=== PATIENT | female | born 1945 | race Hispanic/Latino ===

== ENCOUNTER 2020-07-30 11:19 | Emergency (ER) | payer OTHER ==
--- OUTSIDE RECORDS SUMMARY | 2020-07-30 11:22 | XMS REPORT | Continuity of Care Document ---
:1945 Author Organization [facility] t Address [address] [place] [address] [address]. [address] [place] [address] Care Team Providers Name Role Phone Unavailable Unavailable Unavailable Problems This patient has no known problems. Allergies, Adverse Reactions, Alerts This patient has no known allergies or adverse reactions. Medications This patient has no known medications. Procedures This patient has no known procedures. Results This patient has no known results.
[2020-07-30 13:17] LABS: Absolute Lymphocytes (CBC) 1.4 K/uL (0.7-4.9); Basophils % 1.1 % (0-1.3); Hematocrit 40.5 % (36.0-45.0); Lymphocytes % 15.1 % (15.3-44.8); MPV 8.6 fL (7.6-11.3); RBC Red Blood Cell Count 3.81 M/uL (3.86-4.86)
--- NOTE | 2020-07-30 13:25 | RAD REPORT ---
EXAM DESCRIPTION: CT - Abdomen Pelvis W Contrast - 07/30/2020 1:08 pm CLINICAL HISTORY: LLQ abd pain COMPARISON: CT ABD PELVIS W CONTRAST dated 12/11/2014; CT ABD PELVIS W CONTRAST dated 06/03/2014 TECHNIQUE: Biphasic, helical CT imaging of the abdomen and pelvis was performed following 100 ml non -ionic IV contrast. No oral contrast administered. All CT scans are performed using dose optimization technique as appropriate and may include automated exposure control or mA/KV adjustment according to patient size. FINDINGS: No suspicious findings in the lung bases. No cardiomegaly or pericardial effusion. The liver, spleen, and pancreas show no suspicious findings. Gallbladder is absent. Dilatation of the biliary tree is not outside of normal range for a post cholecystectomy patient and matches the 2015 study. Symmetric renal function is seen with no hydronephrosis or suspicious renal mass. No pyelonephritis o r acute parenchymal process. No bladder abnormalities. No adrenal abnormalities. No acute uterine fin ding. Ovaries are not clearly distinguishable and are obscured by adjacent on opacified bowel. No darren dence for an ovarian process. Large hiatal hernia is present with approximately 1/3 of the stomach intrathoracic. This is similar t o 2015. Evaluation of the herniated portion the stomach is limited in this setting but no gross abnor mality seen. Fluid is present in the gastric lumen. No dilated small bowel. No findings for appendici tis. Moderate stool volume is present in the colon. Sigmoid diverticulosis is minimal. There is tortu osity of the rectosigmoid colon. No acute colon process identifiable. No free air, free fluid or infl ammatory stranding. No hernia, mass or bulky lymphadenopathy. Disc and bone degenerative changes are present. Vascular calcifications are present. No aneurysm or a cute vascular finding. IMPRESSION: Contrast enhanced CT abdomen and pelvis showing no acute or emergent finding finding. Nonacute findings are detailed in the body of the report and are similar to 2015 imaging.
[2020-07-30 13:35] LABS: Albumin 3.6 g/dL (3.4-5.0); Bilirubin Direct 0.1 mg/dL (0-0.2); Bilirubin Total 0.4 mg/dL (0.2-1.0); Protein, Total 7.1 g/dL (6.4-8.2)
[2020-07-30 14:07] LABS: Urine Blood Negative (Negative); Urine Glucose Negative (Negative); Urine Protein Negative (Negative); Urine Specific Gravity 1.015 (1.005-1.030); Urine pH 6.5 (5.0-7.0)
[2020-07-30 14:21] LABS: Urine Bacteria NONE SEEN /HPF (<20); Urine RBC NONE SEEN /HPF (NONE SEEN)
[2020-07-30 14:54] LABS: Platelet Estimate INCR; White Blood Cell Scan OK (OK)
[2020-07-30 14:55] LABS: Blood Morphology Comment NOTED (NOT SEEN); Macrocytosis 1+
[2020-07-30 14:56] LABS: Anisocytosis SLIGHT
--- NOTE | 2020-07-30 15:01 | EDPHYS ---
Physician Documentation [facility] Name: Suzy Shipley Age: 75 yrs Sex: Female : 1945 Arrival Date: 07/30/2020 Time: 11:37 Bed 24 Private MD: ED Physician Donta Rao HPI: 07/30 14:56 This 75 yrs old Female presents to ER via Ambulatory with complaints of rn Abdominal Pain. 14:56 The patient presents with abdominal pain in the left lower quadrant. rn 14:56 Onset: The symptoms/episode began/occurred 2 day(s) ago. The symptoms do not radiate. rn Associated signs and symptoms: Pertinent positives: nausea, Pertinent negatives: blood in stools, diarrhea, dysuria, fever, hematuria, vomiting. The symptoms are described as achy. Modifying factors: The symptoms are alleviated by nothing, the symptoms are aggravated by movement, touching the area. Severity of pain: At its worst the pain was moderate in the emergency department the pain has improved. The patient has not experienced similar symptoms in the past. The patient has not recently seen a physician. Historical: - Allergies: 11:44 No Known Allergies; ll1 - PMHx: 11:44 Thyroid problem; Depression; ll1 - PSHx: 11:44 Cholecystectomy; ll1 - Immunization history:: Client reports receiving the 2nd dose of the Covid vaccine, Flu vaccine is not up to date. - Social history:: Smoking status: Patient/guardian denies using tobacco, the patient reports quitting approximately 3 years ago. - Family history:: not pertinent. - Hospitalizations: : No recent hospitalization is reported. ROS: 14:56 Constitutional: Negative for fever, chills, and weight loss, Eyes: Negative for injury, rn pain, redness, and discharge, ENT: Negative for injury, pain, and discharge, Neck: Negative for injury, pain, and swelling, Cardiovascular: Negative for chest pain, palpitations, and edema, Respiratory: Negative for shortness of breath, cough, wheezing, and pleuritic chest pain, Abdomen/GI: + LLQ abd pain and nausea Back: Negative for injury and pain, : Negative for injury, bleeding, discharge, and swelling, MS/Extremity: Negative for injury and deformity, Skin: Negative for injury, rash, and discoloration, Neuro: Negative for headache, weakness, numbness, tingling, and seizure. Exam: 14:56 Constitutional: This is a well developed, well nourished patient who is awake, alert, rn and in no acute distress. Head/Face: Normocephalic, atraumatic. Eyes: Periorbital areas with no swelling, redness, or edema. Cardiovascular: Regular rate and rhythm. No pulse deficits. Respiratory: No increased work of breathing, no retractions or nasal flaring. Abdomen/GI: soft, mild LLQ tenderness, no mass, no hernia Skin: Warm, dry MS/ Extremity: Pulses equal, no cyanosis. Neuro: Awake and alert, GCS 15 Vital Signs: 11:41 BP 110 / 76; Pulse 64; Resp 17; Temp 97.0; Pulse Ox 96% ; Weight 63.05 kg; Height 5 ft. ll1 0 in. (152.40 cm); Pain 9/10; 15:16 BP 151 / 59; Pulse 77; Resp 16; Pulse Ox 100% on R/A; zb 11:41 Body Mass Index 27.15 (63.05 kg, 152.40 cm) ll1 MDM: 12:14 Patient medically screened. rn 14:56 Differential diagnosis: appendicitis, diverticulitis, gastritis, non-specific abd pain, rn pancreatitis, Peritonitis, Pyelonephritis, Ureterolithiasis, urinary tract infection. Data reviewed: vital signs, nurses notes, lab test result(s), radiologic studies, CT scan, and as a result, I will discharge patient. Counseling: I had a detailed discussion with the patient and/or guardian regarding: the historical points, exam findings, and any diagnostic results supporting the discharge/admit diagnosis, lab results, radiology results, the need for outpatient follow up, to return to the emergency department if symptoms worsen or persist or if there are any questions or concerns that arise at home. Response to treatment: the patient's symptoms have mildly improved after treatment, and as a result, I will discharge patient. Special discussion: Based on the patient's Hx, exam, and Dx evaluation, there is no indication for emergent surgery or inpatient Tx. It is understood by the patient/guardian that if the Sx's persist or worsen they need to return immediately for re-evaluation. I discussed with the patient/guardian in detail that at this point there is no indication for admission to the hospital. It is understood, however, that if the symptoms persist or worsen the patient needs to return immediately for re-evaluation. ED course: No acute findings on CT abdomen, UA neg for infection, stable vitals, afebrile, will dc home with abx for possible early diverticulitis and symptomatic pain medication treatment. Urged to f/u with pcp for further evaluation and reevaluation. Could also be abd wall strain given happened when standing up, as well as early shingles. . 07/30 12:25 Order name: Basic Metabolic Panel; Complete Time: 14:36 rn 07/30 12:25 Order name: CBC with Diff; Complete Time: 14:56 rn 07/30 12:25 Order name: Hepatic Function; Complete Time: 14:36 rn 07/30 12:25 Order name: Lipase; Complete Time: 14:36 rn 07/30 12:25 Order name: Urine Microscopic Only; Complete Time: 14:36 rn 07/30 13:19 Order name: CBC Smear Scan; Complete Time: 14:56 EDMS 07/30 12:25 Order name: IV Saline Lock; Complete Time: 13:25 rn 07/30 12:25 Order name: Labs collected and sent; Complete Time: 13:25 rn 07/30 12:25 Order name: CT Abd/Pelvis - IV Contrast Only; Complete Time: 13:27 rn 07/30 12:25 Order name: Urine Dipstick-Ancillary (obtain specimen); Complete Time: 14:20 rn 07/30 14:07 Order name: Urine Dipstick-Ancillary; Complete Time: 14:36 EDMS Administered Medications: 14:48 Drug: traMADol 50 mg {Note: RASS 0.} Route: PO; zb 15:18 Follow up: Response: No adverse reaction; Pain is decreased; RASS: Alert and Calm (0) zb Disposition: 07/30/20 15:00 Discharged to Home. Impression: Lower abdominal pain, unspecified. - Condition is Stable. - Discharge Instructions: Abdominal Pain, Adult, Pain Without a Known Cause. - Prescriptions for Flagyl 500 mg Oral Tablet - take 1 tablet by ORAL route every 8 hours for 10 days; 30 tablet. Cipro 500 mg Oral Tablet - take 1 tablet by ORAL route every 12 hours for 10 days; 20 tablet. Tramadol 50 mg Oral Tablet - take 1 tablet by ORAL route every 8 hours as needed; 12 tablet. - Medication Reconciliation Form, Thank You Letter, Antibiotic Education, Prescription Opioid Use form. - Follow up: Private Physician; When: 2 - 3 days; Reason: Recheck today's complaints, Re-evaluation by your physician. - Problem is new. - Symptoms have improved. Signatures: Dispatcher [employer] EDMS Donta Rao MD MD rn Lewis, Lynsay, RN RN ll1 Hayley Yanez RN RN zb Corrections: (The following items were deleted from the chart) 15:18 15:00 07/30/2020 15:00 Discharged to Home. Impression: Lower abdominal pain, zb unspecified. Condition is Stable. Forms are Medication Reconciliation Form, Thank You Letter, Antibiotic Education, Prescription Opioid Use. Follow up: Private Physician; When: 2 - 3 days; Reason: Recheck today's complaints, Re-evaluation by your physician. Problem is new. Symptoms have improved. rn
--- NOTE | 2020-07-30 15:01 | ER ---
Nurse's Notes [facility] Name: Suzy Shipley Age: 75 yrs Sex: Female : 1945 Arrival Date: 07/30/2020 Time: 11:37 Bed 24 Private MD: Diagnosis: Lower abdominal pain, unspecified Presentation: 07/30 11:41 Chief complaint: Patient states: LLQ abd pain for 2 days. States today her stool looks ll1 black. No N/V or fever. Slight dysuria last week, none now. Has chronic L back pain. Coronavirus screen: Client denies travel out of the [place] in the last 14 days. At this time, the client does not indicate any symptoms associated with coronavirus-19. Ebola Screen: Patient denies travel to an Ebola-affected area in the 21 days before illness onset. Initial Sepsis Screen: Does the patient meet any 2 criteria? No. Patient's initial sepsis screen is negative. Does the patient have a suspected source of infection? Yes: Acute abdominal pain. Risk Assessment: Do you want to hurt yourself or someone else? Patient reports no desire to harm self or others. Onset of symptoms was July 29, 2020. 11:41 Method Of Arrival: Ambulatory ll1 11:41 Acuity: NANCI 3 ll1 Historical: - Allergies: 11:44 No Known Allergies; ll1 - PMHx: 11:44 Thyroid problem; Depression; ll1 - PSHx: 11:44 Cholecystectomy; ll1 - Immunization history:: Client reports receiving the 2nd dose of the Covid vaccine, Flu vaccine is not up to date. - Social history:: Smoking status: Patient/guardian denies using tobacco, the patient reports quitting approximately 3 years ago. - Family history:: not pertinent. - Hospitalizations: : No recent hospitalization is reported. Screenin:22 Abuse screen: Denies threats or abuse. Denies injuries from another. Nutritional zb screening: No deficits noted. Tuberculosis screening: No symptoms or risk factors identified. Fall Risk None identified. Assessment: 14:00 General: Appears uncomfortable, Behavior is calm, cooperative, appropriate for age. zb Pain: Complains of pain in posterior aspect of left lateral abdomen, left upper quadrant and left lower quadrant Pain radiates to posterior aspect of left lateral abdomen Pain currently is 3 out of 10 on a pain scale. at worst was 9 out of 10 on a pain scale. Quality of pain is described as aching, tender, throbbing. Neuro: Level of Consciousness is awake, alert, obeys commands. Cardiovascular: Reports None. Respiratory: Airway is patent Respiratory effort is even, unlabored, Respiratory pattern is regular, symmetrical, Breath sounds are clear bilaterally. GI: Abdomen is round Bowel sounds present X 4 quads. Abdomen is tender to palpation in left upper quadrant and left lower quadrant Reports lower abdominal pain, upper abdominal pain, bloating, Patient currently denies nausea, vomiting. : Urine is clear. Derm: Skin is intact, is healthy with good turgor. Musculoskeletal: Range of motion:. 15:17 Reassessment: patient d/c. d/c instructions given. gait even and steady. pain decrease zb to 7/10 at worst. no pain with no movement. Vital Signs: 11:41 BP 110 / 76; Pulse 64; Resp 17; Temp 97.0; Pulse Ox 96% ; Weight 63.05 kg; Height 5 ft. ll1 0 in. (152.40 cm); Pain 9/10; 15:16 BP 151 / 59; Pulse 77; Resp 16; Pulse Ox 100% on R/A; zb 11:41 Body Mass Index 27.15 (63.05 kg, 152.40 cm) ll1 ED Course: 11:37 Patient arrived in ED. bp1 11:43 Triage completed. ll1 11:45 Arm band placed on. ll1 12:14 Hayley Yanez RN is Primary Nurse. zb 12:14 Donta Rao MD is Attending Physician. rn 12:45 Inserted saline lock: 22 gauge in right antecubital area, using aseptic technique. zb Blood collected. 13:08 CT Abd/Pelvis - IV Contrast Only In Process Unspecified. EDMS 14:22 Patient has correct armband on for positive identification. Placed in gown. Bed in low zb position. Adult w/ patient. Pulse ox on. NIBP on. Door closed. Noise minimized. 15:17 No provider procedures requiring assistance completed. IV discontinued, intact, zb bleeding controlled, No redness/swelling at site. Pressure dressing applied. Administered Medications: 14:48 Drug: traMADol 50 mg {Note: RASS 0.} Route: PO; zb 15:18 Follow up: Response: No adverse reaction; Pain is decreased; RASS: Alert and Calm (0) zb Outcome: 15:00 Discharge ordered by . rn 15:17 Discharged to home ambulatory, with family. zb 15:17 Condition: stable 15:17 Discharge instructions given to patient, family, Instructed on discharge instructions, follow up and referral plans. medication usage, Demonstrated understanding of instructions, follow-up care, medications, Prescriptions given X 3. 15:18 Patient left the ED. zb Signatures: Dispatcher [employer] EDMS Donta Rao MD MD rn Lewis, Lynsay, RN RN ll1 Janay Goss Zipporah, RN RN zb Corrections: (The following items were deleted from the chart) 14:48 14:48 traMADol 50 mg PO zb zb
[2020-07-30] MEDS ORDERED: TRAMADOL HCL 50 MG TAB ONE (15:06)
[2020-07-30 15:26] VITALS: TEMP 97
[2020-07-30 15:27] VITALS: BP 151/59; O2SAT 100
== END 2020-07-30 15:18 | disposition home or self-care (01) ==
LOC: ER 11:19
DX: R10.32 Left lower quadrant pain (principal)
CPT/HCPCS: 36415; 74177; 80048; 80076; 81003; 81015; 82565; 83690; 85025; 99284

== ENCOUNTER 2020-09-06 23:20 | Emergency (ER) | payer OTHER ==
--- OUTSIDE RECORDS SUMMARY | 2020-09-06 23:23 | XMS REPORT | Continuity of Care Document ---
:1945 Author Organization [facility] t Address [address] [place] [address] [address]. [address] [place] [address] Care Team Providers Name Role Phone Unavailable Unavailable Unavailable Problems This patient has no known problems. Allergies, Adverse Reactions, Alerts This patient has no known allergies or adverse reactions. Medications This patient has no known medications. Procedures This patient has no known procedures. Results This patient has no known results.
[2020-09-06 23:43] LABS: Absolute Lymphocytes (CBC) 0.7 K/uL (0.7-4.9); Basophils % 0.3 % (0-1.3); Hematocrit 41.2 % (36.0-45.0); Lymphocytes % 4.4 % (15.3-44.8); MPV 8.5 fL (7.6-11.3); RBC Red Blood Cell Count 3.88 M/uL (3.86-4.86)
[2020-09-06 23:44] LABS: Protime INR 1.31
[2020-09-06] MEDS ORDERED: CIPROFLOXACIN 400mg IV 400 MG/200 ML BAG IV ONE (23:49)
[2020-09-06] MEDS ORDERED: ONDANSETRON 4 MG/2 ML VIAL ONE (23:49)
[2020-09-06] MEDS ORDERED: NA CHLORIDE 0.9% 1,000 ML ONE (23:50)
[2020-09-06 23:58] LABS: ALT/SGPT 71 U/L (12-78); AST/SGOT 30 U/L (15-37); Albumin 4.1 g/dL (3.4-5.0); Alkaline Phosphatase 127 U/L (45-117); BUN Blood Urea Nitrogen 22 mg/dL (7-18); Bicarbonate 23 mmol/L (21-32); Bilirubin Direct 0.1 mg/dL (0-0.2); Bilirubin Total 0.5 mg/dL (0.2-1.0); Glucose Level 137 mg/dL (74-106); Lipase 96 U/L (73-393); Magnesium 2.1 mg/dL (1.8-2.4); NT PRO-BNP 104 pg/mL (<450); Potassium 3.9 mmol/L (3.5-5.1); Sodium Level 137 mmol/L (136-145); Troponin (Emerg Dept Use Only) < 0.02 ng/mL (0.0-0.045)
[2020-09-06 23:58] LABS: Urine Blood Trace-intact (Negative); Urine Glucose Negative (Negative); Urine Protein Negative (Negative)
[2020-09-07 00:07] LABS: Anisocytosis 2+; Blood Morphology Comment NOTED (NOT SEEN); Macrocytosis 2+; Ovalocytes 1+; Platelet Estimate ADEQ
--- NOTE | 2020-09-07 00:50 | ER ---
Nurse's Notes [facility] Name: Suzy Shipley Age: 75 yrs Sex: Female : 1945 Arrival Date: 09/06/2020 Time: 23:22 Bed 19 Private MD: Diagnosis: Vomiting;Diarrhea, unspecified;Abdominal tenderness;Congenital hiatus hernia-large Presentation: 09/06 23:22 Chief complaint: EMS states: Pt BIB EMS from home for c/o generalized abd pain, n/v/d ad5 that began at 1930 this pm. Pt denies blood in stool or emesis. +generalized weakness per pt. No active vomiting upon arrival to ED. VSS. Coronavirus screen: At this time, the client does not indicate any symptoms associated with coronavirus-19. Ebola Screen: No symptoms or risks identified at this time. Initial Sepsis Screen: Does the patient meet any 2 criteria? HR > 90 bpm. Does the patient have a suspected source of infection? No. Patient's initial sepsis screen is negative. Risk Assessment: Do you want to hurt yourself or someone else? Patient reports no desire to harm self or others. Onset of symptoms was September 06, 2020 at 19:30. 23:22 Method Of Arrival: EMS ad5 23:22 Acuity: NANCI 3 ad5 Historical: - Allergies: 23:37 No Known Allergies; ad5 - Home Meds: 23:37 Unable to obtain [Active]; ad5 - PMHx: 23:37 Depression; Thyroid problem; Arthritis; High cholesterol; ad5 - Immunization history:: Adult Immunizations unknown. - Social history:: Smoking status: unknown. - Family history:: not pertinent. Screenin:36 Abuse screen: Denies threats or abuse. Nutritional screening: No deficits noted. ea Tuberculosis screening: No symptoms or risk factors identified. Fall Risk IV access (20 points). Assessment: 23:37 General: Appears in no apparent distress. Behavior is calm, cooperative, appropriate ea for age. Pain: Complains of pain in abdomen. Neuro: Level of Consciousness is awake, alert, obeys commands, Oriented to person, place, time. Cardiovascular: Patient's skin is warm and dry. Respiratory: Airway is patent Respiratory effort is even, unlabored, Respiratory pattern is regular, symmetrical. Derm: Skin is pink, warm \T\ dry. 09/07 00:14 Reassessment: Patient appears in no apparent distress at this time. No changes from ad5 previously documented assessment. Patient and/or family updated on plan of care and expected duration. Pain level reassessed. 02:48 GI: Abdomen is flat, Bowel sounds present X 4 quads. Abd is soft and non tender Reports ad5 lower abdominal pain, diarrhea, nausea, vomiting. Vital Signs: 09/06 23:22 BP 156 / 87; Pulse 108; Resp 18 S; Temp 99.2(O); Pulse Ox 93% on R/A; Weight 67.59 kg; ad5 Height 5 ft. 4 in. (162.56 cm); Pain 6/10; 09/07 00:14 BP 144 / 84; Pulse 100; Resp 16 S; Pulse Ox 95% on R/A; ad5 09/06 23:22 Body Mass Index 25.58 (67.59 kg, 162.56 cm) ad5 ED Course: 09/06 23:22 Patient arrived in ED. mike 23:22 Ivan Franks MD is Attending Physician. mike 23:35 Alicia Flores, MARCIAL is Primary Nurse. ea 23:36 Patient has correct armband on for positive identification. Bed in low position. Call ea light in reach. Side rails up X2. 23:36 Arm band placed on right wrist. Patient placed in an exam room, on a stretcher, on ea cardiac surgeon, on pulse oximetry. EKG completed in triage. Results shown to MD. 23:36 Inserted saline lock: 20 gauge in right antecubital area, using aseptic technique. ea Blood collected. 23:37 Triage completed. ad5 23:56 XRAY Chest (1 view) In Process Unspecified. EDMS 09/07 00:23 CT Abd/Pelvis - IV Contrast Only In Process Unspecified. EDMS 00:50 Anson Marcano MD is Referral Physician. mike 02:35 No provider procedures requiring assistance completed. ea 02:48 IV discontinued, intact, bleeding controlled, No redness/swelling at site. Pressure ad5 dressing applied. Administered Medications: 09/06 23:38 Drug: NS 0.9% 1000 ml Route: IV; Rate: 1 bolus; Site: right antecubital; ea 09/07 01:23 Follow up: IV Status: Completed infusion; IV Intake: 1000ml ad5 09/06 23:38 Drug: Cipro (ciprofloxacin) 400 mg Volume: 200 ml; Route: IVPB; Infused Over: 60 mins; ea Site: right antecubital; 09/07 01:23 Follow up: Response: No adverse reaction; IV Status: Completed infusion; IV Intake: ad5 200ml 09/06 23:38 Drug: Zofran (Ondansetron) 4 mg Route: IVP; Site: right antecubital; ea 09/07 00:44 Follow up: Response: No adverse reaction ad5 00:52 Drug: Tylenol 650 mg Route: PO; ad5 01:22 Follow up: Response: No adverse reaction ad5 00:52 Drug: NS 0.9% 1000 ml Route: IV; Rate: 1 bolus; Site: right antecubital; ad5 02:47 Follow up: IV Status: Completed infusion; IV Intake: 1000ml ad5 Intake: 01:23 IV: 200ml; Total: 200ml. ad5 01:23 IV: 1000ml; Total: 1200ml. ad5 02:47 IV: 1000ml; Total: 2200ml. ad5 Outcome: 00:49 Discharge ordered by . mike 02:35 Condition: stable ea 02:35 Discharge instructions given to patient, Instructed on discharge instructions, follow up and referral plans. Demonstrated understanding of instructions, follow-up care, medications, Prescriptions given X 3. 02:48 Discharged to home ambulatory, with significant other. ad5 02:49 Patient left the ED. ea Signatures: Dispatcher [employer] EDIvan Romo MD MD cha Antunez, Elena RN RN Marco A Garcia ad5 Corrections: (The following items were deleted from the chart) 02:49 09/06 23:37 General: Appears in no apparent distress. Behavior is calm, cooperative, ad5 appropriate for age, ea
--- NOTE | 2020-09-07 00:50 | EDPHYS ---
Physician Documentation [facility] Name: Suzy Shipley Age: 75 yrs Sex: Female : 1945 Arrival Date: 09/06/2020 Time: 23:22 Bed 19 Private MD: ED Physician Ivan Franks HPI: 09/06 23:25 This 75 yrs old Female presents to ER via Unassigned with complaints of mike Diarrhea. 23:25 The patient presents to the emergency department with nausea, vomiting, diarrhea, mike abdominal pain, of the right upper quadrant, left upper quadrant, right lower quadrant and left lower quadrant. Onset: The symptoms/episode began/occurred this morning. Possible causes: unknown. The symptoms are aggravated by nothing. The symptoms are alleviated by nothing. Associated signs and symptoms: The patient has no apparent associated signs or symptoms. Severity of symptoms: At their worst the symptoms were mild moderate in the emergency department the symptoms are unchanged. The patient has not experienced similar symptoms in the past. Historical: - Allergies: 23:37 No Known Allergies; ad5 - Home Meds: 23:37 Unable to obtain [Active]; ad5 - PMHx: 23:37 Depression; Thyroid problem; Arthritis; High cholesterol; ad5 - Immunization history:: Adult Immunizations unknown. - Social history:: Smoking status: unknown. - Family history:: not pertinent. ROS: 23:26 Constitutional: Negative for fever, chills, and weight loss, Eyes: Negative for injury, mike pain, redness, and discharge, ENT: Negative for injury, pain, and discharge, Neck: Negative for injury, pain, and swelling, Cardiovascular: Negative for chest pain, palpitations, and edema, Respiratory: Negative for shortness of breath, cough, wheezing, and pleuritic chest pain, Back: Negative for injury and pain, : Negative for injury, bleeding, discharge, and swelling, MS/Extremity: Negative for injury and deformity, Skin: Negative for injury, rash, and discoloration, Neuro: Negative for headache, weakness, numbness, tingling, and seizure, Psych: Negative for depression, anxiety, suicide ideation, homicidal ideation, and hallucinations, Allergy/Immunology: Negative for hives, rash, and allergies, Endocrine: Negative for neck swelling, polydipsia, polyuria, polyphagia, and marked weight changes. 23:26 Abdomen/GI: Positive for abdominal pain, nausea and vomiting, diarrhea. Exam: 23:26 Constitutional: This is a well developed, well nourished patient who is awake, alert, mike and in no acute distress. Head/Face: Normocephalic, atraumatic. Eyes: Pupils equal round and reactive to light, extra-ocular motions intact. Lids and lashes normal. Conjunctiva and sclera are non-icteric and not injected. Cornea within normal limits. Periorbital areas with no swelling, redness, or edema. ENT: Nares patent. No nasal discharge, no septal abnormalities noted. Tympanic membranes are normal and external auditory canals are clear. Oropharynx with no redness, swelling, or masses, exudates, or evidence of obstruction, uvula midline. Mucous membranes moist. Neck: Trachea midline, no thyromegaly or masses palpated, and no cervical lymphadenopathy. Supple, full range of motion without nuchal rigidity, or vertebral point tenderness. No Meningismus. Chest/axilla: Normal chest wall appearance and motion. Nontender with no deformity. No lesions are appreciated. Cardiovascular: Regular rate and rhythm with a normal S1 and S2. No gallops, murmurs, or rubs. Normal PMI, no JVD. No pulse deficits. Respiratory: Lungs have equal breath sounds bilaterally, clear to auscultation and percussion. No rales, rhonchi or wheezes noted. No increased work of breathing, no retractions or nasal flaring. Back: No spinal tenderness. No costovertebral tenderness. Full range of motion. Skin: Warm, dry with normal turgor. Normal color with no rashes, no lesions, and no evidence of cellulitis. MS/ Extremity: Pulses equal, no cyanosis. Neurovascular intact. Full, normal range of motion. Neuro: Awake and alert, GCS 15, oriented to person, place, time, and situation. Cranial nerves II-XII grossly intact. Motor strength 5/5 in all extremities. Sensory grossly intact. Cerebellar exam normal. Normal gait. Psych: Awake, alert, with orientation to person, place and time. Behavior, mood, and affect are within normal limits. 23:26 Abdomen/GI: Inspection: distension, that is mild, Bowel sounds: active, Palpation: mild abdominal tenderness, in the right upper quadrant and left upper quadrant, Liver: no appreciated palpable abnormalities, Hernia: not appreciated. Vital Signs: 23:22 BP 156 / 87; Pulse 108; Resp 18 S; Temp 99.2(O); Pulse Ox 93% on R/A; Weight 67.59 kg; ad5 Height 5 ft. 4 in. (162.56 cm); Pain 6/10; 09/07 00:14 BP 144 / 84; Pulse 100; Resp 16 S; Pulse Ox 95% on R/A; ad5 09/06 23:22 Body Mass Index 25.58 (67.59 kg, 162.56 cm) ad5 MDM: 09/06 23:22 Patient medically screened. mike 23:32 Differential diagnosis: Nonspecific abd pain, gastritis, pancreatitis, appendicitis, mike diverticulitis, viral gastroenteritis, gastroenteritis. Data reviewed: vital signs, nurses notes, EMS record, lab test result(s), EKG, radiologic studies, CT scan, plain films. Data interpreted: desk monitor: rate is 86 beats/min, rhythm is regular, Pulse oximetry: on room air is 96 %. Test interpretation: by ED physician or midlevel provider: ECG, plain radiologic studies. Counseling: I had a detailed discussion with the patient and/or guardian regarding: the historical points, exam findings, and any diagnostic results supporting the discharge/admit diagnosis, lab results, radiology results. 09/06 23:25 Order name: Basic Metabolic Panel; Complete Time: 00:23 mike 09/06 23:25 Order name: CBC with Diff; Complete Time: 00:23 mike 09/06 23:25 Order name: LFT's; Complete Time: 00:23 mike 09/06 23:25 Order name: Magnesium; Complete Time: 00:23 mike 09/06 23:25 Order name: NT PRO-BNP; Complete Time: 00:23 mike 09/06 23:25 Order name: PT-INR; Complete Time: 00:23 [facility] 09/06 23:25 Order name: Troponin (emerg Dept Use Only); Complete Time: 00:23 mike 09/06 23:25 Order name: Lipase; Complete Time: 00:23 mike 09/06 23:25 Order name: Basic Metabolic Panel ad5 09/06 23:25 Order name: CBC with Diff ad5 09/06 23:25 Order name: Hepatic Function ad5 09/06 23:25 Order name: XRAY Chest (1 view) mike 09/06 23:25 Order name: EKG; Complete Time: 23:25 mike 09/06 23:25 Order name: Cardiac monitoring; Complete Time: 23:38 mike 09/06 23:25 Order name: EKG - Nurse/Tech; Complete Time: 23:38 mike 09/06 23:25 Order name: IV Saline Lock; Complete Time: 23:38 mike 09/06 23:25 Order name: Labs collected and sent; Complete Time: 23:38 mike 09/06 23:25 Order name: O2 Per Protocol; Complete Time: 23:38 mike 09/06 23:25 Order name: CT Abd/Pelvis - IV Contrast Only mike 09/06 23:25 Order name: Lipase ad5 09/06 23:47 Order name: Manual Differential; Complete Time: 00:23 EDMS 09/06 23:58 Order name: Urine Dipstick-Ancillary; Complete Time: 00:01 EDMS 09/06 23:25 Order name: O2 Sat Monitoring; Complete Time: 23:38 mike 09/06 23:25 Order name: Urine Dipstick-Ancillary (obtain specimen); Complete Time: 00:00 mike 09/06 23:25 Order name: IV Saline Lock; Complete Time: 23:38 ad5 09/06 23:25 Order name: Labs collected and sent; Complete Time: 23:38 ad5 Administered Medications: 23:38 Drug: NS 0.9% 1000 ml Route: IV; Rate: 1 bolus; Site: right antecubital; 09/07 01:23 Follow up: IV Status: Completed infusion; IV Intake: 1000ml ad5 09/06 23:38 Drug: Cipro (ciprofloxacin) 400 mg Volume: 200 ml; Route: IVPB; Infused Over: 60 mins; ea Site: right antecubital; 09/07 01:23 Follow up: Response: No adverse reaction; IV Status: Completed infusion; IV Intake: ad5 200ml 09/06 23:38 Drug: Zofran (Ondansetron) 4 mg Route: IVP; Site: right antecubital; ea 09/07 00:44 Follow up: Response: No adverse reaction ad5 00:52 Drug: Tylenol 650 mg Route: PO; ad5 01:22 Follow up: Response: No adverse reaction ad5 00:52 Drug: NS 0.9% 1000 ml Route: IV; Rate: 1 bolus; Site: right antecubital; ad5 02:47 Follow up: IV Status: Completed infusion; IV Intake: 1000ml ad5 Disposition Summary: 09/07/20 00:49 Discharge Ordered Location: Home [facility] Problem: new mike Symptoms: have improved mike Condition: Stable mike Diagnosis - Vomiting mike - Diarrhea, unspecified mike - Abdominal tenderness mike - Congenital hiatus hernia - large mike Followup: mike - With: Private Physician - When: 2 - 3 days - Reason: Recheck today's complaints, Continuance of care, Re-evaluation by your physician Followup: mike - With: Anson Marcano MD - When: 2 - 3 days - Reason: Recheck today's complaints, Continuance of care, Re-evaluation by your physician Discharge Instructions: - Discharge Summary Sheet [facility] - Food Choices to Help Relieve Diarrhea, Adult mike - Diarrhea, Adult mike - Hiatal Hernia mike - Nausea and Vomiting, Adult mike - Nausea and Vomiting, Adult, [id number] mike - Diarrhea, Adult, [id number] [facility] Forms: - Medication Reconciliation Form [facility] - Thank You Letter [facility] - Antibiotic Education [facility] - Prescription Opioid Use [facility] Prescriptions: - promethazine 25 mg Rectal suppository - insert 1 suppository by RECTAL route every 6 hours intractabe nausea and mike vomiting; 12 suppository; Refills: 0, Product Selection Permitted - Pepcid 20 mg Oral Tablet - take 1 tablet by ORAL route every 12 hours for 15 days; 30 tablet; Refills: 0, [facility] Product Selection Permitted - Zofran 4 mg Oral Tablet - take 1 tablet by ORAL route every 12 hours As needed; 20 tablet; Refills: 0, [facility] Product Selection Permitted - Cipro 500 mg Oral Tablet - take 1 tablet by ORAL route every 12 hours for 5 days; 10 tablet; Refills: 0, [facility] Product Selection Permitted Signatures: Dispatcher [employer] Ivan Lazaro MD MD cha Attema, Lee, [employer]C [employer]Cla1 Alicia Flores RN RN Marco A Garcia ad5
[2020-09-07] MEDS ORDERED: NA CHLORIDE 0.9% 1,000 ML ONE (01:12)
[2020-09-07] MEDS ORDERED: ACETAMINOPHEN 325 MG TABLET ONE (01:12)
[2020-09-07 03:08] VITALS: TEMP 99.2
[2020-09-07 03:10] VITALS: BP 144/84; O2SAT 95
--- NOTE | 2020-09-07 07:11 | RAD REPORT ---
EXAM DESCRIPTION: RAD - Chest Single View - 09/06/2020 11:56 pm CLINICAL HISTORY: COUGH COMPARISON: CHEST SINGLE VIEW dated 06/03/2014; CHEST SINGLE VIEW dated 06/27/2010; CHEST PA AND LAT 2 VIEW dated 01/22/2003 FINDINGS: Heart size is normal. Atherosclerosis. Hiatal hernia. No edema or consolidation. No fractu res are seen. IMPRESSION: No acute cardiopulmonary disease.
--- NOTE | 2020-09-07 07:43 | EKG ---
Test Date: 2020-09-06 Test Time: 23:29:13 Lead Software Qa Engineer: JAYCE MEASUREMENT RESULTS: Intervals: Rate: 107 IN: 134 QRSD: 72 QT: 344 QTc: 459 [place]: P: 87 IN: 134 QRS: -77 T: 104 INTERPRETIVE STATEMENTS: Sinus tachycardia Pulmonary disease pattern Left anterior fascicular block Nonspecific ST and T wave abnormality Abnormal ECG Compared to ECG 06/03/2014 09:34:39 ST (T wave) deviation now present Sinus rhythm no longer present Electronically Signed On 09-07-20 07:42:29 CDT by Jensen Martinez
--- NOTE | 2020-09-07 12:19 | RAD REPORT ---
EXAM DESCRIPTION: CTAbdomen Pelvis W Contrast - 09/07/2020 6:50 am COMPARISON: CT abdomen pelvis July 30, 2020 CLINICAL HISTORY: ABD PAIN TECHNIQUE: CT of the abdomen and pelvis was acquired with IV contrast material. Coronal and sagitt al reconstructions were obtained. Automated exposure control was utilized on this examination as a dose lowering technique. FINDINGS: Lung bases: Clear. Liver: Normal. Gallbladder and biliary: Cholecystectomy. Unremarkable biliary tree. Pancreas: Normal. Spleen: Normal. Adrenal glands: Normal adrenal glands. Kidneys: Normal kidneys Stomach and Small Bowel: Large hiatal hernia. Unremarkable small bowel. Urinary bladder: Normal. Uterus and Adnexa: Normal. Colon and Appendix: The colon is unremarkable. No evidence of appendicitis. Retroperitoneum and lymph nodes: Normal. Vascular: Moderate multivessel calcified atherosclerosis. Peritoneal cavity: No ascites or free air. Musculoskeletal and soft tissues: Soft tissues are unremarkable. Lumbar spondylosis. No aggressive yamil[place] ne lesions. No compression fracture. IMPRESSION: 1. No acute intra-abdominal abnormality. 2. Large hiatal hernia. 3. Moderate atherosclerosis. Electronically signed by: Adriel Avendaño MD 09/07/2020 12:38 AM CDT Due to temporary technical issues with the PACS/Fluency reporting system, reports are being signed by the in house radiologist without review as a courtesy to ensure prompt reporting. The interpreting r adiologist is fully responsible for the content of the report.
== END 2020-09-07 02:49 | disposition home or self-care (01) ==
LOC: ER 23:20
DX: R19.7 Diarrhea, unspecified (principal); R10.819 Abdominal tenderness, unspecified site; Q40.1 Congenital hiatus hernia
CPT/HCPCS: 96365; 96361; 93005; 85025; 80048; 36415; 83735; 85610; 80076; 81003; 84484; 83690; 83880; 74177; 71045; 96375; 99284; 96366; Q9967; J7030 ×2; J2405; J0744

== ENCOUNTER 2023-06-14 20:05 | Emergency (ER) | payer OTHER ==
--- OUTSIDE RECORDS SUMMARY | 2023-06-14 20:12 | XMS REPORT | Continuity of Care Document ---
Author Name Unknown Address [address] [facility] [place] [address] [facility] thconnect Address [address] [facility] [place] [address] Care Team Providers Care Manager File Name Role Phone Sandrita Dempsey Primary Care Physician + [phone] LAURA RODARTE Attending Clinician Unavailable LAURA RODARTE Attending Clinician Unavailable CHRISTINA WHEATLEY Attending Clinician CHRISTINA Andrade Attending Clinician SANDRITA Grossman Attending Clinician Unavailable SANDRITA RAVI Attending Clinician Unavailable DAVID, SENDIL K.HTyrell Attending Clinician Unavailrafiq Hernandez MD, Sendil K.H. Attending Clinician + [phone] JAY BRADSHAW Attending Clinician Unavail able JAY BRADSHAW Attending Clinician Unavail Sandrita Raymundo Attending Clinician [phone] Luis POOLE, Mike Thacker Attending Clinician [phone] Neurology Attending Clinician Unavailable Loreta Ku RN Attending Clinician Unavailab ANITA Locke Attending Clinician Unavailable Yanni POOLE, Jose Chen Attending Clinician + Anita Echeverria DO Attending Clinician [phone], [facility] Attending Clinician Unavailable Errol Lopes MD Attending Clinician [phone] UDAY NIEVES Attending Clinician Unavailable Provider, [facility] Attending Clinician Unavailable Unknown, Attending Attending Clinician Unavailab le UNKNOWN, ATTENDING Attending Clinician Unavailab le Nurse, [facility] Attending Clinician Un available Doctor Unassigned, [place] Attending Clinician U navailable GC_SWHATBIC_Black_D Attending Clinician Unavaila ble Vaccine, [facility] Attending Clinician Unavailable DAGOBERTO CHRIS Attending Clinician Unavailable Cuong Delgado PA-C Attending Clinician [phone] CUONG DELGADO Attending Clinician Unavailable Jay Bradshaw MD Attending Clinician JENNIFER HARRIS Attending Clinician Unavailab le JENNIFER HARRIS Attending Clinician Unavailab le Vaccine, [facility] Attending Clinician Unav ailable Anewilliam GASTROENTEROLOGY PROFESSOR, Freda Attending Clinician [phone] FREDA MIRANDA Attending Clinician Unavailable GC_SWHAOMC_Black_D Attending Clinician Unavailab Anabel Mahmood Attending Clinician [phone] LAURA RODARTE Admitting Clinician Unavailable SANDRITA RAVI Admitting Clinician Unavailable ANITA ECHEVERRIA Admitting Clinician Unavailable Anita Echeverria DO Admitting Clinician [phone] GAYE HERNANDEZ Admitting Clinician Unavaila ble GC_SWHATBIC_Black_D Admitting Clinician Unavaila ble JAY BRADSHAW Admitting Clinician Unavail able GC_SWHAOMC_Black_D Admitting Clinician Unavailab le Payers Payer Name Policy Type Policy Number Effective Date Expirati on Date Source [employer] MANAGED MEDICARE PPO-DAVID [id number] 2022 00:00:00 [facility] - MEDICARE COMPLETE (MEDICARE REPLACEMENT HMO) [id number] [employer] MEDICARE ADVANTAGE [id number] 2022 00:00:00 2022 00:00:00 [employer] INDEMNITY [id number] 2021 00:00:00 2022 00:00:00 [place] B-[place]: [employer] [id number] 2008 00:00:00 [employer] (INDEMNITY) [id number] 2000 00:00:00 Problems Condition Name Condition Details Condition Category Status Onset Date Resolution Date Last Treatment Date Treating Clinician Comments Source Acute hyponatrem ia Acute hyponatrem ia Disease Active 05-01 00:00: 00 [facility] 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 thought to be due to hydroxyur ea [facility] Osteopenia Osteopenia Disease Active 07-17 00:00: 00 [facility] Allergies, Adverse Reactions, Alerts Allergy Name Allergy Type Status Severity Reaction(s) Onset Date Inactive Date Treating Clinician Comments Source NO KNOWN ALLERGIE S Drug Class Active [facility] Social History Social Habit Start Date Stop Date Quantity Comments Source Sexual orientation [facility] History of tobacco use Cigarette Smoker [facility] Alcohol intake 2023-05-25 00:00:00 2023-05-25 00:00:00 Lifetime non-drinker (finding) [facility] History of Social function 2023-05-15 00:00:00 2023-05-15 00:00:00 [facility] Tobacco use and exposure 2023-02-09 00:00:00 2023-02-09 00:00:00 Smokeless tobacco non-user [facility] Exposure to SARS-CoV-2 (event) 2022-02-28 00:00:00 2022-03-10 14:10:00 Not sure [facility] Sex Assigned At 1945 00:00:00 1945 00:00:00 [facility] Smoking Status Start Date Stop Date Source Ex-smoker 2023-02-09 00:00:00 2023-02-09 00:00:00 [facility] Occasional tobacco smoker 2022-03-10 00:00:00 [facility] Medications Ordered Medication Name Filled Medication Name Start Date Stop Date Current Medication? Ordering Clinician Indication Dosage Frequency Signature (SIG) Comments Components Source MIRTAZAPINE 7.5 mg tablet 05-31 00:00: 00 Yes [id number] 7.5mg TAKE 1 TABLET BY MOUTH EVERYDAY AT BEDTIME [facility] MIRTAZAPINE 7.5 mg tablet 05-25 00:00: 00 05-31 00:00 :00 No [id number] 7.5mg TAKE 1 TABLET BY MOUTH EVERYDAY AT BEDTIME [facility] donepeziL (ARICEPT) 5 mg tablet 05-24 00:00: 00 Yes [id number] 5mg Take 1 tablet by mouth at bedtime. [facility] cyclobenzap rine 10 mg tablet 05-14 13:35: 16 05-14 00:00 :00 No cyclobenza katie 10 mg tablet TAKE 1 ORAL TABLET 2 TIMES A DAY NEEDED FOR SPASMS [facility] atorvastati n 40 mg tablet 05-14 13:35: 12 Yes atorvastat in 40 mg tablet TAKE 1 TABLET BY MOUTH EVERYDAY AT BEDTIME [facility] hydroxyurea 500 mg capsule 05-14 13:35: 12 Yes 500mg Take 1 capsule by mouth daily [facility] gadobenate dimeglumine (MULTIHANCE -15 mL) injection 0.2 mL/kg 05-11 16:15: 00 05-11 16:03 :00 No [id number] 487911 .2mL/kg 0.2 mL/kg, Intravenou s, ONCE, 1 dose, On Thu05/12/23 at 1115, Routine [facility] levothyroxi ne 75 mcg tablet 05-06 15:40: 11 05-06 00:00 :00 No 75ug Take 1 tablet by mouth every morning. [facility] levothyroxi ne 75 mcg tablet 05-06 00:00: 00 Yes [id number] 75ug Take 1 tablet by mouth every morning. [facility] mirtazapine 7.5 mg tablet 05-06 00:00: 00 Yes [id number] 7.5mg Take 1 tablet by mouth at bedtime. [facility] atorvastati n (LIPITOR) tablet 40 mg 05-03 03:00: 00 Yes 40mg 40 mg, Oral, QHS, First dose on 05/03/23 at 2100, Until Discontinu ed, Routine [facility] sodium chloride tablet 500 mg 05-02 22:00: 00 Yes 500mg 500 mg, Oral, QID, First dose on 05/03/23 at 1600, Until Discontinu ed, Routine [facility] levothyroxi ne 75 mcg tablet 05-02 16:03: 18 Yes 75ug Take 1 tablet by mouth every morning. [facility] atorvastati n 40 mg tablet 05-02 16:03: 18 Yes atorvastat in 40 mg tablet TAKE 1 TABLET BY MOUTH EVERYDAY AT BEDTIME [facility] cyclobenzap rine 10 mg tablet 05-02 16:03: 18 Yes cyclobenza katie 10 mg tablet TAKE 1 ORAL TABLET 2 TIMES A DAY NEEDED FOR SPASMS [facility] hydroxyurea 500 mg capsule 05-02 16:03: 18 Yes 500mg Take 1 capsule by mouth daily [facility] clonazePAM 0.5 mg tablet 05-02 15:06: 39 05-02 00:00 :00 No .5mg Take 1 tablet by mouth 3 (three) times daily. [facility] citalopram 40 mg tablet 05-02 15:06: 39 05-02 00:00 :00 No 40mg Take 1 tablet by mouth daily. [facility] hydroxyurea (HYDREA) capsule 500 mg 05-02 15:00: 00 Yes 500mg 500 mg, Oral, DAILY, First dose on 05/03/23 at 0900, Until Discontinu ed, Routine
Indicatio n: Other
P lease specify other indication : rheumatic disease [facility] montelukast (SINGULAIR) tablet 10 mg 05-02 15:00: 00 Yes 10mg 10 mg, Oral, DAILY, First dose on 05/03/23 at 0900, Until Discontinu ed, [facility] enox[facility] (LOVENOX) [facility] 40 mg 05-02 15:00: 00 Yes 40mg 40 mg, Subcutaneo us, DAILY, First dose on 05/03/23 at 0900, Until Discontinu ed, Routine [facility] clonazePAM (KLONOPIN) tablet 0.5 mg 05-02 14:00: 00 Yes .5mg 0.5 mg, Oral, TID, First dose on 05/03/23 at 0800, Until Discontinu ed, Routine [facility] calcium carbonate (OSCAL-500) tablet 1,250 mg 05-02 14:00: 00 Yes 1200mg 1,250 mg (rounded from 1,200 mg), Oral, BID MEALS, First dose on 05/03/23 at 0800, Until Discontinu ed [facility] levothyroxi ne (SYNTHROID) tablet 75 mcg 05-02 12:00: 00 Yes 75ug 75 mcg, Oral, QAM-0600, First dose on 05/03/23 at 0600, Until Discontinu ed, Routine [facility] NaCl 0.9% (NS) IV infusion 1,000 mL 05-02 06:45: 00 05-02 06:09 :09 No 1000mL at 75 mL/hr, IV Infusion, ONCE, 1 dose, On 05/03/23 at 0045, Routine [facility] HYDROcodone -acetaminop hen (NORCO) 10-325 mg tablet 1 tablet 05-02 05:39: 25 Yes 1{tbl} 1 tablet, Oral, Q6HPRN, Starting on 05/02/23 at 2339, Until Discontinu ed, Routine, Pain (scale 7-10) [facility] traMADoL (ULTRAM) tablet 50 mg 05-02 05:39: 12 Yes 50mg 50 mg, Oral, Q6HPRN, Starting on 05/02/23 at 2339, Until Discontinu ed, Routine, Pain (scale 4-6) [facility] acetaminoph en (TYLENOL) tablet 650 mg 05-02 05:39: 09 Yes 650mg 650 mg, Oral, Q6HPRN, Starting on 05/02/23 at 2339, Until Discontinu ed, Routine, Pain (scale 1-3) [facility] cyclobenzap rine (FLEXERIL) tablet 10 mg 05-02 04:29: 32 Yes 10mg 10 mg, Oral, TIDPRN, Starting on 05/02/23 at 2229, Until Discontinu ed, Routine, Muscle Spasms [facility] clonazePAM 0.5 mg tablet 05-02 00:00: 00 Yes [id number] .5mg Take 1 tablet by mouth 3 (three) times daily as needed for Other (anxiety) for up to 60 doses. [facility] sodium chloride 1,000 mg tablet 05-02 00:00: 00 05-13 04:59 :00 Yes [id number] 500mg Take 0.5 tablets by mouth 4 (four) times daily for 10 days. [facility] ondansetron (ZOFRAN (PF)) injection 4 mg 05-01 23:55: 27 Yes 4mg 4 mg, Slow IV Push, Q6HPRN, Starting on 05/02/23 at 1755, Until Discontinu ed, Routine, Nausea and Vomiting (N/V) [facility] NaCl 0.9% (NS) bolus infusion 500 mL 05-01 22:45: 00 05-02 00:08 :00 No 500mL at 999 mL/hr, 500 mL, IV Infusion, ONCE, 1 dose, On 05/02/23 at 1645, STAT [facility] hydroxyurea 500 mg capsule 05-01:32: 05-01 00:00 :00 No 500mg Take 1 capsule by mouth daily [facility] brinzolamid e-brimonidi ne (SIMBRINZA) 1-0.2 % ophthalmic drops 05-01:32: 05-01 00:00 :00 No INSTILL 1 DROP INTO BOTH EYES TWICE A DAY [facility] cefUROXime 250 mg tablet 05-01:32: 05-01 00:00 :00 No cefuroxime axetil 250 mg tablet [facility] dorzolamide -timolol, PF, 2-0.5 % Dpet 05-01:32: 05-01 00:00 :00 No dorzolamid e-timolol (PF) 2 %-0.5 % eye drops in a dropperett e INSTILL 1 DROP INTO BOTH EYES TWICE A DAY [facility] escitalopra m oxalate 20 mg tablet 05-01:32: 05-01 00:00 :00 No escitalopr am 20 mg tablet [facility] HYDROcodone -acetaminop hen 10-325 mg tablet 05-01:32: 05-01 00:00 :00 No hydrocodon e 10 mg-acetami nophen 325 mg tablet [facility] omeprazole 40 mg capsule 05-01:32: 05-01 00:00 :00 No omeprazole 40 mg capsule,de layed release [facility] ondansetron 4 mg tablet 05-01:32: 05-01 00:00 :00 No TAKE 1 TABLET BY MOUTH EVERY 12 HOURS NEEDED [facility] pantoprazol e 40 mg EC tablet 05-01:32: 05-01 00:00 :00 No pantoprazo le 40 mg tablet,del ayed release [facility] proMETHazin e 25 mg suppository 05-01:32: 33 05-01 00:00 :00 No INSERT 1 SUPPOSITOR Y RECTALLY EVERY 6 HOURS NEEDED FOR NAUSEA AND VOMITING [facility] raloxifene 60 mg tablet 05-01 22:32: 33 05-01 00:00 :00 No raloxifene 60 mg tablet TAKE 1 TABLET(S) EVERY DAY BY ORAL ROUTE [facility] acyclovir 400 mg tablet 05-01:32: 05-01 00:00 :00 No acyclovir 400 mg tablet [facility] iopamidol (ISOVUE 370-500 mL) injection 90 mL 05-01 21:00: 05-01 21:15 :00 No [id number] 90mL 90 mL, Intravenou s, ONCE, 1 dose, On 05/02/23 at 1515, Routine [facility] FERROUS SULFATE 325 mg (65 mg iron) tablet 04-30 00:00: 00 Yes [id number] 325mg TAKE 1 TABLET BY MOUTH TWICE A DAY [facility] CALCIUM CARBONATE 600 mg calcium (1,500 mg) tablet 04-30 00:00: 00 Yes [id number] 1{tbl} TAKE 1 TABLET BY MOUTH TWICE A DAY WITH MEALS [facility] CHOLECALCIF GUNJAN, VITAMIN D3, 25 mcg (1,000 unit) tablet 04-30 00:00: 00 05-01 00:00 :00 No [id number] 1000U TAKE 1 TABLET BY MOUTH EVERY DAY [facility] atorvastati n 40 mg tablet 04-20 09:52: 23 Yes atorvastat in 40 mg tablet TAKE 1 TABLET BY MOUTH EVERYDAY AT BEDTIME [facility] cyclobenzap rine 10 mg tablet 04-20 09:52: 23 Yes cyclobenza katie 10 mg tablet TAKE 1 ORAL TABLET 2 TIMES A DAY NEEDED FOR SPASMS [facility] citalopram 40 mg tablet 04-20 09:52: 23 Yes 40mg Take 1 tablet by mouth daily. [facility] GAVILYTE-G 236-22.74-6 .74 -5.86 gram solution 04-20 00:00: 00 05-01 00:00 :00 No TAKE 4,000 ML BY MOUTH ONCE NOW FOR 1 DOSE. [facility] peg-electro lyte soln 236-22.74-6 .74 -5.86 gram solution 04-20 00:00: 00 04-21 05:59 :00 Yes [id number] 4000mL Take 4,000 mL by mouth once now for 1 dose. [facility] atorvastati n 40 mg tablet 04-16 15:21: 41 Yes atorvastat in 40 mg tablet TAKE 1 TABLET BY MOUTH EVERYDAY AT BEDTIME [facility] mirtazapine 7.5 mg tablet 04-16 00:00: 00 05-01 00:00 :00 No [id number] 7.5mg Take 1 tablet by mouth at bedtime. [facility] iopamidol (ISOVUE 370-500 mL) injection 90 mL 04-10 22:45: 00 04-10 23:00 :00 No [id number] 90mL 90 mL, Intravenou s, ONCE, 1 dose, On Thu04/10/23 at 1700, Routine [facility] amoxicillin -clavulanat e 875-125 mg per tablet 04-10 00:00: 00 04-21 05:59 :00 Yes [id number] 1{tbl} Take 1 tablet by mouth every 12 (twelve) hours for 10 days. [facility] HYDROcodone -acetaminop hen 7.5-325 mg per tablet 2- 00:00: 00 05-01 00:00 :00 No [facility] dorzolamide -timoloL 22.3-6.8 mg/mL ophthalmic drops 2-06 00:00: 00 05-01 00:00 :00 No INSTILL 1 DROP INTO BOTH EYES TWICE A DAY [facility] calcium carbonate (CALCIUM 600) 600 mg calcium (1,500 mg) tablet 03-28 00:00: 00 04-30 00:00 :00 No [id number] 600mg Take 1 tablet by mouth 2 (two) times daily with meals. [facility] cholecalcif gunjan, vitamin D3, (VITAMIN D3) 25 mcg (1,000 unit) tablet 03-28 00:00: 00 04-30 00:00 :00 No [id number] 1000U Take 1 tablet by mouth daily. [facility] OMEPRAZOLE ORAL 03-10 09:14: 55 03-10 00:00 :00 No Take by mouth. [facility] Pantoprazol e 40 mg delayed-rel ease suspension 03-10 09:14: 49 03-10 00:00 :00 No 40mg Take 40 mg by mouth in the morning. [facility] raloxifene 60 mg tablet 03-10 09:14: 46 03-10 00:00 :00 No 60mg Take 1 tablet by mouth in the morning. [facility] losartan 25 mg tablet 03-10 09:14: 34 03-10 00:00 :00 No 25mg Take 1 tablet by mouth in the morning. [facility] glimepiride 1 mg tablet 03-10 09:14: 14 03-10 00:00 :00 No 1mg Take 1 tablet by mouth daily with breakfast. [facility] ESCITALOPRA M OXALATE ORAL 03-10 09:14: 08 03-10 00:00 :00 No Take by mouth. [facility] cloniDINE 0.3 mg tablet 03-10 09:13: 56 03-10 00:00 :00 No .3mg Take 1 tablet by mouth in the morning and 1 tablet at noon and 1 tablet in the evening. [facility] citalopram 40 mg tablet 03-10 09:13: 32 Yes 40mg Take 1 tablet by mouth daily. [facility] citalopram 10 mg tablet 03-10 09:13: 06 03-10 00:00 :00 No 10mg Take 1 tablet by mouth in the morning. [facility] carvedilol 12.5 mg tablet 03-10 09:13: 03 03-10 00:00 :00 No 12.5mg Take 1 tablet by mouth in the morning and 1 tablet in the evening. Take with meals. [facility] brimonidine 0.15 % ophthalmic drops 03-10 09:12: 57 03-10 00:00 :00 No brimonidin e 0.15 % eye drops INSTILL 1 DROP IN BOTH EYES TWICE A DAY [facility] amLODIPine 5 mg tablet 03-10 09:12: 44 03-10 00:00 :00 No 5mg Take 1 tablet by mouth in the morning. [facility] ferrous sulfate 325 mg (65 mg iron) tablet 03-03 00:00: 00 04-30 00:00 :00 No [id number] 325mg Take 1 tablet by mouth 2 (two) times daily. [facility] hydroxyurea 500 mg capsule 2022-03 10:07: 30 Yes 500mg Take 1 capsule by mouth daily [facility] ESCITALOPRA M OXALATE ORAL 2022-03 10:07: 30 Yes Take by mouth. [facility] raloxifene 60 mg tablet 2022-03 10:07: 30 Yes 60mg Take 1 tablet by mouth in the morning. [facility] Pantoprazol e 40 mg delayed-rel ease suspension 2022-03 10:07: 30 Yes 40mg Take 40 mg by mouth in the morning. [facility] carvedilol 12.5 mg tablet 2022-03 10:07: 30 Yes 12.5mg Take 1 tablet by mouth in the morning and 1 tablet in the evening. Take with meals. [facility] citalopram 10 mg tablet 2022-03 10:07: 30 Yes 10mg Take 1 tablet by mouth in the morning. [facility] glimepiride 1 mg tablet 2022-03 10:07: 30 Yes 1mg Take 1 tablet by mouth daily with breakfast. [facility] amLODIPine 5 mg tablet 2022-03 10:07: 30 Yes 5mg Take 1 tablet by mouth in the morning. [facility] cloniDINE 0.3 mg tablet 2022-03 10:07: 30 Yes .3mg Take 1 tablet by mouth in the morning and 1 tablet at noon and 1 tablet in the evening. [facility] cyclobenzap rine 10 mg tablet 2022-03 09:59: 54 Yes cyclobenza katie 10 mg tablet TAKE 1 ORAL TABLET 2 TIMES A DAY NEEDED FOR SPASMS [facility] losartan 25 mg tablet 2022-03 09:59: 54 Yes 25mg Take 1 tablet by mouth in the morning. [facility] brimonidine 0.15 % ophthalmic drops 2022-03 09:59: 54 Yes brimonidin e 0.15 % eye drops INSTILL 1 DROP IN BOTH EYES TWICE A DAY [facility] valACYclovi r (VALTREX) 1 gram tablet 2022-03 00:00: 00 02-17 05:59 :00 No [id number] 1g Take 1 tablet by mouth in the morning and 1 tablet in the evening. Do all this for 7 days. [facility] amoxicillin 875 mg tablet 2022-03 00:00: 00 05-01 00:00 :00 No 875mg Take 1 tablet by mouth 2 (two) times daily. [facility] atorvastati n 40 mg tablet 2021-03 14:57: 51 Yes atorvastat in 40 mg tablet TAKE 1 TABLET BY MOUTH EVERYDAY AT BEDTIME [facility] clonazePAM 0.5 mg tablet 2021-03 14:57: 51 Yes .5mg Take 0.5 mg by mouth 3 (three) times daily. [facility] levothyroxi ne 75 mcg tablet 2021-03 14:57: 51 Yes 75ug Take 75 mcg by mouth every morning. [facility] citalopram 10 mg tablet 2021-03 14:57: 51 Yes 10mg Take 10 mg by mouth daily. [facility] hydroxyurea 500 mg capsule 2021-03 14:57: 51 Yes 500mg Take 500 mg by mouth daily. [facility] cyclobenzap rine 10 mg tablet 2021-03 14:34: 40 Yes cyclobenza katie 10 mg tablet TAKE 1 ORAL TABLET 2 TIMES A DAY NEEDED FOR SPASMS [facility] brimonidine 0.15 % ophthalmic drops 2021-03 14:34: 39 Yes brimonidin e 0.15 % eye drops INSTILL 1 DROP IN BOTH EYES TWICE A DAY [facility] HYDROcodone -acetaminop hen 10-325 mg tablet 2021-03 00:00: 00 03-10 00:00 :00 No 1{tbl} Take 1 tablet by mouth in the morning and 1 tablet at noon and 1 tablet in the evening. [facility] montelukast 10 mg tablet 2021-03 00:00: 00 05-14 00:00 :00 No 10mg Take 1 tablet by mouth daily. [facility] cloniDINE 0.3 mg tablet 08-01 18:47: 38 Yes .3mg Take 0.3 mg by mouth 3 (three) times daily. [facility] OMEPRAZOLE ORAL 08-01 18:47: 38 Yes Take by mouth. [facility] raloxifene 60 mg tablet 08-01 18:47: 37 Yes 60mg Take 60 mg by mouth daily. [facility] Pantoprazol e 40 mg delayed-rel ease suspension 08-01 18:47: 37 Yes 40mg Take 40 mg by mouth daily. [facility] losartan 25 mg tablet 08-01 18:47: 37 Yes 25mg Take 25 mg by mouth daily. [facility] carvedilol 12.5 mg tablet 08-01 18:47: 37 Yes 12.5mg Take 12.5 mg by mouth 2 (two) times daily with meals. [facility] glimepiride 1 mg tablet 08-01 18:47: 37 Yes 1mg Take 1 mg by mouth daily with breakfast. [facility] amLODIPine 5 mg tablet 08-01 18:47: 37 Yes 5mg Take 5 mg by mouth daily. [facility] ESCITALOPRA M OXALATE ORAL 08-01 18:47: 37 Yes Take by mouth. [facility] clonazePAM 0.5 mg tablet 08-01 18:47: 37 Yes .5mg Take 0.5 mg by mouth 3 (three) times daily. [facility] hydroxyurea 500 mg capsule 08-01 18:47: 37 Yes 500mg Take 500 mg by mouth daily. [facility] levothyroxi ne 75 mcg tablet 08-01 18:47: 37 Yes 75ug Take 75 mcg by mouth every morning. [facility] citalopram 10 mg tablet 08-01 18:47: 37 Yes 10mg Take 10 mg by mouth daily. [facility] Immunizations Ordered Immunization Name Filled Immunization Name Date Status Comments Source SARS-COV-2 COVID-19 VACCINE 12 YRS+, BIVALENT 0.5ML, IM, (MODERNA BOOSTER) 2022-04-09 00:00:00 Completed [facility] SARS-COV-2 COVID-19 VACCINE 12 YRS+, BIVALENT 0.5ML, IM, (MODERNA BOOSTER) 2022-04-09 00:00:00 Completed [facility] SARS-COV-2 COVID-19 MODERNA 0.25ML BOOSTER VACCINE 2021-06-03 00:00:00 Completed [facility] SARS-COV-2 COVID-19 MODERNA 0.25ML BOOSTER VACCINE 2021-06-03 00:00:00 Completed [facility] SARS-COV-2 COVID-19 MODERNA 0.25ML BOOSTER VACCINE 2021-06-03 00:00:00 Completed [facility] SARS-COV-2 COVID-19 MODERNA 0.25ML BOOSTER VACCINE 2021-06-03 00:00:00 Completed [facility] SARS-COV-2 COVID-19 MODERNA 0.25ML BOOSTER VACCINE 2021-06-03 00:00:00 Completed [facility] SARS-COV-2 COVID-19 MODERNA 0.25ML BOOSTER VACCINE 2021-06-03 00:00:00 Completed [facility] SARS-COV-2 COVID-19 MODERNA 0.25ML BOOSTER VACCINE 2021-06-03 00:00:00 Completed [facility] SARS-COV-2 COVID-19 MODERNA 0.25ML BOOSTER VACCINE 2021-06-03 00:00:00 Completed [facility] SARS-COV-2 COVID-19 MODERNA BOOSTER VACCINE 2021-06-03 00:00:00 Completed [facility] SARS-COV-2 COVID-19 MODERNA 0.25ML BOOSTER VACCINE 2021-06-03 00:00:00 Completed [facility] COVID-19 (SARS-COV-2) vaccine, unspecified COVID-19 (SARS-COV-2) vaccine, unspecified 2020-06-14 00:00:00 Completed [facility] SARS-COV-2 COVID-19 MODERNA 12+ YRS VACCINE 2020-06-11 00:00:00 Completed [facility] SARS-COV-2 COVID-19 MODERNA 12+ YRS VACCINE 2020-06-11 00:00:00 Completed [facility] SARS-COV-2 COVID-19 MODERNA 12+ YRS VACCINE 2020-06-11 00:00:00 Completed [facility] SARS-COV-2 COVID-19 MODERNA 12+ YRS VACCINE 2020-06-11 00:00:00 Completed [facility] SARS-COV-2 COVID-19 MODERNA 12+ YRS VACCINE 2020-06-11 00:00:00 Completed [facility] SARS-COV-2 COVID-19 MODERNA 12+ YRS VACCINE 2020-06-11 00:00:00 Completed [facility] SARS-COV-2 COVID-19 MODERNA 12+ YRS VACCINE 2020-06-11 00:00:00 Completed [facility] SARS-COV-2 COVID-19 MODERNA 12+ YRS VACCINE 2020-06-11 00:00:00 Completed [facility] SARS-COV-2 COVID-19 MODERNA VACCINE 2020-06-11 00:00:00 Completed [facility] SARS-COV-2 COVID-19 MODERNA 12+ YRS VACCINE 2020-06-11 00:00:00 Completed [facility] SARS-COV-2 COVID-19 MODERNA 12+ YRS VACCINE 2020-05-16 00:00:00 Completed [facility] SARS-COV-2 COVID-19 MODERNA 12+ YRS VACCINE 2020-05-16 00:00:00 Completed [facility] SARS-COV-2 COVID-19 MODERNA 12+ YRS VACCINE 2020-05-16 00:00:00 Completed [facility] SARS-COV-2 COVID-19 MODERNA 12+ YRS VACCINE 2020-05-16 00:00:00 Completed [facility] SARS-COV-2 COVID-19 MODERNA 12+ YRS VACCINE 2020-05-16 00:00:00 Completed [facility] SARS-COV-2 COVID-19 MODERNA 12+ YRS VACCINE 2020-05-16 00:00:00 Completed [facility] SARS-COV-2 COVID-19 MODERNA 12+ YRS VACCINE 2020-05-16 00:00:00 Completed [facility] SARS-COV-2 COVID-19 MODERNA 12+ YRS VACCINE 2020-05-16 00:00:00 Completed [facility] SARS-COV-2 COVID-19 MODERNA VACCINE 2020-05-16 00:00:00 Completed [facility] SARS-COV-2 COVID-19 MODERNA 12+ YRS VACCINE 2020-05-16 00:00:00 Completed [facility] COVID-19 (SARS-COV-2) vaccine, unspecified COVID-19 (SARS-COV-2) vaccine, unspecified 2020-05-14 00:00:00 Completed [facility] SARS-COV-2 COVID 19 AJ SUCROSE VACCINE +, , 0.3 ML (30 MCG), IM PFIZER (KOWALSKI TOP) Unknown Completed [facility] SARS-COV-2 COVID-19 UNSPECIFIED VACCINE Unknown Completed [facility] SARS-COV-2 COVID-19 UNSPECIFIED VACCINE Unknown Completed [facility] Pneumococcal 20 Conjugate, PCV20 (Prevnar 20) Unknown Completed [facility] SARS-COV-2 COVID-19 MODERNA 0.25ML BOOSTER VACCINE Unknown Completed [facility] SARS-COV-2 COVID-19 MODERNA 12+ YRS VACCINE Unknown Completed [facility] SARS-COV-2 COVID-19 MODERNA 12+ YRS VACCINE Unknown Completed [facility] SARS-COV-2 COVID-19 VACCINE 12 YRS+, BIVALENT 0.5ML, IM, (MODERNA-BLUE TOP) Unknown Completed [facility] Influenza Virus Vaccine,quad Im,preserve Free 65+ (FLUAD) Unknown Completed [facility] SARS-COV-2 COVID 19 AJ SUCROSE VACCINE 12+, [id number], 0.3 ML (30 MCG), IM PFIZER (KOWALSKI TOP) Unknown Completed [facility] SARS-COV-2 COVID-19 UNSPECIFIED VACCINE Unknown Completed [facility] SARS-COV-2 COVID-19 UNSPECIFIED VACCINE Unknown Completed [facility] Pneumococcal 20 Conjugate, PCV20 (Prevnar 20) Unknown Completed [facility] SARS-COV-2 COVID-19 MODERNA 0.25ML BOOSTER VACCINE Unknown Completed [facility] SARS-COV-2 COVID-19 MODERNA 12+ YRS VACCINE Unknown Completed [facility] SARS-COV-2 COVID-19 MODERNA 12+ YRS VACCINE Unknown Completed [facility] SARS-COV-2 COVID-19 VACCINE 12 YRS+, BIVALENT 0.5ML, IM, (MODERNA-BLUE TOP) Unknown Completed [facility] SARS-COV-2 COVID-19 MODERNA 0.25ML BOOSTER VACCINE Unknown Completed [facility] SARS-COV-2 COVID-19 MODERNA 12+ YRS VACCINE Unknown Completed [facility] SARS-COV-2 COVID-19 MODERNA 12+ YRS VACCINE Unknown Completed [facility] SARS-COV-2 COVID-19 VACCINE 12 YRS+, BIVALENT 0.5ML, IM, (MODERNA-BLUE TOP) Unknown Completed [facility] SARS-COV-2 COVID-19 MODERNA 0.25ML BOOSTER VACCINE Unknown Completed [facility] SARS-COV-2 COVID-19 MODERNA 12+ YRS VACCINE Unknown Completed [facility] SARS-COV-2 COVID-19 MODERNA 12+ YRS VACCINE Unknown Completed [facility] SARS-COV-2 COVID-19 VACCINE 12 YRS+, BIVALENT 0.5ML, IM, (MODERNA-BLUE TOP) Unknown Completed [facility] Influenza Virus Vaccine,quad Im,preserve Free 65+ (FLUAD) Unknown Completed [facility] SARS-COV-2 COVID 19 AJ SUCROSE VACCINE 12, , 0.3 ML (30 MCG), IM PFIZER (KOWALSKI TOP) Unknown Completed [facility] SARS-COV-2 COVID-19 MODERNA 0.25ML BOOSTER VACCINE Unknown Completed [facility] SARS-COV-2 COVID-19 MODERNA 12+ YRS VACCINE Unknown Completed [facility] SARS-COV-2 COVID-19 MODERNA 12+ YRS VACCINE Unknown Completed [facility] SARS-COV-2 COVID-19 VACCINE 12 YRS+, BIVALENT 0.5ML, IM, (MODERNA-BLUE TOP) Unknown Completed [facility] Influenza Virus Vaccine,quad Im,preserve Free 65+ (FLUAD) Unknown Completed [facility] SARS-COV-2 COVID 19 AJ SUCROSE VACCINE , , 0.3 ML (30 MCG), IM PFIZER (KOWALSKI TOP) Unknown Completed [facility] SARS-COV-2 COVID-19 MODERNA 0.25ML BOOSTER VACCINE Unknown Completed [facility] SARS-COV-2 COVID-19 MODERNA 12+ YRS VACCINE Unknown Completed [facility] SARS-COV-2 COVID-19 MODERNA 12+ YRS VACCINE Unknown Completed [facility] SARS-COV-2 COVID-19 VACCINE 12 YRS+, BIVALENT 0.5ML, IM, (MODERNA-BLUE TOP) Unknown Completed [facility] Influenza Virus Vaccine,quad Im,preserve Free 65+ (FLUAD) Unknown Completed [facility] SARS-COV-2 COVID 19 AJ SUCROSE VACCINE 12, , 0.3 ML (30 MCG), IM PFIZER (KOWALSKI TOP) Unknown Completed [facility] SARS-COV-2 COVID-19 MODERNA 0.25ML BOOSTER VACCINE Unknown Completed [facility] SARS-COV-2 COVID-19 MODERNA 12+ YRS VACCINE Unknown Completed [facility] SARS-COV-2 COVID-19 MODERNA 12+ YRS VACCINE Unknown Completed [facility] SARS-COV-2 COVID-19 VACCINE 12 YRS+, BIVALENT 0.5ML, IM, (MODERNA-BLUE TOP) Unknown Completed [facility] Influenza Virus Vaccine,quad Im,preserve Free 65+ (FLUAD) Unknown Completed [facility] SARS-COV-2 COVID 19 AJ SUCROSE VACCINE 12+, , 0.3 ML (30 MCG), IM PFIZER (KOWALSKI TOP) Unknown Completed [facility] SARS-COV-2 COVID-19 MODERNA 0.25ML BOOSTER VACCINE Unknown Completed [facility] SARS-COV-2 COVID-19 MODERNA 12+ YRS VACCINE Unknown Completed [facility] SARS-COV-2 COVID-19 MODERNA 12+ YRS VACCINE Unknown Completed [facility] SARS-COV-2 COVID-19 VACCINE 12 YRS+, BIVALENT 0.5ML, IM, (MODERNA-BLUE TOP) Unknown Completed [facility] Influenza Virus Vaccine,quad Im,preserve Free 65+ (FLUAD) Unknown Completed [facility] SARS-COV-2 COVID 19 AJ SUCROSE VACCINE 12, , 0.3 ML (30 MCG), IM PFIZER (KOWALSKI TOP) Unknown Completed [facility] SARS-COV-2 COVID-19 UNSPECIFIED VACCINE Unknown Completed [facility] SARS-COV-2 COVID-19 UNSPECIFIED VACCINE Unknown Completed [facility] Pneumococcal 20 Conjugate, PCV20 (Prevnar 20) Unknown Completed [facility] SARS-COV-2 COVID-19 MODERNA 0.25ML BOOSTER VACCINE Unknown Completed [facility] SARS-COV-2 COVID-19 MODERNA 12+ YRS VACCINE Unknown Completed [facility] SARS-COV-2 COVID-19 MODERNA 12+ YRS VACCINE Unknown Completed [facility] SARS-COV-2 COVID-19 VACCINE 12 YRS+, BIVALENT 0.5ML, IM, (MODERNA-BLUE TOP) Unknown Completed [facility] Influenza Virus Vaccine,quad Im,preserve Free 65+ (FLUAD) Unknown Completed [facility] SARS-COV-2 COVID 19 AJ SUCROSE VACCINE 12, , 0.3 ML (30 MCG), IM PFIZER (KOWALSKI TOP) Unknown Completed [facility] SARS-COV-2 COVID-19 UNSPECIFIED VACCINE Unknown Completed [facility] SARS-COV-2 COVID-19 UNSPECIFIED VACCINE Unknown Completed [facility] Pneumococcal 20 Conjugate, PCV20 (Prevnar 20) Unknown Completed [facility] SARS-COV-2 COVID-19 MODERNA 0.25ML BOOSTER VACCINE Unknown Completed [facility] SARS-COV-2 COVID-19 MODERNA 12+ YRS VACCINE Unknown Completed [facility] SARS-COV-2 COVID-19 MODERNA 12+ YRS VACCINE Unknown Completed [facility] SARS-COV-2 COVID-19 VACCINE 12 YRS+, BIVALENT 0.5ML, IM, (MODERNA-BLUE TOP) Unknown Completed [facility] Influenza Virus Vaccine,quad Im,preserve Free 65+ (FLUAD) Unknown Completed [facility] SARS-COV-2 COVID 19 AJ SUCROSE VACCINE , 0.3 ML (30 MCG), IM PFIZER (KOWALSKI TOP) Unknown Completed [facility] SARS-COV-2 COVID-19 UNSPECIFIED VACCINE Unknown Completed [facility] SARS-COV-2 COVID-19 UNSPECIFIED VACCINE Unknown Completed [facility] Pneumococcal 20 Conjugate, PCV20 (Prevnar 20) Unknown Completed [facility] SARS-COV-2 COVID-19 MODERNA 0.25ML BOOSTER VACCINE Unknown Completed [facility] SARS-COV-2 COVID-19 MODERNA 12+ YRS VACCINE Unknown Completed [facility] SARS-COV-2 COVID-19 MODERNA 12+ YRS VACCINE Unknown Completed [facility] SARS-COV-2 COVID-19 VACCINE 12 YRS+, BIVALENT 0.5ML, IM, (MODERNA-BLUE TOP) Unknown Completed [facility] Influenza Virus Vaccine,quad Im,preserve Free 65+ (FLUAD) Unknown Completed [facility] SARS-COV-2 COVID 19 AJ SUCROSE VACCINE 12, , 0.3 ML (30 MCG), IM PFIZER (KOWALSKI TOP) Unknown Completed [facility] SARS-COV-2 COVID-19 UNSPECIFIED VACCINE Unknown Completed [facility] SARS-COV-2 COVID-19 UNSPECIFIED VACCINE Unknown Completed [facility] Pneumococcal 20 Conjugate, PCV20 (Prevnar 20) Unknown Completed [facility] SARS-COV-2 COVID-19 MODERNA 0.25ML BOOSTER VACCINE Unknown Completed [facility] SARS-COV-2 COVID-19 MODERNA 12+ YRS VACCINE Unknown Completed [facility] SARS-COV-2 COVID-19 MODERNA 12+ YRS VACCINE Unknown Completed [facility] SARS-COV-2 COVID-19 VACCINE 12 YRS+, BIVALENT 0.5ML, IM, (MODERNA-BLUE TOP) Unknown Completed [facility] Influenza Virus Vaccine,quad Im,preserve Free 65+ (FLUAD) Unknown Completed [facility] SARS-COV-2 COVID 19 AJ SUCROSE VACCINE 12, , 0.3 ML (30 MCG), IM PFIZER (KOWALSKI TOP) Unknown Completed [facility] SARS-COV-2 COVID-19 UNSPECIFIED VACCINE Unknown Completed [facility] SARS-COV-2 COVID-19 UNSPECIFIED VACCINE Unknown Completed [facility] Pneumococcal 20 Conjugate, PCV20 (Prevnar 20) Unknown Completed [facility] SARS-COV-2 COVID-19 MODERNA 0.25ML BOOSTER VACCINE Unknown Completed [facility] SARS-COV-2 COVID-19 MODERNA 12+ YRS VACCINE Unknown Completed [facility] SARS-COV-2 COVID-19 MODERNA 12+ YRS VACCINE Unknown Completed [facility] SARS-COV-2 COVID-19 VACCINE 12 YRS+, BIVALENT 0.5ML, IM, (MODERNA-BLUE TOP) Unknown Completed [facility] Influenza Virus Vaccine,quad Im,preserve Free 65+ (FLUAD) Unknown Completed [facility] SARS-COV-2 COVID 19 AJ SUCROSE VACCINE 12, , 0.3 ML (30 MCG), IM PFIZER (KOWALSKI TOP) Unknown Completed [facility] SARS-COV-2 COVID-19 UNSPECIFIED VACCINE Unknown Completed [facility] SARS-COV-2 COVID-19 UNSPECIFIED VACCINE Unknown Completed [facility] Pneumococcal 20 Conjugate, PCV20 (Prevnar 20) Unknown Completed [facility] SARS-COV-2 COVID-19 MODERNA 0.25ML BOOSTER VACCINE Unknown Completed [facility] SARS-COV-2 COVID-19 MODERNA 12+ YRS VACCINE Unknown Completed [facility] SARS-COV-2 COVID-19 MODERNA 12+ YRS VACCINE Unknown Completed [facility] SARS-COV-2 COVID-19 VACCINE 12 YRS+, BIVALENT 0.5ML, IM, (MODERNA-BLUE TOP) Unknown Completed [facility] Influenza Virus Vaccine,quad Im,preserve Free 65+ (FLUAD) Unknown Completed [facility] SARS-COV-2 COVID 19 AJ SUCROSE VACCINE 12, , 0.3 ML (30 MCG), IM PFIZER (KOWALSKI TOP) Unknown Completed [facility] SARS-COV-2 COVID-19 UNSPECIFIED VACCINE Unknown Completed [facility] SARS-COV-2 COVID-19 UNSPECIFIED VACCINE Unknown Completed [facility] Pneumococcal 20 Conjugate, PCV20 (Prevnar 20) Unknown Completed [facility] SARS-COV-2 COVID-19 MODERNA 0.25ML BOOSTER VACCINE Unknown Completed [facility] SARS-COV-2 COVID-19 MODERNA 12+ YRS VACCINE Unknown Completed [facility] SARS-COV-2 COVID-19 MODERNA 12+ YRS VACCINE Unknown Completed [facility] SARS-COV-2 COVID-19 VACCINE 12 YRS+, BIVALENT 0.5ML, IM, (MODERNA-BLUE TOP) Unknown Completed [facility] Influenza Virus Vaccine,quad Im,preserve Free 65+ (FLUAD) Unknown Completed [facility] SARS-COV-2 COVID 19 AJ SUCROSE VACCINE 12, , 0.3 ML (30 MCG), IM PFIZER (KOWALSKI TOP) Unknown Completed [facility] SARS-COV-2 COVID-19 UNSPECIFIED VACCINE Unknown Completed [facility] SARS-COV-2 COVID-19 UNSPECIFIED VACCINE Unknown Completed [facility] Pneumococcal 20 Conjugate, PCV20 (Prevnar 20) Unknown Completed [facility] SARS-COV-2 COVID-19 MODERNA 0.25ML BOOSTER VACCINE Unknown Completed [facility] SARS-COV-2 COVID-19 MODERNA 12+ YRS VACCINE Unknown Completed [facility] SARS-COV-2 COVID-19 MODERNA 12+ YRS VACCINE Unknown Completed [facility] SARS-COV-2 COVID-19 VACCINE 12 YRS+, BIVALENT 0.5ML, IM, (MODERNA-BLUE TOP) Unknown Completed [facility] Influenza Virus Vaccine,quad Im,preserve Free 65+ (FLUAD) Unknown Completed [facility] SARS-COV-2 COVID 19 AJ SUCROSE VACCINE 12+, , 0.3 ML (30 MCG), IM PFIZER (KOWALSKI TOP) Unknown Completed [facility] SARS-COV-2 COVID-19 UNSPECIFIED VACCINE Unknown Completed [facility] SARS-COV-2 COVID-19 UNSPECIFIED VACCINE Unknown Completed [facility] Pneumococcal 20 Conjugate, PCV20 (Prevnar 20) Unknown Completed [facility] SARS-COV-2 COVID-19 MODERNA 0.25ML BOOSTER VACCINE Unknown Completed [facility] SARS-COV-2 COVID-19 MODERNA 12+ YRS VACCINE Unknown Completed [facility] SARS-COV-2 COVID-19 MODERNA 12+ YRS VACCINE Unknown Completed [facility] SARS-COV-2 COVID-19 VACCINE 12 YRS+, BIVALENT 0.5ML, IM, (MODERNA-BLUE TOP) Unknown Completed [facility] Influenza Virus Vaccine,quad Im,preserve Free 65+ (FLUAD) Unknown Completed [facility] SARS-COV-2 COVID 19 AJ SUCROSE VACCINE 12+, , 0.3 ML (30 MCG), IM PFIZER (KOWALSKI TOP) Unknown Completed [facility] SARS-COV-2 COVID-19 UNSPECIFIED VACCINE Unknown Completed [facility] SARS-COV-2 COVID-19 UNSPECIFIED VACCINE Unknown Completed [facility] Pneumococcal 20 Conjugate, PCV20 (Prevnar 20) Unknown Completed [facility] SARS-COV-2 COVID-19 MODERNA 0.25ML BOOSTER VACCINE Unknown Completed [facility] SARS-COV-2 COVID-19 MODERNA 12+ YRS VACCINE Unknown Completed [facility] SARS-COV-2 COVID-19 MODERNA 12+ YRS VACCINE Unknown Completed [facility] SARS-COV-2 COVID-19 VACCINE 12 YRS+, BIVALENT 0.5ML, IM, (MODERNA-BLUE TOP) Unknown Completed [facility] Influenza Virus Vaccine,quad Im,preserve Free 65+ (FLUAD) Unknown Completed [facility] SARS-COV-2 COVID 19 AJ SUCROSE VACCINE 12+, , 0.3 ML (30 MCG), IM PFIZER (KOWALSKI TOP) Unknown Completed [facility] SARS-COV-2 COVID-19 UNSPECIFIED VACCINE Unknown Completed [facility] SARS-COV-2 COVID-19 UNSPECIFIED VACCINE Unknown Completed [facility] Pneumococcal 20 Conjugate, PCV20 (Prevnar 20) Unknown Completed [facility] SARS-COV-2 COVID-19 MODERNA 0.25ML BOOSTER VACCINE Unknown Completed [facility] SARS-COV-2 COVID-19 MODERNA 12+ YRS VACCINE Unknown Completed [facility] SARS-COV-2 COVID-19 MODERNA 12+ YRS VACCINE Unknown Completed [facility] SARS-COV-2 COVID-19 VACCINE 12 YRS+, BIVALENT 0.5ML, IM, (MODERNA-BLUE TOP) Unknown Completed [facility] Influenza Virus Vaccine,quad Im,preserve Free 65+ (FLUAD) Unknown Completed [facility] SARS-COV-2 COVID 19 AJ SUCROSE VACCINE 12, , 0.3 ML (30 MCG), IM PFIZER (KOWALSKI TOP) Unknown Completed [facility] SARS-COV-2 COVID-19 UNSPECIFIED VACCINE Unknown Completed [facility] SARS-COV-2 COVID-19 UNSPECIFIED VACCINE Unknown Completed [facility] Pneumococcal 20 Conjugate, PCV20 (Prevnar 20) Unknown Completed [facility] SARS-COV-2 COVID-19 MODERNA 0.25ML BOOSTER VACCINE Unknown Completed [facility] SARS-COV-2 COVID-19 MODERNA 12+ YRS VACCINE Unknown Completed [facility] SARS-COV-2 COVID-19 MODERNA 12+ YRS VACCINE Unknown Completed [facility] SARS-COV-2 COVID-19 VACCINE 12 YRS+, BIVALENT 0.5ML, IM, (MODERNA-BLUE TOP) Unknown Completed [facility] Influenza Virus Vaccine,quad Im,preserve Free 65+ (FLUAD) Unknown Completed [facility] SARS-COV-2 COVID 19 AJ SUCROSE VACCINE 12+, [id number], 0.3 ML (30 MCG), IM PFIZER (KOWALSKI TOP) Unknown Completed [facility] SARS-COV-2 COVID-19 UNSPECIFIED VACCINE Unknown Completed [facility] SARS-COV-2 COVID-19 UNSPECIFIED VACCINE Unknown Completed [facility] Pneumococcal 20 Conjugate, PCV20 (Prevnar 20) Unknown Completed [facility] SARS-COV-2 COVID-19 MODERNA 0.25ML BOOSTER VACCINE Unknown Completed [facility] SARS-COV-2 COVID-19 MODERNA 12+ YRS VACCINE Unknown Completed [facility] SARS-COV-2 COVID-19 MODERNA 12+ YRS VACCINE Unknown Completed [facility] SARS-COV-2 COVID-19 VACCINE 12 YRS+, BIVALENT 0.5ML, IM, (MODERNA-BLUE TOP) Unknown Completed [facility] Influenza Virus Vaccine,quad Im,preserve Free 65+ (FLUAD) Unknown Completed [facility] SARS-COV-2 COVID 19 AJ SUCROSE VACCINE 12+, , 0.3 ML (30 MCG), IM PFIZER (KOWALSKI TOP) Unknown Completed [facility] SARS-COV-2 COVID-19 UNSPECIFIED VACCINE Unknown Completed [facility] SARS-COV-2 COVID-19 UNSPECIFIED VACCINE Unknown Completed [facility] Pneumococcal 20 Conjugate, PCV20 (Prevnar 20) Unknown Completed [facility] SARS-COV-2 COVID-19 MODERNA 0.25ML BOOSTER VACCINE Unknown Completed [facility] SARS-COV-2 COVID-19 MODERNA 12+ YRS VACCINE Unknown Completed [facility] SARS-COV-2 COVID-19 MODERNA 12+ YRS VACCINE Unknown Completed [facility] SARS-COV-2 COVID-19 VACCINE 12 YRS+, BIVALENT 0.5ML, IM, (MODERNA-BLUE TOP) Unknown Completed [facility] Influenza Virus Vaccine,quad Im,preserve Free 65+ (FLUAD) Unknown Completed [facility] SARS-COV-2 COVID 19 AJ SUCROSE VACCINE 12, [id number], 0.3 ML (30 MCG), IM PFIZER (KOWALSKI TOP) Unknown Completed [facility] SARS-COV-2 COVID-19 UNSPECIFIED VACCINE Unknown Completed [facility] SARS-COV-2 COVID-19 UNSPECIFIED VACCINE Unknown Completed [facility] Pneumococcal 20 Conjugate, PCV20 (Prevnar 20) Unknown Completed [facility] SARS-COV-2 COVID-19 MODERNA 0.25ML BOOSTER VACCINE Unknown Completed [facility] SARS-COV-2 COVID-19 MODERNA 12+ YRS VACCINE Unknown Completed [facility] SARS-COV-2 COVID-19 MODERNA 12+ YRS VACCINE Unknown Completed [facility] SARS-COV-2 COVID-19 VACCINE 12 YRS+, BIVALENT 0.5ML, IM, (MODERNA-BLUE TOP) Unknown Completed [facility] Influenza Virus Vaccine,quad Im,preserve Free 65+ (FLUAD) Unknown Completed [facility] SARS-COV-2 COVID 19 AJ SUCROSE VACCINE 12, , 0.3 ML (30 MCG), IM PFIZER (KOWALSKI TOP) Unknown Completed [facility] SARS-COV-2 COVID-19 UNSPECIFIED VACCINE Unknown Completed [facility] SARS-COV-2 COVID-19 UNSPECIFIED VACCINE Unknown Completed [facility] Pneumococcal 20 Conjugate, PCV20 (Prevnar 20) Unknown Completed [facility] SARS-COV-2 COVID-19 MODERNA 0.25ML BOOSTER VACCINE Unknown Completed [facility] SARS-COV-2 COVID-19 MODERNA 12+ YRS VACCINE Unknown Completed [facility] SARS-COV-2 COVID-19 MODERNA 12+ YRS VACCINE Unknown Completed [facility] SARS-COV-2 COVID-19 VACCINE 12 YRS+, BIVALENT 0.5ML, IM, (MODERNA-BLUE TOP) Unknown Completed [facility] Influenza Virus Vaccine,quad Im,preserve Free 65+ (FLUAD) Unknown Completed [facility] SARS-COV-2 COVID 19 AJ SUCROSE VACCINE 12+, , 0.3 ML (30 MCG), IM PFIZER (KOWALKSI TOP) Unknown Completed [facility] SARS-COV-2 COVID-19 UNSPECIFIED VACCINE Unknown Completed [facility] SARS-COV-2 COVID-19 UNSPECIFIED VACCINE Unknown Completed [facility] Pneumococcal 20 Conjugate, PCV20 (Prevnar 20) Unknown Completed [facility] SARS-COV-2 COVID-19 MODERNA 0.25ML BOOSTER VACCINE Unknown Completed [facility] SARS-COV-2 COVID-19 MODERNA 12+ YRS VACCINE Unknown Completed [facility] SARS-COV-2 COVID-19 MODERNA 12+ YRS VACCINE Unknown Completed [facility] SARS-COV-2 COVID-19 VACCINE 12 YRS+, BIVALENT 0.5ML, IM, (MODERNA-BLUE TOP) Unknown Completed [facility] Influenza Virus Vaccine,quad Im,preserve Free 65+ (FLUAD) Unknown Completed [facility] SARS-COV-2 COVID 19 AJ SUCROSE VACCINE 12, , 0.3 ML (30 MCG), IM PFIZER (KOWALSKI TOP) Unknown Completed [facility] SARS-COV-2 COVID-19 UNSPECIFIED VACCINE Unknown Completed [facility] SARS-COV-2 COVID-19 UNSPECIFIED VACCINE Unknown Completed [facility] Pneumococcal 20 Conjugate, PCV20 (Prevnar 20) Unknown Completed [facility] SARS-COV-2 COVID-19 MODERNA 0.25ML BOOSTER VACCINE Unknown Completed [facility] SARS-COV-2 COVID-19 MODERNA 12+ YRS VACCINE Unknown Completed [facility] SARS-COV-2 COVID-19 MODERNA 12+ YRS VACCINE Unknown Completed [facility] SARS-COV-2 COVID-19 VACCINE 12 YRS+, BIVALENT 0.5ML, IM, (MODERNA-BLUE TOP) Unknown Completed [facility] Influenza Virus Vaccine,quad Im,preserve Free 65+ (FLUAD) Unknown Completed [facility] SARS-COV-2 COVID 19 AJ SUCROSE VACCINE 12, , 0.3 ML (30 MCG), IM PFIZER (KOWALSKI TOP) Unknown Completed [facility] SARS-COV-2 COVID-19 UNSPECIFIED VACCINE Unknown Completed [facility] SARS-COV-2 COVID-19 UNSPECIFIED VACCINE Unknown Completed [facility] Pneumococcal 20 Conjugate, PCV20 (Prevnar 20) Unknown Completed [facility] SARS-COV-2 COVID-19 MODERNA 0.25ML BOOSTER VACCINE Unknown Completed [facility] SARS-COV-2 COVID-19 MODERNA 12+ YRS VACCINE Unknown [facility] [facility] SARS-COV-2 COVID-19 MODERNA 12+ YRS VACCINE Unknown Completed [facility] SARS-COV-2 COVID-19 VACCINE 12 YRS+, BIVALENT 0.5ML, IM, (MODERNA-BLUE TOP) Unknown Completed [facility] Influenza Virus Vaccine,quad Im,preserve Free 65+ (FLUAD) Unknown Completed [facility] SARS-COV-2 COVID 19 AJ SUCROSE VACCINE 12, , 0.3 ML (30 MCG), IM PFIZER (KOWALSKI TOP) Unknown Completed [facility] SARS-COV-2 COVID-19 UNSPECIFIED VACCINE Unknown Completed [facility] SARS-COV-2 COVID-19 UNSPECIFIED VACCINE Unknown Completed [facility] Pneumococcal 20 Conjugate, PCV20 (Prevnar 20) Unknown Completed [facility] SARS-COV-2 COVID-19 MODERNA 0.25ML BOOSTER VACCINE Unknown Completed [facility] SARS-COV-2 COVID-19 MODERNA 12+ YRS VACCINE Unknown Completed [facility] SARS-COV-2 COVID-19 MODERNA 12+ YRS VACCINE Unknown Completed [facility] SARS-COV-2 COVID-19 VACCINE 12 YRS+, BIVALENT 0.5ML, IM, (MODERNA-BLUE TOP) Unknown Completed [facility] Influenza Virus Vaccine,quad Im,preserve Free 65+ (FLUAD) Unknown Completed [facility] SARS-COV-2 COVID 19 AJ SUCROSE VACCINE 12, , 0.3 ML (30 MCG), IM PFIZER (KOWALSKI TOP) Unknown Completed [facility] SARS-COV-2 COVID-19 UNSPECIFIED VACCINE Unknown Completed [facility] SARS-COV-2 COVID-19 UNSPECIFIED VACCINE Unknown Completed [facility] Pneumococcal 20 Conjugate, PCV20 (Prevnar 20) Unknown Completed [facility] SARS-COV-2 COVID-19 MODERNA 0.25ML BOOSTER VACCINE Unknown Completed [facility] SARS-COV-2 COVID-19 MODERNA 12+ YRS VACCINE Unknown Completed [facility] SARS-COV-2 COVID-19 MODERNA 12+ YRS VACCINE Unknown Completed [facility] SARS-COV-2 COVID-19 VACCINE 12 YRS+, BIVALENT 0.5ML, IM, (MODERNA-BLUE TOP) Unknown Completed [facility] Influenza Virus Vaccine,quad Im,preserve Free 65+ (FLUAD) Unknown Completed [facility] SARS-COV-2 COVID 19 AJ SUCROSE VACCINE 12+, , 0.3 ML (30 MCG), IM PFIZER (KOWALSKI TOP) Unknown Completed [facility] SARS-COV-2 COVID-19 UNSPECIFIED VACCINE Unknown Completed [facility] SARS-COV-2 COVID-19 UNSPECIFIED VACCINE Unknown Completed [facility] Pneumococcal 20 Conjugate, PCV20 (Prevnar 20) Unknown Completed [facility] SARS-COV-2 COVID-19 MODERNA 0.25ML BOOSTER VACCINE Unknown Completed [facility] SARS-COV-2 COVID-19 MODERNA 12+ YRS VACCINE Unknown Completed [facility] SARS-COV-2 COVID-19 MODERNA 12+ YRS VACCINE Unknown Completed [facility] SARS-COV-2 COVID-19 VACCINE 12 YRS+, BIVALENT 0.5ML, IM, (MODERNA-BLUE TOP) Unknown Completed [facility] Influenza Virus Vaccine,quad Im,preserve Free 65+ (FLUAD) Unknown Completed [facility] SARS-COV-2 COVID 19 AJ SUCROSE VACCINE 12+, , 0.3 ML (30 MCG), IM PFIZER (KOWALSKI TOP) Unknown Completed [facility] SARS-COV-2 COVID-19 UNSPECIFIED VACCINE Unknown Completed [facility] SARS-COV-2 COVID-19 UNSPECIFIED VACCINE Unknown Completed [facility] Pneumococcal 20 Conjugate, PCV20 (Prevnar 20) Unknown Completed [facility] SARS-COV-2 COVID-19 MODERNA 0.25ML BOOSTER VACCINE Unknown Completed [facility] SARS-COV-2 COVID-19 MODERNA 12+ YRS VACCINE Unknown Completed [facility] SARS-COV-2 COVID-19 MODERNA 12+ YRS VACCINE Unknown Completed [facility] SARS-COV-2 COVID-19 VACCINE 12 YRS+, BIVALENT 0.5ML, IM, (MODERNA-BLUE TOP) Unknown Completed [facility] Influenza Virus Vaccine,quad Im,preserve Free 65+ (FLUAD) Unknown Completed [facility] SARS-COV-2 COVID 19 AJ SUCROSE VACCINE 12+, , 0.3 ML (30 MCG), IM PFIZER (KOWALSKI TOP) Unknown Completed [facility] SARS-COV-2 COVID-19 UNSPECIFIED VACCINE Unknown Completed [facility] SARS-COV-2 COVID-19 UNSPECIFIED VACCINE Unknown Completed [facility] Pneumococcal 20 Conjugate, PCV20 (Prevnar 20) Unknown Completed [facility] SARS-COV-2 COVID-19 MODERNA 0.25ML BOOSTER VACCINE Unknown Completed [facility] SARS-COV-2 COVID-19 MODERNA 12+ YRS VACCINE Unknown Completed [facility] SARS-COV-2 COVID-19 MODERNA 12+ YRS VACCINE Unknown Completed [facility] SARS-COV-2 COVID-19 VACCINE 12 YRS+, BIVALENT 0.5ML, IM, (MODERNA-BLUE TOP) Unknown Completed [facility] Influenza Virus Vaccine,quad Im,preserve Free 65+ (FLUAD) Unknown Completed [facility] SARS-COV-2 COVID 19 AJ SUCROSE VACCINE 12, , 0.3 ML (30 MCG), IM PFIZER (KOWALSKI TOP) Unknown Completed [facility] SARS-COV-2 COVID-19 UNSPECIFIED VACCINE Unknown Completed [facility] SARS-COV-2 COVID-19 UNSPECIFIED VACCINE Unknown Completed [facility] Pneumococcal 20 Conjugate, PCV20 (Prevnar 20) Unknown Completed [facility] SARS-COV-2 COVID-19 MODERNA 0.25ML BOOSTER VACCINE Unknown Completed [facility] SARS-COV-2 COVID-19 MODERNA 12+ YRS VACCINE Unknown Completed [facility] SARS-COV-2 COVID-19 MODERNA 12+ YRS VACCINE Unknown Completed [facility] SARS-COV-2 COVID-19 VACCINE 12 YRS+, BIVALENT 0.5ML, IM, (MODERNA-BLUE TOP) Unknown Completed [facility] Influenza Virus Vaccine,quad Im,preserve Free 65+ (FLUAD) Unknown Completed [facility] SARS-COV-2 COVID 19 AJ SUCROSE VACCINE 12+, [id number], 0.3 ML (30 MCG), IM PFIZER (KOWALSKI TOP) Unknown Completed [facility] SARS-COV-2 COVID-19 UNSPECIFIED VACCINE Unknown Completed [facility] SARS-COV-2 COVID-19 UNSPECIFIED VACCINE Unknown Completed [facility] Pneumococcal 20 Conjugate, PCV20 (Prevnar 20) Unknown Completed [facility] SARS-COV-2 COVID-19 MODERNA 0.25ML BOOSTER VACCINE Unknown Completed [facility] SARS-COV-2 COVID-19 MODERNA 12+ YRS VACCINE Unknown Completed [facility] SARS-COV-2 COVID-19 MODERNA 12+ YRS VACCINE Unknown Completed [facility] SARS-COV-2 COVID-19 VACCINE 12 YRS+, BIVALENT 0.5ML, IM, (MODERNA-BLUE TOP) Unknown Completed [facility] Influenza Virus Vaccine,quad Im,preserve Free 65+ (FLUAD) Unknown Completed [facility] SARS-COV-2 COVID 19 AJ SUCROSE VACCINE 12+, , 0.3 ML (30 MCG), IM PFIZER (KOWALSKI TOP) Unknown Completed [facility] SARS-COV-2 COVID-19 UNSPECIFIED VACCINE Unknown Completed [facility] SARS-COV-2 COVID-19 UNSPECIFIED VACCINE Unknown Completed [facility] Pneumococcal 20 Conjugate, PCV20 (Prevnar 20) Unknown Completed [facility] SARS-COV-2 COVID-19 MODERNA 0.25ML BOOSTER VACCINE Unknown Completed [facility] SARS-COV-2 COVID-19 MODERNA 12+ YRS VACCINE Unknown Completed [facility] SARS-COV-2 COVID-19 MODERNA 12+ YRS VACCINE Unknown Completed [facility] SARS-COV-2 COVID-19 VACCINE 12 YRS+, BIVALENT 0.5ML, IM, (MODERNA-BLUE TOP) Unknown Completed [facility] Influenza Virus Vaccine,quad Im,preserve Free 65+ (FLUAD) Unknown Completed [facility] SARS-COV-2 COVID 19 JA SUCROSE VACCINE 12, [id number], 0.3 ML (30 MCG), IM PFIZER (KOWALSKI TOP) Unknown Completed [facility] SARS-COV-2 COVID-19 UNSPECIFIED VACCINE Unknown Completed [facility] SARS-COV-2 COVID-19 UNSPECIFIED VACCINE Unknown Completed [facility] Pneumococcal 20 Conjugate, PCV20 (Prevnar 20) Unknown Completed [facility] SARS-COV-2 COVID-19 MODERNA 0.25ML BOOSTER VACCINE Unknown Completed [facility] SARS-COV-2 COVID-19 MODERNA 12+ YRS VACCINE Unknown Completed [facility] SARS-COV-2 COVID-19 MODERNA 12+ YRS VACCINE Unknown Completed [facility] SARS-COV-2 COVID-19 VACCINE 12 YRS+, BIVALENT 0.5ML, IM, (MODERNA-BLUE TOP) Unknown Completed [facility] Influenza Virus Vaccine,quad Im,preserve Free 65+ (FLUAD) Unknown Completed [facility] SARS-COV-2 COVID 19 AJ SUCROSE VACCINE 12, , 0.3 ML (30 MCG), IM PFIZER (KOWALSKI TOP) Unknown Completed [facility] SARS-COV-2 COVID-19 UNSPECIFIED VACCINE Unknown Completed [facility] SARS-COV-2 COVID-19 UNSPECIFIED VACCINE Unknown Completed [facility] Pneumococcal 20 Conjugate, PCV20 (Prevnar 20) Unknown Completed [facility] SARS-COV-2 COVID-19 MODERNA 0.25ML BOOSTER VACCINE Unknown Completed [facility] SARS-COV-2 COVID-19 MODERNA 12+ YRS VACCINE Unknown Completed [facility] SARS-COV-2 COVID-19 MODERNA 12+ YRS VACCINE Unknown Completed [facility] SARS-COV-2 COVID-19 VACCINE 12 YRS+, BIVALENT 0.5ML, IM, (MODERNA-BLUE TOP) Unknown Completed [facility] Influenza Virus Vaccine,quad Im,preserve Free 65+ (FLUAD) Unknown Completed [facility] SARS-COV-2 COVID 19 AJ SUCROSE VACCINE 12, , 0.3 ML (30 MCG), IM PFIZER (KOWALSKI TOP) Unknown Completed [facility] SARS-COV-2 COVID-19 UNSPECIFIED VACCINE Unknown Completed [facility] SARS-COV-2 COVID-19 UNSPECIFIED VACCINE Unknown Completed [facility] Pneumococcal 20 Conjugate, PCV20 (Prevnar 20) Unknown Completed [facility] SARS-COV-2 COVID-19 MODERNA 0.25ML BOOSTER VACCINE Unknown Completed [facility] SARS-COV-2 COVID-19 MODERNA 12+ YRS VACCINE Unknown Completed [facility] SARS-COV-2 COVID-19 MODERNA 12+ YRS VACCINE Unknown Completed [facility] SARS-COV-2 COVID-19 VACCINE 12 YRS+, BIVALENT 0.5ML, IM, (MODERNA-BLUE TOP) Unknown Completed [facility] Influenza Virus Vaccine,quad Im,preserve Free 65+ (FLUAD) Unknown Completed [facility] SARS-COV-2 COVID 19 AJ SUCROSE VACCINE 12+, , 0.3 ML (30 MCG), IM PFIZER (KOWALSKI TOP) Unknown Completed [facility] SARS-COV-2 COVID-19 UNSPECIFIED VACCINE Unknown Completed [facility] SARS-COV-2 COVID-19 UNSPECIFIED VACCINE Unknown Completed [facility] Pneumococcal 20 Conjugate, PCV20 (Prevnar 20) Unknown Completed [facility] SARS-COV-2 COVID-19 MODERNA 0.25ML BOOSTER VACCINE Unknown Completed [facility] SARS-COV-2 COVID-19 MODERNA 12+ YRS VACCINE Unknown Completed [facility] SARS-COV-2 COVID-19 MODERNA 12+ YRS VACCINE Unknown Completed [facility] SARS-COV-2 COVID-19 VACCINE 12 YRS+, BIVALENT 0.5ML, IM, (MODERNA-BLUE TOP) Unknown Completed [facility] Influenza Virus Vaccine,quad Im,preserve Free 65+ (FLUAD) Unknown Completed [facility] SARS-COV-2 COVID 19 AJ SUCROSE VACCINE 12, , 0.3 ML (30 MCG), IM PFIZER (KOWALSKI TOP) Unknown Completed [facility] SARS-COV-2 COVID-19 UNSPECIFIED VACCINE Unknown Completed [facility] SARS-COV-2 COVID-19 UNSPECIFIED VACCINE Unknown Completed [facility] Pneumococcal 20 Conjugate, PCV20 (Prevnar 20) Unknown Completed [facility] SARS-COV-2 COVID-19 MODERNA 0.25ML BOOSTER VACCINE Unknown Completed [facility] SARS-COV-2 COVID-19 MODERNA 12+ YRS VACCINE Unknown Completed [facility] SARS-COV-2 COVID-19 MODERNA 12+ YRS VACCINE Unknown Completed [facility] SARS-COV-2 COVID-19 VACCINE 12 YRS+, BIVALENT 0.5ML, IM, (MODERNA-BLUE TOP) Unknown Completed [facility] Influenza Virus Vaccine,quad Im,preserve Free 65+ (FLUAD) Unknown Completed [facility] SARS-COV-2 COVID 19 AJ SUCROSE VACCINE 12+, [id number], 0.3 ML (30 MCG), IM PFIZER (KOWALSKI TOP) Unknown Completed [facility] SARS-COV-2 COVID-19 UNSPECIFIED VACCINE Unknown Completed [facility] SARS-COV-2 COVID-19 UNSPECIFIED VACCINE Unknown Completed [facility] Pneumococcal 20 Conjugate, PCV20 (Prevnar 20) Unknown Completed [facility] SARS-COV-2 COVID-19 MODERNA 0.25ML BOOSTER VACCINE Unknown Completed [facility] SARS-COV-2 COVID-19 MODERNA 12+ YRS VACCINE Unknown Completed [facility] SARS-COV-2 COVID-19 MODERNA 12+ YRS VACCINE Unknown Completed [facility] SARS-COV-2 COVID-19 VACCINE 12 YRS+, BIVALENT 0.5ML, IM, (MODERNA-BLUE TOP) Unknown Completed [facility] Influenza Virus Vaccine,quad Im,preserve Free 65+ (FLUAD) Unknown Completed [facility] SARS-COV-2 COVID 19 AJ SUCROSE VACCINE 12+, [id number], 0.3 ML (30 MCG), IM PFIZER (KOWALSKI TOP) Unknown Completed [facility] SARS-COV-2 COVID-19 UNSPECIFIED VACCINE Unknown Completed [facility] SARS-COV-2 COVID-19 UNSPECIFIED VACCINE Unknown Completed [facility] Pneumococcal 20 Conjugate, PCV20 (Prevnar 20) Unknown Completed [facility] SARS-COV-2 COVID-19 MODERNA 0.25ML BOOSTER VACCINE Unknown Completed [facility] SARS-COV-2 COVID-19 MODERNA 12+ YRS VACCINE Unknown Completed [facility] SARS-COV-2 COVID-19 MODERNA 12+ YRS VACCINE Unknown Completed [facility] SARS-COV-2 COVID-19 VACCINE 12 YRS+, BIVALENT 0.5ML, IM, (MODERNA-BLUE TOP) Unknown Completed [facility] Influenza Virus Vaccine,quad Im,preserve Free 65+ (FLUAD) Unknown Completed [facility] SARS-COV-2 COVID 19 AJ SUCROSE VACCINE 12, , 0.3 ML (30 MCG), IM PFIZER (KOWALSKI TOP) Unknown Completed [facility] SARS-COV-2 COVID-19 UNSPECIFIED VACCINE Unknown Completed [facility] SARS-COV-2 COVID-19 UNSPECIFIED VACCINE Unknown Completed [facility] Pneumococcal 20 Conjugate, PCV20 (Prevnar 20) Unknown Completed [facility] SARS-COV-2 COVID-19 MODERNA 0.25ML BOOSTER VACCINE Unknown Completed [facility] SARS-COV-2 COVID-19 MODERNA 12+ YRS VACCINE Unknown Completed [facility] SARS-COV-2 COVID-19 MODERNA 12+ YRS VACCINE Unknown Completed [facility] SARS-COV-2 COVID-19 VACCINE 12 YRS+, BIVALENT 0.5ML, IM, (MODERNA-BLUE TOP) Unknown Completed [facility] Influenza Virus Vaccine,quad Im,preserve Free 65+ (FLUAD) Unknown Completed [facility] SARS-COV-2 COVID 19 AJ SUCROSE VACCINE 12+, , 0.3 ML (30 MCG), IM PFIZER (KOWALSKI TOP) Unknown Completed [facility] SARS-COV-2 COVID-19 UNSPECIFIED VACCINE Unknown Completed [facility] SARS-COV-2 COVID-19 UNSPECIFIED VACCINE Unknown Completed [facility] Pneumococcal 20 Conjugate, PCV20 (Prevnar 20) Unknown Completed [facility] SARS-COV-2 COVID-19 MODERNA 0.25ML BOOSTER VACCINE Unknown Completed [facility] SARS-COV-2 COVID-19 MODERNA 12+ YRS VACCINE Unknown Completed [facility] SARS-COV-2 COVID-19 MODERNA 12+ YRS VACCINE Unknown Completed [facility] SARS-COV-2 COVID-19 VACCINE 12 YRS+, BIVALENT 0.5ML, IM, (MODERNA-BLUE TOP) Unknown Completed [facility] Influenza Virus Vaccine,quad Im,preserve Free 65+ (FLUAD) Unknown Completed [facility] SARS-COV-2 COVID 19 AJ SUCROSE VACCINE 12+, , 0.3 ML (30 MCG), IM PFIZER (KOWALSKI TOP) Unknown Completed [facility] SARS-COV-2 COVID-19 UNSPECIFIED VACCINE Unknown Completed [facility] SARS-COV-2 COVID-19 UNSPECIFIED VACCINE Unknown Completed [facility] Pneumococcal 20 Conjugate, PCV20 (Prevnar 20) Unknown Completed [facility] SARS-COV-2 COVID-19 MODERNA 0.25ML BOOSTER VACCINE Unknown Completed [facility] SARS-COV-2 COVID-19 MODERNA 12+ YRS VACCINE Unknown Completed [facility] SARS-COV-2 COVID-19 MODERNA 12+ YRS VACCINE Unknown Completed [facility] SARS-COV-2 COVID-19 VACCINE 12 YRS+, BIVALENT 0.5ML, IM, (MODERNA-BLUE TOP) Unknown Completed [facility] Influenza Virus Vaccine,quad Im,preserve Free 65+ (FLUAD) Unknown Completed [facility] Vital Signs Vital Name Observation Time Observation Value Comments S ource Systolic blood pressure 2023-05-15 18:24:00 137 mm[Hg] [facility] Diastolic blood pressure 2023-05-15 18:24:00 61 mm[Hg] [facility] Heart rate 2023-05-15 18:24:00 96 /min [facility] Body temperature 2023-05-15 18:24:00 36.06 [facility] Body height 2023-05-15 18:24:[address] [facility] Body weight 2023-05-15 18:24:[address] [facility] BMI 2023-05-15 18:24:00 26.91 kg/m2 [facility] Oxygen saturation in Arterial blood by Pulse oximetry 2023-05-15 18:24:00 96 /min [facility] Systolic blood pressure 2023-05-15 18:21:00 137 mm[Hg] [facility] Diastolic blood pressure 2023-05-15 18:21:00 61 mm[Hg] [facility] Heart rate 2023-05-15 18:21:00 95 /min [facility] Body temperature 2023-05-15 18:21:00 36.06 [facility] Body height 2023-05-15 18:21:00 152.4 cm [facility] Body weight 2023-05-15 18:21:00 62.37 kg [facility] BMI 2023-05-15 18:21:00 26.85 kg/m2 [facility] Oxygen saturation in Arterial blood by Pulse oximetry 2023-05-15 18:21:00 96 /min [facility] Systolic blood pressure 2023-05-03 09:31:00 134 mm[Hg] [facility] Diastolic blood pressure 2023-05-03 09:31:00 75 mm[Hg] [facility] Heart rate 2023-05-03 09:31:00 80 /min [facility] Body temperature 2023-05-03 09:31:00 35.94 [facility] Respiratory rate 2023-05-03 09:31:00 16 /min [facility] Oxygen saturation in Arterial blood by Pulse oximetry 2023-05-03 09:31:00 94 /min [facility] Body height 2023-05-03 01:24:00 152.4 cm [facility] Body weight 2023-05-03 01:24:[address] [facility] BMI 2023-05-03 01:24:00 27.32 kg/m2 [facility] Systolic blood pressure 2023-04-20 15:43:00 124 mm[Hg] [facility] Diastolic blood pressure 2023-04-20 15:43:00 77 mm[Hg] [facility] Heart rate 2023-04-20 15:43:00 81 /min [facility] Body temperature 2023-04-20 15:43:00 36.44 [facility] Respiratory rate 2023-04-20 15:43:00 16 /min [facility] Body height 2023-04-20 15:43:00 152.4 cm [facility] Body weight 2023-04-20 15:43:00 62.188 kg [facility] BMI 2023-04-20 15:43:00 26.78 kg/m2 [facility] Oxygen saturation in Arterial blood by Pulse oximetry 2023-04-20 15:43:00 93 /min [facility] Systolic blood pressure 2023-04-16 20:20:00 124 mm[Hg] [facility] Diastolic blood pressure 2023-04-16 20:20:00 62 mm[Hg] [facility] Heart rate 2023-04-16 20:20:00 85 /min [facility] Body temperature 2023-04-16 20:20:00 36.61 [facility] Respiratory rate 2023-04-16 20:20:00 17 /min [facility] Body height 2023-04-16 20:20:00 152.4 cm [facility] Body weight 2023-04-16 20:20:00 61.916 kg [facility] BMI 2023-04-16 20:20:00 26.66 kg/m2 [facility] Oxygen saturation in Arterial blood by Pulse oximetry 2023-04-16 20:20:00 94 /min [facility] Systolic blood pressure 2023-04-16 16:55:00 130 mm[Hg] [facility] Diastolic blood pressure 2023-04-16 16:55:00 68 mm[Hg] [facility] Heart rate 2023-04-16 16:55:00 87 /min [facility] Body temperature 2023-04-16 16:55:00 36.67 [facility] Body height 2023-04-16 16:55:00 152.4 cm [facility] Body weight 2023-04-16 16:55:[address] [facility] BMI 2023-04-16 16:55:00 26.56 kg/m2 [facility] Oxygen saturation in Arterial blood by Pulse oximetry 2023-04-16 16:55:00 93 /min [facility] Systolic blood pressure 2023-04-11 01:15:00 138 mm[Hg] [facility] Diastolic blood pressure 2023-04-11 01:15:00 71 mm[Hg] [facility] Heart rate 2023-04-11 01:15:00 61 /min [facility] Respiratory rate 2023-04-11 01:15:00 16 /min [facility] Oxygen saturation in Arterial blood by Pulse oximetry 2023-04-11 01:15:00 97 /min [facility] Body temperature 2023-04-10 20:41:00 36.78 [facility] Body height 2023-04-10 20:41:[address] [facility] Body weight 2023-04-10 20:41:[address] [facility] BMI 2023-04-10 20:41:00 26.76 kg/m2 [facility] Systolic blood pressure 2023-04-10 19:55:00 133 mm[Hg] [facility] Diastolic blood pressure 2023-04-10 19:55:00 89 mm[Hg] [facility] Heart rate 2023-04-10 19:55:00 66 /min [facility] Body temperature 2023-04-10 19:55:00 36.5 [facility] Respiratory rate 2023-04-10 19:55:00 17 /min [facility] Body height 2023-04-10 19:55:00 152.4 cm [facility] Body weight 2023-04-10 19:55:[address] [facility] BMI 2023-04-10 19:55:00 26.76 kg/m2 [facility] Oxygen saturation in Arterial blood by Pulse oximetry 2023-04-10 19:55:00 98 /min [facility] Systolic blood pressure 2023-04-10 20:03:00 133 mm[Hg] [facility] Diastolic blood pressure 2023-04-10 20:03:00 89 mm[Hg] [facility] Heart rate 2023-04-10 20:03:00 66 /min [facility] Body temperature 2023-04-10 20:03:00 36.5 [facility] Respiratory rate 2023-04-10 20:03:00 17 /min [facility] Body height 2023-04-10 20:03:[address] [facility] Body weight 2023-04-10 20:03:[address] [facility] BMI 2023-04-10 20:03:00 26.76 kg/m2 [facility] Oxygen saturation in Arterial blood by Pulse oximetry 2023-04-10 20:03:00 98 /min [facility] Systolic blood pressure 2023-03-03 20:16:00 127 mm[Hg] [facility] Diastolic blood pressure 2023-03-03 20:16:00 74 mm[Hg] [facility] Heart rate 2023-03-03 20:16:00 72 /min [facility] Body temperature 2023-03-03 20:16:00 36.11 [facility] Respiratory rate 2023-03-03 20:16:00 17 /min [facility] Body height 2023-03-03 20:16:[address] [facility] Body weight 2023-03-03 20:16:[address] [facility] BMI 2023-03-03 20:16:00 25.37 kg/m2 [facility] Oxygen saturation in Arterial blood by Pulse oximetry 2023-03-03 20:16:00 95 /min [facility] Systolic blood pressure 2023-02-10 21:33:00 133 mm[Hg] [facility] Diastolic blood pressure 2023-02-10 21:33:00 79 mm[Hg] [facility] Heart rate 2023-02-10 21:33:00 82 /min [facility] Respiratory rate 2023-02-10 21:33:00 18 /min [facility] Body height 2023-02-10 21:33:00 152.4 cm [facility] Body weight 2023-02-10 21:33:[address] [facility] BMI 2023-02-10 21:33:00 27.15 kg/m2 [facility] Systolic blood pressure 2023-02-09 15:58:00 119 mm[Hg] [facility] Diastolic blood pressure 2023-02-09 15:58:00 67 mm[Hg] [facility] Heart rate 2023-02-09 15:58:00 67 /min [facility] Body temperature 2023-02-09 15:58:00 36.89 [facility] Respiratory rate 2023-02-09 15:58:00 16 /min [facility] Body height 2023-02-09 15:58:[address] [facility] Body weight 2023-02-09 15:58:[address] [facility] BMI 2023-02-09 15:58:00 27.09 kg/m2 [facility] Oxygen saturation in Arterial blood by Pulse oximetry 2023-02-09 15:58:00 95 /min [facility] Systolic blood pressure 2022-03-10 21:02:00 101 mm[Hg] [facility] Diastolic blood pressure 2022-03-10 21:02:00 68 mm[Hg] [facility] Heart rate 2022-03-10 21:02:00 58 /min [facility] Body weight 2022-03-10 21:02:[address] [facility] BMI 2022-03-10 21:02:00 25.89 kg/m2 [facility] Systolic blood pressure 2022-02-04 20:55:00 101 mm[Hg] [facility] Diastolic blood pressure 2022-02-04 20:55:00 65 mm[Hg] [facility] Heart rate 2022-02-04 20:55:00 62 /min [facility] Body height 2022-02-04 20:55:[address] [facility] Body weight 2022-02-04 20:55:[address] [facility] BMI 2022-02-04 20:55:00 26.26 kg/m2 [facility] Oxygen saturation in Arterial blood by Pulse oximetry 2022-02-04 20:55:00 98 /min [facility] BP Diastolic 2021-05-27 00:00:00 74 mm[Hg] [facility] Height 2021-05-27 00:00:00 61 [in_i] [facility] BMI (Body Mass Index) 2021-05-27 00:00:00 26.6 kg/m2 [facility] BP Systolic 2021-05-27 00:00:00 116 mm[Hg] [facility] Body Weight 2021-05-27 00:00:00 141 [lb_av] [facility] Procedures Procedure Date / Time Performed Performing Clinician Source CT HEAD WO CONTRAST 2023-06-01 15:20:00 Sandrita Ravi [facility] BASIC METABOLIC PANEL (NA, K, CL, CO2, GLUCOSE, BUN, CREATININE, CA) 2023-05-03 18:05:00 Patti [facility] CLOSTRIDIUM DIFFICILE TOXIN 2023-05-03 14:20:00 Patti [facility] BASIC METABOLIC PANEL (NA, K, CL, CO2, GLUCOSE, BUN, CREATININE, CA) 2023-05-03 07:52:00 Patti [facility] CBC WITH DIFF 2023-05-03 07:52:00 Lilibeth Armstrong [facility] LIPASE 2023-05-02 22:19:00 Jose Liao [facility] COMP. METABOLIC PANEL (01478) 2023-05-02 22:19:00 Jose Liao [facility] URINALYSIS 2023-05-02 22:19:00 Yanni Jose April [facility] CT ABDOMEN PELVIS W CONTRAST 2023-05-02 21:11:00 Yanni Jose Moralesa [facility] CBC WITH DIFF 2023-05-02 20:58:00 Yanni Jose April [facility] CONSENT/REFUSAL FOR DIAGNOSIS AND TREATMENT 2023-05-02 20:30:39 Doctor Unassigned, [place] [facility] TRANSTHORACIC ECHO (TTE) COMPLETE 2023-04-29 22:28:09 Gaye Hernandez [facility] FREE T4 2023-04-16 17:59:00 [facility] THYROID STIMULATING HORMONE 2023-04-16 17:59:00 Jimmy Antonyssica [facility] COMP. METABOLIC PANEL (80833) 2023-04-16 17:59:00 Sandrita Antony [facility] CBC WITH DIFF 2023-04-16 17:59:[address] [facility] FREE T3 2023-04-16 17:59:00 [facility]a [facility] CT ABDOMEN PELVIS W CONTRAST 2023-04-10 22:50:35 Errol Lopes [facility] COMP. METABOLIC PANEL (21701) 2023-04-10 21:21:00 Errol Lopes [facility] CBC WITH DIFF 2023-04-10 21:21:00 [facility]rol [facility] PROTHROMBIN TIME / INR 2023-04-10 21:21:00 Kassy Lopes [facility] CONSENT/REFUSAL FOR DIAGNOSIS AND TREATMENT 2023-04-10 20:31:57 Doctor Unassigned, [place] [facility] DEXA AXIAL (HIP AND SPINE) 2023-03-06 20:13:00 Sandrita Antony [facility] FREE T4 2023-03-03 21:05:00 Sandrita [facility] THYROID STIMULATING HORMONE 2023-03-03 21:05:00 Arpan [facility] CBC WITH DIFF 2023-03-03 21:05:00 Arpan [facility] PNEUMOCOCCAL 20 CONJUGATE (PREVNAR 20) VACCINE 2023-03-03 20:37:55 Arpan [facility] URINALYSIS 2023-02-09 16:50:00 Arpan [facility] FREE T4 2023-02-09 16:43:00 Antony [facility] THYROID STIMULATING HORMONE 2023-02-09 16:43:00 [facility] COMP. METABOLIC PANEL (24826) 2023-02-09 16:43:00 Antony [facility] LIPID PANEL (87409)(TOTAL CHOLESTEROL, TRIGLYCERIDES, HDL) 2023-02-09 16:43:00 Arpan [facility] CBC WITH DIFF 2023-02-09 16:43:00 Arpan [facility] FLU VACC(),65+YR,0.5 ML,IM,ADJUVANTED,QUAD(FLUA D) 2023-02-09 16:11:00 Arpan [facility] SARS-COV-2 COVID 19 AJ SUCROSE VACCINE 12+, , 0.3 ML (30 MCG), IM PFIZER (KOWALSKI TOP) 2023-02-09 16:11:00 Arpan [facility] ASSIGNMENT OF BENEFITS 2023-02-09 15:48:41 Docto r Unassigned, [place] [facility] SARS-COV-2 COVID-19 VACCINE 12 YRS+, BIVALENT 0.5ML, IM (MODERNA BOOSTER) 2022-04-09 18:29:46 Doctor Unassigned, [place] [facility] MR BRAIN WO CONTRAST 2022-03-05 19:37:[address] Gene [facility] ASSIGNMENT OF BENEFITS 2022-02-04 20:18:20 Docto r Unassigned, [place] [facility] SARS-COV-2 COVID-19 VACCINE BOOSTER,0.25ML,IM (MODERNA) 2021-06-03 19:50:49 Doctor Unassigned, [place] [facility] MAMMO, screening, bilateral 2021-05-27 00:00:00 [facility] BONE DENSITY MEASUREMENT USING DEDICATED X RAY MACHINE 2021-05-27 00:00:00 [facility] Cholecystectomy (Gallbladder) [facility] Plan of Care Planned Activity Planned Date Details Comments Source Diagnostic Test Pending 2021-05-27 00:00:00 [place] IgE Ab [Units/volume] in Serum [code = 6195-2] [facility] Medical Encounters Start Date/Time End Date/Time Encounter Type Admission Type Attending Clinicians Care Facility Care Department Encounter ID Source 2023-04-27 14:45:27 Outpatient [facility]ESS [facility] [id number] [facility] 2024-02-11 15:30:00 2024-02-11 15:30:00 Outpatient R CHRISTINA LLAMAS MARISOL [facility] [id number] [facility] 2023-06-10 08:30:00 2023-06-10 23:59:00 Outpatient GAYE DEL CASTILLO [facility] [id number] [facility] 2023-06-10 08:30:00 2023-06-10 23:59:00 Hospital Encounter Gaye Hernandez [facility] 1..840.114 350.1.13.10 4.2.7.2.686 [id number] [facility] 2023-06-01 09:50:53 2023-06-01 23:59:00 Outpatient SANDRITA AVILES [facility] [id number] [facility] 2023-06-01 09:50:53 2023-06-01 23:59:00 Hospital Encounter Sandrita Ravi [facility] ..840.114 350.1.13.10 4.2.7.2.686 [id number] [facility] 2023-05-30 00:00:00 2023-05-30 00:00:00 Refill Sandrita Anton[facility] 1.2.840.114 350.1.13.10 4.2.7.2.686 [id number] [facility] 2023-05-25 10:30:00 2023-05-25 11:15:42 Outpatient R BREONNA SANDRITA [facility] [id number] [facility] 2023-05-22 00:00:00 2023-05-22 00:00:00 Telephone Mike Smith [facility] 1.2.840.114 350.1.13.10 4.2.7.2.686 [id number] [facility] 2023-05-19 00:00:00 2023-05-19 00:00:00 Letter (Out) Neurology [facility] 1.2.840.114 350.1.13.10 4.2.7.2.686 [id number] [facility] 2023-05-15 14:00:00 2023-05-15 14:00:00 [facility] 1.2.840.114 350.1.13.10 4.2.7.2.686 [id number] [facility] 2023-05-15 13:30:00 2023-05-15 13:56:18 Office Visit Sandrita Antony [facility] NAL BUILD[facility] 1.2.840.114 350.1.13.10 4.2.7.2.686 [id number] [facility] 2023-05-15 14:00:00 2023-05-15 13:54:32 Outpatient R ARPAN SANDRITA [facility] [id number] [facility] 2023-05-12 09:55:27 2023-05-12 23:59:00 Outpatient R RODARTE LAURA CAYDEN [facility] [id number] [facility] 2023-05-12 09:55:27 2023-05-12 23:59:00 Hospital Encounter Laura Rodarte [facility] 1.2.840.114 350.1.13.10 4.2.7.2.686 [id number] [facility] 2023-05-07 00:00:00 2023-05-07 00:00:00 [facility] 1.2.840.114 350.1.13.10 4.2.7.2.686 [id number] [facility] 2023-05-05 00:00:00 2023-05-05 00:00:00 Telephone Gaye Hernandez [facility] BUILDING 1.2.840.114 350.1.13.10 4.2.7.2.686 [id number] [facility] 2023-05-05 00:00:00 2023-05-05 00:00:00 Telephone Jimmy Antonyssica [facility] BUILDING 1.2.840.114 350.1.13.10 4.2.7.2.686 [id number] [facility] 2023-05-05 00:00:00 2023-05-05 00:00:00 Transition of Care Loreta Ku 1.2.840.114 350.1.13.10 4.2.7.2.686 [id number] [facility] 2023-05-04 00:00:00 2023-05-04 00:00:[address] [facility] 1.2.840.114 350.1.13.10 4.2.7.2.686 [id number] [facility] 2023-05-02 14:45:00 2023-05-03 16:02:00 Outpatient X J[facility]WANANITA [facility] [id number] [facility] 2023-05-02 14:45:00 2023-05-03 16:02:00 Hospital Encounter DariemyChristopher lozanoin April Anita Echeverria [facility] 1.840.114 350.1.13.10 4.2.7.2.686 [id number] [facility] 2023-04-30 00:00:00 2023-04-30 00:00:00 Sandrita Henry [facility] 1..114 350.1.13.10 4.2.7.2.686 [id number] [facility] 2023-04-29 15:48:52 2023-04-29 23:59:00 Hospital Encounter Gaye Hernandez [facility] 1.84.114 350.1.13.10 4.2.7.2.686 [id number] [facility] 2023-04-29 15:48:52 2023-04-29 23:59:00 Outpatient R GAYE HERNANDEZ [facility] [id number] [facility] 2023-04-28 15:00:00 2023-04-28 15:00:00 Outpatient SANDRITA BLOOM [facility] [id number] [facility] 2023-04-20 10:00:00 2023-04-20 10:30:00 Office Visit Laura Rodarte 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 Trader Visit 2, Adc Lab Jimmy Antonyssica [facility] BUILDING 1.2.840.114 350.1.13.10 4.2.7.2.686 [id number] [facility] 2023-04-16 10:30:00 2023-04-16 11:51:41 Outpatient SANDRITA BLOOM [facility] [id number] [facility] 2023-04-16 10:30:00 2023-04-16 11:51:41 Office Visit Sandrita Antony [facility] BUILDING 1.2.840.114 350.1.13.10 4.2.7.2.686 [id number] [facility] 2023-04-10 14:43:00 2023-04-10 19:29:00 Emergency Errol Lopes [facility] 1.2.840.114 350.1.13.10 4.2.7.2.686 [id number] [facility] 2023-04-10 14:00:00 2023-04-10 16:05:21 Outpatient UDAY DAILEY [facility] [id number] [facility] 2023-04-10 14:00:00 2023-04-10 16:05:21 Outpatient UDAY DAILEY [facility] ERT [id number] [facility] 2023-04-10 14:20:00 2023-04-10 14:40:00 Urgent Care Provider, Chava Arevalo Urgent Care Unknown, Attending [facility] BU[facility] 1.2.840.114 350.1.13.10 4.2.7.2.686 [id number] [facility] 2023-04-10 14:20:00 2023-04-10 14:20:00 Outpatient R UNKNOWN, ATTENDING [facility] [id number] [facility] 2023-04-10 14:00:00 2023-04-10 14:20:00 Nurse Visit Nurse, Chava Arevalo Urgent Care Unknown, Attending [facility] OFF[facility] BUILD[facility] 1..840.114 350.1.13.10 4.2.7.2.686 [id number] [facility] 2023-03-28 00:00:00 2023-03-28 00:00:00 Telephone Sandrita Antony [facility] 1.840.114 350.1.13.10 4.2.7.2.686 [id number] [facility] 2023-03-10 00:00:00 2023-03-10 00:00:00 Telephone Sandrita Antony [facility] 1..840.114 350.1.13.10 4.2.7.2.686 [id number] [facility] 2023-03-06 13:42:05 2023-03-06 23:59:00 Hospital Encounter Sandrita Antony [facility] 1.840.114 350.1.13.10 4.2.7.2.686 [id number] [facility] 2023-03-06 13:41:57 2023-03-06 13:41:57 Outpatient R TERESA-THOMAS S, CHRISTINA BLANCHE CHRISTINA Rodriguez [facility] [id number] [facility] 2023-03-06 13:41:57 2023-03-06 13:41:57 Hospital Encounter Christina Llamas [facility] 1.2.840.114 350.1.13.10 4.2.7.2.686 [id number] [facility] 2023-03-03 15:15:00 2023-03-03 15:15:00 Securities Lending Trader Visit 2, [facility] 1.2.840.114 350.1.13.10 4.2.7.2.686 [id number] [facility] 2023-03-03 14:30:00 2023-03-03 14:45:24 [facility] [id number] 2023-03-03 14:30:00 2023-03-03 14:45:24 Office Visit Sandrita Antony [facility] PROFESS[facility] NAL BUILDING 1.2.840.114 350.1.13.10 4.2.7.2.686 [id number] [facility] 2023-02-10 15:30:00 2023-02-10 16:00:00 Office Visit AugustSaidaThomas rodriguezChristina [facility] 1.2.840.114 350.1.13.10 4.2.7.2.686 [id number] [facility] 2023-02-10 15:30:00 2023-02-10 15:30:00 Outpatient R BLANCHE John CHRISTINA BLANCHE [facility] [id number] [facility] 2023-02-09 10:30:00 2023-02-09 10:45:00 Securities Lending Trader Visit 2, Adc Lab Arpan [facility] PROFESSIO NAL BUILDING 1.84.114 350.1.13.10 4.2.7.2.686 [id number] [facility] 2023-02-09 10:00:00 2023-02-09 10:25:51 Outpatient R JIMMY ANTONYSSICA [facility] [id number] [facility] 2023-02-09 10:00:00 2023-02-09 10:25:51 Office Visit Sandrita Antony [facility] BUILDING 1.84.114 350.1.13.10 4.2.7.2.686 [id number] [facility] 2023-02-09 00:00:00 2023-02-09 00:00:00 Orders Only Doctor Unassigned, [place] [facility] 1.114 350.1.13.10 4.2.7.2.686 [id number] [facility] 2022-05-22 00:00:00 2022-05-22 00:00:00 Outpatient GC_SWHATBIC _Black_D [facility] [id number] [facility] 2022-04-09 13:00:00 2022-04-09 13:10:00 Imm/Inj Visit Vaccine, Adc Family Medicine Unknown, Attending [facility] BUILDING 1.84.114 350.1.13.10 4.2.7.2.686 [id number] [facility] 2022-04-09 13:00:00 2022-04-09 13:00:00 Outpatient R DAGOBERTO CHRIS [facility] [id number] [facility] 2022-04-09 00:00:00 2022-04-09 00:00:00 Telephone Cuong Delgado [facility] 1.114 350.1.13.10 4.2.7.2.686 [id number] [facility] 2022-04-08 14:30:00 2022-04-08 14:30:00 Outpatient R CUONG DELGADO [facility] [id number] [facility] 2022-03-10 15:30:00 2022-03-10 15:46:00 [facility] 1..840.114 350.1.13.10 4.2.7.2.686 [id number] [facility] 2022-03-10 15:30:00 2022-03-10 15:46:00 Outpatient R JIMMY RAVISSICA [facility] [id number] [facility] 2022-03-05 12:24:02 2022-03-05 23:59:00 Outpatient JAY ALCANTARA HOWARD [facility] [id number] [facility] 2022-03-05 12:24:02 2022-03-05 23:59:00 Hospital Encounter Jay Bradshaw [facility] 1..840.114 350.1.13.10 4.2.7.2.686 [id number] [facility] 2022-03-05 00:00:00 2022-03-05 00:00:00 Outpatient JAY ALCANTARA HOWARD [facility] [id number] [facility] 2022-02-25 00:00:00 2022-02-25 00:00:00 Outpatient JAY ALCANTARA HOWARD [facility] [id number] [facility] 2022-02-18 00:00:00 2022-02-18 00:00:00 Telephone Jay Bradshaw [facility] 1..840.114 350.1.13.10 4.2.7.2.686 [id number] [facility] 2022-02-04 15:00:00 2022-02-04 15:50:22 Office Visit Jay Bradshaw Sam [facility] MED[facility] OFF[facility] BUILD[facility] 1..840.114 350.1.13.10 4.2.7.2.686 [id number] [facility] 2022-02-04 15:00:00 2022-02-04 15:50:22 Outpatient Mason JAY BRADSHAW HOWARD [facility] [id number] [facility] 2022-02-04 00:00:00 2022-02-04 00:00:00 Orders Only Doctor Unassigned, [place] [facility] 1.840.114 350.1.13.10 4.2.7.2.686 [id number] [facility] 2022-01-13 15:00:00 2022-01-13 15:00:00 Outpatient R JENNIFER HARRIS OGECHUKWU [facility] [id number] [facility] 2021-06-03 14:10:00 2021-06-03 14:20:00 Imm/Inj Visit Vaccine, Ang Db Cbc Fam Ron [facility] OFF[facility] BUILDING 1.2.840.114 350.1.13.10 4.2.7.2.686 [id number] [facility] 2021-06-03 14:10:00 2021-06-03 14:10:00 [facility] [id number] 2021-06-03 00:00:00 2021-06-03 00:00:00 Orders Only Doctor Unassigned, [place] [facility] 1..840.114 350.1.13.10 4.2.7.2.686 [id number] [facility] 2021-05-28 11:48:00 2021-05-28 11:48:00 Outpatient GC_SWHAOMC_ Black_D [facility] [id number] [facility] 2021-05-28 00:00:00 2021-05-28 00:00:00 Outpatient GC_SWHATBIC _Black_D [facility] [id number] [facility] 2021-05-27 01:05:00 2021-05-27 01:05:00 Outpatient GC_SWHATBIC _Black_D [facility] [id number] [facility] 2021-05-27 00:00:00 2021-05-27 00:00:00 Outpatient Deshawn Anabel Rodriguez [facility] [id number] 2021-05-27 00:00:00 2021-05-27 00:00:00 Anabel Hess MD: [address], [address], [place] [address] , Ph. [facility] - GC_SWHAOMC_ [place] Office* [id number] [facility] 2021-05-24 03:45:00 2021-05-24 03:45:00 Outpatient GC_SWHAOMC_ Black_D [facility] [id number] [facility] 2021-05-22 09:44:00 2021-05-22 09:44:00 Outpatient GC_SWHATBIC _Black_D [facility] [id number] [facility] 2019-01-28 12:23:00 2019-01-28 12:23:00 Outpatient GC_SWHAOMC_ Black_D [facility] [id number] [facility] Results Test Description Test Time Test Comments Results Resul t Comments Source CT HEAD WO CONTRAST 1 15:36:10 FULL RESULT: Examination: CT HEAD WO CONTRAST on 06/01/2023 10:13 AM Clinical Indication: Memory loss Comparison: Brain MRI 03/05/2022 Technique: Noncontrast imaging was obtained from base to vertex. Findings: The sulci and ventricles are prominent and unchanged. [place] microvascular ischemic change is noted as hypodensity in thehemispheric white matter bilaterally. I suspect a small ganglionic lacunarinfarct image 13 series 2 that may have occurred since the prior MRI. There is no hemorrhage or other clearly acute intracranial process. [facility]:02:46* Test Item Value Reference Range Interpretation Comme nts LIPASE (test code = 5916337457) 154 U/L 0-220 Lab Interpretation (test cod e = 53734-3) Normal [facility] [id number] 22:18:11* Test Item Value Reference Range Interpretation Comme nts WBC (test code = 6690-2) 16.67 4.30-11.10 H RBC (test code = 789-8) 3.30 3.93-5.25 L HGB (test code = 718-7) 14.0 g/dL 11.6-15.0 HCT (test code = 4544-3) 39.7 % 35.7-45.2 MCV (test code = 787-2) 120.3 fL 80.6-95.5 H MCH (test code = 785-6) 42.4 pg 25.9-32.8 H MCHC (test code = 786-4) 35.3 g/dL 31.6-35.1 H RDW-SD (test code = 79826-2) 51.8 fL 39.0-49.9 H RDW-CV (test code = 788-0) 11.6 % 12.0-15.5 L PLT (test code = 777-3) 497 166-358 H MPV (test code = 06886-5) 10.9 fL 9.5-12.9 NRBC/100 WBC (test code = 0543140757) 0.0 0.0-10.0 NRBC x10^3 (test code = 9217823375) See_Comment [Automated [employer]] The system which generated this result transmitted reference range: 10*3/?L. The reference range was not used to interpret this result as normal/abnormal. SEG % (test code = 88946-7) 89 % 33-76 H LYMPH % (test code = 88309-9) 9 % 14-54 L MONO % (test code = 44780-7) 2 % 0-4 PLT ESTIMATE (test code = 9317-9) Increased Normal A Lab Interpretation (test code = 23140-3) [facility] [id number] 21:58:50CT ABDOMEN PELVIS W CONTRAST Ordering Provider: JOSE LIAO HISTORY: ?Abdominal pain, acute, nonlocalized COMPARISON: 04/10/2023 Technical quality: adequate TECHNIQUE: CT abdomen and pelvis with intravenous contrast. Thisexamination was performed according to ALARA principles. FINDINGS: ?Lower Chest: Bibasilar atelectasis..Liver: Unremarkable.Gallbladder and bile ducts: The gallbladder is surgically absent. There isunchanged severe dilation of the common bile duct up to 20 mm with mildintrahepatic biliary dilation..Spleen: New focal hypoattenuation in the mid spleen measured 1.3 cm..Pancreas: Unremarkable.Adrenals: Unremarkable.Kidneys and ureters: New wedge-shaped hypoattenuation within the midpole ofthe right kidney. No calculi or hydronephrosis..Large hiatal hernia, unchanged without evidence of obstruction. Theduodenum is unremarkable. The small bowel loops are nondilated. There is noevidence of bowel obstruction. Normal appendix. Colonic diverticulosis.Bladder: Circumferential wall thickening of the underdistended bladder..Reproductive organs: Unremarkable.Lymph Nodes:Unremarkable.Peritoneum: Unremarkable.Vessels: Extensive atherosclerotic calcifications of the abdominal aortawith unchanged bulbous dilation of the infrarenal aorta.Abdominal wall: Unremarkable.Bones: multilevel degenerative changes in the spine..[facility] 02:32:18* Test Item Value Reference Range Interpretation Comme nts Height (test code = 1167083582) 60 in Weight (test code = 5018587185) 137 lbs Systolic BP (test code = 6501002901) 133 mmHg Diastolic BP (test code = 7948676245) 61 mmHg Heart Rate (test code = 4191832756) 86 bpm A4C EF (test code = 6941455764) 64.90 % SV(MOD-sp4) (test code = 5450911937) 50.20 mL RVOT diameter (test code = 5590550130) 1.57 cm MR max PG (test code = 4427916535) 73.00 mm[Hg] MR max bridgette (test code = 1542436960) 422.20 cm/s Ao root diam (test code = 6223372633) 3.30 cm Mr max bridgette (test code = 3786345377) 422.2 m/s Aortic root (test code = 2633739816) 3.3 cm Ao root annulus (test code = 9208026569) 3.3 cm BSA (test code = 3993178419) 1.59 m2 LVOT diameter (test code = 9346125588) 1.65 cm LVOT area (test code = 1846649073) 2.13 cm2 LA size (test code = 5400993383) 4.0 cm ACS (test code = 6474267261) 1.37 cm LVIDD (test code = 8663380684) 4.10 cm Left Ventricular End Diastolic Volume by Teichholz Method (test code = 8499776) 73.4 mL IVS (test code = 8578007674) 1.27 cm Interventricular Septum Diastolic Thickness by 2D (test code = 0257307) 1.27 cm LVPWD (test code = 5275824626) 1.23 cm PW (test code = 5787957601) 1.23 cm 0.6-1.1 EF(Teich) (test code = 1568415421) 65.60 % LVIDS (test code = 9047576640) 2.60 cm Left Ventricular End Systolic Volume by Teichholz Method (test code = 5517204) 25.2 mL FS (test code = 6453403610) 36 % EF - 2D (test code = 55222724) 65.60 % PV PEAK VELOCITY (test code = 4070123915) 99.0 cm/s PV peak gradient (test code = 8703199233) 3.9 mmHg MV E-F slope (test code = 1552930841) 41.50 cm/s MV Peak E Bridgette (test code = 9487688149) 89.1 cm/s MV Peak A Bridgette (test code = 0196146146) 137.3 cm/s E/A ratio (test code = 1403110584) 0.65 ratio MV valve area p 1/2 method (test code = 5414554305) 3.70 cm2 MV dec slope (test code = 3853707993) 438.70 cm/s2 MV P1/2t max bridgette (test code = 9611396224) 89.60 cm/s LVOT stroke volume (test code = 5545745331) 57.80 cm3 LVOT peak bridgette (test code = 2621570044) 110.0 cm/s LVOT mn grad (test code = 3212886212) 2.0 mmHg AV LVOT peak gradient (test code = 1791002751) 4.8 mmHg LVOT peak VTI (test code = 0477473681) 27.2 cm LV V1 mean (test code = 2600934155) 64.70 cm/s Aortic valve mean velocity (test code = 3541494067) 135.0 cm/s Ao peak bridgette (test code = 2474961973) 234.2 cm/s Ao VTI (test code = 0664315724) 53.8 cm AV area by cont VTI (test code = 7522618534) 1.1 cm2 AV area peak bridgette (test code = 8548327147) 1.0 cm2 Ao max PG (test code = 5480987087) 21.90 mm[Hg] AV peak gradient (test code = 5689294726) 21.9 mmHg AV valve area (test code = 3525084798) 1.07 cm2 AV mean gradient (test code = 6553675863) 8.8 mmHg TR Peak Bridgette (test code = 2842761770) 294.9 cm/s Triscuspid Valve Regurgitation Peak Gradient (test code = 4061084383) 34.8 mmHg LAV(MOD-sp4) (test code = 0806871536) 44.20 mL LA Volume Index (BP) (test code = 6941357976) 31.5 mL/m2 LA volume (BP) (test code = 5024499749) 50.0 mL LAV(MOD-sp2) (test code = 3950596991) 54.60 mL AV regurgitation pressure 1/2 time (test code = 1601404277) 711.2 ms AI dec slope (test code = 5484730266) 175.30 cm/s2 AI max bridgette (test code = 9344889325) 425.50 cm/s AI max PG (test code = 1818846875) 72.40 mm[Hg] RVOT area (test code = 7055847983) 1.93 cm2 Radiology Study observation (narrative) (test code = 06563-7) RENEA (test code = RENEA) ?Left?Ventricle: Left ventricle size is normal. Mildly increased wall thickness. Normal wall motion. Normal systolic function with a visually estimated EF of 55 - 60%. There is impaired relaxation. Normal left ventricular filling pressure. ?Tricuspid?Valve: Mild transvalvular regurgitation. Right ventricular systolic pressure is 30-35 mmHg. ?RA pressure is 0-5 mmHg. ?Left?Atrium: Left atrium is mildly dilated. ?Aortic?Valve: Mild to moderate transvalvular regurgitation. Consistent with mild to moderate stenosis. AV mean gradient is 8.8 mmHg. AV peak velocity is 234.2 cm/s. AV area by continuity VTI is 1.1 cm2. AV area by peak velocity is 1.0 cm2. ?Aorta: Borderline enlarged aortic arch 3.07cm. Left VentricleLeft ventricle size is normal. Mildly increased wall thickness. Normal wall motion. Normal systolic function with a visually estimated EF of 55 - 60%. There is impaired relaxation. Normal left ventricular filling pressure.Right VentricleRight ventricle size is normal. Normal systolic function.Left AtriumLeft atrium is mildly dilated.Right AtriumRight atrium size is normal.Mitral ValveMildly calcified leaflets. Trace transvalvular regurgitation.Tricuspi d ValveTricuspid valve structure is grossly normal. Mild transvalvular regurgitation. Right ventricular systolic pressure is 30-35 mmHg. RA pressure is 0-5 mmHg.Aortic ValveTricuspid. Moderately calcified cusps. Mild to moderate transvalvular regurgitation. Consistent with mild to moderate stenosis. AV mean gradient is 8.8 mmHg. AV peak velocity is 234.2 cm/s. AV area by continuity VTI is 1.1 cm2. AV area by peak velocity is 1.0 cm2.Pulmonic ValveNot well visualized. Trace transvalvular regurgitation.Ascendin g AortaBorderline enlarged aortic arch 3.07cm.PericardiumNo pericardial effusion.Study DetailsStudy quality was adequate. A complete echocardiogram was performed using 2D, color flow Doppler and spectral Doppler. [facility] Rvcahox7474-37-38 20:30:52 * Test Item Value Reference Range Interpretation Comme nts TSH (test code = 8040161470) 1.05 0.45-4.70 Lab Interpretation (test cod e = 44727-3) Normal [facility] Syfhlxa1455-04-32 20:30:52 * Test Item Value Reference Range Interpretation Comme nts TSH (test code = 6739054901) 1.05 0.45-4.70 Lab Interpretation (test cod e = 87863-3) [facility] [id number] 20:17:31* Test Item Value Reference Range Interpretation Comme nts FREE T4 (test code = 0808846241) 1.28 0.78-2.20 Lab Interpretation (test cod e = 98297-2) [facility] [id number] 20:17:31* Test Item Value Reference Range Interpretation Comme nts FREE T4 (test code = 6996963123) 1.28 0.78-2.20 Lab Interpretation (test cod e = 32988-2) [place] [id number] 20:17:10* Test Item Value Reference Range Interpretation Comme nts FREE T3 (test code = 2104174125) 3.00 pg/mL 2.77-5.27 Lab Interpretation (test cod e = 08341-9) [facility] 20:17:10* Test Item Value Reference Range Interpretation Comme nts FREE T3 (test code = 9206752471) 3.00 pg/mL 2.77-5.27 Lab Interpretation (test cod e = 61127-9) [facility]. Metabolic Panel (10147)2023-04-16 20:06:30* Test Item Value Reference Range Interpretation Comme nts NA (test code = 9959504287) 134 mmol/L 135-145 L K (test code = 8682056376) 5.0 mmol/L 3.5-5.0 CL (test code = 6657105928) 99 mmol/L 98-108 CO2 TOTAL (test code = 6411765534) 26 mmol/L 23-31 AGAP (test code = 0015261705) 9 2-16 BUN (test code = 1793690502) 17 mg/dL 7-23 GLUCOSE (test code = 1365062440) 72 mg/dL 70-110 CREATININE (test code = 2160-0) 0.66 mg/dL 0.50-1.04 TOTAL BILI (test code = 2889353336) 0.9 mg/dL 0.1-1.1 CALCIUM (test code = 5621950557) 10.0 mg/dL 8.6-10.6 T PROTEIN (test code = 3273105268) 7.8 g/dL 6.3-8.2 ALBUMIN (test code = 5831924348) 4.8 g/dL 3.5-5.0 ALK PHOS (test code = 0393357785) 74 U/L 34-122 ALTv (test code = 1742-6) 18 U/L 5-35 AST(SGOT) (test code = 4333597687) 27 U/L 13-40 eGFR (test code = 77912-8) 89.4 mL/min/1.73m2 Lab Interpretation (test cod e = 78787-1) [facility] (62033)2023-04-16 20:06:30* Test Item Value Reference Range Interpretation Comme nts NA (test code = 5647836709) 134 mmol/L 135-145 L K (test code = 2999147539) 5.0 mmol/L 3.5-5.0 CL (test code = 2996427655) 99 mmol/L 98-108 CO2 TOTAL (test code = 6483854991) 26 mmol/L 23-31 AGAP (test code = 2629292759) 9 2-16 BUN (test code = 9768314594) 17 mg/dL 7-23 GLUCOSE (test code = 2546567754) 72 mg/dL 70-110 CREATININE (test code = 2160-0) 0.66 mg/dL 0.50-1.04 TOTAL BILI (test code = 0570691991) 0.9 mg/dL 0.1-1.1 CALCIUM (test code = 7637913144) 10.0 mg/dL 8.6-10.6 T PROTEIN (test code = 1694899424) 7.8 g/dL 6.3-8.2 ALBUMIN (test code = 7793180289) 4.8 g/dL 3.5-5.0 ALK PHOS (test code = 1833670461) 74 U/L 34-122 ALTv (test code = 1742-6) 18 U/L 5-35 AST(SGOT) (test code = 1329829330) 27 U/L 13-40 eGFR (test code = 20756-3) 89.4 mL/min/1.73m2 Lab Interpretation (test cod e = 56444-4) Abnormal [facility] with Axef3436-88-13 18:09:29* Test Item Value Reference Range Interpretation Comme nts WBC (test code = 6690-2) 13.17 4.30-11.10 H RBC (test code = 789-8) 3.30 3.93-5.25 L HGB (test code = 718-7) 14.1 g/dL 11.6-15.0 HCT (test code = 4544-3) 40.3 % 35.7-45.2 MCV (test code = 787-2) 122.1 fL 80.6-95.5 H MCH (test code = 785-6) 42.7 pg 25.9-32.8 H MCHC (test code = 786-4) 35.0 g/dL 31.6-35.1 RDW-SD (test code = 20727-0) 53.6 fL 39.0-49.9 H RDW-CV (test code = 788-0) 11.9 % 12.0-15.5 L PLT (test code = 777-3) 548 166-358 H MPV (test code = 87982-1) 9.8 fL 9.5-12.9 NRBC/100 WBC (test code = 7052966450) 0.0 0.0-10.0 NRBC x10^3 (test code = 9545628910) See_Comment [Automated message] The system which generated this result transmitted reference range: 10*3/?L. The reference range was not used to interpret this result as normal/abnormal. GRAN MAT (NEUT) % (test code = 770-8) 84.7 % IMM GRAN % (test code = 7677073734) 0.90 % LYMPH % (test code = 736-9) 5.4 % MONO % (test code = 5905-5) 6.1 % EOS % (test code = 713-8) 1.1 % BASO % (test code = 706-2) 1.8 % GRAN MAT x10^3(ANC) (test code = 1711059461) 11.16 10*3/uL 1.88-7.09 H IMM GRAN x10^3 (test code = 8679795879) 0.12 10*3/uL 0.00-0.06 H LYMPH x10^3 (test code = 731-0) 0.71 10*3/uL 1.32-3.29 L MONO x10^3 (test code = 742-7) 0.80 10*3/uL 0.33-0.92 EOS x10^3 (test code = 711-2) 0.14 10*3/uL 0.03-0.39 BASO x10^3 (test code = 704-7) 0.24 10*3/uL 0.01-0.07 H Lab Interpretation (test code = 49735-4) Abnormal [facility] with Ooxi4615-37-55 18:09:29* Test Item Value Reference Range Interpretation Comme nts WBC (test code = 6690-2) 13.17 4.30-11.10 H RBC (test code = 789-8) 3.30 3.93-5.25 L HGB (test code = 718-7) 14.1 g/dL 11.6-15.0 HCT (test code = 4544-3) 40.3 % 35.7-45.2 MCV (test code = 787-2) 122.1 fL 80.6-95.5 H MCH (test code = 785-6) 42.7 pg 25.9-32.8 H MCHC (test code = 786-4) 35.0 g/dL 31.6-35.1 RDW-SD (test code = 70425-3) 53.6 fL 39.0-49.9 H RDW-CV (test code = 788-0) 11.9 % 12.0-15.5 L PLT (test code = 777-3) 548 166-358 H MPV (test code = 30009-5) 9.8 fL 9.5-12.9 NRBC/100 WBC (test code = 0412537699) 0.0 0.0-10.0 NRBC x10^3 (test code = 5750553559) See_Comment [Automated message] The system which generated this result transmitted reference range: 10*3/?L. The reference range was not used to interpret this result as normal/abnormal. GRAN MAT (NEUT) % (test code = 770-8) 84.7 % IMM GRAN % (test code = 5720476983) 0.90 % LYMPH % (test code = 736-9) 5.4 % MONO % (test code = 5905-5) 6.1 % EOS % (test code = 713-8) 1.1 % BASO % (test code = 706-2) 1.8 % GRAN MAT x10^3(ANC) (test code = 0845757333) 11.16 10*3/uL 1.88-7.09 H IMM GRAN x10^3 (test code = 1051235078) 0.12 10*3/uL 0.00-0.06 H LYMPH x10^3 (test code = 731-0) 0.71 10*3/uL 1.32-3.29 L MONO x10^3 (test code = 742-7) 0.80 10*3/uL 0.33-0.92 EOS x10^3 (test code = 711-2) 0.14 10*3/uL 0.03-0.39 BASO x10^3 (test code = 704-7) 0.24 10*3/uL 0.01-0.07 H Lab Interpretation (test code = 63103-8) [facility] [id number] 00:38:01Exam: CT Abdomen and Pelvis With Contrast, 04/10/2023 4:15 PM. Ordering Physician: ERROL LOPES. History: Left lower quadrant pain. Comparison: None. Technique: CT abdomen and pelvis was obtained withintravenous contrast. CT was performed according to ALARA (As Low As Reasonably Achievable). Technical Quality: Adequate. Findings: CT Abdomen:Lower Thorax: Linear left basilar opacities represent either linear scar orsubsegmental atelectasis. Heart size is normal. There is a large hiatalhernia, containing the proximal stomach. Organs: Liver, pancreas, spleen, and adrenal glands are normal.Biliary Tree: Gallbladder is surgically absent. Common duct measures up to123 mm, tapering within the pancreatic head. Pancreatic duct is alsodilated, measuring up to 5 mm in the pancreatic head. Urinary Tract: Kidneys are symmetric in size. There is no hydronephrosis orhydroureter. Peritoneal/Retroperitoneal: There is no free air or free fluid. There is noabdominal adenopathy. Vascular: Abdominal aortais normal in caliber and demonstrates mildcalcified plaque.Body Wall: Unremarkable. Gastrointestinal: Stomach is incompletely distended, limiting mucosalevaluation. Air-fluid levels are seen in non-dilated small bowel loops.There is no evidence of bowel obstruction. Appendix is normal. There ismoderate colonic stool. There is mild colonic diverticulosis. No focalperidiverticular inflammatory changes are seen. There is rectosigmoidcolonic wall thickening. Osseous: There are degenerative changes of the spine. CT Pelvis:Genitourinary: Urinary bladder is unremarkable. Uterus and adnexa are notenlarged. Peritoneal/Extraperitoneal: There is no pelvic free fluid. ?There is nopelvic adenopathy. Osseous/Soft Tissues: Unremarkable.[facility]. METABOLIC PANEL (97924)2023-04-10 22:00:26* Test Item Value Reference Range Interpretation Comme nts NA (test code = 2025587181) 133 mmol/L 135-145 L K (test code = 6708539961) 4.8 mmol/L 3.5-5.0 CL (test code = 2484208251) 100 mmol/L 98-108 CO2 TOTAL (test code = 5021260681) 27 mmol/L 23-31 AGAP (test code = 3516225483) 6 2-16 BUN (test code = 8738723208) 24 mg/dL 7-23 H GLUCOSE (test code = 8824595936) 101 mg/dL 70-110 CREATININE (test code = 0796201856) 0.70 mg/dL 0.50-1.04 TOTAL BILI (test code = 3227745026) 0.7 mg/dL 0.1-1.1 CALCIUM (test code = 9131314402) 10.0 mg/dL 8.6-10.6 T PROTEIN (test code = 8858561370) 8.0 g/dL 6.3-8.2 ALBUMIN (test code = 9588298955) 4.7 g/dL 3.5-5.0 ALK PHOS (test code = 2482250796) 77 U/L 34-122 ALTv (test code = 1742-6) 24 U/L 5-35 AST(SGOT) (test code = 4853338565) 34 U/L 13-40 eGFR (test code = 11018-3) 88.1 mL/min/1.73m2 CKD-EPI eGFR (2020). Assuming creatinine has been stable day-to-day for at least three months, the eGFR indicates Category G2 (60 - 89 mL/min/1.73 m2) Lab Interpretation (test code = 00626-9) [facility] / [id number] 21:53:45* Test Item Value Reference Range Interpretation Comme nts PROTIME PATIENT (test code = 5964-2) 14.3 10.1-12.6 H INR (test code = 6301-6) 1.2 Normal INR <1.1; Warfarin Therapeutic range 2.0 to 3.0 or 2.5 to 3.5, depending upon the indications. Lab Interpretation (test code = 16096-1) [facility] WITH [id number] 21:45:02* Test Item Value Reference Range Interpretation Comme nts WBC (test code = 6690-2) 12.89 4.30-11.10 H RBC (test code = 789-8) 3.18 3.93-5.25 L HGB (test code = 718-7) 13.4 g/dL 11.6-15.0 HCT (test code = 4544-3) 38.9 % 35.7-45.2 MCV (test code = 787-2) 122.3 fL 80.6-95.5 H MCH (test code = 785-6) 42.1 pg 25.9-32.8 H MCHC (test code = 786-4) 34.4 g/dL 31.6-35.1 RDW-SD (test code = 04610-9) 56.4 fL 39.0-49.9 H RDW-CV (test code = 788-0) 12.3 % 12.0-15.5 PLT (test code = 777-3) 447 166-358 H MPV (test code = 76895-2) 10.0 fL 9.5-12.9 NRBC/100 WBC (test code = 8122832740) 0.0 0.0-10.0 NRBC x10^3 (test code = 9743740193) See_Comment [Automated message] The system which generated this result transmitted reference range: 10*3/?L. The reference range was not used to interpret this result as normal/abnormal. GRAN MAT (NEUT) % (test code = 770-8) 80.1 % IMM GRAN % (test code = 8644618015) 0.70 % LYMPH % (test code = 736-9) 8.7 % MONO % (test code = 5905-5) 7.4 % EOS % (test code = 713-8) 1.2 % BASO % (test code = 706-2) 1.9 % GRAN MAT x10^3(ANC) (test code = 9939367925) 10.32 10*3/uL 1.88-7.09 H IMM GRAN x10^3 (test code = 6408998049) 0.09 10*3/uL 0.00-0.06 H LYMPH x10^3 (test code = 731-0) 1.12 10*3/uL 1.32-3.29 L MONO x10^3 (test code = 742-7) 0.95 10*3/uL 0.33-0.92 H EOS x10^3 (test code = 711-2) 0.16 10*3/uL 0.03-0.39 BASO x10^3 (test code = 704-7) 0.25 10*3/uL 0.01-0.07 H Lab Interpretation (test code = 07825-6) [facility]2023-[facility]-06 21:06:28 EXAM: DEXA AXIAL (HIP AND SPINE) HISTORY: 77 years ?Female; osteoporosis screening. COMPARISON: DXA?None available. TECHNIQUE: Bone densitometry of the lumbar spine and right hip was performed on a GEsystem. ? ? FINDINGS: Lumbar spine L1-L4: T-score -1.9. ?Bone mineral density: 0.965 g/cm^2.The L1T score is -2.8. Right Femoral Neck: T-score -2.4. ?Bone mineral density: 0.707 g/cm^2. Right TotalFemur: T-score -2.5. ?Bone mineral density: 0.688 g/cm^2.[facility] Dserxnw8373-51-76 23:56:31* Test Item Value Reference Range Interpretation Comme nts TSH (test code = 7212736859) 0.32 See_Comment L [Automated messa ge] The system which generated this result transmitted reference range: 0.45 - 4.70 mIU/L. The reference range was not used to interpret this result as normal/abnormal. Lab Interpretation (test code = 32784-4) [facility]normal [facility] CenterFr [id number] 23:43:07* Test Item Value Reference Range Interpretation Comme nts FREE T4 (test code = 7032624138) 0.98 See_Comment [Automated messa ge] The system which generated this result transmitted reference range: 0.78 - 2.20 ng/dL:. The reference range was not used to interpret this result as normal/abnormal. Lab Interpretation (test code = 28503-5) Normal [facility] with [id number] 23:07:46* Test Item Value Reference Range Interpretation Comme nts WBC (test code = 6690-2) 7.06 See_Comment [Automated messa ge] The system which generated this result transmitted reference range: 4.30 - 11.10 10*3/?L. The reference range was not used to interpret this result as normal/abnormal. RBC (test code = 789-8) 2.77 See_Comment L [Automated messa ge] The system which generated this result transmitted reference range: 3.93 - 5.25 10*6/?L. The reference range was not used to interpret this result as normal/abnormal. HGB (test code = 718-7) 11.8 g/dL 11.6-15.0 HCT (test code = 4544-3) 35.2 % 35.7-45.2 L MCV (test code = 787-2) 127.1 fL 80.6-95.5 H MCH (test code = 785-6) 42.6 pg 25.9-32.8 H MCHC (test code = 786-4) 33.5 g/dL 31.6-35.1 RDW-SD (test code = 58065-0) 72.7 fL 39.0-49.9 H RDW-CV (test code = 788-0) 15.3 % 12.0-15.5 PLT (test code = 777-3) 469 See_Comment H [Automated messa ge] The system which generated this result transmitted reference range: 166 - 358 10*3/?L. The reference range was not used to interpret this result as normal/abnormal. MPV (test code = 87973-4) 10.5 fL 9.5-12.9 NRBC/100 WBC (test code = 7976466847) 0.0 See_Comment [Automated [employer] ssage] The system which generated this result transmitted reference range: 0.0 - 10.0 /100 WBCs. The reference range was not used to interpret this result as normal/abnormal. NRBC x10^3 (test code = 6762375527) See_Comment [Automated messa ge] The system which generated this result transmitted reference range: 10*3/?L. The reference range was not used to interpret this result as normal/abnormal. GRAN MAT (NEUT) % (test code = 770-8) 74.5 % IMM GRAN % (test code = 1365425693) 0.40 % LYMPH % (test code = 736-9) 15.0 % MONO % (test code = 5905-5) 6.1 % EOS % (test code = 713-8) 1.6 % BASO % (test code = 706-2) 2.4 % GRAN MAT x10^3(ANC) (test code = 9510580115) 5.26 10*3/uL 1.88-7.09 IMM GRAN x10^3 (test code = 4882180366) 0.03 10*3/uL 0.00-0.06 LYMPH x10^3 (test code = 731-0) 1.06 10*3/uL 1.32-3.29 L MONO x10^3 (test code = 742-7) 0.43 10*3/uL 0.33-0.92 EOS x10^3 (test code = 711-2) 0.11 10*3/uL 0.03-0.39 BASO x10^3 (test code = 704-7) 0.17 10*3/uL 0.01-0.07 H Lab Interpretation (test code = 11191-4) [facility] History and Physical Notes Date/Time Note Provider Source 2023-05-02 22:32:54 wVx/0hfwyiJG2erdk5F3 HxSshGRpzOopyt aNPlHyYp1ZVg5Q7uTgnzIbx+WClHlW63712023T22:32:54 [facility] ADMIT H&PDate of Service: 05/02/2023HIEF COMPLAINT: abdominal painSubjectiveHistory of Present Zq[age]fbss19 yo female with pmh of HTN, HLD, thrombocytosis, history of memory loss who presents to the ED secondary to a 3 week history of worsening non-radiating intermittent centralized and bilateral lower abdominal pain for the past 2-3 months. Additional symptoms: anorexia, weight loss, melena (does take iron). She was seen by gastroenterology clinic on 04/20 for the symptoms. Of note, during the workup CT abdomen/pelvis was done which showed rectosigmoid colonic wall thickening suggestive of colitis. She was prescribed Augmentin for 10 days. Due to her memory loss and her controlling her medications, daughter is unsure if patient is taking the antibiotics. During that GI visit, she was recommended to have an EGD/colonoscopy scheduled 05/06/2023AST MEDICAL HISTORYPast Medical History:Diagnosis DateHiatal herniaHTN (hypertension)HyperlipidemiaThromb ocytosison chemo pillsPast Surgical History:Procedure Laterality DateCHOLECYSTECTOMYFamily HistoryProblem Relation Age of OnsetHypertension MotherHypertension FatherBreast Cancer SisterCancer BrotherALLERGIESNo Known AllergiesMEDICATIONSNo current facility-administered medications on file prior to encounter.Current Outpatient Medications on File Prior to EncounterMedication Sig Dispense Refillhydroxyurea 500 mg capsule Take 1 capsule by mouth dailyCALCIUM CARBONATE 600 mg calcium (1,500 mg) tablet TAKE 1 TABLET BY MOUTH TWICE A DAY WITH MEALS 180 tablet 0FERROUS SULFATE 325 mg (65 mg iron) tablet TAKE 1 TABLET BY MOUTH TWICE A DAY 180 tablet 0citalopram 40 mg tablet Take 1 tablet by mouth daily.atorvastatin 40 mg tablet atorvastatin 40 mg tabletTAKE 1 TABLET BY MOUTH EVERYDAY AT BEDTIMEmontelukast 10 mg tablet Take 1 tablet by mouth daily.clonazePAM 0.5 mg tablet Take 1 tablet by mouth 3 (three) times daily.levothyroxine 75 mcg tablet Take 1 tablet by mouth every morning.cyclobenzaprine 10 mg tablet cyclobenzaprine 10 mg tabletTAKE 1 ORAL TABLET 2 TIMES A DAY NEEDED FOR SPASMSI attest that the foregoing medication list in the medical record is true, accurate and complete to the best of my knowledge.SOCIAL HISTORYSocial HistorySocioeconomic HistoryMarital status: MarriedTobacco UseSmoking status: FormerTypes: CigarettesSmokeless tobacco: NeverVaping UseVaping Use: Never usedSubstance and Sexual ActivityAlcohol use: NeverDrug use: NeverSexual activity: Not CurrentlyPartners: MaleBirth control/protection: Post-menopausalREVIEW OF SYSTEMSReview of SystemsConstitutional: Positive for appetite change (decreased) and weight loss. Negative for activity change, chills, diaphoresis, fatigue, fever, unexpected weight change and weight gain.AnorexiaHENT: Negative.Eyes: Negative.Respiratory: Negative.Breasts: Negative.Cardiovascular: Negative.Gastrointestinal: Positive for abdominal pain and blood in stool. Negative for abdominal distention, anal bleeding, constipation, diarrhea, nausea, rectal pain and vomiting.Genitourinary: Negative. Negative for polyuria.Musculoskeletal: Negative.Skin: Negative.Neurological: Negative.Psychiatric/Behavioral: Negative.Hematological: Negative for cold intolerance and heat intolerance.Endocrine: Positive for weight loss. Negative for goiter, hair loss, cold intolerance, heat intolerance, polydipsia, polyphagia, polyuria and weight gain.ObjectivePHYSICAL EXAMINATIONVitals:05/02/23 1700 05/02/23 1800 05/02/23 1846 05/02/23 1924BP: (!) 146/74 135/74 (!) 144/78BP Location: Left armPatient Position: SupinePulse: (!) 46 102 80Resp: 17 15 16Temp: 36.2 ?C (97.2 ?F)TempSrc:SpO2: 94% 93% 96%Weight: 63.5 kg (139 lb 14.4 oz)Height: 1.524 m (5')Physical ExamVitals and nursing note reviewed.Constitutional:General: She is not in acute distress.Appearance: Normal appearance. She is not ill-appearing, toxic-appearing or diaphoretic.HENT:Head: Normocephalic and atraumatic.Right Ear: External ear normal.Left Ear: External ear normal.Nose: Nose normal. No congestion.Mouth/Throat:Mouth: Mucous membranes are moist.Pharynx: No oropharyngeal exudate or posterior oropharyngeal erythema.Eyes:General: No scleral icterus.Extraocular Movements: Extraocular movements intact.Conjunctiva/sclera: Conjunctivae normal.Pupils: Pupils are equal, round, and reactive to light.Cardiovascular:Rate and Rhythm: Normal rate and regular rhythm.Heart sounds: No murmur heard.No friction rub. No gallop.Pulmonary:Effort: Pulmonary effort is normal. No respiratory distress.Breath sounds: Normal breath sounds. No wheezing or rales.Abdominal:General: Abdomen is flat. Bowel sounds are normal. There is no distension.Palpations: Abdomen is soft.Tenderness: There is no abdominal tenderness. There is no guarding.Musculoskeletal:General: Normal range of motion.Cervical back: Normal range of motion and neck supple.Right lower leg: No edema.Left lower leg: No edema.Skin:General: Skin is warm and dry.Neurological:Mental Status: She is alert.Psychiatric:Mood and Affect: Mood normal.Behavior: Behavior normal.Thought Content: Thought content normal.Judgment: Judgment normal.LABS/IMAGING - reviewedCT ABDOMEN PELVIS W CONTRASTOrdering Provider: JOSE HUITRONIDEHISTORY: Abdominal pain, acute, nonlocalizedCOMPARISON: 04/10/2023Technical quality: adequateTECHNIQUE: CT abdomen and pelvis with intravenous contrast. Thisexamination was performed according to ALARA principles.FINDINGS:Lower Chest: Bibasilar atelectasis..Liver: Unremarkable.Gallbladder and bile ducts: The gallbladder is surgically absent. There isunchanged severe dilation of the common bile duct up to 20 mm with mildintrahepatic biliary dilation..Spleen: New focal hypoattenuation in the mid spleen measured 1.3 cm..Pancreas: Unremarkable.Adrenals: Unremarkable.Kidneys and ureters: New wedge-shaped hypoattenuation within the midpole ofthe right kidney. No calculi or hydronephrosis..Large hiatal hernia, unchanged without evidence of obstruction. Theduodenum is unremarkable. The small bowel loops are nondilated. There is noevidence of bowel obstruction. Normal appendix. Colonic diverticulosis.Bladder: Circumferential wall thickening of the underdistended bladder..Reproductive organs: Unremarkable.Lymph Nodes: Unremarkable.Peritoneum: Unremarkable.Vessels: Extensive atherosclerotic calcifications of the abdominal aortawith unchanged bulbous dilation of the infrarenal aorta.Abdominal wall: Unremarkable.Bones: multilevel degenerative changes in the spine..IMPRESSION1. Wedge-shaped hypoattenuation in the midpole of the right kidneyconcerning for nephritis. Correlate with urinalysis.2. New wedge-shaped opacity in the mid pole of the spleen may representfocus of infarct.3. Status post cholecystectomy with unchanged severe dilation of thecommon bile duct up to 20 mm.4. Incidental findings are detected in the body report. -------Assessment & PlanShrutidomonique Shipley is a 78 year old female with PMH as listed above, admitted to the hospital with:Acute hyponatremia: likely secondary to dehydration/FTT-- Will give fluid hydration-- Will repeat blood sodium level-- Will get nutrition consult-- Holding potential offending agents (eg, citalopram)2. Abdominal pain: seen to have splenic infarct and noted hypoattenuation of right kidney-- EGD/colonoscopy in . Blood disorder: appears to have thrombocytosis also noted to have leukocytosis. No evidence of fever. U/A is negative.-- CXR to rule out any active infection.-- Has outpatient hematology clinic visit . HTN: not on any medication and currently normotensive4. Hypothyroidism:-- Will resume levothyroxine5. HLD:-- Will resume atorvastatinProphylaxis: DVT- enoxaparinCode Status: Presumed Full CodeEstimated LOS: This inpatient admission will likely require greater than or equal to 2 Midnights. Management is not feasible as an outpatient and there is concern for adverse outcomes if not managed in an inpatient setting. Advance care planning discussed for 18 mins with patient at bedside.Surrogate decision maker: Darcy Hernandez (child) - 97996-3Eoysngz and physical lftzXT0740-41-12F67:24:43History and physical noteTXT1.2.840.679890.1.13.104.2.7 .2.404797|[id number] for patient gvhl88201-7Hleuipa and physical noteLNNARRATIVEFormatted C-CDA narrative textEMCARE EMERGENCY PHYSICIAN STAFFEMCARE EMERGENCY PHYSICIAN STAFF[address] [id number] 02TFSFLVURFZOFRSZZKXFNUB0579-65-84 T05:24:431.2.840.479210.1.72.3.15| 1.2.840.467173.1.13.104.2.7.2.7278 [id number] [facility] STAFF [facility] Notes Date/Time Note Provider Source 2023-05-07 15:40:12 xd0uBflg5irN2QN8V/FJglcmfF5Uuv4C85cJ7GzJ Hi6TgLM7 6mHhq0TBAGoaigAJ8073-64-06P97:40:12 Sent prescriptions 71550-6Wciifyinn encounter KpkhUX6623-26-59D79:40:17Telephone encounter NoteTXT1.2.840.801286.1.13.104.2.7.2.068790|2042 220806UBEalsguoad for patient yzhy05409-4DshqIFCNNXZIMYNQpflymimg C-CDA narrative text[address] [id number] PLPZQYNDCH7681-03-61P79:40:171.2.840.967582.1.72 .3.15|1.2.840.434727.1.13.104.2.7.2.727879_20438 04843 [facility] 2023-05-07 15:29:49 LVp6E9hKa7dgeumdIydQsCOo6lgOmk2uK+XR3nVZ zQUUyPTL HYwFDIU1SUOKSLLv4161-23-61L10:29:49 Spoke with daughter of pt, Darcy. She reports that her mother spilled some of her pills. She is requesting a refill of mirtazapine. She states that her appetite is much better when she takes it.She also requests a refill on Levothyroxine 75mcg.Please advise. 23044-8Tvmjmnust encounter ZyseKI8984-83-96B82:32:36Telephone encounter NoteTXT1.2.840.610313.1.13.104.2.7.2.434207|2043 598827TFYnghdgbkz for patient ders83459-9FyioBHQTADYYMYANwxqdpimo C-CDA narrative text[address] ZfywNrcyqorqpBijfbfmfoRICQ8619313646PCEFEZQJWGHN JJPLWWTKUJ3789-12-58Q39:32:361.2.840.589468.1.72 .3.15|1.2.840.663451.1.13.104.2.7.2.727879_20438 47240 [facility] 2023-05-07 15:04:45 5fY8l+HGpXkHhFka1eX5J9SnRR6fUNKuHc4B9BVx 4P3L6MeI UpR33KTKzpOehVn08511-16-43E37:04:45 Copied from [facility] #[id number]. Topic: Clinical - Medical Advice>> May 07, 2023 3:03 PM Patient Document Control Associate wrote:Eden Shipley is a 78 year old femaleEC is calling in to check status of mirtazapine 7.5 mg tablet (REMERON) [id number] [place] - [address] [place] [address] [facility]: Kl also has concerns regarding an RxPt is still not having very much of an appetitePlease advise [phone] (home) 40294-3Oujtodoja encounter ToydBB2172-52-10E18:08:39Telephone encounter NoteTXT1.2.840.971474.1.13.104.2.7.2.093203|2043 567381JNLvkukozyi for patient fjxl54094-9XfysJCXZULJLIANXfxqjnktu C-CDA narrative dcci185143525ZkTafcms Armando[address] OudhQy[id number] RVESSPQQFB2973-44-96G47:08:391.2.840.156742.1.72 .3.15|1.2.840.514135.1.13.104.2.7.2.727879_20438 11225 Marques Roberts [facility] 2023-05-05 14:44:16 UKOTZNGwg2gMuhI7IAnKNUV4d8OkkB1cm+dD7fu8 zeq8Adiv ueT5Zd+qwwSZWqWD6566-43-32N28:44:16 TRANSITIONAL CARE MANAGEMENT ASSESSMENT4Anorirafiq ShipleyEmbfb663074SCdtymjye Perez is a 78 year old /White female was admitted on 05/02/23 to [facility]. She was discharged on 05/03/23 with discharge disposition of HR- Routine Discharge.Admitting Physician: Seamus Echeverria Diagnosis: Acute hyponatremiaPrincipal problemLinked EpisodesType: Episode: Status: Noted: Resolved: Last update: Updated by:TRANSITION OF CARE tcm Active 05/05/2023 05/05/2023 2:43 PM Loreta Ku RNComments:MARY Mlo-bqds-lb-face outreach documentation:Discharge AssessmentChart Assessed: 05/05/23TCM Outreach Completed: 05/05/23Do you have a few minutes to speak with me about how you are doing at home?: Yes (Per daughter patient is doing allright)Discharge InstructionsDo you understand your at-home instructions?: YesMedicationsHave you filled your prescriptions and do you have them in your home? : See comments (Daughter stated she will spanish moss picker prescriptions today)Do you know how to take your medications?: YesSuppliesDid you receive applicable home medical supplies/equipment?: N/AFollow Up AppointmentHas a follow up appointment been scheduled?: YesDo you have any questions about your follow up appointments?: NoAre you able to get to your appointment? Who will be taking you?: Yes (daughter)Home Health AssistanceHas the home health nurse contacted you since you've been home?: N/ASurvey - RecognitionIs there anything you would like to share about your recent hospitalization, or anyone you would like to recognize?: NoDo you have any suggestions for improvement?: NoDo you have any other questions or concerns at this time?: NoFuture Appointments:Future AppointmentsProvider Department Dept Phone05/12/2023 10:30 AM [facility] MOBILE MRI 1 (1.5T) [facility], [facility] [phone]/ 1:30 PM Sandrita Antony FNP [facility], [phone] 2:00 PM Sandrita Antony FNP [facility], [place] [phone] 3:30 PM [facility] [phone]/18/2024 10:30 AM Laura Rodarte MD [facility] [phone]/ 1:00 PM Gaye Hernandez MD [facility] [phone]/01/2024 3:30 PM Christina Wheatley MD [facility] [phone] signed by Loreta Ku RN at 05/05/2023 2:44 PM YTZ27956-1Umvshusxz encounter RvfpRJ2408-24-98F32:44:34Telephone encounter NoteTXT1.2.840.919402.1.13.104.2.7.2.489338|2041 634149EDQaeqgmcos for patient bchd75195-6UkweBEWHXGLTWFQWkvfolagg C-CDA narrative [id number] B Porter RN[address] StreetLndmGmczphffwVpaitrbssHOAP3888888024JECXQYMCTUDM YZFDKGEVJU7440-16-77E51:44:341.2.840.374235.1.72 .3.15|1.2.840.942883.1.13.104.2.7.2.727879_20415 97262 Loreta Ku RN [facility] 2023-05-05 14:30:33 dZI2MfnuLTvgRFGz/r+hgdt0OhJsino0HlAf+1Ij KkSlzA1q 5l6cr2htETUbzBSc6768-45-16D28:30:33 Called patient, spoke to Daughter Darcy, she verified patients name and . She states the patient misplaced the medication but will try and look for it. She will then call her pharmacy to request more refills. Emmy Serra MA 05/05/2023 2:38 PM 83716-6Ctlwdrmvs encounter MuhdZJ1364-18-80Z90:38:45Telephone encounter NoteTXT1.2.840.148383.1.13.104.2.7.2.032898|2041 676862FFJrryxdsth for patient hfwx80556-1PymqDSSIXHQUDCGAzzcbsdhz C-CDA narrative vicc875080228Pnsyqrf Davila [id number] UUDDCUVYXY0976-35-39A52:38:451.2.840.356278.1.72 .3.15|1.2.840.592448.1.13.104.2.7.2.727879_624 Emmy Serra [facility] 2023-05-05 14:20:37 4Pi/wI2ul8UeY6Li33Xl7bu6QSXMDT5AFShKHWM9 D3kibN64 HHi8IRXgkop+yO4E2452-64-18T55:20:37 I did prescribe this medication to the patient on 04/16Was it stopped in the hospital or by Gastro or another provider?I just want to be sure if there was reason for it being stopped 11326-5Ytsvajjla encounter VxbiZE3419-15-50T46:21:16Telephone encounter NoteTXT1.2.840.386658.1.13.104.2.7.2.636632|2041 780469LINaqjrvvdb for patient nmbh33681-9MngiSVAEREYNBQDWrrlqoyen C-CDA narrative [id number] UYQZFXZKTI5884-29-86E55:21:161.2.840.192441.1.72 .3.15|1.2.840.546820.1.13.104.2.7.2.727879_14 64268 [facility] 2023-05-05 13:54:59 YEAikPuINw8f/3YD5ECquB4jyLQ/Usp1iTJlXtj2 JiSmaLtW kP56SVNAK89rJsRT3152-45-95P21:54:59 Routing to provider. 37432-5Oayfggcqf encounter AoreXV4037-51-00I19:55:13Telephone encounter NoteTXT1.2.840.666929.1.13.104.2.7.2.490567|2041 754447ESJiluelffq for patient ofui16807-9NtymAPWMNCLJZVPUdrsbzsof C-CDA narrative kgke664497635Dbhxmz M Serrano MA[address] StreetGdvaUwxdapqpyQgcohvoskWUGG4781278969LIGAIWGRPXYC DRLGKVRXXX7210-53-55H50:55:131.2.840.052745.1.72 .3.15|1.2.840.630413.1.13.104.2.7.2.727879_20414 68991 Carlie Perez MA [facility] 2023-05-05 13:42:56 eg7I7vP1uFd9LFpbPvspwV+049NlsBWGGblCjVqt G+NL1Id4 LwnrdYCJgs4gryKV8885-63-31J03:42:56 Copied from [facility] #[id number]. Topic: Clinical - Order>> May 05, 2023 1:41 PM Patient Document Control Associate wrote:Pt daughter called requesting for Antony to prescribe Remeron 7.5 mg for pt appetite. This is supposed to make her increase her appetite.Please advise.[facility]/pharmacy #[id number] - [place], [place] - [address]: Bwuekiqummxdso signed by Zhane Reinoso at 05/05/2023 1:43 PM FUM83485-4Dlhixeicd encounter NedrRK1616-55-38T41:43:56Telephone encounter NoteTXT1.2.840.566762.1.13.104.2.7.2.421636|2041 563163CZFqegsqfip for patient qauf99565-4XhpkYLNCQCJOSKUHtyuakxep C-CDA narrative eylk82517922Rkprimb R Marroquin[address] XxkoWyfyfjunxJcaiwytwsGMIH0403792601OSNSJPULEPNU IXULKZWCSH3311-10-91E90:43:561.2.840.221744.1.72 .3.15|1.2.840.109137.1.13.104.2.7.2.727879_14 92086 Zhane Reinoso [facility] 2023-05-05 11:34:18 xFEYSv7hY/r7i3XvyeIGVem22fMouO6/Nuf1yNZp Uunph0xc 3cjIyxF4lprb7r3D5230-62-06Q78:34:18 Images from the original note were not included.Results given to family member whom is albanian speaking. All verbally understood. Re assured all over all mild-moderate results. Also per family pt does not own a bp machine. And she felt patient wouldn't be able to monitor herself.Gaye Hernandez MD P Cardiology NurseEchocardiogram shows mild LVH, preserved systolic function.Mild to moderate aortic regurgitation/mild to moderate aortic stenosis noted which explains her murmur.Awaiting Holter monitor.Recommended to send us the blood pressure log. 94505-9Dlblbedgb encounter WntmIE1821-80-49H38:53:58Telephone encounter NoteTXT1.2.840.902067.1.13.104.2.7.2.915936|2040 655529XPIjmjdqfif for patient uulc99257-5DmfpVEBKPKFVVOMYcyaopqrv C-CDA narrative hact138324495Pbhrqt Castaneda [id number] LLJNIZTSCV0457-42-69V22:53:581.2.840.239243.1.72 .3.15|1.2.840.819843.1.13.104.2.7.2.727879_20412 07408 Yasir Alfonso [facility] 2023-05-04 16:38:23 u4tuWM60krKn2ObFYLChTbGz8Zrd/ZnNTC3rKYCf dGY2t0gv HkfWBmCv3Z66zjM82237-36-28I36:38:23 Copied from [facility] #[id number]. Topic: Clinical - Medical Advice>> May 04, 2023 4:37 PM Patient Document Control Associate wrote:Daughter Chayo calling to ask a question about medication. She states that she took patient to ER on Thursday and they admitted her. On Thursday, they ended up giving patient a VTE Shot in her stomach. She was then discharged that afternoon at 430PM. She was told the shot was a anticoagulant. Chayo is wanting to make sure that she will be still be ok to have the test (Thursday05/06/23) since she's not on her blood thinners. 35412-4Barblhopw encounter DhqpDL5172-35-21Y63:41:50Telephone encounter NoteTXT1.2.840.427485.1.13.104.2.7.2.177851|2040 961828VLZutlmqwiy for patient wbtt51290-4RuoiHVIJJIFYKYPMfrijtrmu C-CDA narrative uubs831749160Ehibvqe M. Garcia[id number] GDIYQLUFXJ7730-42-28A71:41:501.2.840.542641.1.72 .3.15|1.2.840.974331.1.13.104.2.7.2.727879_20404 02840 Katherine Dacosta [facility] 2023-05-03 15:27:37 4hHe3il7ZbfZqXd07PI+OPOdi3wW3d+auBP8Z4rC e+wKaoQa t/omoqMC1B5574m98190-09-12S66:27:37 Adequate for discharage 95575-7Msao of care ydymZM1402-73-58K15:27:45Plan of care noteTXT1.2.840.733261.1.13.104.2.7.2.014904|2039 299876ZVMayizbzau for patient fplf50910-0HfypJLZZKOUEPGHLfzexirgd C-CDA narrative zyqu719449318Niwine J Hedge RN[address] LvfvYhvuafthlCsicixpwnGPXS0886290696FTFDCTIMXUVI IKMHCCUVOQ4096-35-22D55:27:451.2.840.482543.1.72 .3.15|1.2.840.201966.1.13.104.2.7.2.727879_20395 35263 Eliz Cruz RN [facility] 2023-05-03 02:37:29 cNrh6DPKz6fA6l9T5evWsEr0ZOu3iqVHYdsMm7RE 0t8iACAZ 5odY6i+CY1eZCis83042-81-35W15:37:29 Problem: Venous Thromboembolism, (actual or risk of)Goal: Absence of venous thromboembolism (Risk)Outcome: Progressing as expectedProblem: PainGoal: Control of pain at or below patient's documented comfort goalOutcome: Progressing as expectedGoal: Reduction in pain sensationOutcome: Progressing as expectedProblem: Skin integrity Impaired (Risk or Actual)Goal: Prevention of new skin breakdownOutcome: Progressing as expected 91763-8Alww of care nomnEO9252-77-07F80:37:38Plan of care noteTXT1.2.840.139149.1.13.104.2.7.2.147238|2039 584957WIMgrdwrpkm for patient nhwg60753-6ZcluKAVXWQEVOLIHafmxhoyq C-CDA narrative jncl320319424Isybzm Fuentes RN[address] EaeoDdmjvhjilOxhzzpoynVRKO5300533383PWIGNCKFPHNB REBHUNIIMP6513-17-18W34:37:381.2.840.446347.1.72 .3.15|1.2.840.879028.1.13.104.2.7.2.727879_93 25739 Melissa Dean RN [facility] 2023-05-02 18:34:56 uYsKoJg4E9h61KoGMAGwkkPn9W4gbODoN4jtr2at CjjZDZOG VrbrTqtW0NqsVJbR9851-58-35F60:34:56 Nurse ReportReport given to Maddie CEJA at [facility]. Chief complaint, assessment findings, infusion verify and orders reviewed. Plan of care discussed [place] [address]-2Bvcxzgqcx department WuuqOC3879-21-39R86:35:30Emergency department NoteTXT1.2.840.301742.1.13.104.2.7.2.443791|2039 648811FYDnmaycpkx for patient dffx17979-3PgggNABKVVHPWSVAfwolcsbu C-CDA narrative ouql462630798Ziohl E Anyi CEJAUT[id number] JBLNZFCHPS9548-34-77G47:35:301.2.840.788523.1.72 .3.15|1.2.840.361369.1.13.104.2.7.2.727879_20393 42723 Obdulia Kinney Anyi CEJA [facility] 2023-05-02 14:31:00 7GAY3pzKWYv/9X2XiJxqVUHQ0P8sSMqSBBUfDYkx TsXwLPY7 EqLh1fbS86JFctM68997-82-26P55:31:00 Patient's daughter states: "Since 3 weeks now she's been having abdominal pain. She also said that she's been shaking today probably because she hasn't eaten anything, she's not eating at all. She's scheduled for colonoscopy and upper GI on 05/06/2023 in [place]." Patient's daughter states that she's been having black stools before but not today; states she takes iron supplement. 15258-1Pklbdbqvv department Triage iyqxCX0161-57-94M06:46:20[facility] Triage noteTXT1.2.840.622405.1.13.104.2.7.2.407990|2039 437288NZQyaisitfw for patient bdpy49837-7Rymmwwaxu department NoteLNNARRATIVEFormatted C-CDA narrative zvch278527572Kgldrikrfrancisco ESTEBAN[id number] BVDAVDTUIK2477-90-37A94:46:201.2.840.671695.1.72 .3.15|1.2.840.800378.1.13.104.2.7.2.727879_20393 07543 Maris Castro RN [facility] - Health 2023-05-02 14:30:00 XTI8g3G69XEFw8mxneZFFM36FmNoV/6/5h3x0voM 5u3MW/J0 GlGvAJ/gN4YL8gIs0733-74-41I88:30:00 [facility] Emergency Department NotePatient Name: Eden Stockton of : 1945 78 year old femaleTreatment Room: Room/bed info not foundMedical Record Number: [id number] Care Physician: Sandrita AntonyPatient Escorted by: Family [5]Mode of Arrival: Personal means [1]EMS Treatment Prior to ED Arrival:Travel and Exposure Screening:SymptomsDoes patient have any of these symptoms?: (not recorded)Exposure ScreeningHas patient had contact with someone with a communicable disease in the last month?: (not recorded)Diseases exposed to:: (not recorded)Is Patient ?: (not recorded)Exposure Date: (not recorded)Chief Complaint:Chief ComplaintPatient presents withAbdominal PainShakesHistory of Present Illness:Thomas Shipley is a 78 year old female with PMHx of HTN, HLD, thrombocytopenia presenting with abdominal pain for the past approximately 3 weeks that has been progressively worsening. Patient has not eaten anything at all and has lost weight and is "shaky". Patient is scheduled for a colonoscopy and upper GI on 05/06/23 in [place]. Patient reports black stools previously but no black stools today. Patient, of note, does take an iron supplement.Past Medical History/Immunizations:Past Medical History:Diagnosis DateHiatal herniaHTN (hypertension)HyperlipidemiaThrombocytosison chemo pillsAllergies:No Known AllergiesPast Social History:Tobacco UseFormer; Types: CigarettesSmokeless Tobacco: Never used smokeless tobacco.Vaping UseNever usedAlcohol UseNever.Drug UseNever.Sexual ActivityNot currently sexually active; Partners: Male; Control/Protection: Post-menopausal.Past Surgical History:Past Surgical History:Procedure Laterality DateCHOLECYSTECTOMYReview of Systems:Review of SystemsConstitutional: Positive for activity change, appetite change, fatigue and unexpected weight change.HENT: Negative for congestion and rhinorrhea.Eyes: Negative for photophobia and visual disturbance.Respiratory: Negative for apnea, cough, choking, chest tightness, shortness of breath, wheezing and stridor.Cardiovascular: Negative for chest pain, palpitations and leg swelling.Gastrointestinal: Positive for abdominal pain. Negative for abdominal distention, anal bleeding, blood in stool, constipation, diarrhea, nausea, rectal pain and vomiting.Genitourinary: Positive for difficulty urinating. Negative for dysuria.Neurological: Negative for dizziness, tremors, seizures, syncope, facial asymmetry, speech difficulty, weakness, light-headedness, numbness and headaches.Physical Exam:ED Triage Vitals [05/02/23 1431]Weight 62.1 kg (137 lb)Actual or estimated Estimated by patient/family reportHeight 1.575 m (5' 2")BP 133/74Pulse 72Resp 16Temp 36.6 ?C (97.9 ?F)Temp source OralSpO2 96 %Measured on Room airPhysical ExamVitals and nursing note reviewed.Constitutional:Appearance: She is well-developed.Eyes:General:Right eye: No discharge.Left eye: No discharge.Conjunctiva/sclera: Conjunctivae normal.Neck:Thyroid: No thyromegaly.Cardiovascular:Rate and Rhythm: Normal rate and regular rhythm.Heart sounds: Normal heart sounds. No murmur heard.No friction rub. No gallop.Pulmonary:Effort: No respiratory distress.Breath sounds: No stridor. No wheezing or rales.Chest:Chest wall: No tenderness.Abdominal:General: There is no distension.Palpations: Abdomen is soft. There is no mass.Tenderness: There is abdominal tenderness. There is no guarding or rebound.Hernia: No hernia is present.Comments: Generalized abdominal TTPMusculoskeletal:General: No tenderness or deformity.Cervical back: Neck supple.Skin:General: Skin is warm and dry.Coloration: Skin is not pale.Findings: No erythema.Neurological:General: No focal deficit present.Mental Status: She is alert and oriented to person, place, and time.Cranial Nerves: No cranial nerve deficit.Sensory: No sensory deficit.Motor: No weakness.Coordination: Coordination normal.Gait: Gait normal.Radiology:CT ABDOMEN PELVIS W CONTRASTFinal ResultCT ABDOMEN PELVIS W CONTRASTOrdering Provider: JOSE HUITRONIDEHISTORY: Abdominal pain, acute, nonlocalizedCOMPARISON: 04/10/2023Technical quality: adequateTECHNIQUE: CT abdomen and pelvis with intravenous contrast. Thisexamination was performed according to ALARA principles.FINDINGS:Lower Chest: Bibasilar atelectasis..Liver: Unremarkable.Gallbladder and bile ducts: The gallbladder is surgically absent. There isunchanged severe dilation of the common bile duct up to 20 mm with mildintrahepatic biliary dilation..Spleen: New focal hypoattenuation in the mid spleen measured 1.3 cm..Pancreas: Unremarkable.Adrenals: Unremarkable.Kidneys and ureters: New wedge-shaped hypoattenuation within the midpoleofthe right kidney. No calculi or hydronephrosis..Large hiatal hernia, unchanged without evidence of obstruction. Theduodenum is unremarkable. The small bowel loops are nondilated. There isnoevidence of bowel obstruction. Normal appendix. Colonic diverticulosis.Bladder: Circumferential wall thickening of the underdistended bladder..Reproductive organs: Unremarkable.Lymph Nodes: Unremarkable.Peritoneum: Unremarkable.Vessels: Extensive atherosclerotic calcifications of the abdominal aortawith unchanged bulbous dilation of the infrarenal aorta.Abdominal wall: Unremarkable.Bones: multilevel degenerative changes in the spine..IMPRESSION1. Wedge-shaped hypoattenuation in the midpole of the right kidneyconcerning for nephritis. Correlate with urinalysis.2. New wedge-shaped opacity in the mid pole of the spleen may representfocus of infarct.3. Status post cholecystectomy with unchanged severe dilation of thecommon bile duct up to 20 mm.4. Incidental findings are detected in the body report.RL: [id number] of Report. Lab Results:Lab ResultsCBC WITH DIFF - AbnormalResult Value Ref RangeWBC 16.67 (*) 4.30 - 11.10 10*3/?LRBC 3.30 (*) 3.93 - 5.25 10*6/?LHGB 14.0 11.6 - 15.0 g/dLHCT 39.7 35.7 - 45.2 %MCV 120.3 (*) 80.6 - 95.5 fLMCH 42.4 (*) 25.9 - 32.8 pgMCHC 35.3 (*) 31.6 - 35.1 g/dLRDW-SD 51.8 (*) 39.0 - 49.9 fLRDW-CV 11.6 (*) 12.0 - 15.5 %PLT 497 (*) 166 - 358 10*3/?LMPV 10.9 9.5 - 12.9 fLNRBC/100 WBC 0.0 0.0 - 10.0 /100 WBCsNRBC x10^3 <0.01 10*3/?LSEG % 89 (*) 33 - 76 %LYMPH % 9 (*) 14 - 54 %MONO % 2 0 - 4 %PLT ESTIMATE Increased (*) NormalCOMP. METABOLIC PANEL (48427) - AbnormalNA 127 (*) 135 - 145 mmol/LK 4.2 3.5 - 5.0 mmol/LCL 95 (*) 98 - 108 mmol/LCO2 TOTAL 26 23 - 31 mmol/LAGAP 6 2 - 16BUN 20 7 - 23 mg/dLGLUCOSE 95 70 - 110 mg/dLCREATININE 0.56 0.50 - 1.04 mg/dLTOTAL BILI 0.4 0.1 - 1.1 mg/dLCALCIUM 9.5 8.6 - 10.6 mg/David PROTEIN 7.7 6.3 - 8.2 g/dLALBUMIN 4.5 3.5 - 5.0 g/dLALK PHOS 115 34 - 122 U/LALTv 103 (*) 5 - 35 U/LAST(SGOT) 65 (*) 13 - 40 U/LeGFR 92.4 mL/min/1.06p7TUWEWWRYUS - AbnormalAPPEARANCE Clear ClearCOLOR Straw (*) YellowPH 7.0 4.8 - 8.0SP GRAVITY 1.051 (*) 1.003 - 1.030GLU U QUAL Normal NormalBLOOD Negative NegativeKETONES Negative NegativePROTEIN Negative NegativeUROBILIN Normal NormalBILIRUBIN Negative NegativeNITRITE Negative NegativeLEUK EDITA Negative NegativeRBC/HPF 1 0 - 3 HPFWBC/HPF <1 0 - 5 HPFBACTERIA Few (*) NegativeSQ EPITH 1 HPFLIPASE - NormalLIPASE 154 0 - 220 U/LEKG:If EKG completed, see Procedure Note.Orders and Treatments:Orders Placed This EncounterProceduresCT ABDOMEN PELVIS W CONTRASTCbc with DiffComp. Metabolic Panel (13122)LipaseUrinalysisOrders Placed This EncounterMedicationsiopamidol (ISOVUE 370-500 mL) injection 90 mLNaCl 0.9% (NS) bolus infusion 500 mLFirst Provider Eval:ED EventsDate/Time Event User Bmncmsfp31/02/24 1455 Medical Screening Begins JOSE LIAO MD --05/02/23 1455 First Provider Evaluation JOSE LIAO MD --ED COURSEEden Shipley is a 78 year old femaleDiagnosis/Impression as of 05/03/23 0840Abdominal pain, unspecified abdominal locationHypokalemiaSplenic infarctProcedures:ProceduresMDM:Medical Decision MakingEden Shipley is a 78 year old female presenting with abdominal pain symptoms as above. Patient with failure to thrive and not eating. Patient's labs and imaging reviewed, findings discussed with patient and family. Patient with hypokalemia, not tolerating PO and with CT showing splenic opacity that could represent focus of infarct. Plan for admission for IV fluids, rehydration and further management. Patient discussed with Dr. Echeverria and accepted for admission.Problems Addressed:Abdominal pain, unspecified abdominal location: acute illness or injuryHypokalemia: acute illness or injurySplenic infarct: undiagnosed new problem with uncertain prognosisAmount and/or Complexity of Data ReviewedLabs: ordered.Radiology: ordered.RiskPrescription drug management.Decision regarding hospitalization.Flowsheet Documentation:Scoring Tools:No data recordedDisposition/Condition:ED DispositionED DispositionAdmit - InpatientCondition--Comment--Discharge Medications:Patient's MedicationsSTART taking these medicationsNo medications on fileCONTINUE taking these medications which have NOT CHANGEDACYCLOVIR 400 MG TABLET acyclovir 400 mg tabletAMOXICILLIN 875 MG TABLET Take 1 tablet by mouth 2 (two) times daily.ATORVASTATIN 40 MG TABLET atorvastatin 40 mg tabletTAKE 1 TABLET BY MOUTH EVERYDAY AT BEDTIMEBRINZOLAMIDE-BRIMONIDINE (SIMBRINZA) 1-0.2 % OPHTHALMIC DROPS INSTILL 1 DROP INTO BOTH EYES TWICE A DAYCALCIUM CARBONATE 600 MG CALCIUM (1,500 MG) TABLET TAKE 1 TABLET BY MOUTH TWICE A DAY WITH MEALSCEFUROXIME 250 MG TABLET cefuroxime axetil 250 mg tabletCHOLECALCIFEROL, VITAMIN D3, 25 MCG (1,000 UNIT) TABLET TAKE 1 TABLET BY MOUTH EVERY DAYCITALOPRAM 40 MG TABLET Take 1 tablet by mouth daily.CLONAZEPAM 0.5 MG TABLET Take 0.5 mg by mouth 3 (three) times daily.CYCLOBENZAPRINE 10 MG TABLET cyclobenzaprine 10 mg tabletTAKE 1 ORAL TABLET 2 TIMES A DAY NEEDED FOR SPASMSDORZOLAMIDE-TIMOLOL 22.3-6.8 MG/ML OPHTHALMIC DROPS INSTILL 1 DROP INTO BOTH EYES TWICE A DAYDORZOLAMIDE-TIMOLOL, PF, 2-0.5 % DPET dorzolamide-timolol (PF) 2 %-0.5 % eye drops in a dropperetteINSTILL 1 DROP INTO BOTH EYES TWICE A DAYESCITALOPRAM OXALATE 20 MG TABLET escitalopram 20 mg tabletFERROUS SULFATE 325 MG (65 MG IRON) TABLET TAKE 1 TABLET BY MOUTH TWICE A DAYGAVILYTE-G 236-22.74-6.74 -5.86 GRAM SOLUTION TAKE 4,000 ML BY MOUTH ONCE NOW FOR 1 DOSE.HYDROCODONE-ACETAMINOPHEN 10-325 MG TABLET hydrocodone 10 mg-acetaminophen 325 mg tabletHYDROCODONE-ACETAMINOPHEN 7.5-325 MG PER TABLETHYDROXYUREA 500 MG CAPSULE Take 1 capsule by mouth dailyLEVOTHYROXINE 75 MCG TABLET Take 75 mcg by mouth every morning.MIRTAZAPINE 7.5 MG TABLET Take 1 tablet by mouth at bedtime.MONTELUKAST 10 MG TABLET Take 1 tablet by mouth daily.OMEPRAZOLE 40 MG CAPSULE omeprazole 40 mg capsule,delayed releaseONDANSETRON 4 MG TABLET TAKE 1 TABLET BY MOUTH EVERY 12 HOURS NEEDEDPANTOPRAZOLE 40 MG EC TABLET pantoprazole 40 mg tablet,delayed releasePROMETHAZINE 25 MG SUPPOSITORY INSERT 1 SUPPOSITORY RECTALLY EVERY 6 HOURS NEEDED FOR NAUSEA AND VOMITINGRALOXIFENE 60 MG TABLET raloxifene 60 mg tabletTAKE 1 TABLET(S) EVERY DAY BY ORAL ROUTESTART taking Modified Medications as PrescribedNo medications on fileSTOP taking these medicationsNo medications on fileFollow-up:Electronically signed by:Jose Liao MD05/03/23 0842 86341-8Yqwjypiqq Emergency department SydnTE5820-26-91T76:42:37Physician Emergency department NoteTXT1.2.840.583667.1.13.104.2.7.2.283302|9 [id number] for patient idhs16139-6Xrtqpexej department NoteLNNARRATIVEFormatted C-CDA narrative text[address] Mw[id number] WRHFVWOQDO0339-96-38P88:42:371.2.840.017979.1.72 .3.15|1.2.840.806370.1.13.104.2.7.2.727879_20393 71244 [facility] 2023-05-02 14:30:00 bDgayOHte6DSri4DsHys/l0oTTKklDYs/y3KFfCs y+sKQqBE A+NGwZuBqbBXkMpZ3199-79-45I33:30:00 AdmissionCareGuideline: Abdominal Pain, Undiagnosed, InpatientBased on the indications selected for the patient, the bed status of Inpatient was determined to be METThe following indications were selected as present at the time of evaluation of the patient:- Inability to maintain oral hydration (eg, needs IV fluid support) that persists after observation careAdmissionCare documentation entered by: Jose ValenzuelaFormerly [facility], 27th edition, Copyright ? 2022 [facility] [employer] [facility] All Rights Reserved.0916-09-22S36:37:13-06:00 [id number] Admission Criteria1.2.840.355817.1.13.104.2.7.4.725689.501 03861-77-90L49:37:13EC Admission CriteriaTXT1.2.840.117842.1.13.104.2.7.2.576195| [id number] for patient rcqb56622-8CfarJQDDKSWCYMNHxgnngyko C-CDA narrative textUT[address] Cj[id number] DBUHJALIQT0795-16-75B13:37:131.2.840.045884.1.72 .3.15|1.2.840.887045.1.13.104.2.7.2.727879_20393 77793 [facility] 2023-05-02 14:30:00 Xuvh5E/6aakhEflWkn/ORGPKukYECq7/OvZGqTvs 9E87fb3e pyCepE+p9ptdC4RO4991-18-41B08:30:00 AdmissionCareGuideline: Systemic / Infectious Condition, InpatientBased on the indications selected for the patient, the bed status of Inpatient was determined to be METThe following indications were selected as present at the time of evaluation of the patient:- Severe electrolyte abnormalities requiring inpatient care, as indicated by ALL of the following:- Electrolyte abnormality is not at acceptable patient baseline (eg, treatment effect).- Severe abnormality, as indicated by 1 or more of the following:- Sodium less than 130 mEq/L (mmol/L) not corrected to near normal or near chronic baseline despite observation care treatment- Sodium less than 135 mEq/L (mmol/L) with severe finding requiring inpatient management (eg, Altered mental status, seizures)AdmissionCare documentation entered by: Anita EcheverriaChillicothe [facility], 27th edition, Copyright ? 2022 [facility] [employer] [facility] All Rights Reserved.9724-91-87L30:53:04-06:00 [id number] Admission Criteria1.2.840.795501.1.13.104.2.7.4.573977.501 59230-16-46I85:53:06EC Admission CriteriaTXT1.2.840.189972.1.13.104.2.7.2.728154| [id number] for patient zzfk34432-3JapeDHEWADYNIKREdbycsisc C-CDA narrative textUT[address] Nt[id number] EXKGWZMKMV3652-24-22I42:53:061.2.840.594645.1.72 .3.15|1.2.840.843761.1.13.104.2.7.2.727879_20393 02425 [facility] 2023-05-01 08:15:31 pr4E6fS8bFjDffcvLh24JbS9H3lFYxSBzfHy6jsR zpxkOfEn RNWozqF16DgOoYZc5539-98-20O44:15:31 Please review and fill if appropriate. Thanks!Last rx'd: 03/28/2023, 4Requested PrescriptionsPending Prescriptions Disp RefillsCHOLECALCIFEROL, VITAMIN D3, 25 mcg (1,000 unit) tablet [Pharmacy Med Name: VITAMIN D3 25 MCG TABLET] 90 tablet 0Sig: TAKE 1 TABLET BY MOUTH EVERY DAYOff-Protocol Failed - 04/30/2023 4:44 PMFailed - Medication not assigned to a protocol, forward to provider.Passed - Valid encounter within last 12 monthsRecent VisitsDate Type Provider Dept04/16/23 Office Visit Sandrita Antony FNP [facility] Family Bgctzsug92/09/24 Nurse Visit [facility], [facility]23 Office Visit Sandrita Antony FNP [facility] Ybphbfli28/11/23 Office Visit Sandrita Antony FNP [facility] MedicineShowing recent visits within past 365 days and meeting all other requirementsFuture AppointmentsDate Type Provider Dept05/15/23 Appointment Sandrita Antony FNP [facility] Ytkaihhz37/15/24 [facility]ment [facility] next [facility] days and meeting all other requirementsFERROUS SULFATE 325 mg (65 mg iron) tablet [Pharmacy Med Name: FERROUS SULFATE 325 MG TABLET] 180 tablet 0Sig: TAKE 1 TABLET BY MOUTH TWICE A DAYEndocrinology: Minerals - Iron Supplementation Passed - 04/30/2023 4:44 PMPassed - Valid encounter within last 12 monthsRecent VisitsDate Type Provider Dept04/16/23 Office Visit Sandrita Antony FNP [facility]04/10/23 Nurse Visit Nurse, [facility]03/03/23 Office Visit Sandrita Antony FNP [facility]02/09/23 Office Visit Sandrita Antony GASTROENTEROLOGY PROFESSOR [facility] MedicineShowing recent visits within past 365 days and meeting all other requirementsFuture AppointmentsDate Type Provider Dept05/15/23 Appointment Sandrita Antony FNP [facility]05/15/23 Appointment Sandrita Antony GASTROENTEROLOGY PROFESSOR [facility] within next 365 days and meeting all other requirementsCALCIUM CARBONATE 600 mg calcium (1,500 mg) tablet [Pharmacy Med Name: CALCIUM 600 MG TABLET] 180 tablet 0Sig: TAKE 1 TABLET BY MOUTH TWICE A DAY WITH MEALSEndocrinology: Minerals - Calcium Supplementation Passed - 04/30/2023 4:44 PMPassed - Valid encounter within last 12 monthsRecent VisitsDate Type Provider Dept04/16/23 Office Visit Sandrita Antony FNP [facility]04/10/23 Nurse Visit Nurse, [facility]03/03/23 Office Visit Sandrita Antony FNP [facility]02/09/23 [facility] Visit [facility] within past 365 days and meeting all other requirementsFuture AppointmentsDate Type Provider Dept05/15/23 Appointment Sandrita Antony GASTROENTEROLOGY PROFESSOR [facility]05/15/23 Appointment Sandrita Antony GASTROENTEROLOGY PROFESSOR [facility] MedicineShowing future appointments within next 365 days and meeting all other requirements[id number] - [place], [place] - [address] [address]Qyoii: [phone] Nuvaja Hechler 05/01/2023 8:15 AM 75287-5Jdtyhgsov encounter OxyxHL5686-36-72U37:16:35Telephone encounter NoteTXT1.2.840.555900.1.13.104.2.7.2.296175|2037 120085DOXbgqbxeff for patient igbg25018-6AwguVCWRRMYVERKQdyrkmyke C-CDA narrative [id number] Hechler[address] Mna[id number] MBWRQNZLXU0250-32-74G99:16:351.2.840.755707.1.72 .3.15|1.2.840.902384.1.13.104.2.7.2.727879_82 78053 Giaharshal Levi [facility] 2023-04-16 11:45:00 b62eW+ItMu33qEbPzAJZxspx6H7c0MVnLw1ztci/ 1xpON1Dm iVB4rDAeYLEPCYfW2150-91-34J17:45:00 Images from the original note were not included.Venipuncture collection performed by clean technique on the left anticubitus. Total of 1 attempts were made. Slight pressure and a bandage/dressing were applied to the site(s). The patient experienced no complications. The following specimens were processed according to instructions and sent to [facility] laboratories per lab order on 04/16/2023 :LT BLUESST 1REDLAV 1PPTDK GREEN (LiHep)DK GREEN (SodH)GRAYDK BLUE (K2)DK BLUE (S)ACDBlood CultureNIPT/NTD 43070-7Vaaml MhpwHO9215-41-93E40:00:02Nurse NoteTXT1.2.840.512796.1.13.104.2.7.2.686428|2024 835000YSMejhhxgqm for patient mdwp60923-0Nsivt NoteLNNARRATIVEFormatted C-CDA narrative text21 Pr[address] [id number] LLAMASCMICOZAZJN3028-03-49E95:00:021.2.840.703805.1.72 .3.15|1.2.840.245432.1.13.104.2.7.2.727879_20258 32681 [facility] 2023-04-10 19:25:49 wbWIsvsJk6VaX0NTo64q/NwnrMKE7Vru5/qni5az v86b4lWi Jll8d7uq4mJzhra61832-03-81K07:25:49 Pt given printed and verbal discharge instructions regarding abdominal pain, colitis, encouraged hydration.1 Prescriptions sent to pharmacy.Discussed ibuprofen and to take with food to avoid GI distress.Discussed antibiotic therapy and to take until all completed unless adverse reaction occurs - if occurs, discontinue medication and follow up with pcp/seek medical attention.Pt verbalized understanding of instructions, pt awake alert oriented, resp reg unlabored, skin w/d, color appropriate for race, moves all ext well,pt encouraged to follow up with pcp.Advised to seek medical attention for new/prolonged/worsening of symptoms,Symptoms improved.No adverse reaction to meds given in ER noted upon discharge.PIV d'cd, dressing to site, catheter in tact.Awake, alert oriented, resp reg unlabored, skin w/d, pt leaving amb with steady gait, in no apparent distress. 71250-5Vjjfsgezk department JerqDU8213-48-09U60:27:23Emergen department NoteTXT1.2.840.025142.1.13.104.2.7.2.270453|2020 444290IAKvrfcxmft for patient hwvy13259-8JdqqVAEKBMPTXRPOsymhtzeh C-CDA narrative [id number] ESTEBAN65 Dunn StreetBw[id number] EXZAXKAWTJ7388-67-65B14:27:231.2.840.706188.1.72 .3.15|1.2.840.470833.1.13.104.2.7.2.727879_ 85573 Sarah Dos Santos RN [facility] 2023-04-10 14:40:55 xsnAgW7YukhU/imyGB5aY8hV58dym/0lVdpUJx5f Q4wqOsRm jCFEnrKud62tSsWs2646-87-46R53:40:55 Patient presents to ER C/o blood coming from rectum for weeks now. Also abdominal pain. Went to urgent care and was referred to ER. 79758-1Tlzfxrzzr department Triage khqqLJ9414-92-27D80:41:33Emergency department Triage noteTXT1.2.840.439273.1.13.104.2.7.2.139118|2020 950441UXWancpvghv for patient rxfr44973-2Ceipomtjv department NoteLNNARRATIVEFormatted C-CDA narrative [id number] M Cruz RN[address] [id number] JXTFFCMAGO7394-14-21V71:41:331.2.840.661319.1.72 .3.15|1.2.840.517701.1.13.104.2.7.2.727879 Edwige Salvador RN [facility] 2023-04-10 14:31:00 iHhFI9NM8mI1Vp0YF9atPwFgZt9oZ8+jGH9nCOIt jSzBWRBC 1HjKx1FV3mBkQLVx9845-97-79D70:31:00 [facility] Emergency Department NoteDemographicsPatient Name: Eden Stockton of : 1945 77 year oldTreatment Room: TX6/DP6Yaytzfd Record Number: [id number] Care Phys[facility] CarePatient Escorted by: Family [5]Mode of Arrival: Personal means [1]EMS Treatment Prior to ED Arrival: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 Also abdominal pain. Went to urgent care and was referred to ER.Chief ComplaintPatient presents withRectal BleedingHistory of present lcvpvcdAOH19 yo woman comes to the ED complaining of dark stools and history of anemia on iron pills. She reports mild lower abdominal pain. No fever, chills, nausea or vomiting. H/o HTN, HLD, hypothyroidism, and thrombocytosis. Denies bright red blood per rectum.BP 139/77 | Pulse 60 | Temp 36.8 ?C (98.2 ?F) (Oral) | Resp 16 | Ht 1.524 m (5') | Wt 62.1 kg (137 lb) | SpO2 96% | BMI 26.76 kg/m?Past Medical and Social HistoryPast Medical History:Diagnosis DateHiatal herniaHTN (hypertension)HyperlipidemiaThrombocytosison chemo pillsTetanus received in last 5 years: UnknownSocial HistoryTobacco UseSmoking status: FormerTypes: CigarettesSmokeless tobacco: NeverVaping UseVaping Use: Never usedSubstance Use TopicsAlcohol use: NeverDrug use: NeverPast Surgical HistoryPast Surgical History:Procedure Laterality DateCHOLECYSTECTOMYMedicationsMedicationsiopamid ol (ISOVUE 370-500 mL) injection 90 mL (90 mL Intravenous Given 04/10/23 1700)AllergiesNo Known AllergiesReview of SystemsReview of SystemsConstitutional: Negative.HENT: Negative.Eyes: Negative.Respiratory: Negative.Cardiovascular: Negative.Gastrointestinal: Positive for abdominal pain.Genitourinary: Negative.Musculoskeletal: Negative.Skin: Negative.Neurological: Negative.Psychiatric/Behavioral: Negative.Endocrine: Endocrine negativePhysical ExamBP 139/77 | Pulse 60 | Temp 36.8 ?C (98.2 ?F) (Oral) | Resp 16 | Ht 1.524 m (5') | Wt 62.1 kg (137 lb) | SpO2 96% | BMI 26.76 kg/m?Physical ExamVitals and nursing note reviewed.Constitutional:General: She is not in acute distress.Appearance: She is well-developed and normal weight. She is not ill-appearing.HENT:Head: Normocephalic and atraumatic.Right Ear: External ear normal.Left Ear: External ear normal.Nose: Nose normal. No congestion or rhinorrhea.Mouth/Throat:Pharynx: No oropharyngeal exudate or posterior oropharyngeal erythema.Eyes:General:Right eye: No discharge.Left eye: No discharge.Conjunctiva/sclera: Conjunctivae normal.Pupils: Pupils are equal, round, and reactive to light.Cardiovascular:Rate and Rhythm: Normal rate and regular rhythm.Heart sounds: Normal heart sounds. No murmur heard.No friction rub.Pulmonary:Effort: Pulmonary effort is normal. No respiratory distress.Breath sounds: Normal breath sounds. No stridor. No wheezing or rhonchi.Abdominal:General: Bowel sounds are normal. There is no distension.Palpations: Abdomen is soft. There is no mass.Tenderness: There is abdominal tenderness (lower abdomen).Hernia: No hernia is present.Musculoskeletal:General: No swelling, tenderness, deformity or signs of injury. Normal range of motion.Cervical back: Normal range of motion and neck supple. No rigidity or tenderness.Skin:General: Skin is warm.Capillary Refill: Capillary refill takes less than 2 seconds.Coloration: Skin is not jaundiced or pale.Findings: No bruising or erythema.Neurological:General: No focal deficit present.Mental Status: She is alert and oriented to person, place, and time.Cranial Nerves: No cranial nerve deficit.Sensory: No sensory deficit.Motor: No weakness.Coordination: Coordination normal.Psychiatric:Mood and Affect: Mood normal.Behavior: Behavior normal.Thought Content: Thought content normal.Judgment: Judgment normal.Labs and StudiesLab ResultsCBC WITH DIFF - AbnormalResult Value Ref RangeWBC 12.89 (*) 4.30 - 11.10 10*3/?LRBC 3.18 (*) 3.93 - 5.25 10*6/?LHGB 13.4 11.6 - 15.0 g/dLHCT 38.9 35.7 - 45.2 %MCV 122.3 (*) 80.6 - 95.5 fLMCH 42.1 (*) 25.9 - 32.8 pgMCHC 34.4 31.6 - 35.1 g/dLRDW-SD 56.4 (*) 39.0 - 49.9 fLRDW-CV 12.3 12.0 - 15.5 %PLT 447 (*) 166 - 358 10*3/?LMPV 10.0 9.5 - 12.9 fLNRBC/100 WBC 0.0 0.0 - 10.0 /100 WBCsNRBC x10^3 <0.01 10*3/?LGRAN MAT (NEUT) % 80.1 %IMM GRAN % 0.70 %LYMPH % 8.7 %MONO % 7.4 %EOS % 1.2 %BASO % 1.9 %GRAN MAT x10^3(ANC) 10.32 (*) 1.88 - 7.09 10*3/uLIMM GRAN x10^3 0.09 (*) 0.00 - 0.06 10*3/uLLYMPH x10^3 1.12 (*) 1.32 - 3.29 10*3/uLMONO x10^3 0.95 (*) 0.33 - 0.92 10*3/uLEOS x10^3 0.16 0.03 - 0.39 10*3/uLBASO x10^3 0.25 (*) 0.01 - 0.07 10*3/uLCOMP. METABOLIC PANEL (92868) - AbnormalNA 133 (*) 135 - 145 mmol/LK 4.8 3.5 - 5.0 mmol/LCL 100 98 - 108 mmol/LCO2 TOTAL 27 23 - 31 mmol/LAGAP 6 2 - 16BUN 24 (*) 7 - 23 mg/dLGLUCOSE 101 70 - 110 mg/dLCREATININE 0.70 0.50 - 1.04 mg/dLTOTAL BILI 0.7 0.1 - 1.1 mg/dLCALCIUM 10.0 8.6 - 10.6 mg/David PROTEIN 8.0 6.3 - 8.2 g/dLALBUMIN 4.7 3.5 - 5.0 g/dLALK PHOS 77 34 - 122 U/LALTv 24 5 - 35 U/LAST(SGOT) 34 13 - 40 U/LeGFR 88.1 mL/min/1.72o3QKLDMFTSVEN TIME / INR - AbnormalPROTIME PATIENT 14.3 (*) 10.1 - 12.6 SecondsINR 1.2CT ABDOMEN PELVIS W CONTRASTFinal ResultExam: CT Abdomen and Pelvis With Contrast, 04/10/2023 4:15 PM.Ordering Physician: ERROL LOPES.History: Left lower quadrant pain.Comparison: None.Technique: CT abdomen and pelvis was obtained with intravenous contrast.CT was performed according to ALARA (As Low As Reasonably Achievable).Technical Quality: Adequate.Findings:CT Abdomen:Lower Thorax: Linear left basilar opacities represent either linear scarorsubsegmental atelectasis. Heart size is normal. There is a large hiatalhernia, containing the proximal stomach.Organs: Liver, pancreas, spleen, and adrenal glands are normal.Biliary Tree: Gallbladder is surgically absent. Common duct measures up to123 mm, tapering within the pancreatic head. Pancreatic duct is alsodilated, measuring up to 5 mm in the pancreatic head.Urinary Tract: Kidneys are symmetric in size. There is no hydronephrosisorhydroureter.Peritoneal/Retroperi toneal: There is no free air or free fluid. There isnoabdominal adenopathy.Vascular: Abdominal aorta is normal in caliber and demonstrates mildcalcified plaque.Body Wall: Unremarkable.Gastrointestinal: Stomach is incompletely distended, limiting mucosalevaluation. Air-fluid levels are seen in non-dilated small bowel loops.There is no evidence of bowel obstruction. Appendix is normal. There ismoderate colonic stool. There is mild colonic diverticulosis. No focalperidiverticular inflammatory changes are seen. There is rectosigmoidcolonic wall thickening.Osseous: There are degenerative changes of the spine.CT Pelvis:Genitourinary: Urinary bladder is unremarkable. Uterus and adnexa are notenlarged.Peritoneal/Extraperitoneal: There is no pelvic free fluid. There is nopelvic adenopathy.Osseous/Soft Tissues: Unremarkable.IMPRESSIONImpression:1. Rectosigmoid colonic wall thickening, suggestive of colitis.2. Colonic diverticulosis without evidence of diverticulitis.3. Mildly dilated common and distal pancreatic ducts. Consider furtherevaluation with MRCP, as a pancreatic head or ampullary mass cannot beexcluded.4. Large hiatal hernia.5. Prior cholecystectomy.RL: 2824End of Report Orders and TreatmentsOrders Placed This EncounterProceduresCT ABDOMEN PELVIS W CONTRASTCBC WITH DIFFCOMP. METABOLIC PANEL (43434)PROTHROMBIN TIME / INROrders Placed This EncounterMedicationsiopamidol (ISOVUE 370-500 mL) injection 90 mLamoxicillin-clavulanate 875-125 mg per tabletPatient's MedicationsSTART taking these medicationsAMOXICILLIN-CLAVULANATE 875-125 MG PER TABLET Take 1 tablet by mouth every 12 (twelve) hours for 10 days.CONTINUE taking these medications which have NOT CHANGEDATORVASTATIN 40 MG TABLET atorvastatin 40 mg tabletTAKE 1 TABLET BY MOUTH EVERYDAY AT BEDTIMECALCIUM CARBONATE (CALCIUM 600) 600 MG CALCIUM (1,500 MG) TABLET Take 1 tablet by mouth 2 (two) times daily with meals.CHOLECALCIFEROL, VITAMIN D3, (VITAMIN D3) 25 MCG (1,000 UNIT) TABLET Take 1 tablet by mouth daily.CITALOPRAM 40 MG TABLET Take 1 tablet by mouth daily.CLONAZEPAM 0.5 MG TABLET Take 0.5 mg by mouth 3 (three) times daily.CYCLOBENZAPRINE 10 MG TABLET cyclobenzaprine 10 mg tabletTAKE 1 ORAL TABLET 2 TIMES A DAY NEEDED FOR SPASMSFERROUS SULFATE 325 MG (65 MG IRON) TABLET Take 1 tablet by mouth 2 (two) times daily.HYDROXYUREA 500 MG CAPSULE Take 1 capsule by mouth dailyLEVOTHYROXINE 75 MCG TABLET Take 75 mcg by mouth every morning.MONTELUKAST 10 MG TABLET Take 1 tablet by mouth in the morning.START taking Modified Medications as PrescribedNo medications on fileSTOP taking these medicationsNo medications on fileProceduresProceduresEvidence CareMDM & NotesPatient was evaluated for an emergency medical condition related to Rectal Bleeding.History and/or review of systems is limited by:History limited: None.Medical Decision Cdddcn77 yo woman comes to the ED complaining of dark stools and feeling anemic for the last few days. She reports mild lower abdominal pain. No fever, chills, nausea or vomiting. H/o HTN, HLD, hypothyroidism, and thrombocytosis.BP (!) 142/82 | Pulse 65 | Temp 36.8 ?C (98.2 ?F) (Oral) | Resp 16 | Ht 1.524 m (5') | Wt 62.1 kg (137 lb) | SpO2 96% | BMI 26.76 kg/m?DDx include but not limited to: anemia, rectal bleeding, abdominal pain, diverticulitis, diverticulosis, etc.Plan: check labs, cbc, chemistry, PT/INR, CT abdomen and pelvis.Problems Addressed:Rectal bleeding: complicated acute illness or injuryAmount and/or Complexity of Data ReviewedLabs: ordered. Decision-making details documented in ED Course.Radiology: ordered and independent interpretation performed.RiskOTC drugs.Prescription drug management.Risk Details: Normal Hgb, mild rectosigmoid colitis possibly. Start Augmentin, advised to f/u with PCP and return to the ED if worsening of symptoms. Patient understands and agree with the plan.Diagnosis/Impression as of 04/10/23 1914Rectal bleedingLower abdominal painCase discussed with:Barriers & Social Determinants of Healthcare: noneLimitations to patient care and compliance: none.History, physical exam findings, results of visit, differential diagnosis, medication regimens and plan of future care have been considered. Additional MDM may be found in the ED course. Differential diagnosis considered and final disposition made based on information gathered during evaluation and may not be completely ruled out or specifically listed. Vital signs were rechecked before final disposition and determined to be stable.SsuwwmgqaLOY-06-AH8. Lower abdominal pain R10.302. Rectal bleeding K62.5Disposition and ConditionED DispositionED DispositionDisch - HomeConditionStableComment--Patient's MedicationsSTART taking these medicationsAMOXICILLIN-CLAVULANATE 875-125 MG PER TABLET Take 1 tablet by mouth every 12 (twelve) hours for 10 days.CONTINUE taking these medications which have NOT CHANGEDATORVASTATIN 40 MG TABLET atorvastatin 40 mg tabletTAKE 1 TABLET BY MOUTH EVERYDAY AT BEDTIMECALCIUM CARBONATE (CALCIUM 600) 600 MG CALCIUM (1,500 MG) TABLET Take 1 tablet by mouth 2 (two) times daily with meals.CHOLECALCIFEROL, VITAMIN D3, (VITAMIN D3) 25 MCG (1,000 UNIT) TABLET Take 1 tablet by mouth daily.CITALOPRAM 40 MG TABLET Take 1 tablet by mouth daily.CLONAZEPAM 0.5 MG TABLET Take 0.5 mg by mouth 3 (three) times daily.CYCLOBENZAPRINE 10 MG TABLET cyclobenzaprine 10 mg tabletTAKE 1 ORAL TABLET 2 TIMES A DAY NEEDED FOR SPASMSFERROUS SULFATE 325 MG (65 MG IRON) TABLET Take 1 tablet by mouth 2 (two) times daily.HYDROXYUREA 500 MG CAPSULE Take 1 capsule by mouth dailyLEVOTHYROXINE 75 MCG TABLET Take 75 mcg by mouth every morning.MONTELUKAST 10 MG TABLET Take 1 tablet by mouth in the morning.START taking Modified Medications as PrescribedNo medications on fileSTOP taking these medicationsNo medications on fileFuture AppointmentsIn 2 weeks Sandrita Antony FNP [facility], [facility] 10 months Christina Wheatley MD [facility] SpecialtOurpalm Dictation Software is used frequently and may produce errors. Promptly contact for obvious discrepancies.Errol Lopes MD, FACEP, FAAEMAssistant Professor of Emergency and Internal MedicineVA [facility]#[id number] Lopes MD04/10/23 1916 22533-5Yrbxocrxk Emergency department ReljQS5811-94-45G21:16:47Physician Emergency department NoteTXT1.2.840.820095.1.13.104.2.7.2.017318|2020 [id number] for patient qtnv72185-2Kqzxqmryt department NoteLNNARRATIVEFormatted C-CDA narrative textUT[address] Fw[id number] MTCCKUASPR2740-80-39R86:16:471.2.840.182353.1.72 .3.15|1.2.840.476723.1.13.104.2.7.2.727879_12 [id number] [facility] 2023-03-28 13:32:42 B8kfX/jOEmJJXxHbVfc754LwwPYBgCtnn4lPvWdQ rc0CJEqq YBWHhGMdr3QERmgc6067-77-26I26:32:42 Sending scripts 17803-5Inqblodwe encounter LgvvHJ6841-13-35P72:35:14Telephone encounter NoteTXT1.2.840.068331.1.13.104.2.7.2.815804|2008 [id number] for patient evjl87750-1NlwbNEJGFHXKZSZMmwjnulyz C-CDA narrative textUT[address] Lj[id number] HGOGXLLOOP2735-44-12D32:35:141.2.840.936112.1.72 .3.15|1.2.840.002270.1.13.104.2.7.2.727879_20096 00543 [facility] 2023-03-10 15:53:58 uQVNmN/fLPdgf/b9dty58uB6y/QbhhF1MZmXorJy Q3ZUtIpl o0mbKMje/+a9H8Vd1802-45-62W07:53:58 Spoke with patient and informed to continue same dose on Thyroid and Iron to has improved. Patient had no further questions. 25773-1Dghdlykxp encounter PufyCL0808-01-21X22:55:39Telephone encounter NoteTXT1.2.840.486514.1.13.104.2.7.2.660876|1994 354274JZYmsuxjsjv for patient jqmr76998-4QadwUYNRISTOBDEXjtfnkodh C-CDA narrative [id number] M Serrano MA[address] [id number] ZVRDKPXBYB1650-49-66P23:55:391.2.840.203583.1.72 .3.15|1.2.840.181666.1.13.104.2.7.2.727879_ [id number] Carlie Perez MA [facility] 2023-03-10 09:22:18 vy9D+fME1Aiw3Vjd7L4zCBY6c1dXt75S8hUH3zSK D7eMcnWe wCFP8MGRmLhlwcXJ5573-46-55U71:22:18 Attempted to call patient, no answer. 89412-9Vwxbhfjbt encounter UklyBY1572-63-01U93:22:53Telephone encounter NoteTXT1.2.840.637171.1.13.104.2.7.2.221453|1994 423660QBJwzeyaesj for patient uhst02620-6AueyLXEFVZVPAKTWevxrwjsu C-CDA narrative text[id number] COMMUNITY HOSPITALCGRHNQBWZK4885-88-01T51:22:531.2.840.062170.1.72 .3.15|1.2.840.398427.1.13.104.2.7.2.727879_19950 91830 [facility] 2023-03-10 09:12:26 79uOgzh5EQiERM52dQwVC468NS/iEIca6+THT2XI eLta16I1 ooV1QVKt5R5Gt7iR5787-27-05D93:12:26 I have updated the patients medication list from her list she has given usPlease have patient continue current dose of thyroid medication, as her TSH is now improved. And the T4 is normal. Her anemai is also improved. So continue iron 27504-7Itorgqywo encounter MeenBS0797-73-66C27:15:59Telephone encounter NoteTXT1.2.840.779355.1.13.104.2.7.2.415591|1995 584626OXBcnvmvlql for patient duyi98541-1KwkvNRBVOECJCWDFxlrzlynm C-CDA narrative textUT[address] Yv[id number] KSYSDPEWRQ2861-13-77W36:15:591.2.840.580088.1.72 .3.15|1.2.840.001011.1.13.104.2.7.2.727879_19950 [id number] [facility] 2023-03-03 15:15:00 LBkH3O+WPEAeS/HyNibQfCIr/uH8WaP2kg8ra1Z/ GiTgFVXr 13xZC0BJvDbP0MSk6668-24-83S35:15:00 Images from the original note were not included.Venipuncture collection performed by clean technique on the left anticubitus. Total of 1 attempts were made. Slight pressure and a bandage/dressing were applied to the site(s). The patient experienced no complications. The following specimens were processed according to instructions and sent to [facility] laboratories per lab order on 03/03/2023:LT BLUESST 1REDLAV 1PPTDK GREEN (LiHep)DK GREEN (SodH)GRAYDK BLUE (K2)DK BLUE (S)ACDBlood CultureNIPT/NTD 37696-4Afwnn LqpzDT0690-75-23R85:06:20Nurse NoteTXT1.2.840.486487.1.13.104.2.7.2.427730|1989 [id number] for patient cxpx34351-8Fhvyk NoteLNNARRATIVEFormatted C-CDA narrative textUT[address] Hf[id number] QKXDHQHUPO2479-14-21I85:06:201.2.840.930031.1.72 .3.15|1.2.840.625884.1.13.104.2.7.2.727879_19898 [id number] [facility]
[2023-06-14 21:50] LABS: Specific Gravity 1.022 (1.005-1.030); Sqamous Epithelial None Seen /HPF (None Seen); Urine Bacteria None Seen /HPF (<20); Urine Bilirubin NEGATIVE (Negative); Urine Blood 3+ (OVER) (Negative); Urine Clarity Extremely Turbid (Clear); Urine Color Light-Orange (Yellow); Urine Culture Reflex Order REFLEXED; Urine Glucose NEGATIVE (Negative); Urine Ketones TRACE (Negative); Urine Micro Reflex YN NO BILL MICROSCOPIC; Urine Mucus 1+ /HPF (None Seen); Urine Nitrite NEGATIVE (Negative); Urine Protein 2+ (Negative); Urine RBC >50 /HPF (None Seen); Urine Urobilinogen Normal (Normal); Urine WBC >50 /HPF (<5); Urine pH 6.5 (5.0-7.0)
--- NOTE | 2023-06-14 22:03 | ER ---
Nurse's Notes [facility] Name: Suzy Shipley Age: 78 yrs Sex: Female : 1945 Arrival Date: 06/14/2023 Time: 20:05 Bed 20 Private MD: Diagnosis: UTI/ Urinary tract infection, site not specified Presentation: 06/13 20:30 Chief complaint: Patient states: pain with urination that started this morning. cp4 Coronavirus screen: Client denies travel out of the [place] in the last 14 days. At this time, the client does not indicate any symptoms associated with coronavirus-19. Ebola Screen: Patient negative for fever greater than or equal to 101.5 degrees Fahrenheit, and additional compatible Ebola Virus Disease symptoms Patient denies exposure to infectious person. Patient denies travel to an Ebola-affected area in the 21 days before illness onset. No symptoms or risks identified at this time. Initial Sepsis Screen: Does the patient meet any 2 criteria? No. Patient's initial sepsis screen is negative. Does the patient have a suspected source of infection? No. Patient's initial sepsis screen is negative. Risk Assessment: Do you want to hurt yourself or someone else? Patient reports no desire to harm self or others. 20:30 Method Of Arrival: Ambulatory cp4 20:30 Acuity: NANCI 4 cp4 20:30 Onset of symptoms was June 14, 2023. cp4 Triage Assessment: 20:32 General: Appears uncomfortable, Behavior is calm, cooperative, appropriate for age. cp4 Pain: Denies pain. : Reports burning with urination, urinary frequency. Historical: - Allergies: 20:32 No Known Allergies; cp4 - PMHx: 20:32 Arthritis; High Cholesterol; Depression; Thyroid problem; cp4 - Immunization history:: Adult Immunizations up to date. - Infectious Disease History:: Denies. CDIFF, C. Auris, ESBL, MRSA (w/in 1 year), VRE (w/in 1 year), TB, . - Social history:: Smoking status: Patient denies any tobacco usage or history of. Screenin:34 [facility] ED Fall Risk Assessment (Adult) History of falling in the last 3 months, cp4 including since admission No falls in past 3 months (0 pts) Confusion or Disorientation No (0 pts) Intoxicated or Sedated No (0 pts) Impaired Gait No (0 pts) Mobility Assist Device Used No (0 pt) Altered Elimination No (0 pt) Score/Fall Risk Level 0 - 2 = Low Risk Oriented to surroundings, Maintained a safe environment, Assessed \T\ reinforced patient's understanding of fall precautions, Hourly rounding (assess needs \T\ fall precautionary measures) done. Abuse screen: Denies threats or abuse. Nutritional screening: No deficits noted. Tuberculosis screening: No symptoms or risk factors identified. Assessment: 20:34 Reassessment: No changes from previously documented assessment. cp4 22:09 Reassessment: Patient to be discharged after shot time. pf1 22:34 Reassessment: Patient appears in no apparent distress at this time. Patient and/or pf1 family updated on plan of care and expected duration. Pain level reassessed. Patient is alert, oriented x 3, equal unlabored respirations, skin warm/dry/pink. Patient states symptoms have improved. Vital Signs: 20:30 BP 140 / 81; Pulse 85; Resp 18; Temp 97.4; Pulse Ox 94% ; Weight 63.5 kg; Height 5 ft. cp4 0 in. ; Pain 0/10; 21:30 BP 145 / 90; Pulse 81; Resp 18; Pulse Ox 95% ; cp4 22:30 BP 143 / 94; Pulse 85; Resp 18; Temp 97.9; Pulse Ox 100% on R/A; Pain 3/10; pf1 20:30 Body Mass Index 27.34 (63.50 kg, 152.4 cm) cp4 20:30 Pain Scale: Adult cp4 22:30 Pain Scale: Adult pf1 ED Course: 20:06 Patient arrived in ED. im 20:12 Ivan Alfaro PA is PHCP. cp 20:12 Jim Gomez MD is Attending Physician. cp 20:22 Elsa Ruiz is Primary Nurse. cp4 20:32 Triage completed. cp4 20:32 Arm band placed on right wrist. Patient placed in an exam room, on a stretcher. cp4 20:34 Placed in gown. Bed in low position. Call light in reach. cp4 20:34 No provider procedures requiring assistance completed. cp4 22:19 Urine Culture Sent. pf1 22:34 Patient did not have IV access during this emergency room visit. pf1 22:35 Provided Education on: prescriptions and follow up. pf1 Administered Medications: 22:15 Drug: Phenazopyridine PO 100 mg PO once Route: PO; pf1 22:34 Follow up: Response: No adverse reaction; Marked relief of symptoms pf1 22:18 Drug: Rocephin (cefTRIAXone) IM 1 grams IM once Route: IM; Site: right ventrogluteal; pf1 22:34 Follow up: Response: No adverse reaction; Marked relief of symptoms pf1 Medication: 20:34 VIS not applicable for this client. cp4 Outcome: 22:03 Discharge ordered by MD. cp 22:34 Discharged to home ambulatory, with family, pf1 22:34 Condition: improved 22:34 Discharge instructions given to patient, family, Instructed on discharge instructions, follow up and referral plans. Demonstrated understanding of instructions, follow-up care, medications, Prescriptions given X 2, 22:35 Patient left the ED. pf1 Signatures: Ivan Alfaro PA PA cp Finley, Pamala, RN RN pf1 Sandie Dawson Christina cp4
--- NOTE | 2023-06-14 22:04 | EDPHYS ---
Physician Documentation [facility] Name: Suzy Shipley Age: 78 yrs Sex: Female : 1945 Arrival Date: 06/14/2023 Time: 20:05 Bed 20 Private MD: ED Physician Jim Gomez HPI: 06/13 21:00 This 78 yrs old Female presents to ER via Ambulatory with complaints of Pain cp With Urination. 21:00 The patient presents with urinary symptoms, dysuria, frequency, hematuria. Onset: The cp symptoms/episode began/occurred today. Associated signs and symptoms: Pertinent negatives: fever, nausea, vomiting, back pain. Historical: - Allergies: 20:32 No Known Allergies; cp4 - PMHx: 20:32 Arthritis; High Cholesterol; Depression; Thyroid problem; cp4 - Immunization history:: Adult Immunizations up to date. - Infectious Disease History:: Denies. CDIFF, C. Auris, ESBL, MRSA (w/in 1 year), VRE (w/in 1 year), TB, . - Social history:: Smoking status: Patient denies any tobacco usage or history of. ROS: 21:05 Constitutional: Negative for body aches, chills, fever, poor PO intake, cp 21:05 Respiratory: Negative for cough, shortness of breath, wheezing, cp 21:05 Abdomen/GI: Negative for vomiting, diarrhea, constipation, 21:05 Back: Negative for pain at rest, pain with movement, 21:05 : Positive for hematuria, burning with urination, 21:05 Neuro: Negative for weakness, 21:05 All other systems are negative, Exam: 21:10 Constitutional: The patient appears in no acute distress, alert, awake, non-toxic, well cp developed, well nourished, 21:10 Head/Face: Normocephalic, atraumatic. cp 21:10 Cardiovascular: Rate: normal, 21:10 Respiratory: the patient does not display signs of respiratory distress, Respirations: normal, no use of accessory muscles, no retractions, 21:10 Abdomen/GI: Inspection: abdomen appears normal, Palpation: abdomen is soft and non-tender, in all quadrants, 21:10 Back: pain, is absent, ROM is normal, 21:10 Neuro: Orientation: to person, place \T\ time. Mentation: is normal, Motor: moves all fours, strength is normal, Vital Signs: 20:30 BP 140 / 81; Pulse 85; Resp 18; Temp 97.4; Pulse Ox 94% ; Weight 63.5 kg; Height 5 ft. cp4 0 in. ; Pain 0/10; 21:30 BP 145 / 90; Pulse 81; Resp 18; Pulse Ox 95% ; cp4 22:30 BP 143 / 94; Pulse 85; Resp 18; Temp 97.9; Pulse Ox 100% on R/A; Pain 3/10; pf1 20:30 Body Mass Index 27.34 (63.50 kg, 152.4 cm) cp4 20:30 Pain Scale: Adult cp4 22:30 Pain Scale: Adult pf1 MDM: 20:27 Patient medically screened. cp 22:02 Data reviewed: vital signs, nurses notes, lab test result(s). cp 22:02 Differential diagnosis: urinary tract infection, cystitis, pyelonephritis, sepsis, cp kidney stone. Counseling: I had a detailed discussion with the patient and/or guardian regarding the historical points, exam findings, and any diagnostic results supporting the discharge/admit diagnosis, lab results, to return to the emergency department if symptoms worsen or persist or if there are any questions or concerns that arise at home. 06/13 20:28 Order name: Urinalysis W/Microscopic; Complete Time: 21:58 cp 06/13 21:59 Interpretation: Reviewed. 06/13 21:53 Order name: Urine Culture EDMS Administered Medications: 22:15 Drug: Phenazopyridine PO 100 mg PO once Route: PO; pf1 22:34 Follow up: Response: No adverse reaction; Marked relief of symptoms pf1 22:18 Drug: Rocephin (cefTRIAXone) IM 1 grams IM once Route: IM; Site: right ventrogluteal; pf1 22:34 Follow up: Response: No adverse reaction; Marked relief of symptoms pf1 Disposition Summary: 06/14/23 22:03 Discharge Ordered Notes: Location: Home cp Problem: new cp Symptoms: have improved cp Condition: Stable cp Diagnosis - UTI/ Urinary tract infection, site not specified cp Followup: cp - With: Private Physician - When: 2 - 3 days - Reason: Recheck today's complaints Discharge Instructions: - Discharge Summary Sheet cp - Urinary Tract Infection, Adult cp Forms: - Medication Reconciliation Form cp - Thank You Letter cp - Antibiotic Education cp - Prescription Opioid Use cp - Patient Portal Instructions cp - Leadership Thank You Letter cp Prescriptions: - Pyridium 100 mg Oral tablet - take 1 tablet ORAL route 2 to 3 times per day As needed as needed for pain; 6 cp tablet; Refills: 0, Product Selection Permitted - cefpodoxime 100 mg Oral Tablet - take 1 tablet ORAL route every 12 hours for 10 days take with food; 20 tablet; cp Refills: 0, Product Selection Permitted Signatures: Dispatcher [employer] [facility] Ivan Alfaro PA PA cp Lore Coelho RN RN pf1 Elsa Ruiz cp4 Corrections: (The following items were deleted from the chart) 20:28 20:28 Urinalysis W/Microscopic+U.LAB.BRZ ordered. [facility] EDNC 06/14 02:08 06/13 22:00 This 78 yrs old Female presents to ER via Ambulatory with cp complaints of Pain With Urination. cp
[2023-06-14] MEDS ORDERED: CEFTRIAXONE 1000 MG/VIAL ONE (22:06)
[2023-06-14] MEDS ORDERED: LIDOCAINE 1% MPF 2 ML AMPULE ONE (22:06)
[2023-06-14] MEDS ORDERED: PHENAZOPYRIDINE 100MG TAB PO ONE (22:12)
[2023-06-15 01:13] VITALS: BP 143/94; TEMP 97.9; O2SAT 100
== END 2023-06-14 22:35 | disposition home or self-care (01) ==
LOC: ER 20:05
DX: N39.0 Urinary tract infection, site not specified (principal); R31.9 Hematuria, unspecified
CPT/HCPCS: 87088; 81001; 87086; 96372; 99284; J0696

== ENCOUNTER 2024-01-05 01:07 | Emergency (ER) | payer OTHER ==
--- OUTSIDE RECORDS SUMMARY | 2024-01-05 01:18 | XMS REPORT | Continuity of Care Document ---
Author Name Unknown Address [address] [facility]. [address] [place] [address] [facility] thconnect Address [address] [facility] [address] [place] [address] Care Team Providers Care Hair Dryer Name Role Phone Naveen POOLE, Emily Primary Care Physician + [phone] LAURA RODARTE Attending Clinician Unavailable LAURA RODARTE Attending Clinician Unavailable EMILY HODGE Attending Clinician UnavailEMILY Cottrell Attending Clinician UnavailCHRISTINA Sweeney Attending Clinician CHRISTINA Andrade Attending Clinician DARIEL Badillo Attending Clinician Unavailable DARIEL GUILLEN Attending Clinician Unavailable David POOLE, Sendmillie K.HTyrell Attending Clinician + [phone] DANIEL EL Attending Clinician Unavailable DANIEL EL Attending Clinician Unavailable Daniel El DO Attending Clinician [phone] Emily Hodge MD Attending Clinician [phone], [facility] Attending Clinician Unavailable Doctor Unassigned, [place] Attending Clinician aJy Thao MD Attending Clinician [phone] GAYE HERNANDEZHTyrell Attending Clinician Danielle Mosley Attending Clinician SANDRITA Grossman Attending Clinician Unavailable Leny POOLE, Leigh Attending Clinician [phone] Antony KNIFE SETTER GRINDER MACHINE, Sandrita Attending Clinician + SABINE MORELOS Attending Clinician Daisy vailable JAY BRADSHAW Attending Clinician Unavail able JAY BRADSHAW Attending Clinician Unavail able SANDRITA RAVI Attending Clinician Unavailable Doctor Unassigned, [place] Attending Clinician U monica Morelos MD, Sabine Cazares Attending Clinician Antony KNIFE SETTER GRINDER MACHINE, Sandrita Attending Clinician + David POOLE, Gaye Cavazos Attending Clinician + [phone] Quinten [facility] Attending Clinician [phone] [facility] Lab Attending Clinician Unavailable Gayathri POOLE, Gregory Mckinney Attending Clinician [phone] Mo, Cardiology - Clear Attending Clinician Daisy vailable Christiano Shelton Attending Clinician Unavailable Yanni POOLE, Jose Chen Attending Clinician + Júnior POOLE, Kalin Rodriguez Attending Clinician [phone] Lewis POOLE, Radames Attending Clinician [phone] Luis POOLE, Mike Thacker Attending Clinician [phone] Neurology Attending Clinician Unavailable Kings CEJA, Loreta Maria Attending Clinician Unavailab ANITA Locke Attending Clinician Unavailable Anita Echeverria DO Attending Clinician [phone] Errol Lopes MD Attending Clinician [phone] UDAY NIEVES Attending Clinician Unavailable Provider, [facility] Attending Clinician Unavailable Unknown, Attending Attending Clinician Unavailab le UNKNOWN, ATTENDING Attending Clinician Unavailab lakhwinder Nurse, [facility] Attending Clinician Un available GC_SWHATBIC_Black_D Attending Clinician Unavaila ble Vaccine, [facility] Attending Clinician Unavailable DAGOBERTO CHRIS Attending Clinician Unavailable Cuong Delgado PA-C Attending Clinician [phone] CUONG DELGADO Attending Clinician Unavailable Jay Bradshaw MD Attending Clinician [phone] JENNIFER HARRIS Attending Clinician Unavailab le KIMBERLYJENNIFER Attending Clinician Unavailab le Vaccine, [facility] Attending Clinician Unav ailable Freda Up Attending Clinician [phone] FREDA MIRANDA Attending Clinician Unavailable GC_SWHAOMC_Black_D Attending Clinician Unavailab lakhwinder HessLajake Rodriguez Attending Clinician [phone] LAURA RODARTE Admitting Clinician Unavailable DANIEL EL Admitting Clinician Unavailable SABINE MORELOS Admitting Clinician Daisy richie Morelos MD, Sabine Cazares Admitting Clinician SANDRITA RAVI Admitting Clinician Unavailable ANITA ECHEVERRIA Admitting Clinician Unavailable Anita Echeverria DO Admitting Clinician [phone] GAYE HERNANDEZ K.HTyrell Admitting Clinician Unavaila ble GC_SWHATBIC_Black_D Admitting Clinician Unavaila ble JAY BRADSHAW Admitting Clinician Unavail able GC_SWHAOMC_Black_D Admitting Clinician Unavailab le Payers Payer Name Policy Type Policy Number Effective Date Expirati on Date Source AETNA MANAGED MEDICARE PPO-DAVID [id number] 2022 00:00:00 [facility] - MEDICARE COMPLETE (MEDICARE REPLACEMENT HMO) [id number] [employer] MEDICARE ADVANTAGE [id number] 2022 00:00:00 2022 00:00:00 [employer] INDEMNITY [id number] 2021 00:00:00 2022 00:00:00 [place]: [employer] [id number] 2008 00:00:00 [employer] (INDEMNITY) [id number] 2000 00:00:00 Problems Condition Name Condition Details Condition Category Status Onset Date Resolution Date Last Treatment Date Treating Clinician Comments Source Acquired hypothyroi dism Acquired hypothyroi dism Disease Active 2023-03 00:00: 00 [facility] 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 Disease Active 2023-03 00:00: 00 [facility] Anxiety Anxiety Disease Active 2023-03 0-09 00:00: 00 [facility] Impaired mobility and ADLs Impaired mobility and ADLs Disease Active 2023-03 0-09 00:00: 00 [facility] Polycythem ia Polycythem ia Disease Active 2023-03 0- 00:00: 00 [facility] Hyperkalem ia Hyperkalem ia Disease Active 2023-03 0- 00:00: 00 [facility] Acute midline low back pain without sciatica Acute midline low back pain without sciatica Disease Active 2023-03 0- 00:00: 00 [facility] Abdominal pain, unspecifie d abdominal location Abdominal pain, unspecifie d abdominal location Disease Active 4- 00:00: 00 [facility] Acute hyponatrem ia Acute hyponatrem ia Disease Active 3- 00:00: 00 [facility] Chronic hyponatrem ia Chronic hyponatrem ia Disease Active 3-02 00:00: 00 [facility] 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 thought to be due to hydroxyur ea [facility] Osteopenia Osteopenia Disease Active 07-17 00:00: 00 [facility] Allergies, Adverse Reactions, Alerts Allergy Name Allergy Type Status Severity Reaction(s) Onset Date Inactive Date Treating Clinician Comments Source NO KNOWN ALLERGIE S Drug Class Active [facility] Family History Family Member Diagnosis Comments Start Date Stop Date Sourc e Natural [facility] Hy[facility] sister Breast Cancer [facility] Social History Social Habit Start Date Stop Date Quantity Comments Source Sexual orientation [facility] History of tobacco use Cigarette Smoker [facility] Alcoholic beverage intake 2023-12-14 00:00:00 2023-12-14 00:00:00 Lifetime non-drinker (finding) [facility] Alcohol intake 2023-06-29 00:00:00 2023-06-29 00:00:00 Lifetime non-drinker (finding) [facility] History of Social function 2023-06-26 00:00:00 2023-06-26 00:00:00 [facility] Tobacco use and exposure 2023-02-09 00:00:00 2023-02-09 00:00:00 Smokeless tobacco non-user [facility] Exposure to SARS-CoV-2 (event) 2022-02-28 00:00:00 2022-03-10 14:10:00 Not sure [facility] Sex assigned at 1945 00:00:00 1945 00:00:00 [facility] Smoking Status Start Date Stop Date Source Ex-smoker 2023-02-09 00:00:00 2023-02-09 00:00:00 [facility] Occasional tobacco smoker 2022-03-10 00:00:00 [facility] Medications Ordered Medication Name Filled Medication Name Start Date Stop Date Current Medication? Ordering Clinician Indication Dosage Frequency Signature (SIG) Comments Components Source ELIQUIS 5 mg tablet 2023-03 00:00: 00 Yes [id number] TAKE 1 TABLET BY MOUTH TWICE A DAY FOR PAROXYSMAL ATRIAL FIBRILLATI ON [facility] apixaban (ELIQUIS) 5 mg tablet 2023-03 00:00: 00 Yes [id number] 5mg Take 1 tablet by mouth 2 (two) times daily. Indication s: paroxysmal atrial fibrillati on [facility] patiromer calcium sorbitex (VELTASSA) 8.4 gram PwPk 2023-03 0 00:00: 00 Yes [id number] 8.4g Take 8.4 g by mouth daily. [facility] Nitrofurant oin&Nit. Macrocryst (MACROBID) 100 mg capsule 2023-03 0 00:00: 00 12-14 04:59 :00 Yes [id number] 100mg Take 1 capsule by mouth 2 (two) times daily for 5 days. [facility] galantamine 8 mg tablet 11-19 00:00: 00 Yes [id number] 8mg Take 1 tablet by mouth 2 (two) times daily. [facility] mirtazapine 15 mg tablet 10-25 00:00: 00 Yes [id number] 15mg Take 1 tablet by mouth at bedtime. [facility] patiromer calcium sorbitex (VELTASSA) 8.4 gram PwPk 10-25 00:00: 00 12-08 00:00 :00 No [id number] 8.4g Take 8.4 g by mouth daily. [facility] levothyroxi ne 25 mcg tablet 10-25 00:00: 00 10-25 00:00 :00 Yes [id number] 50ug Take 2 tablets by mouth every morning. [facility] galantamine 4 mg tablet 10-13 00:00: 00 11-19 00:00 :00 No [id number] 4mg Take 1 tablet by mouth 2 (two) times daily. Call office when refill completes for further refills. [facility] LEVOTHYROXI NE 75 mcg tablet 09-07 00:00: 00 10-25 00:00 :00 No [id number] 75ug TAKE 1 TABLET BY MOUTH EVERY DAY IN THE MORNING [facility] apixaban (ELIQUIS) 5 mg tablet 09-04 00:00: 00 12-20 00:00 :00 No [id number] 5mg Take 1 tablet by mouth 2 (two) times daily. Indication s: paroxysmal atrial fibrillati on [facility] apixaban (ELIQUIS) 5 mg tablet 08-25 13:26: 26 09-04 00:00 :00 No 5mg Take 1 tablet by mouth 2 (two) times daily. [facility] clonazePAM 0.5 mg tablet 08-09 00:00: 00 Yes TAKE TABLET 3 TIMES A DAY NEEDED ANXIETY [facility] LEVOTHYROXI NE 75 mcg tablet 08-03 00:00: 00 09-07 00:00 :00 No [id number] 75ug TAKE 1 TABLET BY MOUTH EVERY DAY IN THE MORNING [facility] apixaban 5 mg tablet 07-30 00:00: 00 07-29 00:00 :00 No 5mg Take 1 tablet by mouth 2 (two) times daily. Indication s: arterial thrombosis [facility] HYDROCODONE -ACETAMINOP HEN ORAL 07-29 13:38: 43 07-29 00:00 :00 No Take by mouth. [facility] atorvastati n 40 mg tablet 07-29 13:38: 29 08-25 00:00 :00 No atorvastat in 40 mg tablet TAKE 1 TABLET BY MOUTH EVERYDAY AT BEDTIME [facility] SERTraline 25 mg tablet 07-29 00:00: 00 08-13 00:00 :00 No [id number] 25mg Take 1 tablet by mouth daily. [facility] FERROUS SULFATE 325 mg (65 mg iron) tablet 07-27 00:00: 00 07-29 00:00 :00 No [id number] 325mg TAKE 1 TABLET BY MOUTH TWICE A DAY [facility] aspirin 81 mg chewable tablet 06-30 00:00: 00 07-01 04:59 :00 No [id number] 81mg Take 1 tablet by mouth daily. [facility] hydroxyurea 500 mg capsule 06-29 17:02: 28 Yes 500mg Take 1 capsule by mouth 2 (two) times daily [facility] apixaban 5 mg tablet 06-29 00:00: 07-30 04:59 :00 No 5mg Take 1 tablet by mouth 2 (two) times daily for 30 days. Indication s: arterial thrombosis [facility] clonazePAM 0.5 mg tablet 06-29 00:00: 00 07-29 00:00 :00 No [id number] .5mg Take 1 tablet by mouth 2 (two) times daily as needed for Other (anxiety). [facility] HYDROcodone -acetaminop hen 5-325 mg tablet 06-29 00:00: 07-07 04:59 :00 No [id number] 1{tbl} Take 1 tablet by mouth every 6 (six) hours as needed for Pain (scale 7-10) for up to 7 days. Indication s: acute pain [facility] iopamidol (ISOVUE 370-500 mL) injection 100 mL 06-28 06:32: 00 06-28 06:45 :00 No [id number] 100mL 100 mL, Intravenou s, ONCE, 1 dose, On Thu06/29/23 at 0145, Routine [facility] apixaban (ELIQUIS) tablet 5 mg 06-28 01:00: 00 Yes 5mg 5 mg, Oral, BID, First dose on Thu06/28/23 at 2000, Until Discontinu ed, Routine
Indicatio ns: DVT/PE [facility] perflutren protein-A microsphr (OPTISON) injection 3 mL 06-27 16:30: 00 06-27 16:30 :00 No [id number] 3mL 3 mL, IV Push, ONCE, 1 dose, On Thu06/28/23 at 1130, Routine [facility] KCL (KLOR-CON M20) tablet 40 mEq 06-27 14:00: 00 06-27 13:38 :00 No 40meq 40 mEq, Oral, ONCE, 1 dose, On Thu06/28/23 at 0900, Routine [facility] clonazePAM (KLONOPIN) tablet 0.5 mg 06-26 21:15: 54 Yes .5mg 0.5 mg, Oral, TIDPRN, Starting on 06/27/23 at 1615, Until Discontinu ed, Routine, Insomnia, Anxiety [facility] alteplase (TPA) (ACTIVASE) 10 mg/10 mL syringe 06-26 15:07: 00 Yes PRN, Starting on 06/27/23 at 1007, Until Discontinu ed, Routine, Intra-op [facility] iopamidol (ISOVUE 370-500 mL) injection 06-26 15:06: 00 Yes PRN, Starting on 06/27/23 at 1006, Until Discontinu ed, Routine, Intra-op [facility] heparin 10,000 units in NS 1000 mL for vascular 06-26 15:06: 00 06-27 18:55 :11 No PRN, Starting on 06/27/23 at 1006, Intra-op [facility] polyethylen e glycol 3350 powder 17 g 06-26 14:00: 00 Yes 17g 17 g, Oral, QAM, First dose on 06/27/23 at 0900, Until Discontinu ed, Routine [facility] levothyroxi [facility] (SYNTHROID) tablet 75 mcg 06-26 11:00: 00 Yes 75ug 75 mcg, Oral, QAM-0600, First dose on 06/27/23 at 0600, Until Discontinu ed, Routine [facility] mirtazapine (REMERON) tablet 7.5 mg 06-26 02:00: 00 Yes 7.5mg 7.5 mg, Oral, QHS, First dose on Thu06/26/23 at 2100, Until Discontinu ed, Routine [facility] donepeziL (ARICEPT) tablet 5 mg 06-26 02:00: 00 Yes 5mg 5 mg, Oral, QHS, First dose on Thu06/26/23 at 2100, Until Discontinu ed, Routine [facility] atorvastati n (LIPITOR) tablet 40 mg 06-26 02:00: 00 Yes 40mg 40 mg, Oral, QHS, First dose on Thu06/26/23 at 2100, Until Discontinu ed, Routine [facility] ferrous sulfate tablet 325 mg 06-26 01:00: 00 Yes 325mg 325 mg, Oral, BID, First dose on Thu06/26/23 at 2000, Until Discontinu ed, Routine [facility] hydroxyurea (HYDREA) capsule 500 mg 06-26 01:00: 00 06-26 15:31 :40 No 500mg 500 mg, Oral, BID, First dose (after last modificati on) on Thu06/26/23 at 2000, Until Discontinu ed, Routine
Indicatio n: Polycythem ia [facility] aspirin chewable tablet 81 mg 06-25 22:00: 00 Yes 81mg 81 mg, Oral, DAILY, First dose on Thu06/26/23 at 1700, Until Discontinu ed, Routine [facility] calcium carbonate (OSCAL-500) tablet 500 mg 06-25 22:00: 00 Yes 500mg 500 mg, Oral, BID MEALS, First dose on Thu06/26/23 at 1700, Until Discontinu ed [facility] heparin 1000 unit/mL injection Soln 5,000 Units 06-25 22:00: 00 06-25 22:30 :00 No 5000U 5,000 Units, IV Push, ONCE, 1 dose, On Thu06/26/23 at 1700, Routine [facility] heparin 25,000 Units/250 mL (Premixed Bag) in 0.45 % NS 06-25 21:53: 26 06-27 18:55 :11 No 0U/h 0-2,350 Units/hr (0-23.5 mL/hr), IV Infusion, TITRATE, Parameters in Admin. Instr., Starting on Thu06/26/23 at 1653
In itiate dosing:&nb sp; & nbsp;&nbsp ; -Patient 73 kg or under: 1,200 Units/hr (Calculate d dose at 18 units/kg/h r) &n bsp; &nbs p; -Patient over 73 k,300 units/hr&n bsp;DO NOT Exceed the MAXIMUM 1,300 units/hr for initiation of heparin drip.&nbsp ; CAU TION - If LMWH given in ER, AVOID bolus and start next dose/drip 12 hrs after ER dosage.&nb sp; M ust program rate using programmab le infusion pump.&nbsp ; Barb ck with the ordering provider first prior to any administra tion should the patient be on existing/a dditional anticoagul ant therapy. Rang e, Dosing and Testing: &nbs p;DO NOT ADJUST INITIAL BOLUS OR INITIAL INFUSION RATE.&nbsp ; _ &nb sp;FOR [facility], [facility], AND [facility] ONLY &nbs p; - aPTT < 35: & nbsp;Bolus 5000 units, increase rate 300 units/hr&n bsp; - aPTT 35-44:&nbs p; Walter epifanio 3000 units, increase rate 200 units/hr&n bsp; - aPTT 45-54:&nbs p; In crease rate 100 units/hr&n bsp; - aPTT 55-85:&nbs p; NO CHANGE&nbs p; - aPTT 86-95:&nbs p; De crease rate 100 units/hr&n bsp; - aPTT 96-120:&nb sp; H old 30 minutes, decrease rate 150 units/hr&n bsp; - aPTT > 120: Hold 60 minutes, decrease rate 200 units/hr&n bsp; Check aPTT 6 hours after initiation , then Q6H after every change, aPTT Q12H once therapeuti c levels are reached.&n bsp; &nbs p; __ &n bsp;FOR [facility] ONLY - aPTT < 40: & nbsp;Bolus 5000 units, increase rate 300 units/hr&n bsp; - aPTT 40-49:&nbs p; Walter epifanio 3000 units, increase rate 200 units/hr&n bsp; - aPTT 50-59:&nbs p;&nbs p;Increase rate 100 units/hr&n bsp; - aPTT 60-85:&nbs p; NO CHANGE&nbs p; - aPTT 86-95:&nbs p; De crease rate 100 units/hr&n bsp; - aPTT 96-120:&nb sp; H old 30 minutes, decrease rate 150 units/hr&n bsp; - aPTT > 120: Hold 60 minutes, decrease rate 200 units/hr&n bsp; Check aPTT 6 hours after initiation , then Q6H after every change, aPTT Q12H once therapeuti c levels are reached.<b r> [facility] traMADoL (ULTRAM) tablet 50 mg 06-25 19:31: 17 Yes 50mg 50 mg, Oral, Q6HPRN, Starting on Thu06/26/23 at 1431, Until Discontinu ed, Routine, Pain (scale 4-6) [facility] oxyCODONE immediate release tablet 5 mg 06-25 19:31: 16 Yes 5mg 5 mg, Oral, Q6HPRN, Starting on Thu06/26/23 at 1431, Until Discontinu ed, Routine, Pain (scale 7-10)
F aculty member approving Restricted medication : SABINE MORELOS [facility] FENTanyl PF (SUBLIMAZE (PF)) injection 25 mcg 06-25 19:31: 16 Yes 25ug 25 mcg, Slow IV Push, Q4HPRN, Starting on Thu06/26/23 at 1431, Until Discontinu ed, Routine, breakthrou gh pain [facility] ondansetron (ZOFRAN (PF)) injection 4 mg 06-25 19:31: 02 Yes 4mg 4 mg, Slow IV Push, Q6HPRN, Starting on Thu06/26/23 at 1431, Until Discontinu ed, Routine, Nausea and Vomiting (N/V) [facility] clonazePAM (KLONOPIN) tablet 0.5 mg 06-25 19:28: 20 06-26 21:16 :06 No .5mg 0.5 mg, Oral, TIDPRN, Starting on Thu06/26/23 at 1428, Until 06/27/23 at 1616, Routine, Insomnia [facility] iopamidol (ISOVUE 370-500 mL) injection 80 mL 06-25 13:50: 00 06-25 13:50 :00 No [id number] 80mL 80 mL, Intravenou s, ONCE, 1 dose, On Thu06/26/23 at 0915, Routine [facility] ondansetron (ZOFRAN (PF)) injection 4 mg 06-25 13:00: 00 06-25 13:02 :00 No 4mg 4 mg, Slow IV Push, ONCE, 1 dose, On Thu06/26/23 at 0800, JERMAINE [facility] morpHINE (4 mg/mL) injection 4 mg 06-25 13:00: 00 06-25 13:03 :00 No 4mg 4 mg, Slow IV Push, ONCE, 1 dose, On Thu06/26/23 at 0800, STAT [facility] MIRTAZAPINE 7.5 mg tablet 05-31 00:00: 00 10-25 00:00 :00 No [id number] 7.5mg TAKE 1 TABLET BY MOUTH EVERYDAY AT BEDTIME [facility] MIRTAZAPINE 7.5 mg tablet 05-25 00:00: 00 05-31 00:00 :00 No [id number] 7.5mg TAKE 1 TABLET BY MOUTH EVERYDAY AT BEDTIME [facility] donepeziL (ARICEPT) 5 mg tablet 05-24 00:00: 00 10-13 00:00 :00 No [id number] 5mg Take 1 tablet by mouth at bedtime. [facility] cyclobenzap rine 10 mg tablet 05-14 13:35: 16 05-14 00:00 :00 No cyclobenza katie 10 mg tablet TAKE 1 ORAL TABLET 2 TIMES A DAY NEEDED FOR SPASMS [facility] atorvastati n 40 mg tablet 05-14 13:35: 12 Yes atorvastat in 40 mg tablet TAKE 1 TABLET BY MOUTH EVERYDAY AT BEDTIME [facility] hydroxyurea 500 mg capsule 05-14 13:35: 12 Yes 500mg Take 1 capsule by mouth daily [facility] gadobenate dimeglumine (MULTIHANCE -15 mL) injection 0.2 mL/kg 05-11 16:15: 00 05-11 16:03 :00 No [id number] 987202 .2mL/kg 0.2 mL/kg, Intravenou s, ONCE, 1 dose, On Thu05/12/23 at 1115, Routine [facility] levothyroxi ne 75 mcg tablet 05-06 15:40: 11 05-06 00:00 :00 No 75ug Take 1 tablet by mouth every morning. [facility] mirtazapine 7.5 mg tablet 05-06 00:00: 00 Yes [id number] 7.5mg Take 1 tablet by mouth at bedtime. [facility] levothyroxi ne 75 mcg tablet 05-06 00:00: 00 08-03 00:00 :00 No [id number] 75ug Take 1 tablet by mouth every morning. [facility] atorvastati n (LIPITOR) tablet 40 mg 05-03 03:00: 00 Yes 40mg 40 mg, Oral, QHS, First dose on 05/03/23 at 2100, Until Discontinu ed, Routine [facility] sodium chloride tablet 500 mg 05-02 22:00: 00 Yes 500mg 500 mg, Oral, QID, First dose on 05/03/23 at 1600, Until Discontinu ed, Routine [facility] levothyroxi ne 75 mcg tablet 05-02 16:03: 18 Yes 75ug Take 1 tablet by mouth every morning. [facility] atorvastati n 40 mg tablet 05-02 16:03: 18 Yes atorvastat in 40 mg tablet TAKE 1 TABLET BY MOUTH EVERYDAY AT BEDTIME [facility] cyclobenzap rine 10 mg tablet 05-02 16:03: 18 Yes cyclobenza katie 10 mg tablet TAKE 1 ORAL TABLET 2 TIMES A DAY NEEDED FOR SPASMS [facility] hydroxyurea 500 mg capsule 05-02 16:03: 18 Yes 500mg Take 1 capsule by mouth daily [facility] clonazePAM 0.5 mg tablet 05-02 15:06: 39 05-02 00:00 :00 No .5mg Take 1 tablet by mouth 3 (three) times daily. [facility] citalopram 40 mg tablet 05-02 15:06: 39 05-02 00:00 :00 No 40mg Take 1 tablet by mouth daily. [facility] hydroxyurea (HYDREA) capsule 500 mg 05-02 15:00: 00 Yes 500mg 500 mg, Oral, DAILY, First dose on 05/03/23 at 0900, Until Discontinu ed, Routine
Indicatio n: Other
P lease specify other indication : rheumatic disease [facility] montelukast (SINGULAIR) tablet 10 mg 05-02 15:00: 00 Yes 10mg 10 mg, Oral, DAILY, First dose on 05/03/23 at 0900, Until Discontinu ed, Routine [facility] enoxaparin (LOVENOX) injection 40 mg 05-02 15:00: 00 Yes 40mg 40 mg, Subcutaneo us, DAILY, First dose on 05/03/23 at 0900, Until Discontinu ed, Routine [facility] clonazePAM (KLONOPIN) tablet 0.5 mg 05-02 14:00: 00 Yes .5mg 0.5 mg, Oral, TID, First dose on 05/03/23 at 0800, Until Discontinu ed, Routine [facility] calcium carbonate (OSCAL-500) tablet 1,250 mg 05-02 14:00: 00 Yes 1200mg 1,250 mg (rounded from 1,200 mg), Oral, BID MEALS, First dose on 05/03/23 at 0800, Until Discontinu ed [facility] levothyroxi ne (SYNTHROID) tablet 75 mcg 05-02 12:00: 00 Yes 75ug 75 mcg, Oral, QAM-0600, First dose on 05/03/23 at 0600, Until Discontinu ed, Routine [facility] NaCl 0.9% (NS) IV infusion 1,000 mL 05-02 06:45: 00 05-02 06:09 :09 No 1000mL at 75 mL/hr, IV Infusion, ONCE, 1 dose, On Thu05/03/23 at 0045, Routine [facility] HYDROcodone -acetaminop hen (NORCO) 10-325 mg tablet 1 tablet 05-02 05:39: 25 Yes 1{tbl} 1 tablet, Oral, Q6HPRN, Starting on 05/02/23 at 2339, Until Discontinu ed, Routine, Pain (scale 7-10) [facility] traMADoL (ULTRAM) tablet 50 mg 05-02 05:39: 12 Yes 50mg 50 mg, Oral, Q6HPRN, Starting on 05/02/23 at 2339, Until Discontinu ed, Routine, Pain (scale 4-6) [facility] acetaminoph en (TYLENOL) tablet 650 mg 05-02 05:39: 09 Yes 650mg 650 mg, Oral, Q6HPRN, Starting on 05/02/23 at 2339, Until Discontinu ed, Routine, Pain (scale 1-3) [facility] cyclobenzap rine (FLEXERIL) tablet 10 mg 05-02 04:29: 32 Yes 10mg 10 mg, Oral, TIDPRN, Starting on 05/02/23 at 2229, Until Discontinu ed, Routine, Muscle Spasms [facility] clonazePAM 0.5 mg tablet 05-02 00:00: 00 06-29 00:00 :00 No [id number] .5mg Take 1 tablet by mouth 3 (three) times daily as needed for Other (anxiety) for up to 60 doses. [facility] sodium chloride 1,000 mg tablet 05-02 00:00: 00 05-13 04:59 :00 No [id number] 500mg Take 0.5 tablets by mouth 4 (four) times daily for 10 days. [facility] ondansetron (ZOFRAN (PF)) injection 4 mg 05-01 23:55: 27 Yes 4mg 4 mg, Slow IV Push, Q6HPRN, Starting on 05/02/23 at 1755, Until Discontinu ed, Routine, Nausea and Vomiting (N/V) [facility] NaCl 0.9% (NS) bolus infusion 500 mL 05-01 22:45: 00 05-02 00:08 :00 No 500mL at 999 mL/hr, 500 mL, IV Infusion, ONCE, 1 dose, On 05/02/23 at 1645, STAT [facility] hydroxyurea 500 mg capsule 05-01 22:32: 33 05-01 00:00 :00 No 500mg Take 1 capsule by mouth daily [facility] brinzolamid e-brimonidi ne (SIMBRINZA) 1-0.2 % ophthalmic drops 05-01 22:32: 33 05-01 00:00 :00 No INSTILL 1 DROP INTO BOTH EYES TWICE A DAY [facility] cefUROXime 250 mg tablet 05-01:32: 05-01 00:00 :00 No cefuroxime axetil 250 mg tablet [facility] dorzolamide -timolol, PF, 2-0.5 % Dpet 05-01:32: 05-01 00:00 :00 No dorzolamid e-timolol (PF) 2 %-0.5 % eye drops in a dropperett e INSTILL 1 DROP INTO BOTH EYES TWICE A DAY [facility] escitalopra m oxalate 20 mg tablet 05-01:32: 05-01 00:00 :00 No escitalopr am 20 mg tablet [facility] HYDROcodone -acetaminop hen 10-325 mg tablet 05-01:32: 05-01 00:00 :00 No hydrocodon e 10 mg-acetami nophen 325 mg tablet [facility] omeprazole 40 mg capsule 05-01:32: 05-01 00:00 :00 No omeprazole 40 mg capsule,de layed release [facility] ondansetron 4 mg tablet 05-01:32: 05-01 00:00 :00 No TAKE 1 TABLET BY MOUTH EVERY 12 HOURS NEEDED [facility] pantoprazol e 40 mg EC tablet 05-01:32: 05-01 00:00 :00 No pantoprazo le 40 mg tablet,del ayed release [facility] proMETHazin e 25 mg suppository 05-01:32: 05-01 00:00 :00 No INSERT 1 SUPPOSITOR Y RECTALLY EVERY 6 HOURS NEEDED FOR NAUSEA AND VOMITING [facility] raloxifene 60 mg tablet 05-01:32: 33 05-01 00:00 :00 No raloxifene 60 mg tablet TAKE 1 TABLET(S) EVERY DAY BY ORAL ROUTE [facility] acyclovir 400 mg tablet 05-01 22:32: 33 05-01 00:00 :00 No acyclovir 400 mg tablet [facility] iopamidol (ISOVUE 370-500 mL) injection 90 mL 05-01 21:00: 00 05-01 21:15 :00 No [id number] 90mL 90 mL, Intravenou s, ONCE, 1 dose, On 05/02/23 at 1515, Routine [facility] CHOLECALCIF GUNJAN, VITAMIN D3, 25 mcg (1,000 unit) tablet 04-30 00:00: 00 Yes [id number] 1000U TAKE 1 TABLET BY MOUTH EVERY DAY [facility] CALCIUM CARBONATE 600 mg calcium (1,500 mg) tablet 04-30 00:00: 00 Yes [id number] 1{tbl} TAKE 1 TABLET BY MOUTH TWICE A DAY WITH MEALS [facility] FERROUS SULFATE 325 mg (65 mg iron) tablet 04-30 00:00: 00 07-27 00:00 :00 No [id number] 325mg TAKE 1 TABLET BY MOUTH TWICE A DAY [facility] atorvastati n 40 mg tablet 04-20 09:52: 23 Yes atorvastat in 40 mg tablet TAKE 1 TABLET BY MOUTH EVERYDAY AT BEDTIME [facility] cyclobenzap rine 10 mg tablet 04-20 09:52: 23 Yes cyclobenza katie 10 mg tablet TAKE 1 ORAL TABLET 2 TIMES A DAY NEEDED FOR SPASMS [facility] citalopram 40 mg tablet 04-20 09:52: 23 Yes 40mg Take 1 tablet by mouth daily. [facility] GAVILYTE-G 236-22.74-6 .74 -5.86 gram solution 04-20 00:00: 00 05-01 00:00 :00 No TAKE 4,000 ML BY MOUTH ONCE NOW FOR 1 DOSE. [facility] peg-electro lyte soln 236-22.74-6 .74 -5.86 gram solution -19 00:00: 00 04-21 05:59 :00 No [id number] 4000mL Take 4,000 mL by mouth once now for 1 dose. [facility] atorvastati n 40 mg tablet 04-16 15:21: 41 Yes atorvastat in 40 mg tablet TAKE 1 TABLET BY MOUTH EVERYDAY AT BEDTIME [facility] mirtazapine 7.5 mg tablet 04-16 00:00: 00 05-01 00:00 :00 No [id number] 7.5mg Take 1 tablet by mouth at bedtime. [facility] iopamidol (ISOVUE 370-500 mL) injection 90 mL 04-10 22:45: 00 04-10 23:00 :00 No [id number] 90mL 90 mL, Intravenou s, ONCE, 1 dose, On Thu04/10/23 at 1700, Routine [facility] amoxicillin -clavulanat e 875-125 mg per tablet 04-10 00:00: 00 04-21 05:59 :00 No [id number] 1{tbl} Take 1 tablet by mouth every 12 (twelve) hours for 10 days. [facility] HYDROcodone -acetaminop hen 7.5-325 mg per tablet 04-08 00:00: 00 05-01 00:00 :00 No [facility] dorzolamide -timoloL 22.3-6.8 mg/mL ophthalmic drops - 00:00: 00 05-01 00:00 :00 No INSTILL 1 DROP INTO BOTH EYES TWICE A DAY [facility] calcium carbonate (CALCIUM 600) 600 mg calcium (1,500 mg) tablet 03-28 00:00: 00 04-30 00:00 :00 No [id number] 600mg Take 1 tablet by mouth 2 (two) times daily with meals. [facility] cholecalcif gunjan, vitamin D3, (VITAMIN D3) 25 mcg (1,000 unit) tablet 03-28 00:00: 00 04-30 00:00 :00 No [id number] 1000U Take 1 tablet by mouth daily. [facility] OMEPRAZOLE ORAL 03-10 09:14: 55 03-10 00:00 :00 No Take by mouth. [facility] Pantoprazol e 40 mg delayed-rel ease suspension 03-10 09:14: 49 03-10 00:00 :00 No 40mg Take 40 mg by mouth in the morning. [facility] raloxifene 60 mg tablet 03-10 09:14: 46 03-10 00:00 :00 No 60mg Take 1 tablet by mouth in the morning. [facility] losartan 25 mg tablet 03-10 09:14: 34 03-10 00:00 :00 No 25mg Take 1 tablet by mouth in the morning. [facility] glimepiride 1 mg tablet 03-10 09:14: 14 03-10 00:00 :00 No 1mg Take 1 tablet by mouth daily with breakfast. [facility] ESCITALOPRA M OXALATE ORAL 03-10 09:14: 08 03-10 00:00 :00 No Take by mouth. [facility] cloniDINE 0.3 mg tablet 03-10 09:13: 56 03-10 00:00 :00 No .3mg Take 1 tablet by mouth in the morning and 1 tablet at noon and 1 tablet in the evening. [facility] citalopram 40 mg tablet 03-10 09:13: 32 Yes 40mg Take 1 tablet by mouth daily. [facility] citalopram 10 mg tablet 03-10 09:13: 06 03-10 00:00 :00 No 10mg Take 1 tablet by mouth in the morning. [facility] carvedilol 12.5 mg tablet 03-10 09:13: 03 03-10 00:00 :00 No 12.5mg Take 1 tablet by mouth in the morning and 1 tablet in the evening. Take with meals. [facility] brimonidine 0.15 % ophthalmic drops 03-10 09:12: 57 03-10 00:00 :00 No brimonidin e 0.15 % eye drops INSTILL 1 DROP IN BOTH EYES TWICE A DAY [facility] amLODIPine 5 mg tablet 03-10 09:12: 44 03-10 00:00 :00 No 5mg Take 1 tablet by mouth in the morning. [facility] ferrous sulfate 325 mg (65 mg iron) tablet 03-03 00:00: 00 04-30 00:00 :00 No [id number] 325mg Take 1 tablet by mouth 2 (two) times daily. [facility] hydroxyurea 500 mg capsule 2022-03 10:07: 30 Yes 500mg Take 1 capsule by mouth 2 (two) times daily [facility] ESCITALOPRA M OXALATE ORAL 2022-03 10:07: 30 Yes Take by mouth. [facility] raloxifene 60 mg tablet 2022-03 10:07: 30 Yes 60mg Take 1 tablet by mouth in the morning. [facility] Pantoprazol e 40 mg delayed-rel ease suspension 2022-03 10:07: 30 Yes 40mg Take 40 mg by mouth in the morning. [facility] carvedilol 12.5 mg tablet 2022-03 10:07: 30 Yes 12.5mg Take 1 tablet by mouth in the morning and 1 tablet in the evening. Take with meals. [facility] citalopram 10 mg tablet 2022-03 10:07: 30 Yes 10mg Take 1 tablet by mouth in the morning. [facility] glimepiride 1 mg tablet 2022-03 10:07: 30 Yes 1mg Take 1 tablet by mouth daily with breakfast. [facility] amLODIPine 5 mg tablet 2022-03 10:07: 30 Yes 5mg Take 1 tablet by mouth in the morning. [facility] cloniDINE 0.3 mg tablet 2022-03 10:07: 30 Yes .3mg Take 1 tablet by mouth in the morning and 1 tablet at noon and 1 tablet in the evening. [facility] cyclobenzap rine 10 mg tablet 2022-03 09:59: 54 Yes cyclobenza katie 10 mg tablet TAKE 1 ORAL TABLET 2 TIMES A DAY NEEDED FOR SPASMS [facility] losartan 25 mg tablet 2022-03 09:59: 54 Yes 25mg Take 1 tablet by mouth in the morning. [facility] brimonidine 0.15 % ophthalmic drops 2022-03 09:59: 54 Yes brimonidin e 0.15 % eye drops INSTILL 1 DROP IN BOTH EYES TWICE A DAY [facility] valACYclovi r (VALTREX) 1 gram tablet 2022-03 00:00: 00 02-17 05:59 :00 No [id number] 1g Take 1 tablet by mouth in the morning and 1 tablet in the evening. Do all this for 7 days. [facility] amoxicillin 875 mg tablet 2022-03 00:00: 00 05-01 00:00 :00 No 875mg Take 1 tablet by mouth 2 (two) times daily. [facility] atorvastati n 40 mg tablet 2021-03 14:57: 51 Yes atorvastat in 40 mg tablet TAKE 1 TABLET BY MOUTH EVERYDAY AT BEDTIME [facility] clonazePAM 0.5 mg tablet 2021-03 14:57: 51 Yes .5mg Take 0.5 mg by mouth 3 (three) times daily. [facility] levothyroxi ne 75 mcg tablet 2021-03 14:57: 51 Yes 75ug Take 75 mcg by mouth every morning. [facility] citalopram 10 mg tablet 2021-03 14:57: 51 Yes 10mg Take 10 mg by mouth daily. [facility] hydroxyurea 500 mg capsule 2021-03 14:57: 51 Yes 500mg Take 500 mg by mouth daily. [facility] cyclobenzap rine 10 mg tablet 2021-03 14:34: 40 Yes cyclobenza katie 10 mg tablet TAKE 1 ORAL TABLET 2 TIMES A DAY NEEDED FOR SPASMS [facility] brimonidine 0.15 % ophthalmic drops 2021-03 14:34: 39 Yes brimonidin e 0.15 % eye drops INSTILL 1 DROP IN BOTH EYES TWICE A DAY [facility] HYDROcodone -acetaminop hen 10-325 mg tablet 2021-03 00:00: 00 03-10 00:00 :00 No 1{tbl} Take 1 tablet by mouth in the morning and 1 tablet at noon and 1 tablet in the evening. [facility] montelukast 10 mg tablet 2021-03 00:00: 00 05-14 00:00 :00 No 10mg Take 1 tablet by mouth daily. [facility] cloniDINE 0.3 mg tablet 08-01 18:47: 38 Yes .3mg Take 0.3 mg by mouth 3 (three) times daily. [facility] HYDROCODONE -ACETAMINOP HEN ORAL 08-01 18:47: 38 Yes Take by mouth. [facility] raloxifene 60 mg tablet 08-01 18:47: 37 Yes 60mg Take 60 mg by mouth daily. [facility] Pantoprazol e 40 mg delayed-rel ease suspension 08-01 18:47: 37 Yes 40mg Take 40 mg by mouth daily. [facility] losartan 25 mg tablet 08-01 18:47: 37 Yes 25mg Take 25 mg by mouth daily. [facility] carvedilol 12.5 mg tablet 08-01 18:47: 37 Yes 12.5mg Take 12.5 mg by mouth 2 (two) times daily with meals. [facility] glimepiride 1 mg tablet 08-01 18:47: 37 Yes 1mg Take 1 mg by mouth daily with breakfast. [facility] amLODIPine 5 mg tablet 08-01 18:47: 37 Yes 5mg Take 5 mg by mouth daily. [facility] ESCITALOPRA M OXALATE ORAL 08-01 18:47: 37 Yes Take by mouth. [facility] clonazePAM 0.5 mg tablet 08-01 18:47: 37 Yes .5mg Take 0.5 mg by mouth 3 (three) times daily. [facility] hydroxyurea 500 mg capsule 08-01 18:47: 37 Yes 500mg Take 500 mg by mouth daily. [facility] levothyroxi ne 75 mcg tablet 08-01 18:47: 37 Yes 75ug Take 75 mcg by mouth every morning. [facility] citalopram 10 mg tablet 08-01 18:47: 37 Yes 10mg Take 10 mg by mouth daily. [facility] Immunizations Ordered Immunization Name Filled Immunization Name Date Status Comments Source Pneumococcal 20 Conjugate, PCV20 (Prevnar 20) 2023-03-03 00:00:00 Completed [facility] Pneumococcal 20 Conjugate, PCV20 (Prevnar 20) 2023-03-03 00:00:00 Completed [facility] Pneumococcal 20 Conjugate, PCV20 (Prevnar 20) 2023-03-03 00:00:00 Completed [facility] Influenza Virus Vaccine,quad Im,preserve Free 65+ (FLUAD) 2023-02-09 00:00:00 Completed [facility] SARS-COV-2 COVID 19 AJ SUCROSE VACCINE , 0.3 ML (30 MCG), IM PFIZER ([facility]) 2023-02-09 00:00:00 Completed [facility] Influenza Virus Vaccine,quad Im,preserve Free 65+ (FLUAD) 2023-02-09 00:00:00 Completed [facility] SARS-COV-2 COVID 19 AJ SUCROSE VACCINE , 0.3 ML (30 MCG), IM PFIZER ([facility]) 2023-02-09 00:00:00 Completed Influenza Virus Vaccine,quad Im,preserve Free 65+ (FLUAD) 2023-02-09 00:00:00 Completed [facility] SARS-COV-2 COVID 19 AJ SUCROSE VACCINE 5, 0.3 ML (30 MCG), IM PFIZER ([facility]) 2023-02-09 00:00:00 Completed SARS-COV-2 COVID-19 VACCINE 12 YRS+, BIVALENT 0.5ML, IM, ([facility]-BL[facility] TOP) 2022-04-09 00:00:00 Completed [facility] SARS-COV-2 COVID-19 VACCINE 12 YRS+, BIVALENT 0.5ML, IM, (MODERNA BOOSTER) 2022-04-09 00:00:00 Completed [facility] SARS-COV-2 COVID-19 VACCINE 12 YRS+, BIVALENT 0.5ML, IM, (MODERNA-BLUE TOP) 2022-04-09 00:00:00 Completed [facility] SARS-COV-2 COVID-19 VACCINE 12 YRS+, BIVALENT 0.5ML, IM, (MODERNA-BLUE TOP) 2022-04-09 00:00:00 Completed [facility] SARS-COV-2 COVID-19 VACCINE 12 YRS+, BIVALENT 0.5ML, IM, (MODERNA BOOSTER) 2022-04-09 00:00:00 Completed [facility] SARS-COV-2 COVID-19 MODERNA 0.25ML BOOSTER VACCINE 2021-06-03 00:00:00 Completed [facility] SARS-COV-2 COVID-19 MODERNA 0.25ML BOOSTER VACCINE 2021-06-03 00:00:00 Completed [facility] SARS-COV-2 COVID-19 MODERNA 0.25ML BOOSTER VACCINE 2021-06-03 00:00:00 Completed [facility] SARS-COV-2 COVID-19 MODERNA 0.25ML BOOSTER VACCINE 2021-06-03 00:00:00 Completed [facility] SARS-COV-2 COVID-19 MODERNA 0.25ML BOOSTER VACCINE 2021-06-03 00:00:00 Completed [facility] SARS-COV-2 COVID-19 MODERNA 0.25ML BOOSTER VACCINE 2021-06-03 00:00:00 Completed [facility] SARS-COV-2 COVID-19 MODERNA 0.25ML BOOSTER VACCINE 2021-06-03 00:00:00 Completed [facility] SARS-COV-2 COVID-19 MODERNA 0.25ML BOOSTER VACCINE 2021-06-03 00:00:00 Completed [facility] SARS-COV-2 COVID-19 MODERNA 0.25ML BOOSTER VACCINE 2021-06-03 00:00:00 Completed [facility] SARS-COV-2 COVID-19 MODERNA BOOSTER VACCINE 2021-06-03 00:00:00 Completed [facility] SARS-COV-2 COVID-19 MODERNA 0.25ML BOOSTER VACCINE 2021-06-03 00:00:00 Completed [facility] SARS-COV-2 COVID-19 UNSPECIFIED VACCINE 2020-06-14 00:00:00 Completed [facility] SARS-COV-2 COVID-19 UNSPECIFIED VACCINE 2020-06-14 00:00:00 Completed [facility] SARS-COV-2 COVID-19 UNSPECIFIED VACCINE 2020-06-14 00:00:00 Completed [facility] COVID-19 (SARS-COV-2) vaccine, unspecified COVID-19 (SARS-COV-2) vaccine, unspecified 2020-06-14 00:00:00 Completed [facility] SARS-COV-2 COVID-19 MODERNA 12+ YRS VACCINE 2020-06-11 00:00:00 Completed [facility] SARS-COV-2 COVID-19 MODERNA 12+ YRS VACCINE 2020-06-11 00:00:00 Completed [facility] SARS-COV-2 COVID-19 MODERNA 12+ YRS VACCINE 2020-06-11 00:00:00 Completed [facility] SARS-COV-2 COVID-19 MODERNA 12+ YRS VACCINE 2020-06-11 00:00:00 Completed [facility] SARS-COV-2 COVID-19 MODERNA 12+ YRS VACCINE 2020-06-11 00:00:00 Completed [facility] SARS-COV-2 COVID-19 MODERNA 12+ YRS VACCINE 2020-06-11 00:00:00 Completed SARS-COV-2 COVID-19 MODERNA 12+ YRS VACCINE 2020-06-11 00:00:00 Completed SARS-COV-2 COVID-19 MODERNA 12+ YRS VACCINE 2020-06-11 00:00:00 Completed [facility] SARS-COV-2 COVID-19 MODERNA 12+ YRS VACCINE 2020-06-11 00:00:00 Completed SARS-COV-2 COVID-19 MODERNA VACCINE 2020-06-11 00:00:00 Completed [facility] SARS-COV-2 COVID-19 MODERNA 12+ YRS VACCINE 2020-06-11 00:00:00 Completed [facility] SARS-COV-2 COVID-19 MODERNA 12+ YRS VACCINE 2020-05-16 00:00:00 Completed [facility] SARS-COV-2 COVID-19 MODERNA 12+ YRS VACCINE 2020-05-16 00:00:00 Completed [facility] SARS-COV-2 COVID-19 MODERNA 12+ YRS VACCINE 2020-05-16 00:00:00 Completed [facility] SARS-COV-2 COVID-19 MODERNA 12+ YRS VACCINE 2020-05-16 00:00:00 Completed [facility] SARS-COV-2 COVID-19 MODERNA 12+ YRS VACCINE 2020-05-16 00:00:00 Completed [facility] SARS-COV-2 COVID-19 MODERNA 12+ YRS VACCINE 2020-05-16 00:00:00 Completed SARS-COV-2 COVID-19 MODERNA 12+ YRS VACCINE 2020-05-16 00:00:00 Completed SARS-COV-2 COVID-19 MODERNA 12+ YRS VACCINE 2020-05-16 00:00:00 Completed [facility] SARS-COV-2 COVID-19 MODERNA 12+ YRS VACCINE 2020-05-16 00:00:00 Completed SARS-COV-2 COVID-19 MODERNA VACCINE 2020-05-16 00:00:00 Completed [facility] SARS-COV-2 COVID-19 MODERNA 12+ YRS VACCINE 2020-05-16 00:00:00 Completed [facility] SARS-COV-2 COVID-19 UNSPECIFIED VACCINE 2020-05-14 00:00:00 Completed SARS-COV-2 COVID-19 UNSPECIFIED VACCINE 2020-05-14 00:00:00 Completed SARS-COV-2 COVID-19 UNSPECIFIED VACCINE 2020-05-14 00:00:00 Completed COVID-19 (SARS-COV-2) vaccine, unspecified COVID-19 (SARS-COV-2) vaccine, unspecified 2020-05-14 00:00:00 Completed [facility] SARS-COV-2 COVID-19 VACCINE 12 YRS+, BIVALENT 0.5ML, IM, (MODERNA-BLUE TOP) Unknown Completed [facility] Influenza Virus Vaccine,quad Im,preserve Free 65+ (FLUAD) Unknown Completed [facility] SARS-COV-2 COVID 19 AJ SUCROSE VACCINE 12+, , 0.3 ML (30 MCG), IM PFIZER ([facility]) Unknown Completed [facility] Pneumococcal 20 Conjugate, PCV20 (Prevnar 20) Unknown Completed [facility] SARS-COV-2 COVID-19 MODERNA 0.25ML BOOSTER VACCINE Unknown Completed [facility] SARS-COV-2 COVID-19 UNSPECIFIED VACCINE Unknown Completed [facility] SARS-COV-2 COVID-19 MODERNA 0.25ML BOOSTER VACCINE Unknown Completed [facility] SARS-COV-2 COVID-19 VACCINE 12 YRS+, BIVALENT 0.5ML, IM, (MODERNA-BLUE TOP) Unknown Completed [facility] Influenza Virus Vaccine,quad Im,preserve Free 65+ (FLUAD) Unknown Completed [facility] SARS-COV-2 COVID 19 AJ SUCROSE VACCINE 12+, , 0.3 ML (30 MCG), IM PFIZER ([facility] TOP) Unknown Completed [facility] SARS-COV-2 COVID-19 UNSPECIFIED VACCINE Unknown Completed [facility] Pneumococcal 20 Conjugate, PCV20 (Prevnar 20) Unknown Completed [facility] SARS-COV-2 COVID-19 MODERNA 0.25ML BOOSTER VACCINE Unknown Completed [facility] SARS-COV-2 COVID-19 VACCINE 12 YRS+, BIVALENT 0.5ML, IM, (MODERNA-BLUE TOP) Unknown Completed [facility] Influenza Virus Vaccine,quad Im,preserve Free 65+ (FLUAD) Unknown Completed [facility] SARS-COV-2 COVID 19 AJ SUCROSE VACCINE 12+, , 0.3 ML (30 MCG), IM PFIZER ([facility] TOP) Unknown Completed [facility] SARS-COV-2 COVID-19 UNSPECIFIED VACCINE Unknown Completed [facility] Pneumococcal 20 Conjugate, PCV20 (Prevnar 20) Unknown Completed [facility] SARS-COV-2 COVID-19 MODERNA 0.25ML BOOSTER VACCINE Unknown Completed [facility] SARS-COV-2 COVID-19 VACCINE 12 YRS+, BIVALENT 0.5ML, IM, (MODERNA-BLUE TOP) Unknown Completed [facility] Influenza Virus Vaccine,quad Im,preserve Free 65+ (FLUAD) Unknown Completed [facility] SARS-COV-2 COVID 19 AJ SUCROSE VACCINE 12+, , 0.3 ML (30 MCG), IM PFIZER ([facility] TOP) Unknown Completed [facility] SARS-COV-2 COVID-19 UNSPECIFIED VACCINE Unknown Completed [facility] Pneumococcal 20 Conjugate, PCV20 (Prevnar 20) Unknown Completed [facility] SARS-COV-2 COVID-19 MODERNA 0.25ML BOOSTER VACCINE Unknown Completed [facility] SARS-COV-2 COVID-19 VACCINE 12 YRS+, BIVALENT 0.5ML, IM, (MODERNA-BLUE TOP) Unknown Completed [facility] Influenza Virus Vaccine,quad Im,preserve Free 65+ (FLUAD) Unknown Completed [facility] SARS-COV-2 COVID 19 AJ SUCROSE VACCINE 12+, , 0.3 ML (30 MCG), IM PFIZER ([facility] TOP) Unknown Completed [facility] SARS-COV-2 COVID-19 UNSPECIFIED VACCINE Unknown Completed [facility] Pneumococcal 20 Conjugate, PCV20 (Prevnar 20) Unknown Completed [facility] SARS-COV-2 COVID-19 MODERNA 0.25ML BOOSTER VACCINE Unknown Completed [facility] SARS-COV-2 COVID-19 VACCINE 12 YRS+, BIVALENT 0.5ML, IM, (MODERNA-BLUE TOP) Unknown Completed [facility] Influenza Virus Vaccine,quad Im,preserve Free 65+ (FLUAD) Unknown Completed [facility] SARS-COV-2 COVID 19 AJ SUCROSE VACCINE 12+, , 0.3 ML (30 MCG), IM PFIZER ([facility] TOP) Unknown Completed [facility] SARS-COV-2 COVID-19 UNSPECIFIED VACCINE Unknown Completed [facility] Pneumococcal 20 Conjugate, PCV20 (Prevnar 20) Unknown Completed [facility] SARS-COV-2 COVID-19 MODERNA 0.25ML BOOSTER VACCINE Unknown Completed [facility] SARS-COV-2 COVID-19 VACCINE 12 YRS+, BIVALENT 0.5ML, IM, (MODERNA-BLUE TOP) Unknown Completed [facility] Influenza Virus Vaccine,quad Im,preserve Free 65+ (FLUAD) Unknown Completed [facility] SARS-COV-2 COVID 19 AJ SUCROSE VACCINE 12+, , 0.3 ML (30 MCG), IM PFIZER ([facility] TOP) Unknown Completed [facility] SARS-COV-2 COVID-19 UNSPECIFIED VACCINE Unknown Completed [facility] Pneumococcal 20 Conjugate, PCV20 (Prevnar 20) Unknown Completed [facility] SARS-COV-2 COVID-19 MODERNA 0.25ML BOOSTER VACCINE Unknown Completed [facility] SARS-COV-2 COVID-19 VACCINE 12 YRS+, BIVALENT 0.5ML, IM, (MODERNA-BLUE TOP) Unknown Completed [facility] Influenza Virus Vaccine,quad Im,preserve Free 65+ (FLUAD) Unknown Completed [facility] SARS-COV-2 COVID 19 AJ SUCROSE VACCINE 12+, , 0.3 ML (30 MCG), IM PFIZER ([facility] TOP) Unknown Completed [facility] SARS-COV-2 COVID-19 UNSPECIFIED VACCINE Unknown Completed [facility] Pneumococcal 20 Conjugate, PCV20 (Prevnar 20) Unknown Completed [facility] SARS-COV-2 COVID-19 MODERNA 0.25ML BOOSTER VACCINE Unknown Completed [facility] SARS-COV-2 COVID-19 VACCINE 12 YRS+, BIVALENT 0.5ML, IM, (MODERNA-BLUE TOP) Unknown Completed [facility] Influenza Virus Vaccine,quad Im,preserve Free 65+ (FLUAD) Unknown Completed [facility] SARS-COV-2 COVID 19 AJ SUCROSE VACCINE 12+, , 0.3 ML (30 MCG), IM PFIZER ([facility] TOP) Unknown Completed [facility] SARS-COV-2 COVID-19 UNSPECIFIED VACCINE Unknown Completed [facility] Pneumococcal 20 Conjugate, PCV20 (Prevnar 20) Unknown Completed [facility] SARS-COV-2 COVID-19 MODERNA 0.25ML BOOSTER VACCINE Unknown Completed [facility] SARS-COV-2 COVID-19 VACCINE 12 YRS+, BIVALENT 0.5ML, IM, (MODERNA-BLUE TOP) Unknown Completed [facility] Influenza Virus Vaccine,quad Im,preserve Free 65+ (FLUAD) Unknown Completed [facility] SARS-COV-2 COVID 19 AJ SUCROSE VACCINE 12+, , 0.3 ML (30 MCG), IM PFIZER ([facility]) Unknown Completed [facility] SARS-COV-2 COVID-19 UNSPECIFIED VACCINE Unknown Completed [facility] Pneumococcal 20 Conjugate, PCV20 (Prevnar 20) Unknown Completed [facility] SARS-COV-2 COVID-19 MODERNA 0.25ML BOOSTER VACCINE Unknown Completed [facility] SARS-COV-2 COVID-19 VACCINE 12 YRS+, BIVALENT 0.5ML, IM, (MODERNA-BLUE TOP) Unknown Completed [facility] Influenza Virus Vaccine,quad Im,preserve Free 65+ (FLUAD) Unknown Completed [facility] SARS-COV-2 COVID 19 AJ SUCROSE VACCINE 12+, , 0.3 ML (30 MCG), IM PFIZER (KOWALSKI TOP) Unknown Completed [facility] SARS-COV-2 COVID-19 UNSPECIFIED VACCINE Unknown Completed [facility] Pneumococcal 20 Conjugate, PCV20 (Prevnar 20) Unknown Completed [facility] SARS-COV-2 COVID-19 MODERNA 0.25ML BOOSTER VACCINE Unknown Completed [facility] SARS-COV-2 COVID-19 VACCINE 12 YRS+, BIVALENT 0.5ML, IM, (MODERNA-BLUE TOP) Unknown Completed [facility] Influenza Virus Vaccine,quad Im,preserve Free 65+ (FLUAD) Unknown Completed [facility] SARS-COV-2 COVID 19 AJ SUCROSE VACCINE 12+, , 0.3 ML (30 MCG), IM PFIZER (KOWALSKI TOP) Unknown Completed [facility] SARS-COV-2 COVID-19 UNSPECIFIED VACCINE Unknown Completed [facility] Pneumococcal 20 Conjugate, PCV20 (Prevnar 20) Unknown Completed [facility] SARS-COV-2 COVID-19 VACCINE 12 YRS+, BIVALENT 0.5ML, IM, (MODERNA-BLUE TOP) Unknown Completed [facility] Influenza Virus Vaccine,quad Im,preserve Free 65+ (FLUAD) Unknown Completed [facility] SARS-COV-2 COVID 19 AJ SUCROSE VACCINE 12+, , 0.3 ML (30 MCG), IM PFIZER (KOWALSKI TOP) Unknown Completed [facility] Pneumococcal 20 Conjugate, PCV20 (Prevnar 20) Unknown Completed [facility] SARS-COV-2 COVID-19 MODERNA 0.25ML BOOSTER VACCINE Unknown Completed [facility] SARS-COV-2 COVID-19 UNSPECIFIED VACCINE Unknown Completed [facility] SARS-COV-2 COVID-19 VACCINE 12 YRS+, BIVALENT 0.5ML, IM, (MODERNA-BLUE TOP) Unknown Completed [facility] Influenza Virus Vaccine,quad Im,preserve Free 65+ (FLUAD) Unknown Completed [facility] SARS-COV-2 COVID 19 AJ SUCROSE VACCINE 12+, , 0.3 ML (30 MCG), IM PFIZER (KOWALSKI TOP) Unknown Completed [facility] Pneumococcal 20 Conjugate, PCV20 (Prevnar 20) Unknown Completed [facility] SARS-COV-2 COVID-19 MODERNA 0.25ML BOOSTER VACCINE Unknown Completed [facility] SARS-COV-2 COVID-19 UNSPECIFIED VACCINE Unknown Completed [facility] SARS-COV-2 COVID-19 MODERNA 0.25ML BOOSTER VACCINE Unknown Completed [facility] SARS-COV-2 COVID-19 VACCINE 12 YRS+, BIVALENT 0.5ML, IM, (MODERNA-BLUE TOP) Unknown Completed [facility] Influenza Virus Vaccine,quad Im,preserve Free 65+ (FLUAD) Unknown Completed [facility] SARS-COV-2 COVID 19 AJ SUCROSE VACCINE 12+, , 0.3 ML (30 MCG), IM PFIZER (KOWALSKI TOP) Unknown Completed [facility] SARS-COV-2 COVID-19 UNSPECIFIED VACCINE Unknown Completed [facility] Pneumococcal 20 Conjugate, PCV20 (Prevnar 20) Unknown Completed [facility] SARS-COV-2 COVID-19 MODERNA 0.25ML BOOSTER VACCINE Unknown Completed [facility] SARS-COV-2 COVID-19 VACCINE 12 YRS+, BIVALENT 0.5ML, IM, (MODERNA-BLUE TOP) Unknown Completed [facility] Influenza Virus Vaccine,quad Im,preserve Free 65+ (FLUAD) Unknown Completed [facility] SARS-COV-2 COVID 19 AJ SUCROSE VACCINE 12+, , 0.3 ML (30 MCG), IM PFIZER (KOWALSKI TOP) Unknown Completed [facility] SARS-COV-2 COVID-19 UNSPECIFIED VACCINE Unknown Completed [facility] Pneumococcal 20 Conjugate, PCV20 (Prevnar 20) Unknown Completed [facility] SARS-COV-2 COVID-19 MODERNA 0.25ML BOOSTER VACCINE Unknown Completed [facility] SARS-COV-2 COVID-19 VACCINE 12 YRS+, BIVALENT 0.5ML, IM, (MODERNA-BLUE TOP) Unknown Completed [facility] Influenza Virus Vaccine,quad Im,preserve Free 65+ (FLUAD) Unknown Completed [facility] SARS-COV-2 COVID 19 AJ SUCROSE VACCINE 12+, , 0.3 ML (30 MCG), IM PFIZER (KOWALSKI TOP) Unknown Completed [facility] SARS-COV-2 COVID-19 UNSPECIFIED VACCINE Unknown Completed [facility] Pneumococcal 20 Conjugate, PCV20 (Prevnar 20) Unknown Completed [facility] SARS-COV-2 COVID-19 MODERNA 0.25ML BOOSTER VACCINE Unknown Completed [facility] SARS-COV-2 COVID-19 VACCINE 12 YRS+, BIVALENT 0.5ML, IM, (MODERNA-BLUE TOP) Unknown Completed [facility] Influenza Virus Vaccine,quad Im,preserve Free 65+ (FLUAD) Unknown Completed [facility] SARS-COV-2 COVID 19 AJ SUCROSE VACCINE 12+, , 0.3 ML (30 MCG), IM PFIZER (KOWALSKI TOP) Unknown Completed [facility] SARS-COV-2 COVID-19 UNSPECIFIED VACCINE Unknown Completed [facility] Pneumococcal 20 Conjugate, PCV20 (Prevnar 20) Unknown Completed [facility] SARS-COV-2 COVID-19 MODERNA 0.25ML BOOSTER VACCINE Unknown Completed [facility] SARS-COV-2 COVID-19 VACCINE 12 YRS+, BIVALENT 0.5ML, IM, (MODERNA-BLUE TOP) Unknown Completed [facility] Influenza Virus Vaccine,quad Im,preserve Free 65+ (FLUAD) Unknown Completed [facility] SARS-COV-2 COVID 19 AJ SUCROSE VACCINE 12+, , 0.3 ML (30 MCG), IM PFIZER (KOWALSKI TOP) Unknown Completed [facility] SARS-COV-2 COVID-19 UNSPECIFIED VACCINE Unknown Completed [facility] Pneumococcal 20 Conjugate, PCV20 (Prevnar 20) Unknown Completed [facility] SARS-COV-2 COVID-19 MODERNA 0.25ML BOOSTER VACCINE Unknown Completed [facility] SARS-COV-2 COVID-19 VACCINE 12 YRS+, BIVALENT 0.5ML, IM, (MODERNA-BLUE TOP) Unknown Completed [facility] Influenza Virus Vaccine,quad Im,preserve Free 65+ (FLUAD) Unknown Completed [facility] SARS-COV-2 COVID 19 AJ SUCROSE VACCINE 12+, , 0.3 ML (30 MCG), IM PFIZER (KOWALSKI TOP) Unknown Completed [facility] SARS-COV-2 COVID-19 UNSPECIFIED VACCINE Unknown Completed [facility] Pneumococcal 20 Conjugate, PCV20 (Prevnar 20) Unknown Completed [facility] SARS-COV-2 COVID-19 MODERNA 0.25ML BOOSTER VACCINE Unknown Completed [facility] SARS-COV-2 COVID-19 VACCINE 12 YRS+, BIVALENT 0.5ML, IM, (MODERNA-BLUE TOP) Unknown Completed [facility] Influenza Virus Vaccine,quad Im,preserve Free 65+ (FLUAD) Unknown Completed [facility] SARS-COV-2 COVID 19 AJ SUCROSE VACCINE 12+, , 0.3 ML (30 MCG), IM PFIZER (KOWALSKI TOP) Unknown Completed [facility] SARS-COV-2 COVID-19 UNSPECIFIED VACCINE Unknown Completed [facility] Pneumococcal 20 Conjugate, PCV20 (Prevnar 20) Unknown Completed [facility] SARS-COV-2 COVID-19 MODERNA 0.25ML BOOSTER VACCINE Unknown Completed [facility] SARS-COV-2 COVID-19 VACCINE 12 YRS+, BIVALENT 0.5ML, IM, (MODERNA-BLUE TOP) Unknown Completed [facility] Influenza Virus Vaccine,quad Im,preserve Free 65+ (FLUAD) Unknown Completed [facility] SARS-COV-2 COVID 19 AJ SUCROSE VACCINE 12+, , 0.3 ML (30 MCG), IM PFIZER (KOWALSKI TOP) Unknown Completed [facility] SARS-COV-2 COVID-19 UNSPECIFIED VACCINE Unknown Completed [facility] Pneumococcal 20 Conjugate, PCV20 (Prevnar 20) Unknown Completed [facility] SARS-COV-2 COVID-19 MODERNA 0.25ML BOOSTER VACCINE Unknown Completed [facility] SARS-COV-2 COVID-19 VACCINE 12 YRS+, BIVALENT 0.5ML, IM, (MODERNA-BLUE TOP) Unknown Completed [facility] Influenza Virus Vaccine,quad Im,preserve Free 65+ (FLUAD) Unknown Completed [facility] SARS-COV-2 COVID 19 AJ SUCROSE VACCINE 12+, , 0.3 ML (30 MCG), IM PFIZER (KOWALSKI TOP) Unknown Completed [facility] SARS-COV-2 COVID-19 UNSPECIFIED VACCINE Unknown Completed [facility] Pneumococcal 20 Conjugate, PCV20 (Prevnar 20) Unknown Completed [facility] SARS-COV-2 COVID-19 MODERNA 0.25ML BOOSTER VACCINE Unknown Completed [facility] SARS-COV-2 COVID-19 VACCINE 12 YRS+, BIVALENT 0.5ML, IM, (MODERNA-BLUE TOP) Unknown Completed [facility] Influenza Virus Vaccine,quad Im,preserve Free 65+ (FLUAD) Unknown Completed [facility] SARS-COV-2 COVID 19 AJ SUCROSE VACCINE 12+, , 0.3 ML (30 MCG), IM PFIZER (KOWALSKI TOP) Unknown Completed [facility] SARS-COV-2 COVID-19 UNSPECIFIED VACCINE Unknown Completed [facility] Pneumococcal 20 Conjugate, PCV20 (Prevnar 20) Unknown Completed [facility] SARS-COV-2 COVID-19 MODERNA 0.25ML BOOSTER VACCINE Unknown Completed [facility] SARS-COV-2 COVID-19 VACCINE 12 YRS+, BIVALENT 0.5ML, IM, (MODERNA-BLUE TOP) Unknown Completed [facility] Influenza Virus Vaccine,quad Im,preserve Free 65+ (FLUAD) Unknown Completed [facility] SARS-COV-2 COVID 19 AJ SUCROSE VACCINE 12+, , 0.3 ML (30 MCG), IM PFIZER (KOWALSKI TOP) Unknown Completed [facility] SARS-COV-2 COVID-19 UNSPECIFIED VACCINE Unknown Completed [facility] Pneumococcal 20 Conjugate, PCV20 (Prevnar 20) Unknown Completed [facility] SARS-COV-2 COVID-19 MODERNA 0.25ML BOOSTER VACCINE Unknown Completed [facility] SARS-COV-2 COVID-19 VACCINE 12 YRS+, BIVALENT 0.5ML, IM, (MODERNA-BLUE TOP) Unknown Completed [facility] Influenza Virus Vaccine,quad Im,preserve Free 65+ (FLUAD) Unknown Completed [facility] SARS-COV-2 COVID 19 AJ SUCROSE VACCINE 12, , 0.3 ML (30 MCG), IM PFIZER (KOWALSKI TOP) Unknown Completed [facility] SARS-COV-2 COVID-19 UNSPECIFIED VACCINE Unknown Completed [facility] Pneumococcal 20 Conjugate, PCV20 (Prevnar 20) Unknown Completed [facility] SARS-COV-2 COVID-19 MODERNA 0.25ML BOOSTER VACCINE Unknown Completed [facility] SARS-COV-2 COVID-19 VACCINE 12 YRS+, BIVALENT 0.5ML, IM, (MODERNA-BLUE TOP) Unknown Completed [facility] Influenza Virus Vaccine,quad Im,preserve Free 65+ (FLUAD) Unknown Completed [facility] SARS-COV-2 COVID 19 AJ SUCROSE VACCINE 12, , 0.3 ML (30 MCG), IM PFIZER (KOWALSKI TOP) Unknown Completed [facility] SARS-COV-2 COVID-19 UNSPECIFIED VACCINE Unknown Completed [facility] Pneumococcal 20 Conjugate, PCV20 (Prevnar 20) Unknown Completed [facility] SARS-COV-2 COVID-19 MODERNA 0.25ML BOOSTER VACCINE Unknown Completed [facility] SARS-COV-2 COVID-19 VACCINE 12 YRS+, BIVALENT 0.5ML, IM, (MODERNA-BLUE TOP) Unknown Completed [facility] Influenza Virus Vaccine,quad Im,preserve Free 65+ (FLUAD) Unknown Completed [facility] SARS-COV-2 COVID 19 AJ SUCROSE VACCINE 12+, , 0.3 ML (30 MCG), IM PFIZER (KOWALSKI TOP) Unknown Completed [facility] SARS-COV-2 COVID-19 UNSPECIFIED VACCINE Unknown Completed [facility] Pneumococcal 20 Conjugate, PCV20 (Prevnar 20) Unknown Completed [facility] SARS-COV-2 COVID-19 MODERNA 0.25ML BOOSTER VACCINE Unknown Completed [facility] SARS-COV-2 COVID-19 VACCINE 12 YRS+, BIVALENT 0.5ML, IM, (MODERNA-BLUE TOP) Unknown Completed [facility] Influenza Virus Vaccine,quad Im,preserve Free 65+ (FLUAD) Unknown Completed [facility] SARS-COV-2 COVID 19 AJ SUCROSE VACCINE 12, , 0.3 ML (30 MCG), IM PFIZER (KOWALSKI TOP) Unknown Completed [facility] SARS-COV-2 COVID-19 UNSPECIFIED VACCINE Unknown Completed [facility] Pneumococcal 20 Conjugate, PCV20 (Prevnar 20) Unknown Completed [facility] SARS-COV-2 COVID-19 MODERNA 0.25ML BOOSTER VACCINE Unknown Completed [facility] SARS-COV-2 COVID-19 VACCINE 12 YRS+, BIVALENT 0.5ML, IM, (MODERNA-BLUE TOP) Unknown Completed [facility] Influenza Virus Vaccine,quad Im,preserve Free 65+ (FLUAD) Unknown Completed [facility] SARS-COV-2 COVID 19 AJ SUCROSE VACCINE 12+, , 0.3 ML (30 MCG), IM PFIZER (KOWALSKI TOP) Unknown Completed [facility] SARS-COV-2 COVID-19 UNSPECIFIED VACCINE Unknown Completed [facility] Pneumococcal 20 Conjugate, PCV20 (Prevnar 20) Unknown Completed [facility] SARS-COV-2 COVID-19 MODERNA 0.25ML BOOSTER VACCINE Unknown Completed [facility] SARS-COV-2 COVID-19 VACCINE 12 YRS+, BIVALENT 0.5ML, IM, (MODERNA-BLUE TOP) Unknown Completed [facility] Influenza Virus Vaccine,quad Im,preserve Free 65+ (FLUAD) Unknown Completed [facility] SARS-COV-2 COVID 19 AJ SUCROSE VACCINE 12+, , 0.3 ML (30 MCG), IM PFIZER (KOWALSKI TOP) Unknown Completed [facility] SARS-COV-2 COVID-19 UNSPECIFIED VACCINE Unknown Completed [facility] Pneumococcal 20 Conjugate, PCV20 (Prevnar 20) Unknown Completed [facility] SARS-COV-2 COVID-19 VACCINE 12 YRS+, BIVALENT 0.5ML, IM, (MODERNA-BLUE TOP) Unknown Completed [facility] Influenza Virus Vaccine,quad Im,preserve Free 65+ (FLUAD) Unknown Completed [facility] SARS-COV-2 COVID 19 AJ SUCROSE VACCINE 12+, , 0.3 ML (30 MCG), IM PFIZER (KOWALSKI TOP) Unknown Completed [facility] Pneumococcal 20 Conjugate, PCV20 (Prevnar 20) Unknown Completed [facility] SARS-COV-2 COVID-19 MODERNA 0.25ML BOOSTER VACCINE Unknown Completed [facility] SARS-COV-2 COVID-19 UNSPECIFIED VACCINE Unknown Completed [facility] SARS-COV-2 COVID-19 MODERNA 0.25ML BOOSTER VACCINE Unknown Completed [facility] SARS-COV-2 COVID-19 VACCINE 12 YRS+, BIVALENT 0.5ML, IM, (MODERNA-BLUE TOP) Unknown Completed [facility] Influenza Virus Vaccine,quad Im,preserve Free 65+ (FLUAD) Unknown Completed [facility] SARS-COV-2 COVID 19 AJ SUCROSE VACCINE 12+, , 0.3 ML (30 MCG), IM PFIZER (KOWALSKI TOP) Unknown Completed [facility] SARS-COV-2 COVID-19 UNSPECIFIED VACCINE Unknown Completed [facility] Pneumococcal 20 Conjugate, PCV20 (Prevnar 20) Unknown Completed [facility] SARS-COV-2 COVID-19 MODERNA 0.25ML BOOSTER VACCINE Unknown Completed [facility] SARS-COV-2 COVID-19 VACCINE 12 YRS+, BIVALENT 0.5ML, IM, (MODERNA-BLUE TOP) Unknown Completed [facility] Influenza Virus Vaccine,quad Im,preserve Free 65+ (FLUAD) Unknown Completed [facility] SARS-COV-2 COVID 19 AJ SUCROSE VACCINE 12+, , 0.3 ML (30 MCG), IM PFIZER (KOWALSKI TOP) Unknown Completed [facility] SARS-COV-2 COVID-19 UNSPECIFIED VACCINE Unknown Completed [facility] Pneumococcal 20 Conjugate, PCV20 (Prevnar 20) Unknown Completed [facility] SARS-COV-2 COVID-19 MODERNA 0.25ML BOOSTER VACCINE Unknown Completed [facility] SARS-COV-2 COVID-19 VACCINE 12 YRS+, BIVALENT 0.5ML, IM, (MODERNA-BLUE TOP) Unknown Completed [facility] Influenza Virus Vaccine,quad Im,preserve Free 65+ (FLUAD) Unknown Completed [facility] SARS-COV-2 COVID 19 AJ SUCROSE VACCINE 12, , 0.3 ML (30 MCG), IM PFIZER (KOWALSKI TOP) Unknown Completed [facility] SARS-COV-2 COVID-19 UNSPECIFIED VACCINE Unknown Completed [facility] Pneumococcal 20 Conjugate, PCV20 (Prevnar 20) Unknown Completed [facility] SARS-COV-2 COVID-19 MODERNA 0.25ML BOOSTER VACCINE Unknown Completed [facility] SARS-COV-2 COVID-19 VACCINE 12 YRS+, BIVALENT 0.5ML, IM, (MODERNA-BLUE TOP) Unknown Completed [facility] Influenza Virus Vaccine,quad Im,preserve Free 65+ (FLUAD) Unknown Completed [facility] SARS-COV-2 COVID 19 AJ SUCROSE VACCINE 12+, , 0.3 ML (30 MCG), IM PFIZER (KOWALSKI TOP) Unknown Completed [facility] SARS-COV-2 COVID-19 UNSPECIFIED VACCINE Unknown Completed [facility] Pneumococcal 20 Conjugate, PCV20 (Prevnar 20) Unknown Completed [facility] SARS-COV-2 COVID-19 MODERNA 0.25ML BOOSTER VACCINE Unknown Completed [facility] SARS-COV-2 COVID-19 VACCINE 12 YRS+, BIVALENT 0.5ML, IM, (MODERNA-BLUE TOP) Unknown Completed [facility] Influenza Virus Vaccine,quad Im,preserve Free 65+ (FLUAD) Unknown Completed [facility] SARS-COV-2 COVID 19 AJ SUCROSE VACCINE 12+, , 0.3 ML (30 MCG), IM PFIZER (KOWALSKI TOP) Unknown Completed [facility] SARS-COV-2 COVID-19 UNSPECIFIED VACCINE Unknown Completed [facility] Pneumococcal 20 Conjugate, PCV20 (Prevnar 20) Unknown Completed [facility] SARS-COV-2 COVID-19 MODERNA 0.25ML BOOSTER VACCINE Unknown Completed [facility] SARS-COV-2 COVID-19 VACCINE 12 YRS+, BIVALENT 0.5ML, IM, (MODERNA-BLUE TOP) Unknown Completed [facility] Influenza Virus Vaccine,quad Im,preserve Free 65+ (FLUAD) Unknown Completed [facility] SARS-COV-2 COVID 19 AJ SUCROSE VACCINE 12, , 0.3 ML (30 MCG), IM PFIZER (KOWALSKI TOP) Unknown Completed [facility] SARS-COV-2 COVID-19 UNSPECIFIED VACCINE Unknown Completed [facility] Pneumococcal 20 Conjugate, PCV20 (Prevnar 20) Unknown Completed [facility] SARS-COV-2 COVID-19 MODERNA 0.25ML BOOSTER VACCINE Unknown Completed [facility] SARS-COV-2 COVID-19 VACCINE 12 YRS+, BIVALENT 0.5ML, IM, (MODERNA-BLUE TOP) Unknown Completed [facility] Influenza Virus Vaccine,quad Im,preserve Free 65+ (FLUAD) Unknown Completed [facility] SARS-COV-2 COVID 19 AJ SUCROSE VACCINE 12+, , 0.3 ML (30 MCG), IM PFIZER (KOWALSKI TOP) Unknown Completed [facility] SARS-COV-2 COVID-19 UNSPECIFIED VACCINE Unknown Completed [facility] Pneumococcal 20 Conjugate, PCV20 (Prevnar 20) Unknown Completed [facility] SARS-COV-2 COVID-19 MODERNA 0.25ML BOOSTER VACCINE Unknown Completed [facility] SARS-COV-2 COVID-19 VACCINE 12 YRS+, BIVALENT 0.5ML, IM, (MODERNA-BLUE TOP) Unknown Completed [facility] Influenza Virus Vaccine,quad Im,preserve Free 65+ (FLUAD) Unknown Completed [facility] SARS-COV-2 COVID 19 AJ SUCROSE VACCINE 12+, , 0.3 ML (30 MCG), IM PFIZER (KOWALSKI TOP) Unknown Completed [facility] SARS-COV-2 COVID-19 UNSPECIFIED VACCINE Unknown Completed [facility] Pneumococcal 20 Conjugate, PCV20 (Prevnar 20) Unknown Completed [facility] SARS-COV-2 COVID-19 MODERNA 0.25ML BOOSTER VACCINE Unknown Completed [facility] SARS-COV-2 COVID-19 VACCINE 12 YRS+, BIVALENT 0.5ML, IM, (MODERNA-BLUE TOP) Unknown Completed [facility] Influenza Virus Vaccine,quad Im,preserve Free 65+ (FLUAD) Unknown Completed [facility] SARS-COV-2 COVID 19 AJ SUCROSE VACCINE 12, , 0.3 ML (30 MCG), IM PFIZER (KOWALSKI TOP) Unknown Completed [facility] SARS-COV-2 COVID-19 UNSPECIFIED VACCINE Unknown Completed [facility] Pneumococcal 20 Conjugate, PCV20 (Prevnar 20) Unknown Completed [facility] SARS-COV-2 COVID-19 MODERNA 0.25ML BOOSTER VACCINE Unknown Completed [facility] SARS-COV-2 COVID-19 VACCINE 12 YRS+, BIVALENT 0.5ML, IM, (MODERNA-BLUE TOP) Unknown Completed [facility] Influenza Virus Vaccine,quad Im,preserve Free 65+ (FLUAD) Unknown Completed [facility] SARS-COV-2 COVID 19 AJ SUCROSE VACCINE 12+, , 0.3 ML (30 MCG), IM PFIZER (KOWALSKI TOP) Unknown Completed [facility] SARS-COV-2 COVID-19 UNSPECIFIED VACCINE Unknown Completed [facility] Pneumococcal 20 Conjugate, PCV20 (Prevnar 20) Unknown Completed [facility] SARS-COV-2 COVID-19 MODERNA 0.25ML BOOSTER VACCINE Unknown Completed [facility] SARS-COV-2 COVID-19 VACCINE 12 YRS+, BIVALENT 0.5ML, IM, (MODERNA-BLUE TOP) Unknown Completed [facility] Influenza Virus Vaccine,quad Im,preserve Free 65+ (FLUAD) Unknown Completed [facility] SARS-COV-2 COVID 19 AJ SUCROSE VACCINE 12+, , 0.3 ML (30 MCG), IM PFIZER (KOWALSKI TOP) Unknown Completed [facility] SARS-COV-2 COVID-19 UNSPECIFIED VACCINE Unknown Completed [facility] Pneumococcal 20 Conjugate, PCV20 (Prevnar 20) Unknown Completed [facility] SARS-COV-2 COVID-19 MODERNA 0.25ML BOOSTER VACCINE Unknown Completed [facility] SARS-COV-2 COVID-19 VACCINE 12 YRS+, BIVALENT 0.5ML, IM, (MODERNA-BLUE TOP) Unknown Completed [facility] Influenza Virus Vaccine,quad Im,preserve Free 65+ (FLUAD) Unknown Completed [facility] SARS-COV-2 COVID 19 AJ SUCROSE VACCINE 12, , 0.3 ML (30 MCG), IM PFIZER (KOWALSKI TOP) Unknown Completed [facility] SARS-COV-2 COVID-19 UNSPECIFIED VACCINE Unknown Completed [facility] Pneumococcal 20 Conjugate, PCV20 (Prevnar 20) Unknown Completed [facility] SARS-COV-2 COVID-19 MODERNA 0.25ML BOOSTER VACCINE Unknown Completed [facility] SARS-COV-2 COVID-19 VACCINE 12 YRS+, BIVALENT 0.5ML, IM, (MODERNA-BLUE TOP) Unknown Completed [facility] Influenza Virus Vaccine,quad Im,preserve Free 65+ (FLUAD) Unknown Completed [facility] SARS-COV-2 COVID 19 AJ SUCROSE VACCINE 12+, , 0.3 ML (30 MCG), IM PFIZER (KOWALSKI TOP) Unknown Completed [facility] SARS-COV-2 COVID-19 UNSPECIFIED VACCINE Unknown Completed [facility] Pneumococcal 20 Conjugate, PCV20 (Prevnar 20) Unknown Completed [facility] SARS-COV-2 COVID-19 MODERNA 0.25ML BOOSTER VACCINE Unknown Completed [facility] SARS-COV-2 COVID-19 VACCINE 12 YRS+, BIVALENT 0.5ML, IM, (MODERNA-BLUE TOP) Unknown Completed [facility] Influenza Virus Vaccine,quad Im,preserve Free 65+ (FLUAD) Unknown Completed [facility] SARS-COV-2 COVID 19 AJ SUCROSE VACCINE 12+, , 0.3 ML (30 MCG), IM PFIZER (KOWALSKI TOP) Unknown Completed [facility] SARS-COV-2 COVID-19 UNSPECIFIED VACCINE Unknown Completed [facility] Pneumococcal 20 Conjugate, PCV20 (Prevnar 20) Unknown Completed [facility] SARS-COV-2 COVID-19 MODERNA 0.25ML BOOSTER VACCINE Unknown Completed [facility] SARS-COV-2 COVID-19 VACCINE 12 YRS+, BIVALENT 0.5ML, IM, (MODERNA-BLUE TOP) Unknown Completed [facility] Influenza Virus Vaccine,quad Im,preserve Free 65+ (FLUAD) Unknown Completed [facility] SARS-COV-2 COVID 19 AJ SUCROSE VACCINE 12+, , 0.3 ML (30 MCG), IM PFIZER (KOWALSKI TOP) Unknown Completed [facility] SARS-COV-2 COVID-19 UNSPECIFIED VACCINE Unknown Completed [facility] Pneumococcal 20 Conjugate, PCV20 (Prevnar 20) Unknown Completed [facility] SARS-COV-2 COVID-19 MODERNA 0.25ML BOOSTER VACCINE Unknown Completed [facility] SARS-COV-2 COVID-19 VACCINE 12 YRS+, BIVALENT 0.5ML, IM, (MODERNA-BLUE TOP) Unknown Completed [facility] Influenza Virus Vaccine,quad Im,preserve Free 65+ (FLUAD) Unknown Completed [facility] SARS-COV-2 COVID 19 AJ SUCROSE VACCINE 12+, , 0.3 ML (30 MCG), IM PFIZER (KOWALSKI TOP) Unknown Completed [facility] SARS-COV-2 COVID-19 UNSPECIFIED VACCINE Unknown Completed [facility] Pneumococcal 20 Conjugate, PCV20 (Prevnar 20) Unknown Completed [facility] SARS-COV-2 COVID-19 MODERNA 0.25ML BOOSTER VACCINE Unknown Completed [facility] SARS-COV-2 COVID-19 VACCINE 12 YRS+, BIVALENT 0.5ML, IM, (MODERNA-BLUE TOP) Unknown Completed [facility] Influenza Virus Vaccine,quad Im,preserve Free 65+ (FLUAD) Unknown Completed [facility] SARS-COV-2 COVID 19 AJ SUCROSE VACCINE 12+, , 0.3 ML (30 MCG), IM PFIZER (KOWALSKI TOP) Unknown Completed [facility] SARS-COV-2 COVID-19 UNSPECIFIED VACCINE Unknown Completed [facility] Pneumococcal 20 Conjugate, PCV20 (Prevnar 20) Unknown Completed [facility] SARS-COV-2 COVID-19 MODERNA 0.25ML BOOSTER VACCINE Unknown Completed [facility] SARS-COV-2 COVID-19 VACCINE 12 YRS+, BIVALENT 0.5ML, IM, (MODERNA-BLUE TOP) Unknown Completed [facility] [facility] Vaccine,quad Im,preserve Free 65+ (FLUAD) Unknown Completed [facility] SARS-COV-2 COVID 19 AJ SUCROSE VACCINE 12+, , 0.3 ML (30 MCG), IM PFIZER (KOWALSKI TOP) Unknown Completed [facility] SARS-COV-2 COVID-19 UNSPECIFIED VACCINE Unknown Completed [facility] Pneumococcal 20 Conjugate, PCV20 (Prevnar 20) Unknown Completed [facility] SARS-COV-2 COVID-19 MODERNA 0.25ML BOOSTER VACCINE Unknown Completed [facility] SARS-COV-2 COVID-19 VACCINE 12 YRS+, BIVALENT 0.5ML, IM, (MODERNA-BLUE TOP) Unknown Completed [facility] Influenza Virus Vaccine,quad Im,preserve Free 65+ (FLUAD) Unknown Completed [facility] SARS-COV-2 COVID 19 AJ SUCROSE VACCINE 12+, , 0.3 ML (30 MCG), IM PFIZER (KOWALSKI TOP) Unknown Completed [facility] SARS-COV-2 COVID-19 UNSPECIFIED VACCINE Unknown Completed [facility] Pneumococcal 20 Conjugate, PCV20 (Prevnar 20) Unknown Completed [facility] SARS-COV-2 COVID-19 MODERNA 0.25ML BOOSTER VACCINE Unknown Completed [facility] SARS-COV-2 COVID-19 VACCINE 12 YRS+, BIVALENT 0.5ML, IM, (MODERNA-BLUE TOP) Unknown Completed [facility] Influenza Virus Vaccine,quad Im,preserve Free 65+ (FLUAD) Unknown Completed [facility] SARS-COV-2 COVID 19 AJ SUCROSE VACCINE 12+, , 0.3 ML (30 MCG), IM PFIZER (KOWALSKI TOP) Unknown Completed [facility] SARS-COV-2 COVID-19 UNSPECIFIED VACCINE Unknown Completed [facility] Pneumococcal 20 Conjugate, PCV20 (Prevnar 20) Unknown Completed [facility] SARS-COV-2 COVID-19 MODERNA 0.25ML BOOSTER VACCINE Unknown Completed [facility] SARS-COV-2 COVID-19 VACCINE 12 YRS+, BIVALENT 0.5ML, IM, (MODERNA-BLUE TOP) Unknown Completed [facility] Influenza Virus Vaccine,quad Im,preserve Free 65+ (FLUAD) Unknown Completed [facility] SARS-COV-2 COVID 19 AJ SUCROSE VACCINE 12+, , 0.3 ML (30 MCG), IM PFIZER (KOWALSKI TOP) Unknown Completed [facility] SARS-COV-2 COVID-19 UNSPECIFIED VACCINE Unknown Completed [facility] Pneumococcal 20 Conjugate, PCV20 (Prevnar 20) Unknown Completed [facility] SARS-COV-2 COVID-19 MODERNA 0.25ML BOOSTER VACCINE Unknown Completed [facility] SARS-COV-2 COVID-19 VACCINE 12 YRS+, BIVALENT 0.5ML, IM, (MODERNA-BLUE TOP) Unknown Completed [facility] Influenza Virus Vaccine,quad Im,preserve Free 65+ (FLUAD) Unknown Completed [facility] SARS-COV-2 COVID 19 AJ SUCROSE VACCINE 12+, , 0.3 ML (30 MCG), IM PFIZER (KOWALSKI TOP) Unknown Completed [facility] SARS-COV-2 COVID-19 UNSPECIFIED VACCINE Unknown Completed [facility] Pneumococcal 20 Conjugate, PCV20 (Prevnar 20) Unknown Completed [facility] SARS-COV-2 COVID-19 MODERNA 0.25ML BOOSTER VACCINE Unknown Completed [facility] SARS-COV-2 COVID-19 VACCINE 12 YRS+, BIVALENT 0.5ML, IM, (MODERNA-BLUE TOP) Unknown Completed [facility] Influenza Virus Vaccine,quad Im,preserve Free 65+ (FLUAD) Unknown Completed [facility] SARS-COV-2 COVID 19 AJ SUCROSE VACCINE 12+, , 0.3 ML (30 MCG), IM PFIZER (KOWALSKI TOP) Unknown Completed [facility] SARS-COV-2 COVID-19 UNSPECIFIED VACCINE Unknown Completed [facility] Pneumococcal 20 Conjugate, PCV20 (Prevnar 20) Unknown Completed [facility] SARS-COV-2 COVID-19 MODERNA 0.25ML BOOSTER VACCINE Unknown Completed [facility] SARS-COV-2 COVID-19 VACCINE 12 YRS+, BIVALENT 0.5ML, IM, (MODERNA-BLUE TOP) Unknown Completed [facility] Influenza Virus Vaccine,quad Im,preserve Free 65+ (FLUAD) Unknown Completed [facility] SARS-COV-2 COVID 19 AJ SUCROSE VACCINE 12, , 0.3 ML (30 MCG), IM PFIZER (KOWALSKI TOP) Unknown Completed [facility] SARS-COV-2 COVID-19 UNSPECIFIED VACCINE Unknown Completed [facility] Pneumococcal 20 Conjugate, PCV20 (Prevnar 20) Unknown Completed [facility] SARS-COV-2 COVID-19 MODERNA 0.25ML BOOSTER VACCINE Unknown Completed [facility] SARS-COV-2 COVID-19 VACCINE 12 YRS+, BIVALENT 0.5ML, IM, (MODERNA-BLUE TOP) Unknown Completed [facility] Influenza Virus Vaccine,quad Im,preserve Free 65+ (FLUAD) Unknown Completed [facility] SARS-COV-2 COVID 19 AJ SUCROSE VACCINE 12+, , 0.3 ML (30 MCG), IM PFIZER (KOWALSKI TOP) Unknown Completed [facility] SARS-COV-2 COVID-19 UNSPECIFIED VACCINE Unknown Completed [facility] Pneumococcal 20 Conjugate, PCV20 (Prevnar 20) Unknown Completed [facility] SARS-COV-2 COVID-19 MODERNA 0.25ML BOOSTER VACCINE Unknown Completed [facility] SARS-COV-2 COVID-19 VACCINE 12 YRS+, BIVALENT 0.5ML, IM, (MODERNA-BLUE TOP) Unknown Completed [facility] Influenza Virus Vaccine,quad Im,preserve Free 65+ (FLUAD) Unknown Completed [facility] SARS-COV-2 COVID 19 AJ SUCROSE VACCINE 12+, [id number], 0.3 ML (30 MCG), IM PFIZER (KOWALSKI TOP) Unknown Completed [facility] SARS-COV-2 COVID-19 UNSPECIFIED VACCINE Unknown Completed [facility] Pneumococcal 20 Conjugate, PCV20 (Prevnar 20) Unknown Completed [facility] SARS-COV-2 COVID-19 MODERNA 12+ YRS VACCINE Unknown Completed [facility] SARS-COV-2 COVID-19 VACCINE 12 YRS+, BIVALENT 0.5ML, IM, (MODERNA-BLUE TOP) Unknown Completed [facility] Influenza Virus Vaccine,quad Im,preserve Free 65+ (FLUAD) Unknown Completed [facility] SARS-COV-2 COVID 19 AJ SUCROSE VACCINE 12+, , 0.3 ML (30 MCG), IM PFIZER (KOWALSKI TOP) Unknown Completed [facility] SARS-COV-2 COVID-19 UNSPECIFIED VACCINE Unknown Completed [facility] Pneumococcal 20 Conjugate, PCV20 (Prevnar 20) Unknown Completed [facility] SARS-COV-2 COVID-19 MODERNA 0.25ML BOOSTER VACCINE Unknown Completed [facility] SARS-COV-2 COVID-19 VACCINE 12 YRS+, BIVALENT 0.5ML, IM, (MODERNA-BLUE TOP) Unknown Completed [facility] SARS-COV-2 COVID-19 MODERNA 0.25ML BOOSTER VACCINE Unknown Completed [facility] SARS-COV-2 COVID-19 VACCINE 12 YRS+, BIVALENT 0.5ML, IM, (MODERNA-BLUE TOP) Unknown Completed [facility] SARS-COV-2 COVID-19 VACCINE 12 YRS+, BIVALENT 0.5ML, IM, (MODERNA-BLUE TOP) Unknown Completed [facility] Influenza Virus Vaccine,quad Im,preserve Free 65+ (FLUAD) Unknown Completed [facility] SARS-COV-2 COVID 19 AJ SUCROSE VACCINE 12, , 0.3 ML (30 MCG), IM PFIZER (KOWALSKI TOP) Unknown Completed [facility] SARS-COV-2 COVID-19 MODERNA 0.25ML BOOSTER VACCINE Unknown Completed [facility] SARS-COV-2 COVID-19 MODERNA 0.25ML BOOSTER VACCINE Unknown Completed [facility] SARS-COV-2 COVID-19 VACCINE 12 YRS+, BIVALENT 0.5ML, IM, (MODERNA-BLUE TOP) Unknown Completed [facility] Influenza Virus Vaccine,quad Im,preserve Free 65+ (FLUAD) Unknown Completed [facility] SARS-COV-2 COVID 19 AJ SUCROSE VACCINE , , 0.3 ML (30 MCG), IM PFIZER (KOWALSKI TOP) Unknown Completed [facility] SARS-COV-2 COVID-19 VACCINE 12 YRS+, BIVALENT 0.5ML, IM, (MODERNA-BLUE TOP) Unknown Completed [facility] Influenza Virus Vaccine,quad Im,preserve Free 65+ (FLUAD) Unknown Completed [facility] SARS-COV-2 COVID 19 AJ SUCROSE VACCINE 12, , 0.3 ML (30 MCG), IM PFIZER (KOWALSKI TOP) Unknown Completed [facility] Pneumococcal 20 Conjugate, PCV20 (Prevnar 20) Unknown Completed [facility] SARS-COV-2 COVID-19 MODERNA 0.25ML BOOSTER VACCINE Unknown Completed [facility] SARS-COV-2 COVID-19 UNSPECIFIED VACCINE Unknown Completed [facility] SARS-COV-2 COVID-19 VACCINE 12 YRS+, BIVALENT 0.5ML, IM, (MODERNA-BLUE TOP) Unknown Completed [facility] Influenza Virus Vaccine,quad Im,preserve Free 65+ (FLUAD) Unknown Completed [facility] SARS-COV-2 COVID 19 AJ SUCROSE VACCINE 12+, , 0.3 ML (30 MCG), IM PFIZER (KOWALSKI TOP) Unknown Completed [facility] Pneumococcal 20 Conjugate, PCV20 (Prevnar 20) Unknown Completed [facility] SARS-COV-2 COVID-19 MODERNA 0.25ML BOOSTER VACCINE Unknown Completed [facility] SARS-COV-2 COVID-19 UNSPECIFIED VACCINE Unknown Completed [facility] SARS-COV-2 COVID-19 MODERNA 0.25ML BOOSTER VACCINE Unknown Completed [facility] SARS-COV-2 COVID-19 VACCINE 12 YRS+, BIVALENT 0.5ML, IM, (MODERNA-BLUE TOP) Unknown Completed [facility] Influenza Virus Vaccine,quad Im,preserve Free 65+ (FLUAD) Unknown Completed [facility] SARS-COV-2 COVID 19 AJ SUCROSE VACCINE 12+, , 0.3 ML (30 MCG), IM PFIZER (KOWALSKI TOP) Unknown Completed [facility] SARS-COV-2 COVID-19 UNSPECIFIED VACCINE Unknown Completed [facility] Pneumococcal 20 Conjugate, PCV20 (Prevnar 20) Unknown Completed [facility] SARS-COV-2 COVID-19 MODERNA 0.25ML BOOSTER VACCINE Unknown Completed [facility] SARS-COV-2 COVID-19 VACCINE 12 YRS+, BIVALENT 0.5ML, IM, (MODERNA-BLUE TOP) Unknown Completed [facility] Influenza Virus Vaccine,quad Im,preserve Free 65+ (FLUAD) Unknown Completed [facility] SARS-COV-2 COVID 19 AJ SUCROSE VACCINE 12+, , 0.3 ML (30 MCG), IM PFIZER (KOWALSKI TOP) Unknown Completed [facility] SARS-COV-2 COVID-19 UNSPECIFIED VACCINE Unknown Completed [facility] Pneumococcal 20 Conjugate, PCV20 (Prevnar 20) Unknown Completed [facility] SARS-COV-2 COVID-19 MODERNA 0.25ML BOOSTER VACCINE Unknown Completed [facility] SARS-COV-2 COVID-19 VACCINE 12 YRS+, BIVALENT 0.5ML, IM, (MODERNA-BLUE TOP) Unknown Completed [facility] Influenza Virus Vaccine,quad Im,preserve Free 65+ (FLUAD) Unknown Completed [facility] SARS-COV-2 COVID 19 AJ SUCROSE VACCINE 12+, , 0.3 ML (30 MCG), IM PFIZER (KOWALSKI TOP) Unknown Completed [facility] SARS-COV-2 COVID-19 UNSPECIFIED VACCINE Unknown Completed [facility] Pneumococcal 20 Conjugate, PCV20 (Prevnar 20) Unknown Completed [facility] SARS-COV-2 COVID-19 MODERNA 0.25ML BOOSTER VACCINE Unknown Completed [facility] SARS-COV-2 COVID-19 VACCINE 12 YRS+, BIVALENT 0.5ML, IM, (MODERNA-BLUE TOP) Unknown Completed [facility] Influenza Virus Vaccine,quad Im,preserve Free 65+ (FLUAD) Unknown Completed [facility] SARS-COV-2 COVID 19 AJ SUCROSE VACCINE 12+, , 0.3 ML (30 MCG), IM PFIZER (KOWALSKI TOP) Unknown Completed [facility] SARS-COV-2 COVID-19 UNSPECIFIED VACCINE Unknown Completed [facility] Pneumococcal 20 Conjugate, PCV20 (Prevnar 20) Unknown Completed [facility] SARS-COV-2 COVID-19 MODERNA 0.25ML BOOSTER VACCINE Unknown Completed [facility] SARS-COV-2 COVID-19 VACCINE 12 YRS+, BIVALENT 0.5ML, IM, (MODERNA-BLUE TOP) Unknown Completed [facility] Influenza Virus Vaccine,quad Im,preserve Free 65+ (FLUAD) Unknown Completed [facility] SARS-COV-2 COVID 19 AJ SUCROSE VACCINE 12+, , 0.3 ML (30 MCG), IM PFIZER (KOWALSKI TOP) Unknown Completed [facility] SARS-COV-2 COVID-19 UNSPECIFIED VACCINE Unknown Completed [facility] Pneumococcal 20 Conjugate, PCV20 (Prevnar 20) Unknown Completed [facility] SARS-COV-2 COVID-19 MODERNA 0.25ML BOOSTER VACCINE Unknown Completed [facility] SARS-COV-2 COVID-19 VACCINE 12 YRS+, BIVALENT 0.5ML, IM, (MODERNA-BLUE TOP) Unknown Completed [facility] Influenza Virus Vaccine,quad Im,preserve Free 65+ (FLUAD) Unknown Completed [facility] SARS-COV-2 COVID 19 AJ SUCROSE VACCINE 12+, , 0.3 ML (30 MCG), IM PFIZER (KOWALSKI TOP) Unknown Completed [facility] SARS-COV-2 COVID-19 UNSPECIFIED VACCINE Unknown Completed [facility] Pneumococcal 20 Conjugate, PCV20 (Prevnar 20) Unknown Completed [facility] SARS-COV-2 COVID-19 MODERNA 0.25ML BOOSTER VACCINE Unknown Completed [facility] SARS-COV-2 COVID-19 VACCINE 12 YRS+, BIVALENT 0.5ML, IM, (MODERNA-BLUE TOP) Unknown Completed [facility] Influenza Virus Vaccine,quad Im,preserve Free 65+ (FLUAD) Unknown Completed [facility] SARS-COV-2 COVID 19 AJ SUCROSE VACCINE 12+, , 0.3 ML (30 MCG), IM PFIZER (KOWALSKI TOP) Unknown Completed [facility] SARS-COV-2 COVID-19 UNSPECIFIED VACCINE Unknown Completed [facility] Pneumococcal 20 Conjugate, PCV20 (Prevnar 20) Unknown Completed [facility] SARS-COV-2 COVID-19 MODERNA 0.25ML BOOSTER VACCINE Unknown Completed [facility] SARS-COV-2 COVID-19 VACCINE 12 YRS+, BIVALENT 0.5ML, IM, (MODERNA-BLUE TOP) Unknown Completed [facility] Influenza Virus Vaccine,quad Im,preserve Free 65+ (FLUAD) Unknown Completed [facility] SARS-COV-2 COVID 19 AJ SUCROSE VACCINE , , 0.3 ML (30 MCG), IM PFIZER (KOWALSKI TOP) Unknown Completed [facility] SARS-COV-2 COVID-19 UNSPECIFIED VACCINE Unknown Completed [facility] Pneumococcal 20 Conjugate, PCV20 (Prevnar 20) Unknown Completed [facility] Vital Signs Vital Name Observation Time Observation Value Comments S ource Systolic blood pressure 2023-12-10 22:53:00 135 mm[Hg] [facility] Diastolic blood pressure 2023-12-10 22:53:00 72 mm[Hg] [facility] Heart rate 2023-12-10 22:53:00 75 /min [facility] Body temperature 2023-12-10 22:53:00 36.67 Serina [facility] Respiratory rate 2023-12-10 22:53:00 20 /min [facility] Oxygen saturation in Arterial blood by Pulse oximetry 2023-12-10 22:53:00 95 /min [facility] Body height 2023-12-10 19:42:00 152.4 cm [facility] Body weight 2023-12-10 19:42:00 59.421 kg [facility] BMI 2023-12-10 19:42:00 25.58 kg/m2 [facility] Systolic blood pressure 2023-12-09 18:18:00 116 mm[Hg] [facility] Diastolic blood pressure 2023-12-09 18:18:00 72 mm[Hg] [facility] Heart rate 2023-12-09 18:18:00 89 /min [facility] Body temperature 2023-12-09 18:18:00 36.17 Serina [facility] Respiratory rate 2023-12-09 18:18:00 18 /min [facility] Body height 2023-12-09 18:18:00 152.4 cm [facility] Body weight 2023-12-09 18:18:00 60.328 kg [facility] BMI 2023-12-09 18:18:00 25.97 kg/m2 [facility] Systolic blood pressure 2023-10-30 15:11:00 111 mm[Hg] [facility] Diastolic blood pressure 2023-10-30 15:11:00 65 mm[Hg] [facility] Heart rate 2023-10-30 15:11:00 80 /min [facility] Body temperature 2023-10-30 15:11:00 35.56 Serina [facility] Respiratory rate 2023-10-30 15:11:00 16 /min [facility] Body height 2023-10-30 15:11:00 151.7 cm [facility] Body weight 2023-10-30 15:11:00 59.693 kg [facility] BMI 2023-10-30 15:11:00 25.94 kg/m2 [facility] Oxygen saturation in Arterial blood by Pulse oximetry 2023-10-30 15:11:00 95 /min [facility] Systolic blood pressure 2023-10-26 18:16:00 121 mm[Hg] [facility] Diastolic blood pressure 2023-10-26 18:16:00 62 mm[Hg] [facility] Heart rate 2023-10-26 18:16:00 95 /min [facility] Body temperature 2023-10-26 18:16:00 36.5 Serina [facility] Respiratory rate 2023-10-26 18:16:00 18 /min [facility] Body height 2023-10-26 18:16:00 157.5 cm [facility] Body weight 2023-10-26 18:16:00 61.145 kg [facility] BMI 2023-10-26 18:16:00 24.66 kg/m2 [facility] Oxygen saturation in Arterial blood by Pulse oximetry 2023-10-26 18:16:00 95 /min [facility] Systolic blood pressure 2023-10-06 18:34:00 136 mm[Hg] [facility] Diastolic blood pressure 2023-10-06 18:34:00 78 mm[Hg] [facility] Heart rate 2023-10-06 18:34:00 95 /min [facility] Body height 2023-10-06 18:34:00 152.4 cm [facility] Body weight 2023-10-06 18:34:00 61.598 kg [facility] BMI 2023-10-06 18:34:00 26.52 kg/m2 [facility] Systolic blood pressure 2023-09-14 21:11:00 124 mm[Hg] [facility] Diastolic blood pressure 2023-09-14 21:11:00 80 mm[Hg] [facility] Heart rate 2023-09-14 21:11:00 90 /min [facility] Body temperature 2023-09-14 21:11:00 36.83 Serina [facility] Body height 2023-09-14 21:11:00 152.4 cm [facility] Body weight 2023-09-14 21:11:00 62.234 kg [facility] BMI 2023-09-14 21:11:00 26.80 kg/m2 [facility] Oxygen saturation in Arterial blood by Pulse oximetry 2023-09-14 21:11:00 93 /min [facility] Systolic blood pressure 2023-08-26 18:03:00 135 mm[Hg] [facility] Diastolic blood pressure 2023-08-26 18:03:00 82 mm[Hg] [facility] Heart rate 2023-08-26 18:03:00 97 /min [facility] Body temperature 2023-08-26 18:03:00 36.61 Serina [facility] Respiratory rate 2023-08-26 18:03:00 17 /min [facility] Body height 2023-08-26 18:03:00 152.4 cm [facility] Body weight 2023-08-26 18:03:00 61.417 kg [facility] BMI 2023-08-26 18:03:00 26.44 kg/m2 [facility] Oxygen saturation in Arterial blood by Pulse oximetry 2023-08-26 18:03:00 94 /min [facility] Systolic blood pressure 2023-07-30 18:20:00 124 mm[Hg] [facility] Diastolic blood pressure 2023-07-30 18:20:00 65 mm[Hg] [facility] Heart rate 2023-07-30 18:20:00 101 /min [facility] Body temperature 2023-07-30 18:20:00 36.44 Serina [facility] Respiratory rate 2023-07-30 18:20:00 18 /min [facility] Body height 2023-07-30 18:20:00 157.5 cm [facility] Body weight 2023-07-30 18:20:00 60.963 kg [facility] BMI 2023-07-30 18:20:00 24.58 kg/m2 [facility] Oxygen saturation in Arterial blood by Pulse oximetry 2023-07-30 18:20:00 95 /min [facility] Systolic blood pressure 2023-06-30 16:38:00 118 mm[Hg] [facility] Diastolic blood pressure 2023-06-30 16:38:00 77 mm[Hg] [facility] Heart rate 2023-06-30 16:38:00 86 /min [facility] Body temperature 2023-06-30 16:38:00 36.56 Serina [facility] Respiratory rate 2023-06-30 16:38:00 18 /min [facility] Oxygen saturation in Arterial blood by Pulse oximetry 2023-06-30 16:38:00 93 /min [facility] Body weight 2023-06-27 20:00:00 65.998 kg [facility] BMI 2023-06-27 20:00:00 28.42 kg/m2 [facility] Body height 2023-06-26 18:11:00 152.4 cm [facility] Systolic blood pressure 2023-06-27 12:45:00 125 mm[Hg] [facility] Diastolic blood pressure 2023-06-27 12:45:00 61 mm[Hg] [facility] Heart rate 2023-06-27 12:45:00 59 /min [facility] Body temperature 2023-06-27 12:45:00 36.5 Serina [facility] Respiratory rate 2023-06-27 12:45:00 18 /min [facility] Oxygen saturation in Arterial blood by Pulse oximetry 2023-06-27 12:45:00 91 /min [facility] Body height 2023-06-26 18:11:00 152.4 cm [facility] Body weight 2023-06-26 18:11:00 65.998 kg [facility] BMI 2023-06-26 18:11:00 28.42 kg/m2 [facility] Systolic blood pressure 2023-06-24 18:07:00 128 mm[Hg] [facility] Diastolic blood pressure 2023-06-24 18:07:00 79 mm[Hg] [facility] Heart rate 2023-06-24 18:07:00 88 /min [facility] Respiratory rate 2023-06-24 18:07:00 18 /min [facility] Body height 2023-06-24 18:07:00 152.4 cm [facility] Body weight 2023-06-24 18:07:00 61.644 kg [facility] BMI 2023-06-24 18:07:00 26.54 kg/m2 [facility] Oxygen saturation in Arterial blood by Pulse oximetry 2023-06-24 18:07:00 92 /min [facility] Systolic blood pressure 2023-05-15 18:24:00 137 mm[Hg] [facility] Diastolic blood pressure 2023-05-15 18:24:00 61 mm[Hg] [facility] Heart rate 2023-05-15 18:24:00 96 /min [facility] Body temperature 2023-05-15 18:24:00 36.06 Serina [facility] Body height 2023-05-15 18:24:00 152.4 cm [facility] Body weight 2023-05-15 18:24:00 62.506 kg [facility] BMI 2023-05-15 18:24:00 26.91 kg/m2 [facility] Oxygen saturation in Arterial blood by Pulse oximetry 2023-05-15 18:24:00 96 /min [facility] Systolic blood pressure 2023-05-15 18:21:00 137 mm[Hg] [facility] Diastolic blood pressure 2023-05-15 18:21:00 61 mm[Hg] [facility] Heart rate 2023-05-15 18:21:00 95 /min [facility] Body temperature 2023-05-15 18:21:00 36.06 Serina [facility] Body height 2023-05-15 18:21:00 152.4 [facility] 2023-05-15 18:21:00 62.37 kg [facility] BMI 2023-05-15 18:21:00 26.85 kg/m2 [facility] Oxygen saturation in Arterial blood by Pulse oximetry 2023-05-15 18:21:00 96 /min [facility] Systolic blood pressure 2023-05-03 09:31:00 134 mm[Hg] [facility] Diastolic blood pressure 2023-05-03 09:31:00 75 mm[Hg] [facility] Heart rate 2023-05-03 09:31:00 80 /min [facility] Body temperature 2023-05-03 09:31:00 35.94 Serina [facility] Respiratory rate 2023-05-03 09:31:00 16 /min [facility] Oxygen saturation in Arterial blood by Pulse oximetry 2023-05-03 09:31:00 94 /min [facility] Body height 2023-05-03 01:24:00 152.4 cm [facility] Body weight 2023-05-03 01:24:00 63.458 kg [facility] BMI 2023-05-03 01:24:00 27.32 kg/m2 [facility] Systolic blood pressure 2023-04-20 15:43:00 124 mm[Hg] [facility] Diastolic blood pressure 2023-04-20 15:43:00 77 mm[Hg] [facility] Heart rate 2023-04-20 15:43:00 81 /min [facility] Body temperature 2023-04-20 15:43:00 36.44 Serina [facility] Respiratory rate 2023-04-20 15:43:00 16 /min [facility] Body height 2023-04-20 15:43:00 152.4 cm [facility] Body weight 2023-04-20 15:43:00 62.188 kg [facility] BMI 2023-04-20 15:43:00 26.78 kg/m2 [facility] Oxygen saturation in Arterial blood by Pulse oximetry 2023-04-20 15:43:00 93 /min [facility] Systolic blood pressure 2023-04-16 20:20:00 124 mm[Hg] [facility] Diastolic blood pressure 2023-04-16 20:20:00 62 mm[Hg] [facility] Heart rate 2023-04-16 20:20:00 85 /min [facility] Body temperature 2023-04-16 20:20:00 36.61 Serina [facility] Respiratory rate 2023-04-16 20:20:00 17 /min [facility] Body height 2023-04-16 20:20:00 152.4 cm [facility] Body weight 2023-04-16 20:20:00 61.916 kg [facility] BMI 2023-04-16 20:20:00 26.66 kg/m2 [facility] Oxygen saturation in Arterial blood by Pulse oximetry 2023-04-16 20:20:00 94 /min [facility] Systolic blood pressure 2023-04-16 16:55:00 130 mm[Hg] [facility] Diastolic blood pressure 2023-04-16 16:55:00 68 mm[Hg] [facility] Heart rate 2023-04-16 16:55:00 87 /min Unive [facility] Body temperature 2023-04-16 16:55:00 36.67 Serina [facility] Body height 2023-04-16 16:55:00 152.4 cm [facility] Body weight 2023-04-16 16:55:00 61.689 kg [facility] BMI 2023-04-16 16:55:00 26.56 kg/m2 [facility] Oxygen saturation in Arterial blood by Pulse oximetry 2023-04-16 16:55:00 93 /min [facility] Systolic blood pressure 2023-04-11 01:15:00 138 mm[Hg] [facility] Diastolic blood pressure 2023-04-11 01:15:00 71 mm[Hg] [facility] Heart rate 2023-04-11 01:15:00 61 /min Un[facility] Respiratory rate 2023-04-11 01:15:00 16 /min [facility] Oxygen saturation in Arterial blood by Pulse oximetry 2023-04-11 01:15:00 97 /min [facility] Body temperature 2023-04-10 20:41:00 36.78 Serina [facility] Body height 2023-04-10 20:41:00 152.4 cm [facility] Body weight 2023-04-10 20:41:00 62.143 kg [facility] BMI 2023-04-10 20:41:00 26.76 kg/m2 [facility] Systolic blood pressure 2023-04-10 19:55:00 133 mm[Hg] [facility] Diastolic blood pressure 2023-04-10 19:55:00 89 mm[Hg] [facility] Heart rate 2023-04-10 19:55:00 66 /min Unive [facility] Body temperature 2023-04-10 19:55:00 36.5 Serina [facility] Respiratory rate 2023-04-10 19:55:00 17 /min [facility] Body height 2023-04-10 19:55:00 152.4 cm [facility] Body weight 2023-04-10 19:55:00 62.143 kg [facility] BMI 2023-04-10 19:55:00 26.76 kg/m2 [facility] Oxygen saturation in Arterial blood by Pulse oximetry 2023-04-10 19:55:00 98 /min [facility] Systolic blood pressure 2023-04-10 20:03:00 133 mm[Hg] [facility] Diastolic blood pressure 2023-04-10 20:03:00 89 mm[Hg] [facility] Heart rate 2023-04-10 20:03:00 66 /min Unive [facility] Body temperature 2023-04-10 20:03:00 36.5 Serina [facility] Respiratory rate 2023-04-10 20:03:00 17 /min [facility] Body height 2023-04-10 20:03:00 152.4 cm [facility] Body weight 2023-04-10 20:03:00 62.143 kg [facility] BMI 2023-04-10 20:03:00 26.76 kg/m2 [facility] Oxygen saturation in Arterial blood by Pulse oximetry 2023-04-10 20:03:00 98 /min [facility] Systolic blood pressure 2023-03-03 20:16:00 127 mm[Hg] [facility] Diastolic blood pressure 2023-03-03 20:16:00 74 mm[Hg] [facility] Heart rate 2023-03-03 20:16:00 72 /min Unive [facility] Body temperature 2023-03-03 20:16:00 36.11 Serina [facility] Respiratory rate 2023-03-03 20:16:00 17 /min [facility] Body height 2023-03-03 20:16:00 157.5 cm [facility] Body weight 2023-03-03 20:16:00 62.914 kg [facility] BMI 2023-03-03 20:16:00 25.37 kg/m2 [facility] Oxygen saturation in Arterial blood by Pulse oximetry 2023-03-03 20:16:00 95 /min [facility] Systolic blood pressure 2023-02-10 21:33:00 133 mm[Hg] [facility] Diastolic blood pressure 2023-02-10 21:33:00 79 mm[Hg] [facility] Heart rate 2023-02-10 21:33:00 82 /min [facility] 2023-02-10 21:33:00 18 /min [facility] Body height 2023-02-10 21:33:00 152.4 cm [facility] Body weight 2023-02-10 21:33:00 63.05 kg [facility] BMI 2023-02-10 21:33:00 27.15 kg/m2 [facility] Systolic blood pressure 2023-02-09 15:58:00 119 mm[Hg] [facility] Diastolic blood pressure 2023-02-09 15:58:00 67 mm[Hg] [facility] Heart rate 2023-02-09 15:58:00 67 /min [facility] 2023-02-09 15:58:00 36.89 Serina [facility] Respiratory rate 2023-02-09 15:58:00 16 /min [facility] Body height 2023-02-09 15:58:00 152.4 cm [facility] weight 2023-02-09 15:58:00 62.914 kg [facility] BMI 2023-02-09 15:58:00 27.09 kg/m2 [facility] Oxygen saturation in Arterial blood by Pulse oximetry 2023-02-09 15:58:00 95 /min [facility] Systolic blood pressure 2022-03-10 21:02:00 101 mm[Hg] [facility] Diastolic blood pressure 2022-03-10 21:02:00 68 mm[Hg] [facility] Heart rate 2022-03-10 21:02:00 58 /min [facility] Body weight 2022-03-10 21:02:00 62.143 kg [facility] BMI 2022-03-10 21:02:00 25.89 kg/m2 [facility] Systolic blood pressure 2022-02-04 20:55:00 101 mm[Hg] [facility] Diastolic blood pressure 2022-02-04 20:55:00 65 mm[Hg] [facility] Heart rate 2022-02-04 20:55:00 62 /min [facility] height 2022-02-04 20:55:00 154.9 cm [facility] Body weight 2022-02-04 20:55:00 63.05 kg [facility] BMI 2022-02-04 20:55:00 26.26 kg/m2 [facility] Oxygen saturation in Arterial blood by Pulse oximetry 2022-02-04 20:55:00 98 /min [facility] BP Diastolic 2021-05-27 00:00:00 74 mm[Hg] [facility] Height 2021-05-27 00:00:00 61 [in_i] [facility] BMI (Body Mass Index) 2021-05-27 00:00:00 26.6 kg/m2 [facility] BP Systolic 2021-05-27 00:00:00 116 mm[Hg] [facility] Body Weight 2021-05-27 00:00:00 141 [lb_av] [facility] Systolic blood pressure 2023-09-14 21:11:00 124 mm[Hg] [facility] Diastolic blood pressure 2023-09-14 21:11:00 80 mm[Hg] [facility] Heart rate 2023-09-14 21:11:00 90 /min [facility] Body temperature 2023-09-14 21:11:00 36.83 Serina [facility] Body height 2023-09-14 21:11:00 152.4 cm [facility] Body weight 2023-09-14 21:11:00 62.234 kg [facility] BMI 2023-09-14 21:11:00 26.80 kg/m2 [facility] Oxygen saturation in Arterial blood by Pulse oximetry 2023-09-14 21:11:00 93 /min [facility] Respiratory rate 2023-08-26 18:03:00 17 /min [facility] Procedures Procedure Date / Time Performed Performing Clinician Source MAGNESIUM 2023-12-10 21:30:00 Daniel El [facility] COMP. METABOLIC PANEL ([id number]) 2023-12-10 21:30:00 Singer [facility] CBC WITH DIFF 2023-12-10 21:30:00 Singer [facility] URINALYSIS 2023-12-10 21:30:00 Daniel El [facility] N-TERMINAL PRO-BNP 2023-12-10 21:30:00 Singer [facility] XR CHEST 1 VW 2023-12-10 19:58:00 Singer [facility] HB ECG ROUTINE & RHYTHM STRIP 2023-12-10 19:54:18 El, Daniel [facility] MAGNESIUM 2023-12-09 19:06:00 Obi-MariellaChadEmily [facility] T4 2023-12-09 19:06:00 O[facility]adEmily [facility] HORMONE 2023-12-09 19:06:00 Obi-Mariella, Emily [facility] COMP. METABOLIC PANEL ([id number]) 2023-12-09 19:06:00 Obi-Mariella, Emily [facility] URINALYSIS 2023-12-09 19:06:00 Obi[facility]Mariella [facility] 2023-12-09 19:06:00 Obi-Mariella Emily Un [facility] HB CREATININE SERUM/BLOOD FOR IMAGING 2023-09-22 19:44:00 Sabine Morelos [facility] HB ECG ROUTINE & RHYTHM STRIP 2023-08-26 18:11:44 Gaye Hernandez [facility] POTASSIUM SERUM 2023-07-31 19:23:00 Sandrita Antony Un [facility] URINALYSIS 2023-07-30 19:33:00 Sandrita Antony [facility] URINALYSIS 2023-07-30 19:33:00 Sandrita Antony [facility] FERRITIN SERUM 2023-07-30 19:23:00 Sandrita Antony Uni [facility] FREE T4 2023-07-30 19:23:00 Sandrita Antony [facility] THYROID STIMULATING HORMONE 2023-07-30 19:23:00 Sandrita Antony [facility] COMP. METABOLIC PANEL ([id number]) 2023-07-30 19:23:00 Sandrita Antony [facility] LIPID PANEL ([id number])(TOTAL CHOLESTEROL, TRIGLYCERIDES, HDL) 2023-07-30 19:23:00 Sandrita Antony [facility] IRON PANEL 2023-07-30 19:23:00 Sandrita Antony [facility] CBC WITH DIFF 2023-07-30 19:23:00 Benito [facility] GLYCOSYLATED HEMOGLOBIN (A1C) 2023-07-30 19:23:00 Benito [facility] CBC WITH DIFF 2023-07-30 19:23:00 Benito [facility] COMP. METABOLIC PANEL ([id number]) 2023-07-30 19:23[facility]23-07-30 19:23:00 Jimmy Antonyssica [facility] GLYCOSYLATED HEMOGLOBIN (A1C) 2023-07-30 19:23:00 Benito [facility] LIPID PANEL ([id number])(TOTAL CHOLESTEROL, TRIGLYCERIDES, HDL) 2023-07-30 19:23:00 Benito [facility] THYROID STIMULATING HORMONE 2023-07-30 19:23:00 Benito [facility] VITAMIN B12, LEVEL 2023-07-30 19:23:00 Benito [facility] IRON PANEL 2023-07-30 19:23:00 Benito [facility] FERRITIN SERUM 2023-07-30 19:23:00 Sandrita Antony [facility] FOLATE 2023-07-30 19:23:00 Benito Sandrita [facility] BASIC METABOLIC PANEL (NA, K, CL, CO2, GLUCOSE, BUN, CREATININE, CA) 2023-06-30 10:59:00 Everton Gillespie [facility] CBC WITH DIFF 2023-06-30 10:59:00 Everton Gillespie [facility] BASIC METABOLIC PANEL (NA, K, CL, CO2, GLUCOSE, BUN, CREATININE, CA) 2023-06-30 10:59:00 Everton Gillespie [facility] CBC WITH DIFF 2023-06-30 10:59:00 Everton Gillespie [facility] HB ECG ROUTINE & RHYTHM STRIP 2023-06-29 12:50:04 [facility]THM [facility] 2023-06-29 12:50:04 [facility] & RHYTHM STRIP 2023-06-29 12:50:04 Edna Neves [facility] PHOSPHORUS 2023-06-29 10:38:00 [facility] 2023-06-29 10:38:00 Everton Gillespie [facility] TROPONIN I 2023-06-29 10:38:00 [facility]OLIC PANEL (NA, K, CL, CO2, GLUCOSE, BUN, CREATININE, CA) 2023-06-29 10:38:00 Everton Gillespie [facility] CBC WITH DIFF 2023-06-29 10:38:00 Everton [facility]illes[facility] 2023-06-29 10:38:00 Everton Gillespie [facility] MAGNESIUM 2023-06-29 10:38:00 Everton Gillespie [facility] TROPONIN I 2023-06-29 10:38:00 [facility]OLIC PANEL (NA, K, CL, CO2, GLUCOSE, BUN, CREATININE, CA) 2023-06-29 10:38:00 Everton Gillespie [facility] CBC WITH DIFF 2023-06-29 10:38:00 Everton [facility] 2023-06-29 10:38:00 Everton Gillespie [facility] MAGNESIUM 2023-06-29 10:38:00 Everton Gillespie [facility] BASIC METABOLIC PANEL (NA, K, CL, CO2, GLUCOSE, BUN, CREATININE, CA) 2023-06-29 10:38:00 Everton Gillespie [facility] CBC WITH DIFF 2023-06-29 10:38:00 [facility] 2023-06-29 10:38:00 Gregoria Neves [facility] CT ANGIOGRAM CHEST 2023-06-29 06:40:00 Manfred Gillespie [facility] CT ANGIOGRAM CHEST 2023-06-29 06:40:00 Manfred Gillespie [facility] CT ANGIOGRAM CHEST 2023-06-29 06:40:00 Manfred Gillespie [facility] ACTIVATED PARTIAL THRMPLAS SHERRI 2023-06-28 17:27:00 Jose Miguel [facility] ACTIVATED PARTIAL THRMPLAS SHERRI 2023-06-28 17:27:00 Jose Miguel [facility] ACTIVATED PARTIAL THRMPLAS SHERRI 2023-06-28 17:27:00 Jose Miguel [facility] TRANSTHORACIC ECHO (TTE) COMPLETE W/ CONTRAST 2023-06-28 16:10:00 Jose Miguel [facility] TRANSTHORACIC ECHO (TTE) COMPLETE W/ CONTRAST 2023-06-28 16:10:00 Jose Miguel [facility] TRANSTHORACIC ECHO (TTE) COMPLETE W/ CONTRAST 2023-06-28 16:10:00 Jose Miguel [facility] PHOSPHORUS 2023-06-28 05:23:00 Everton Gillespie [facility] MAGNESIUM 2023-06-28 05:23:00 Everton Gillespie [facility] VITAMIN B12, LEVEL 2023-06-28 05:23:00 [facility] 2023-06-28 05:23:00 Brett Liao [facility] HEPATIC FUNCTION PANEL ([id number]) (ALB,T.PRO,BILI T,BU/BC,ALT,AST,ALK PHOS) 2023-06-28 05:23:00 [facility]OLIC PANEL (NA, K, CL, CO2, GLUCOSE, BUN, CREATININE, CA) 2023-06-28 05:23:00 [facility]FF 2023-06-28 05:23:00 Everton Gillespie [facility] ACTIVATED PARTIAL THRMPLAS SHERRI 2023-06-28 05:23:00 [facility] 2023-06-28 05:23:00 Everton Gillespie [facility] MAGNESIUM 2023-06-28 05:23:00 Everton Gillespie [facility] VITAMIN B12, LEVEL 2023-06-28 05:23:00 Brett Liao [facility] FOLATE 2023-06-28 05:23:00 Brett Liao [facility] HEPATIC FUNCTION PANEL ([id number]) (ALB,T.PRO,BILI T,BU/BC,ALT,AST,ALK PHOS) 2023-06-28 05:23:00 Jose Miguel [facility] BASIC METABOLIC PANEL (NA, K, CL, CO2, GLUCOSE, BUN, CREATININE, CA) 2023-06-28 05:23:00 Jose Miguel [facility] CBC WITH DIFF 2023-06-28 05:23:00 Everton Gillespie [facility] ACTIVATED PARTIAL THRMPLAS SHERRI 2023-06-28 05:23:00 Jose Miguel [facility] PHOSPHORUS 2023-06-28 05:23:00 Everton Gillespie [facility] MAGNESIUM 2023-06-28 05:23:00 Everton Gillespie [facility] BASIC METABOLIC PANEL (NA, K, CL, CO2, GLUCOSE, BUN, CREATININE, CA) 2023-06-28 05:23:00 Jose Miguel [facility] CBC WITH DIFF 2023-06-28 05:23:00 Everton Gillespie [facility] ACTIVATED PARTIAL THRMPLAS SHERRI 2023-06-28 05:23:00 Jose Miguel [facility] FOLATE 2023-06-28 05:23:00 Brett Liao [facility] VITAMIN B12, LEVEL 2023-06-28 05:23:00 Brett Liao [facility] HEPATIC FUNCTION PANEL ([id number]) (ALB,T.PRO,BILI T,BU/BC,ALT,AST,ALK PHOS) 2023-06-28 05:23:00 Jose Miguel [facility] ACTIVATED PARTIAL THRMPLAS SHERRI 2023-06-27 21:56:00 Jose Miguel [facility] ACTIVATED PARTIAL THRMPLAS SHERRI 2023-06-27 21:56:00 Jose Miguel [facility] ACTIVATED PARTIAL THRMPLAS SHERRI 2023-06-27 21:56:00 Jose Miguel [facility] FL TIME OR (NON-REPORTABLE) 2023-06-27 15:41:00 Jose Miguel [facility] FL TIME OR (NON-REPORTABLE) 2023-06-27 15:41:00 Jose Miguel [facility] FL TIME OR (NON-REPORTABLE) 2023-06-27 15:41:00 Jose Miguel [facility] INTUBATION 2023-06-27 14:09:00 Perico Ramirez [facility] THROMBOLYSIS ENDOVASCULAR VESSEL 2023-06-27 13:48:00 Sabine Morelos [facility] THROMBOLYSIS ENDOVASCULAR VESSEL 2023-06-27 13:48:00 Sabine Morelos [facility] THROMBOLYSIS ENDOVASCULAR VESSEL 2023-06-27 13:48:00 Sabine Morelos [facility] ACTIVATED PARTIAL THRMPLAS SHERRI 2023-06-27 12:59:00 Jose Miguel [facility] HB ABO GROUPING 2023-06-27 12:59:00 Gregoria Neves [facility] ACTIVATED PARTIAL THRMPLAS SHERRI 2023-06-27 12:59:00 Jose Miguel [facility] HB ABO GROUPING 2023-06-27 12:59:00 [facility] THRMPLAS SHERRI 2023-06-27 12:59:00 Everton Gillespie [facility] HB ABO GROUPING 2023-06-27 12:59:00 [facility] 2023-06-27 05:20:00 Everton Gillespie [facility] MAGNESIUM 2023-06-27 05:20:00 Everton Gillespie [facility] BASIC METABOLIC PANEL (NA, K, CL, CO2, GLUCOSE, BUN, CREATININE, CA) 2023-06-27 05:20:00 Everton Glilespie [facility] CBC WITH DIFF 2023-06-27 05:20:00 [facility] 2023-06-27 05:20:00 Everton Gillespie [facility] MAGNESIUM 2023-06-27 05:20:00 Everton Gillespie [facility] BASIC METABOLIC PANEL (NA, K, CL, CO2, GLUCOSE, BUN, CREATININE, CA) 2023-06-27 05:20:00 Everton Gillespie [facility] CBC WITH DIFF 2023-06-27 05:20:00 Everton Gillespie Un [facility] PHOSPHORUS 2023-06-27 05:20:00 Everton Gillespie [facility] MAGNESIUM 2023-06-27 05:20:00 Everton Gillespie [facility] BASIC METABOLIC PANEL (NA, K, CL, CO2, GLUCOSE, BUN, CREATININE, CA) 2023-06-27 05:20:00 Everton Gillespie [facility] CBC WITH DIFF 2023-06-27 05:20:00 Everton Gillespie Un [facility] ACTIVATED PARTIAL THRMPLAS SHERRI 2023-06-27 04:38:00 Everton Gillespie [facility] ACTIVATED PARTIAL THRMPLAS SHERRI 2023-06-27 04:38:00 [facility] ACTIVATED PARTIAL THRMPLAS SHERRI 2023-06-27 04:38:00 Everton Gillespie [facility] CT ABDOMEN PELVIS W CONTRAST 2023-06-26 14:00:03 HerberterJose bustillo [facility] CT ABDOMEN PELVIS W CONTRAST 2023-06-26 14:00:03 AufderJose bustillo [facility] CT ABDOMEN PELVIS W CONTRAST 2023-06-26 14:00:03 AufderJose bustillo [facility] HB ECG ROUTINE & RHYTHM STRIP 2023-06-26 12:58:43 AufderJose bustillo April [facility] HB ECG ROUTINE & RHYTHM STRIP 2023-06-26 12:58:43 AufderJose bustillo April [facility] HB ECG ROUTINE & RHYTHM STRIP 2023-06-26 12:58:43 AufderJose bustillo [facility] LIPASE 2023-06-26 12:36:00 AufderJose bustillo [facility] TROPONIN I 2023-06-26 12:36:00 Jose Liao [facility] COMP. METABOLIC PANEL ([id number]) 2023-06-26 12:36:00 Jose Liao [facility] CBC WITH DIFF 2023-06-26 12:36:00 Jose iLao [facility] URINALYSIS 2023-06-26 12:36:00 Jose Liao [facility] LIPASE 2023-06-26 12:36:00 AuJose cazares [facility] TROPONIN I 2023-06-26 12:36:00 Jose Liao [facility] COMP. METABOLIC PANEL ([id number]) 2023-06-26 12:36:00 AuemyerJose bustillo [facility] CBC WITH DIFF 2023-06-26 12:36:00 AufdJose lozano [facility] URINALYSIS 2023-06-26 12:36:00 AuJose cazares [facility] CBC WITH DIFF 2023-06-26 12:36:00 Jose Liao [facility] COMP. METABOLIC PANEL ([id number]) 2023-06-26 12:36:00 AuJose cazares [facility] LIPASE 2023-06-26 12:36:00 AufdJose lozano [facility] URINALYSIS 2023-06-26 12:36:00 AuJose cazares [facility] TROPONIN I 2023-06-26 12:36:00 Jose Liao [facility] CT HEAD WO CONTRAST 2023-06-01 15:20:00 Sandrita Ravi [facility] BASIC METABOLIC PANEL (NA, K, CL, CO2, GLUCOSE, BUN, CREATININE, CA) 2023-05-03 18:05:00 Patti [facility] CLOSTRIDIUM DIFFICILE TOXIN 2023-05-03 14:20:00 Ramona [facility] BASIC METABOLIC PANEL (NA, K, CL, CO2, GLUCOSE, BUN, CREATININE, CA) 2023-05-03 07:52:00 Patti [facility] CBC WITH DIFF 2023-05-03 07:52:00 Patti [facility] LIPASE 2023-05-02 22:19:00 Jose Liao [facility] COMP. METABOLIC PANEL ([id number]) 2023-05-02 22:19:00 AuJose cazares [facility] URINALYSIS 2023-05-02 22:19:00 Jose Liao [facility] CT ABDOMEN PELVIS W CONTRAST 2023-05-02 21:11:00 Jose Liao [facility] CBC WITH DIFF 2023-05-02 20:58:00 Jose Liao [facility] CONSENT/REFUSAL FOR DIAGNOSIS AND TREATMENT 2023-05-02 20:30:39 Doctor Unassigned, Orland [facility] TRANSTHORACIC ECHO (TTE) COMPLETE 2023-04-29 22:28:09 Gaye Hernandez [facility] FREE T4 2023-04-16 17:59:00 Sandrita Antony [facility] THYROID STIMULATING HORMONE 2023-04-16 17:59:00 Benito Sandrita [facility] COMP. METABOLIC PANEL ([id number]) 2023-04-16 17:59:00 Jimmy Antonyssica [facility] CBC WITH DIFF 2023-04-16 17:59:00 Jimmy Antonyssica [facility] FREE T3 2023-04-16 17:59:00 Sandrita Antony [facility] CT ABDOMEN PELVIS W CONTRAST 2023-04-10 22:50:35 Errol Lopes [facility] COMP. METABOLIC PANEL ([id number]) 2023-04-10 21:21:00 Errol Lopes [facility] CBC WITH DIFF 2023-04-10 21:21:00 Errol Lopes [facility] PROTHROMBIN TIME / INR 2023-04-10 21:21:00 Kassy Lopes [facility] CONSENT/REFUSAL FOR DIAGNOSIS AND TREATMENT 2023-04-10 20:31:57 Doctor Unassigned, [place] [facility] DEXA AXIAL (HIP AND SPINE) 2023-03-06 20:13:00 Jimmy Antonyssica [facility] DEXA AXIAL (HIP AND SPINE) 2023-03-06 20:13:00 Jimmy Antonyssica [facility] FREE T4 2023-03-03 21:05:00 Sandrita Antony [facility] THYROID STIMULATING HORMONE 2023-03-03 21:05:00 Benito Sandrita [facility] CBC WITH DIFF 2023-03-03 21:05:00 Jimmy Antonyssica [facility] PNEUMOCOCCAL 20 CONJUGATE (PREVNAR 20) VACCINE 2023-03-03 20:37:55 Benito Sandrita [facility] URINALYSIS 2023-02-09 16:50:00 Sandrita Antony [facility] FREE T4 2023-02-09 16:43:00 Benito [facility] THYROID STIMULATING HORMONE 2023-02-09 16:43:00 Jimmy Antonyssica [facility] COMP. METABOLIC PANEL ([id number]) 2023-02-09 16:43:00 Jimmy Antonyssica [facility] LIPID PANEL ([id number])(TOTAL CHOLESTEROL, TRIGLYCERIDES, HDL) 2023-02-09 16:43:00 Jimmy Antonyssica [facility] CBC WITH DIFF 2023-02-09 16:43:00 Benito Sandrita [facility] FLU VACC(),65+YR,0.5 ML,IM,ADJUVANTED,QUAD(FLUA D) 2023-02-09 16:11:00 Jimmy Antonyssica [facility] SARS-COV-2 COVID 19 AJ SUCROSE VACCINE 12+, , 0.3 ML (30 MCG), IM PFIZER (KOWALSKI TOP) 2023-02-09 16:11:00 Jimmy Antonyssica [facility] ASSIGNMENT OF BENEFITS 2023-02-09 15:48:41 Docto r Unassigned, [place] [facility] SARS-COV-2 COVID-19 VACCINE 12 YRS+, BIVALENT 0.5ML, IM (MODERNA BOOSTER) 2022-04-09 18:29:46 Doctor Unassigned, [place] [facility] MR BRAIN WO CONTRAST 2022-03-05 19:37:[address] Gene [facility] ASSIGNMENT OF BENEFITS 2022-02-04 20:18:20 Docto r Unassigned, Orland [facility] SARS-COV-2 COVID-19 VACCINE BOOSTER,0.25ML,IM (MODERNA) 2021-06-03 19:50:49 Doctor Unassigned, Orland [facility] MAMMO, screening, bilateral 2021-05-27 00:00:00 [facility] BONE DENSITY MEASUREMENT USING DEDICATED X RAY MACHINE 2021-05-27 00:00:00 [facility] Cholecystectomy (Gallbladder) [facility] Plan of Care Planned Activity Planned Date Details Comments Source Diagnostic Test Pending 2021-05-27 00:00:00 [place] IgE Ab [Units/volume] in Serum [code = 6195-2] [facility] Medical Encounters Start Date/Time End Date/Time Encounter Type Admission Type Attending [facility] Facility Care Department Encounter ID Source 2023-04-27 14:45:27 Outpatient R RODARTE LAURALAURA HART [facility] [id number] [facility] 2024-03-14 13:20:00 2024-03-14 13:20:00 Outpatient R OBI-MARIELLA , EMILY OBI-MARIELLA , EMILY [facility] [id number] [facility] 2024-02-11 15:30:00 2024-02-11 15:30:00 Outpatient R MOORE-THOMAS S, CHRISTINA MOORE-THOMAS S, CHRISTINA [facility] [id number] [facility] 2023-12-20 00:00:00 2023-12-29 00:12:22 RefGaye Martino [facility] 1.2.840.114 350.1.13.10 4.2.7.2.686 [id number] [facility] 2023-12-21 00:00:00 2023-12-21 15:40:26 Gaye Riley [facility]. [facility] 1.2.840.114 350.1.13.10 4.2.7.2.686 [id number] [facility] 2023-12-10 14:45:00 2023-12-10 18:03:00 Emergency X DANIEL EL PHILLIP WVESTELITA ERT [id number] [facility] 2023-12-10 14:45:00 2023-12-10 18:03:00 Emergency Daniel El WVESTELITA AT [facility] 1.2.840.114 350.1.13.10 4.2.7.2.686 [id number] [facility] 2023-12-09 00:00:00 2023-12-10 05:12:53 Telephone Emily Hodge [facility] 1.2.840.114 350.1.13.10 4.2.7.2.686 [id number] [id number] [facility] 2023-12-09 00:00:00 2023-12-09 16:56:50 Telephone Emily Hodge [facility] 1.2.840.114 350.1.13.10 4.2.7.2.686 [id number] [facility] 2023-12-09 14:00:00 2023-12-09 14:08:03 Line Maintainer Section Visit 2, Adc Lab Emily Hodge 2, Adc Lab [facility] 1.2.840.114 350.1.13.10 4.2.7.2.686 [id number] [facility] 2023-12-09 13:20:00 2023-12-09 13:56:17 Outpatient R [facility] [id number] [facility] 2023-12-09 13:20:00 2023-12-09 13:56:17 Office Visit Emily Hodge [facility] 1.2.840.114 350.1.13.10 4.2.7.2.686 [id number] [id number] [facility] 2023-10-29 00:00:00 2023-12-05 18:24:59 Patient Secure Msg Doctor Unassigned, Orland Doctor Unassigned, Orland [facility] 1.2.840.114 350.1.13.10 4.2.7.2.686 [id number] [facility] 2023-10-27 00:00:00 2023-11-28 18:21:28 Patient Secure Msg Doctor Unassigned, [place]land Doctor Unassigned, Orland [facility] 1.2.840.114 350.1.13.10 4.2.7.2.686 [id number] [facility] 2023-11-19 00:00:00 2023-11-20 09:07:05 Jay Amador [facility] 1..840.114 350.1.13.10 4.2.7.2.686 [id number] [facility] 2023-11-17 14:00:00 2023-11-17 14:00:00 Outpatient GAYE DEL CASTILLO [facility] [id number] [facility] 2023-11-16 00:00:00 2023-11-16 13:28:45 Patient Outreach Danielle Espinoza Jocelyn [facility] 1..840.114 350.1.13.10 4.2.7.2.686 [id number] [facility] 2023-11-12 00:00:00 2023-11-12 09:14:24 Patient Outreach Danielle Espinoza Jocelyn [facility] 1..840.114 350.1.13.10 4.2.7.2.686 [id number] [id number] [facility] 2023-11-09 00:00:00 2023-11-09 10:14:51 Patient Outreach Danielle Espinoza Jocelyn [facility] 1.2.840.114 350.1.13.10 4.2.7.2.686 [id number] [facility] 2023-11-06 00:00:00 2023-11-06 16:37:17 Monikacatarina Jay Bradshaw [facility] 1.2.840.114 350.1.13.10 4.2.7.2.686 [id number] [id number] [facility] 2023-11-04 00:00:00 2023-11-04 08:21:07 Patient Outreach Danielle Espinoza Jocelyn [facility] 1.2840.114 350.1.13.10 4.2.7.2.686 [id number] [facility] 2023-10-30 10:00:00 2023-10-30 11:09:17 Outpatient R SANDRITA ANTONY [facility] [id number] [facility] 2023-10-30 10:00:00 2023-10-30 11:09:17 Office Visit Leigh Michele Jessica [facility] 1.2.840.114 350.1.13.10 4.2.7.2.686 [id number] [facility] 2023-10-28 00:00:00 2023-10-28 15:46:39 Telephone Gaye Hernandez [facility] 1.2.840.114 350.1.13.10 4.2.7.2.686 [id number] [facility] 2023-10-27 00:00:00 2023-10-27 16:30:37 Patient Outreach Helen Espinozacelyn Danielle Espinoaz [facility] 1.2.840.114 350.1.13.10 4.2.7.2.686 [id number] [id number] [facility] 2023-10-27 13:30:00 2023-10-27 13:30:00 Outpatient R DAVID GAYE [facility] [id number] [facility] 2023-10-26 00:00:00 2023-10-27 08:50:25 Telephone Emily Hodge [facility] 1..840.114 350.1.13.10 4.2.7.2.686 [id number] [facility] 2023-10-26 13:20:00 2023-10-26 13:53:55 Outpatient R EMILY HODGE UZOMA [facility] [id number] [facility] 2023-10-26 13:20:00 2023-10-26 13:53:55 [facility] 1..840.114 350.1.13.10 4.2.7.2.686 [id number] [facility] 2023-10-09 00:00:00 2023-10-09 13:45:14 Telephone Jay Bradshaw [facility] 1..840.114 350.1.13.10 4.2.7.2.686 [id number] [facility] 2023-10-06 13:40:00 2023-10-06 14:48:29 Outpatient R JAY BRADSHAW HOWARD [facility] [id number] [facility] 2023-10-06 13:40:00 2023-10-06 14:48:29 Office Visit Jay Bradshaw [facility] 1..840.114 350.1.13.10 4.2.7.2.686 [id number] [facility] 2023-09-22 00:00:00 2023-09-22 14:22:00 Outpatient SABINE LOPEZ [facility] [id number] [facility] 2023-09-22 00:00:00 2023-09-22 00:00:00 Travel 1.2.840.1 76859.1.1 3.104.2.7 .3.482756 .8 1.2.840.114 350.1.13.10 4.2.7.3.698 084.8 [id number] [facility] 2023-08-19 00:00:00 2023-09-19 18:15:59 Patient Secure Msg Doctor Unassigned, [place]land 1.2.840.1 91745.1.1 3.104.2.7 .3.498463 .8 [id number] [facility] 2023-09-18 16:00:00 2023-09-18 16:00:00 Outpatient R GAYE HERNANDEZ [facility] [id number] [facility] 2023-09-14 16:30:00 2023-09-14 16:40:23 Outpatient SABINE LOPEZ [facility] [id number] [facility] 2023-09-14 16:30:00 2023-09-14 16:40:23 Office Visit Sabine Morelos 1.2.840.1 52570.1.1 3.104.2.7 .3.007884 .8 [id number] [facility] 2023-09-14 00:00:00 2023-09-14 00:00:00 Travel 1.2.840.1 15781.1.1 3.104.2.7 .3.993594 .8 1.2.840.114 350.1.13.10 4.2.7.3.698 084.8 [id number] [facility] 2023-09-02 00:00:00 2023-09-08 12:37:21 Refill Sandrita Antony 1.2.840.1 02121.1.1 3.104.2.7 .3.524316 .8 [id number] [facility] 2023-09-08 00:00:00 2023-09-08 00:00:00 Outpatient GAYE DEL CASTILLO [facility] [id number] [facility] 2023-07-30 00:00:00 2023-09-05 18:26:58 Patient Secure Msg Doctor Unassigned, [place] 1.2.840.1 11919.1.1 3.104.2.7 .3.392260 .8 [id number] [facility] 2023-08-01 00:00:00 2023-09-05 18:24:52 Patient Secure Msg Doctor Unassigned, [place]land 1.2.840.1 03952.1.1 3.104.2.7 .3.797844 .8 [id number] [facility] 2023-09-04 00:00:00 2023-09-05 12:27:44 Telephone Gaye Hernandez 1.2.840.1 88893.1.1 3.104.2.7 .3.588411 .8 [id number] [facility] 2023-08-28 10:00:00 2023-08-28 10:00:00 Outpatient JAY ALCANTARA HOWARD [facility] [id number] [facility] 2023-08-14 00:00:00 2023-08-26 14:41:40 Telephone Sandrita Antony 1.2.840.1 29152.1.1 3.104.2.7 .3.233871 .8 [id number] [facility] 2023-08-26 13:00:00 2023-08-26 13:50:30 Outpatient GAYE DEL CASTILLO [facility] [id number] [facility] 2023-08-26 13:00:00 2023-08-26 13:50:30 Office Visit Gaye Hernandez 1.2.840.1 96371.1.1 3.104.2.7 .3.239691 .8 [id number] [facility] 2023-08-26 00:00:00 2023-08-26 00:00:00 Travel 1.2.840.1 01190.1.1 3.104.2.7 .3.519700 .8 1.2.840.114 350.1.13.10 4.2.7.3.698 084.8 [id number] [facility] 2023-07-17 00:00:00 2023-08-22 18:23:21 Patient Secure Msg Doctor Unassigned, [place] 1.2.840.1 36582.1.1 3.104.2.7 .3.295235 .8 [id number] [facility] 2023-08-20 14:00:00 2023-08-20 14:00:00 Outpatient R OBI-MARIELLA , EMILY OBI-MARIELLA , EMILY [facility] [id number] [facility] 2023-08-11 13:00:00 2023-08-11 13:00:00 Outpatient R SANDRITA ANTONY [facility] [id number] [facility] 2023-08-03 00:00:00 2023-08-05 09:30:49 Telephone Sandrita Antony 1.2.840.1 36307.1.1 3.104.2.7 .3.156371 .8 [id number] [facility] 2023-08-03 00:00:00 2023-08-04 08:05:59 Refill Sandrita Antony 1.2.840.1 45271.1.1 3.104.2.7 .3.999813 .8 [id number] [facility] 2023-08-04 00:00:00 2023-08-04 08:02:40 Telephone Sandrita Antony 1.2.840.1 13673.1.1 3.104.2.7 .3.834989 .8 [id number] [facility] 2023-08-03 00:00:00 2023-08-03 16:41:10 Telephone Sandrita Antony 1.2.840.1 78105.1.1 3.104.2.7 .3.099894 .8 [id number] [facility] 2023-08-03 00:00:00 2023-08-03 12:37:09 Patient Outreach April Shipley 1.2.840.1 01262.1.1 3.104.2.7 .3.618183 .8 [id number] [facility] 2023-07-31 14:30:00 2023-07-31 14:50:22 Outpatient R SANDRITA ANTONY [facility] [id number] [facility] 2023-07-31 14:30:00 2023-07-31 14:50:22 Line Maintainer Section Visit Sandrita Antony 2, Adc Lab 1.2.840.1 78474.1.1 3.104.2.7 .3.093148 .8 [id number] [facility] 2023-07-31 00:00:00 2023-07-31 13:03:19 Telephone Gregory Trinh Rp 1.2.840.1 43074.1.1 3.104.2.7 .3.367707 .8 [id number] [facility] 2023-07-31 00:00:00 2023-07-31 10:10:18 Telephone Sandrita Antony 1.2.840.1 20930.1.1 3.104.2.7 .3.750309 .8 [id number] [facility] 2023-07-31 00:00:00 2023-07-31 08:23:27 Letter (Out) Mo, Cardiology - Clear 1.2.840.1 12491.1.1 3.104.2.7 .3.820917 .8 [id number] [facility] 2023-07-30 14:30:00 2023-07-30 15:06:15 Line Maintainer Section Visit Sandrita Antony 2, Adc Lab 1.2.840.1 72943.1.1 3.104.2.7 .3.327725 .8 [id number] [facility] 2023-07-30 13:30:00 2023-07-30 14:03:58 Outpatient R SANDRITA ANTONY [facility] [id number] [facility] 2023-07-30 13:30:00 2023-07-30 14:03:58 Office Visit Sandrita Antony 1.2.840.1 47602.1.1 3.104.2.7 .3.172795 .8 [id number] [facility] 2023-07-30 00:00:00 2023-07-30 00:00:00 Orders Only Christiano Shelton 1.2.840.1 26597.1.1 3.104.2.7 .3.947734 .8 [id number] [facility] 2023-07-30 00:00:00 2023-07-30 00:00:00 Travel 1.2.840.1 19044.1.1 3.104.2.7 .3.777761 .8 1.2.840.114 350.1.13.10 4.2.7.3.698 084.8 [id number] [facility] 2023-07-27 00:00:00 2023-07-28 11:26:09 Refill Sandrita Antony 1.2.840.1 72114.1.1 3.104.2.7 .3.840297 .8 [id number] [facility] 2023-07-15 00:00:00 2023-07-16 15:03:44 Patient Secure Msg Juliclara Sabine Cazares 1.2.840.1 09394.1.1 3.104.2.7 .3.538925 .8 [id number] [facility] 2023-07-08 00:00:00 2023-07-09 08:04:10 Patient Secure Msg Doctor Unassigned, [place] 1.2.840.1 11711.1.1 3.104.2.7 .3.643404 .8 [id number] [facility] 2023-06-26 07:17:00 2023-06-30 16:00:00 Inpatient U [facility] [id number] [facility] 2023-06-26 07:17:00 2023-06-30 16:00:00 Hospital Encounter Jose Liao Christine Li 1.2.840.1 31445.1.1 3.104.2.7 .3.843616 .8 [id number] [facility] 2023-06-27 08:57:00 2023-06-27 10:53:00 Anesthesia Event Kalin Callejas Edgar 1.2.840.1 26076.1.1 3.104.2.7 .3.311835 .8 [id number] [facility] 2023-06-27 08:15:00 2023-06-27 10:33:00 Surgery AlyssaSabine palacio 1.2.840.1 75353.1.1 3.104.2.7 .3.230249 .8 [id number] [facility] 2023-06-26 14:00:00 2023-06-26 14:00:00 Outpatient SANDRITA AVILES [facility] [id number] [facility] 2023-06-26 00:00:00 2023-06-26 00:00:00 Travel 1.2.840.1 49982.1.1 3.104.2.7 .3.953808 .8 1.2.840.114 350.1.13.10 4.2.7.3.698 084.8 [id number] [facility] 2023-06-24 13:00:00 2023-06-24 15:49:08 Outpatient R GAYE HERNANDEZ [facility] [id number] [facility] 2023-06-24 13:00:00 2023-06-24 15:49:08 Office Visit Gaye Hernandez 1.2.840.1 82983.1.1 3.104.2.7 .3.877680 .8 [id number] [facility] 2023-06-24 00:00:00 2023-06-24 00:00:00 Travel 1.2.840.1 68041.1.1 3.104.2.7 .3.558695 .8 1.2.840.114 350.1.13.10 4.2.7.3.698 084.8 [id number] [facility] 2023-06-10 08:30:00 2023-06-10 23:59:00 Outpatient R GAYE HERNANDEZ [facility] [id number] [facility] 2023-06-10 08:30:00 2023-06-10 23:59:00 Hospital [facility] 1.2.840.114 350.1.13.10 4.2.7.2.686 [id number] [facility] 2023-06-01 09:50:53 2023-06-01 23:59:00 Outpatient R SANDRITA RAVI [facility] [id number] [facility] 2023-06-01 09:50:53 2023-06-01 23:59:00 Hospital Encounter Sandrita Ravi [facility] 1.2.840.114 350.1.13.10 4.2.7.2.686 [id number] [facility] 2023-05-30 00:00:00 2023-05-30 00:00:00 Refill Sandrita Antony [facility] 1.2840.114 350.1.13.10 4.2.7.2.686 [id number] [id number] [facility] 2023-05-25 10:30:00 2023-05-25 11:15:42 Outpatient R SANDRITA RAVI [facility] [id number] [facility] 2023-05-22 00:00:00 2023-05-22 00:00:00 Telephone Mike Smith [facility] 1.2840.114 350.1.13.10 4.2.7.2.686 [id number] [facility] 2023-05-19 00:00:00 2023-05-19 00:00:00 Letter (Out) Neurology [facility] 1.2840.114 350.1.13.10 4.2.7.2.686 [id number] [facility] 2023-05-18 00:00:00 2023-05-18 00:00:00 Patient Secure Msg Doctor Unassigned, Orland [facility] 1.2840.114 350.1.13.10 4.2.7.2.686 [id number] [facility] 2023-05-15 14:00:00 2023-05-15 14:00:00 Office Visit Sandrita Antony [facility] 1.2840.114 350.1.13.10 4.2.7.2.686 [id number] [id number] [facility] 2023-05-15 13:30:00 2023-05-15 13:56:18 Office Visit Sandrita Antony [facility] 1.2.840.114 350.1.13.10 4.2.7.2.686 [id number] [facility] 2023-05-15 14:00:00 2023-05-15 13:54:32 Outpatient R JIMMY ANTONYSSICA [facility] [id number] [facility] 2023-05-12 09:55:27 2023-05-12 23:59:00 Outpatient R LAURA RODARTE [facility] [id number] [facility] 2023-05-12 09:55:27 2023-05-12 23:59:00 Hospital Encounter Laura Rodarte [facility] 1.2.840.114 350.1.13.10 4.2.7.2.686 [id number] [facility] 2023-05-07 00:00:00 2023-05-07 00:00:00 Telephone Sandrita Antony [facility] 1.2.840.114 350.1.13.10 4.2.7.2.686 [id number] [facility] 2023-05-05 00:00:00 2023-05-05 00:00:00 Telephone Gaye Hernandez [facility] 1.2.840.114 350.1.13.10 4.2.7.2.686 [id number] [facility] 2023-05-05 00:00:00 2023-05-05 00:00:00 Telephone Sandrita Antony [facility] 1.2.840.114 350.1.13.10 4.2.7.2.686 [id number] [facility] 2023-05-05 00:00:00 2023-05-05 00:00:00 Transition of Care Loreta Ku 1..114 350.1.13.10 4.2.7.2.686 [id number] [facility] 2023-05-04 00:00:00 2023-05-04 00:00:00 Telephone RodarteLaura [facility] 1.114 350.1.13.10 4.2.7.2.686 [id number] [facility] 2023-05-02 14:45:00 2023-05-03 16:02:00 Outpatient ANITA CULVER [facility] [id number] [facility] 2023-05-02 14:45:00 2023-05-03 16:02:00 Hospital Encounter Jose Liao [facility] 1.114 350.1.13.10 4.2.7.2.686 [id number] [facility] 2023-04-30 00:00:00 2023-04-30 00:00:00 Sandrita Henry [facility] 1.114 350.1.13.10 4.2.7.2.686 [id number] [facility] 2023-04-29 15:48:52 2023-04-29 23:59:00 Outpatient GAYE DEL CASTILLO [facility] [id number] [facility] 2023-04-29 15:48:52 2023-04-29 23:59:00 Hospital Encounter Gaye [facility] 1..114 350.1.13.10 4.2.7.2.686 [id number] [facility] 2023-04-28 15:00:00 2023-04-28 15:00:00 Outpatient SANDRITA BLOOM [facility] [id number] [facility] 2023-04-20 10:00:00 2023-04-20 10:30:00 Office Visit Laura Rodarte [facility] 1.2.840.114 350.1.13.10 4.2.7.2.686 [id number] [facility] 2023-04-20 10:00:00 2023-04-20 10:00:00 Outpatient R LAURA RODARTE [facility] [id number] [facility] 2023-04-16 15:00:00 2023-04-16 15:35:51 [facility] 1.20.114 350.1.13.10 4.2.7.2.686 [id number] [facility] 2023-04-16 11:45:00 2023-04-16 12:00:00 Line Maintainer Section Visit 2, Adc Lab Jimmy Antonyssica [facility] 1.20.114 350.1.13.10 4.2.7.2.686 [id number] [facility] 2023-04-16 10:30:00 2023-04-16 11:51:41 Outpatient R SANDRITA ANTONY [facility] [id number] [facility] 2023-04-16 10:30:00 2023-04-16 11:51:41 [facility] 1.20.114 350.1.13.10 4.2.7.2.686 [id number] [facility] 2023-04-10 14:43:00 2023-04-10 19:29:00 Emergency Errol Lopes [facility] 1.2840.114 350.1.13.10 4.2.7.2.686 [id number] [facility] 2023-04-10 14:00:00 2023-04-10 16:05:21 Outpatient R UDAY NIEVES [facility] [id number] [facility] 2023-04-10 14:00:00 2023-04-10 16:05:21 Outpatient R UDAY NIEVES [facility] ERT [id number] [facility] 2023-04-10 14:20:00 2023-04-10 14:40:00 Urgent Care Provider, Chava Arevalo Urgent Care Unknown, Attending [facility] 1.840.114 350.1.13.10 4.2.7.2.686 [id number] [facility] 2023-04-10 14:20:00 2023-04-10 14:20:00 Outpatient R UNKNOWN, ATTENDING [facility] [id number] [facility] 2023-04-10 14:00:00 2023-04-10 14:20:00 Nurse Visit Nurse, Chava Arevalo Urgent Care Unknown, Attending [facility] MEDICAL [facility] 1.840.114 350.1.13.10 4.2.7.2.686 [id number] [facility] 2023-03-28 00:00:00 2023-03-28 00:00:00 Telephone Sandrita Antony [facility] 1.840.114 350.1.13.10 4.2.7.2.686 [id number] [facility] 2023-03-10 00:00:00 2023-03-10 00:00:00 Telephone Sandrita Antony [facility] 1..840.114 350.1.13.10 4.2.7.2.686 [id number] [facility] 2023-03-06 13:42:05 2023-03-06 23:59:00 Hospital Encounter Sandrita Antony [facility] 1.2.840.114 350.1.13.10 4.2.7.2.686 [id number] [facility] 2023-03-06 13:41:57 2023-03-06 13:41:57 Outpatient R JOSI Rodriguez [id number] [facility] 2023-03-06 13:41:57 2023-03-06 13:41:57 [facility] 1.2.840.114 350.1.13.10 4.2.7.2.686 [id number] [facility] 2023-03-03 15:15:00 2023-03-03 15:15:00 Line Maintainer Section Visit 2, [facility] 1.2.840.114 350.1.13.10 4.2.7.2.686 [id number] [facility] 2023-03-03 14:30:00 2023-03-03 14:45:24 [id number] 2023-03-03 14:30:00 2023-03-03 14:45:24 Office Visit Sandrita Antony [facility] 1.2.840.114 350.1.13.10 4.2.7.2.686 [id number] [facility] 2023-02-10 15:30:00 2023-02-10 16:00:00 Office Visit Josi rodriguez Christina [facility] 1.2.840.114 350.1.13.10 4.2.7.2.686 [id number] [facility] 2023-02-10 15:30:00 2023-02-10 15:30:00 Outpatient R MOORETIFFANIE S, CHRISTINA MOORETIFFANIE S, CHRISTINA [facility] [id number] [facility] 2023-02-09 10:30:00 2023-02-09 10:45:00 Line Maintainer Section Visit 2, [facility] 1.2.840.114 350.1.13.10 4.2.7.2.686 [id number] [facility] 2023-02-09 10:00:00 2023-02-09 10:25:51 Outpatient R JIMMY ANTONYSSICA [facility] [id number] [facility] 2023-02-09 10:00:00 2023-02-09 10:25:51 [facility] 1.2.840.114 350.1.13.10 4.2.7.2.686 [id number] [facility] 2023-02-09 00:00:00 2023-02-09 00:00:00 Orders Only Doctor Unassigned, [facility] 1..840.114 350.1.13.10 4.2.7.2.686 [id number] [facility] 2022-05-22 00:00:00 2022-05-22 00:00:00 Outpatient GC_SWHATBIC _Black_D PRIV PRIV [id number] [facility] 2022-04-09 13:00:00 2022-04-09 13:10:00 Imm/Inj Visit Vaccine, Adc Family Medicine Unknown, Attending [facility] 1.2.840.114 350.1.13.10 4.2.7.2.686 [id number] [facility] 2022-04-09 13:00:00 2022-04-09 13:00:00 Outpatient Mason JAQUEZMARGARITA DAGOBERTO [facility] [id number] [facility] [facility] 2022-04-09 00:00:00 2022-04-09 00:00:00 Telephone Cuong Delgado [facility] 1.2.840.114 350.1.13.10 4.2.7.2.686 [id number] [facility] 2022-04-08 14:30:00 2022-04-08 14:30:00 Outpatient R CUONG DELGADO [facility] [id number] [facility] 2022-03-10 15:30:00 2022-03-10 15:46:00 Office Visit Jimmy Ravissica [facility] 1..840.114 350.1.13.10 4.2.7.2.686 [id number] [facility] 2022-03-10 15:30:00 2022-03-10 15:46:00 Outpatient R JIMMY RAVISSICA [facility] [id number] [facility] 2022-03-05 12:24:02 2022-03-05 23:59:00 Outpatient JAY ALCANTARA HOWARD [facility] [id number] [facility] 2022-03-05 12:24:02 2022-03-05 23:59:00 [facility] Jay Spencer [facility] 1..840.114 350.1.13.10 4.2.7.2.686 [id number] [facility] 2022-03-05 00:00:00 2022-03-05 00:00:00 Outpatient JAY ALCANTARA HOWARD [facility] [id number] [facility] 2022-02-25 00:00:00 2022-02-25 00:00:00 Outpatient JAY ALCANTARA HOWARD [facility] [id number] [facility] 2022-02-18 00:00:00 2022-02-18 00:00:00 Telephone Jay Bradshaw [facility] 1.840.114 350.1.13.10 4.2.7.2.686 [id number] [facility] 2022-02-04 15:00:00 2022-02-04 15:50:22 Office Visit Jay Bradshaw [facility] 1.840.114 350.1.13.10 4.2.7.2.686 [id number] [facility] 2022-02-04 15:00:00 2022-02-04 15:50:22 Outpatient R JAY BRADSHAW [facility]ARD [facility] [id number] [facility] 2022-02-04 00:00:00 2022-02-04 00:00:00 Orders Only Doctor Unassigned, [facility] 1.84.114 350.1.13.10 4.2.7.2.686 [id number] [facility] 2022-01-13 15:00:00 2022-01-13 15:00:00 Outpatient R JENNIFER HARRIS OGECHUKWU [facility] [id number] [facility] 2021-06-03 14:10:00 2021-06-03 14:20:00 Imm/Inj Visit Vaccine, Ang Db Cbc Fam Ron [facility] 1.840.114 350.1.13.10 4.2.7.2.686 [id number] [facility] 2021-06-03 14:10:00 2021-06-03 14:10:00 Outpatient FREDA CAMPOS [facility] [id number] [facility] 2021-06-03 00:00:00 2021-06-03 00:00:00 Orders Only Doctor Unassigned, [facility] 1.2.840.114 350.1.13.10 4.2.7.2.686 [id number] [facility] 2021-05-28 11:48:00 2021-05-28 11:48:00 Outpatient [facility]_ Black_D PRIV PRIV [id number] [facility] 2021-05-28 00:00:00 2021-05-28 00:00:00 Outpatient GC_SWHATBIC _Black_D PRIV PRIV [id number] [facility] 2021-05-27 01:05:00 2021-05-27 01:05:00 Outpatient GC_[facility] _Black_D PRIV PRIV [id number] [facility] 2021-05-27 00:00:00 2021-05-27 00:00:00 Outpatient Anabel Hess PRIV PRIV [id number] 2021-05-27 00:00:00 2021-05-27 00:00:00 Anabel Hess MD: [address], [address], [place] [address] , Ph. [facility] - [facility]_ [place] Office* [id number] [facility] 2021-05-24 03:45:00 2021-05-24 03:45:00 Outpatient [facility]_ Black_D PRIV PRIV [id number] [facility] 2021-05-22 09:44:00 2021-05-22 09:44:00 Outpatient GC_S[facility] _Black_D PRIV PRIV [id number] [facility] 2019-01-28 12:23:00 2019-01-28 12:23:00 Outpatient [facility]_ Black_D PRIV PRIV [id number] [facility] Results Test Description Test Time Test Comments Results Result Comments Source XR CHEST 1 VW 20:05:13 HISTORY: Chest pain. TECHNIQUE: Portable AP view of the chest is obtained. Comparison made with06/18/2018 study. FINDINGS: No acute pneumonia. No pneumothorax or pleural effusion orpulmonary congestion detected. Mild cardiomegaly with slightly dilatedcentral pulmonary vasculature noted without pulmonary edema. Underlyingobstructive lung disease is suspected. Focal fibrocalcific changes are seenin the right apical lung, stable since 2018 study. Moderate size hiatal hernia noted. CONCLUSIONS: No signs of acute cardiopulmonary disease. [facility]. Metabolic Panel (46376)2023-12-09 21:09:07* Test Item Value Reference Range Interpretation Comme nts NA (test code = 0313881205) 131 mmol/L 135-145 L K (test code = 0473706363) 6.1 mmol/L 3.5-5.0 HH CL (test code = 5439590830) 98 mmol/L 98-108 CO2 TOTAL (test code = 2108357441) 23 mmol/L 23-31 AGAP (test code = 7766620600) 10 2-16 BUN (test code = 1234034407) 24 mg/dL 7-23 H GLUCOSE (test code = 3550635194) 70 mg/dL 70-110 CREATININE (test code = 2160-0) 0.73 mg/dL 0.50-1.04 TOTAL BILI (test code = 2833232771) 0.6 mg/dL 0.1-1.1 CALCIUM (test code = 5423299580) 9.9 mg/dL 8.6-10.6 T PROTEIN (test code = 0084475399) 7.6 g/dL 6.3-8.2 ALBUMIN (test code = 5803150371) 4.5 g/dL 3.5-5.0 ALK PHOS (test code = 9054299758) 134 U/L 34-122 H ALTv (test code = 1742-6) 15 U/L 5-35 AST(SGOT) (test code = 2772986573) 26 U/L 13-40 eGFR (test code = 96206-1) 83.3 mL/min/1.73m2 CKD-EPI eGFR (2020). Assuming creatinine has been stable day-to-day for at least three months, the eGFR indicates Category G2 (60 - 89 mL/min/1.73 m2) Lab Interpretation (test code = 04041-5) Abnormal [facility] [id number] 20:58:55* Test Item Value Reference Range Interpretation Comme nts FREE T4 (test code = 3674265230) 0.68 0.78-2.20 L Lab Interpretation (test cod e = 69775-0) Abnormal [facility] [id number] 20:58:35* Test Item Value Reference Range Interpretation Comme nts FREE T3 (test code = 9750160119) 3.18 pg/mL 2.77-5.27 Lab Interpretation (test cod e = 69398-4) Normal [facility]2024-[facility] 20:42:11* Test Item Value Reference Range Interpretation Comme nts MAGNESIUM (test code = 3241089421) 2.1 mg/dL 1.7-2.4 Lab Interpretation (test cod e = 83633-8) Normal [facility] TylerFolate2024-05-31 04:55:49* Test Item Value Reference Range Interpretation Comme nts FOLATE SER (test code = 8489666201) 3.0-20.0 H Lab Interpretation (test cod e = 79441-6) Abnormal [facility] TylerVitamin B12, Yqfql7121-76-84 04:23:44* Test Item Value Reference Range Interpretation Comme nts VIT B12 (test code = 3103701552) 994 pg/mL 240-930 H RENEA (test code = RENEA) Biotin has been reported to cause a positive bias, interpret results relative to patient's use of biotin. Lab Interpretation (test code = 50093-3) Abnormal [facility] TylerGlycosylated Hemoglobin (A1C)2023-07-31 02:49:23* Test Item Value Reference Range Interpretation Comme nts HGB A1C (test code = 4548-4) 5.3 % 4.0-5.7 RENEA (test code = RENEA) Reference RangesNormal: <5.7%Prediabetes: 5.7 - 6.4%Diabetes: > 6.5% Lab Interpretation (test code = 65409-3) Normal [facility] TylerGlycosylated Hemoglobin (A1C)2023-07-31 02:49:23* Test Item Value Reference Range Interpretation Comme nts HGB A1C (test code = 4548-4) 5.3 % 4.0-5.7 RENEA (test code = RENEA) Reference RangesNormal: <5.7%Prediabetes: 5.7 - 6.4%Diabetes: > 6.5% Lab Interpretation (test code = 76479-8) Normal [facility] TylerCb with [id number] 22:15:22* Test Item Value Reference Range Interpretation Comme nts WBC (test code = 6690-2) 26.46 4.30-11.10 H RBC (test code = 789-8) 4.05 3.93-5.25 HGB (test code = 718-7) 16.0 g/dL 11.6-15.0 H HCT (test code = 4544-3) 47.9 % 35.7-45.2 H MCV (test code = 787-2) 118.3 fL 80.6-95.5 H MCH (test code = 785-6) 39.5 pg 25.9-32.8 H MCHC (test code = 786-4) 33.4 g/dL 31.6-35.1 RDW-SD (test code = 08893-6) 63.1 fL 39.0-49.9 H RDW-CV (test code = 788-0) 14.2 % 12.0-15.5 PLT (test code = 777-3) 1274 166-358 HH MPV (test code = 72326-6) 9.9 fL 9.5-12.9 NRBC/100 WBC (test code = 1704037998) 0.1 0.0-10.0 NRBC x10^3 (test code = 5988188712) 0.02 See_Comment [Automated message] The system which generated this result transmitted reference range: 10*3/?L. The reference range was not used to interpret this result as normal/abnormal. SEG % (test code = 68089-1) 75 % 33-76 BAND % (test code = 06879-1) 10 % 0-1 H LYMPH % (test code = 58479-4) 5 % 14-54 L MONO % (test code = 63883-1) 8 % 0-4 H EOS % (test code = 85253-2) 1 % 0-3 BASO % (test code = 36497-3) 1 % 0-1 ANC (test code = 753-4) 22.50 10*3/uL 1.88-7.09 H PLT ESTIMATE (test code = 9317-9) Increased Normal A Lab Interpretation (test code = 38860-4) Abnormal [facility] TylerCb with [id number] 22:15:22* Test Item Value Reference Range Interpretation Comme nts WBC (test code = 6690-2) 26.46 4.30-11.10 H RBC (test code = 789-8) 4.05 3.93-5.25 HGB (test code = 718-7) 16.0 g/dL 11.6-15.0 H HCT (test code = 4544-3) 47.9 % 35.7-45.2 H MCV (test code = 787-2) 118.3 fL 80.6-95.5 H MCH (test code = 785-6) 39.5 pg 25.9-32.8 H MCHC (test code = 786-4) 33.4 g/dL 31.6-35.1 RDW-SD (test code = 42877-7) 63.1 fL 39.0-49.9 H RDW-CV (test code = 788-0) 14.2 % 12.0-15.5 PLT (test code = 777-3) 1274 166-358 HH MPV (test code = 58611-3) 9.9 fL 9.5-12.9 NRBC/100 WBC (test code = 9469881975) 0.1 0.0-10.0 NRBC x10^3 (test code = 5912060366) 0.02 See_Comment [Automated message] The system which generated this result transmitted reference range: 10*3/?L. The reference range was not used to interpret this result as normal/abnormal. SEG % (test code = 58019-2) 75 % 33-76 BAND % (test code = 43857-8) 10 % 0-1 H LYMPH % (test code = 94130-2) 5 % 14-54 L MONO % (test code = 07287-8) 8 % 0-4 H EOS % (test code = 71407-4) 1 % 0-3 BASO % (test code = 08371-2) 1 % 0-1 ANC (test code = 753-4) 22.50 10*3/uL 1.88-7.09 H PLT ESTIMATE (test code = 9317-9) Increased Normal A Lab Interpretation (test code = 61118-0) Abnormal [facility] with Gmqk1439-21-92 22:15:22* Test Item Value Reference Range Interpretation Comme nts WBC (test code = 6690-2) 26.46 4.30-11.10 H RBC (test code = 789-8) 4.05 3.93-5.25 HGB (test code = 718-7) 16.0 g/dL 11.6-15.0 H HCT (test code = 4544-3) 47.9 % 35.7-45.2 H MCV (test code = 787-2) 118.3 fL 80.6-95.5 H MCH (test code = 785-6) 39.5 pg 25.9-32.8 H MCHC (test code = 786-4) 33.4 g/dL 31.6-35.1 RDW-SD (test code = 87671-5) 63.1 fL 39.0-49.9 H RDW-CV (test code = 788-0) 14.2 % 12.0-15.5 PLT (test code = 777-3) 1274 166-358 HH MPV (test code = 46356-2) 9.9 fL 9.5-12.9 NRBC/100 WBC (test code = 9136038691) 0.1 0.0-10.0 NRBC x10^3 (test code = 3092188806) 0.02 See_Comment [Automated message] The system which generated this result transmitted reference range: 10*3/?L. The reference range was not used to interpret this result as normal/abnormal. SEG % (test code = 19263-1) 75 % 33-76 BAND % (test code = 85144-2) 10 % 0-1 H LYMPH % (test code = 52263-4) 5 % 14-54 L MONO % (test code = 39851-1) 8 % 0-4 H EOS % (test code = 16662-5) 1 % 0-3 BASO % (test code = 90884-5) 1 % 0-1 ANC (test code = 753-4) 22.50 10*3/uL 1.88-7.09 H PLT ESTIMATE (test code = 9317-9) Increased Normal A Lab Interpretation (test code = 12484-7) Abnormal [facility] Ybjqa8349-35-59 21:20:58* Test Item Value Reference Range Interpretation Comme nts FERRITIN (test code = 2417532172) 23.0 ng/mL 11.0-264.0 RENEA (test code = RENEA) Biotin has been reported to cause a negative bias, interpret results relative to patient's use of biotin. Lab Interpretation (test code = 72870-8) Normal [facility] Knajg9047-22-40 21:20:58* Test Item Value Reference Range Interpretation Comme nts FERRITIN (test code = 3428834689) 23.0 ng/mL 11.0-264.0 RENEA (test code = RENEA) Biotin has been reported to cause a negative bias, interpret results relative to patient's use of biotin. Lab Interpretation (test code = 98858-5) Normal [facility] Zkqth7377-91-04 21:20:58* Test Item Value Reference Range Interpretation Comme nts FERRITIN (test code = 9785573944) 23.0 ng/mL 11.0-264.0 RENEA (test code = RENEA) Biotin has been reported to cause a negative bias, interpret results relative to patient's use of biotin. Lab Interpretation (test code = 84367-7) Normal [facility] Tonys4448-04-54 21:20:58* Test Item Value Reference Range Interpretation Comme nts FERRITIN (test code = 5969360793) 23.0 ng/mL 11.0-264.0 RENEA (test code = RENEA) Biotin has been reported to cause a negative bias, interpret results relative to patient's use of biotin. Lab Interpretation (test code = 51475-9) Normal [facility] Wzjspjw9391-97-28 21:16:40 * Test Item Value Reference Range Interpretation Comme nts TSH (test code = 2918690798) 11.40 0.45-4.70 H Lab Interpretation (test cod e = 46835-1) Abnormal [facility] Wejtiiz0114-63-90 21:16:40 * Test Item Value Reference Range Interpretation Comme nts TSH (test code = 2408459704) 11.40 0.45-4.70 H Lab Interpretation (test cod e = 24521-4) Abnormal [facility] Dpupsiz3934-12-71 21:16:40 * Test Item Value Reference Range Interpretation Comme nts TSH (test code = 7175345645) 11.40 0.45-4.70 H Lab Interpretation (test cod e = 81317-7) Abnormal [facility] 21:16:40 * Test Item Value Reference Range Interpretation Comme nts TSH (test code = 5104288974) 11.40 0.45-4.70 H Lab Interpretation (test cod e = 71441-5) Abnormal [place] 458832024-05-30 21:02:56* Test Item Value Reference Range Interpretation Comme nts FREE T4 (test code = 1453349759) 0.74 0.78-2.20 L Lab Interpretation (test cod e = 53933-8) Abnormal [place] 458832024-05-30 21:02:56* Test Item Value Reference Range Interpretation Comme nts FREE T4 (test code = 5312683357) 0.74 0.78-2.20 L Lab Interpretation (test cod e = 95339-9) Abnormal [place] 458832024-05-30 21:02:56* Test Item Value Reference Range Interpretation Comme nts FREE T4 (test code = 3040548932) 0.74 0.78-2.20 L Lab Interpretation (test cod e = 68106-6) Abnormal [place] 458832024-05-30 21:02:56* Test Item Value Reference Range Interpretation Comme nts FREE T4 (test code = 8851969751) 0.74 0.78-2.20 L Lab Interpretation (test cod e = 93471-3) Abnormal [facility] Woidy4116-10-26 20:57:57* Test Item Value Reference Range Interpretation Comme nts IRON (test code = 9650221994) 76 ug/dL 50-160 TIBC (test code = 6813314755) 342 ug/dL 250-410 % FE SAT (test code = 1441673183) 22 % 20-50 Lab Interpretation (test cod e = 15040-7) Normal [facility] Qztxu3274-96-48 20:57:57* Test Item Value Reference Range Interpretation Comme nts IRON (test code = 7419698299) 76 ug/dL 50-160 TIBC (test code = 7077237776) 342 ug/dL 250-410 % FE SAT (test code = 9105103097) 22 % 20-50 Lab Interpretation (test cod e = 86163-3) Normal [facility] Gfbxi5462-68-81 20:57:57* Test Item Value Reference Range Interpretation Comme nts IRON (test code = 2509020621) 76 ug/dL 50-160 TIBC (test code = 0020528059) 342 ug/dL 250-410 % FE SAT (test code = 6517793789) 22 % 20-50 Lab Interpretation (test cod e = 71115-7) Normal [facility] Zkrsi9018-12-42 20:57:57* Test Item Value Reference Range Interpretation Comme nts IRON (test code = 6807352504) 76 ug/dL 50-160 TIBC (test code = 3492446951) 342 ug/dL 250-410 % FE SAT (test code = 5737776057) 22 % 20-50 Lab Interpretation (test cod e = 67816-8) Normal [facility] TylerLipid Panel (88699)(Total Cholesterol, Triglycerides, HDL)2023-07-30 20:48:51* Test Item Value Reference Range Interpretation Comme nts CHOL (test code = 1424809653) 199 mg/dL 120-200 HDL (test code = 1510922891) 46 mg/dL >=50 L HDLC RATIO (test code = 9042393281) 4.3 <=4.5 TRIG (test code = 3540125750) 323 mg/dL 30-170 H LDL CHOL (test code = 28290-7) 88 mg/dL <=160 VLDL (test code = 1542900757) 65 mg/dL 5-60 H Lab Interpretation (test cod e = 48261-6) Abnormal [facility] (93232)(Total Cholesterol, Triglycerides, HDL)2023-07-30 20:48:51* Test Item Value Reference Range Interpretation Comme nts CHOL (test code = 0796367206) 199 mg/dL 120-200 HDL (test code = 8378903430) 46 mg/dL >=50 L HDLC RATIO (test code = 0298618269) 4.3 <=4.5 TRIG (test code = 0683113746) 323 mg/dL 30-170 H LDL CHOL (test code = 27701-3) 88 mg/dL <=160 VLDL (test code = 5812763304) 65 mg/dL 5-60 H Lab Interpretation (test cod e = 35768-0) Abnormal [facility] (47972)(Total Cholesterol, Triglycerides, HDL)2023-07-30 20:48:51* Test Item Value Reference Range Interpretation Comme nts CHOL (test code = 6445720057) 199 mg/dL 120-200 HDL (test code = 3836981046) 46 mg/dL >=50 L HDLC RATIO (test code = 8214029864) 4.3 <=4.5 TRIG (test code = 2969801694) 323 mg/dL 30-170 H LDL CHOL (test code = 65131-9) 88 mg/dL <=160 VLDL (test code = 3912789686) 65 mg/dL 5-60 H Lab Interpretation (test cod e = 91475-0) Abnormal [facility] (23960)(Total Cholesterol, Triglycerides, HDL)2023-07-30 20:48:51* Test Item Value Reference Range Interpretation Comme nts CHOL (test code = 4202929990) 199 mg/dL 120-200 HDL (test code = 6061747040) 46 mg/dL >=50 L HDLC RATIO (test code = 3865895727) 4.3 <=4.5 TRIG (test code = 8820548894) 323 mg/dL 30-170 H LDL CHOL (test code = 59149-2) 88 mg/dL <=160 VLDL (test code = 6973167740) 65 mg/dL 5-60 H Lab Interpretation (test cod e = 28359-6) Abnormal [facility]. Metabolic Panel (09347)2023-07-30 20:48:15* Test Item Value Reference Range Interpretation Comme nts NA (test code = 9651063011) 132 mmol/L 135-145 L K (test code = 9988611025) 6.0 mmol/L 3.5-5.0 H CL (test code = 7247677899) 101 mmol/L 98-108 CO2 TOTAL (test code = 0111895275) 23 mmol/L 23-31 AGAP (test code = 5264610507) 8 2-16 BUN (test code = 2276627202) 30 mg/dL 7-23 H GLUCOSE (test code = 7490937075) 111 mg/dL 70-110 H CREATININE (test code = 2160-0) 0.65 mg/dL 0.50-1.04 TOTAL BILI (test code = 1128514899) 0.6 mg/dL 0.1-1.1 CALCIUM (test code = 7999371922) 10.2 mg/dL 8.6-10.6 T PROTEIN (test code = 3231920386) 7.7 g/dL 6.3-8.2 ALBUMIN (test code = 1605942819) 4.5 g/dL 3.5-5.0 ALK PHOS (test code = 4479017765) 123 U/L 34-122 H ALTv (test code = 1742-6) 18 U/L 5-35 AST(SGOT) (test code = 4482531802) 30 U/L 13-40 eGFR (test code = 52579-2) 89.1 mL/min/1.73m2 Lab Interpretation (test cod e = 16814-6) Abnormal [facility]. Metabolic Panel (83249)2023-07-30 20:48:15* Test Item Value Reference Range Interpretation Comme nts NA (test code = 3348243220) 132 mmol/L 135-145 L K (test code = 1099719959) 6.0 mmol/L 3.5-5.0 H CL (test code = 8256834550) 101 mmol/L 98-108 CO2 TOTAL (test code = 0333272609) 23 mmol/L 23-31 AGAP (test code = 6230013601) 8 2-16 BUN (test code = 3789480967) 30 mg/dL 7-23 H GLUCOSE (test code = 5565561415) 111 mg/dL 70-110 H CREATININE (test code = 2160-0) 0.65 mg/dL 0.50-1.04 TOTAL BILI (test code = 1846935573) 0.6 mg/dL 0.1-1.1 CALCIUM (test code = 1800360241) 10.2 mg/dL 8.6-10.6 T PROTEIN (test code = 4975854057) 7.7 g/dL 6.3-8.2 ALBUMIN (test code = 6370643398) 4.5 g/dL 3.5-5.0 ALK PHOS (test code = 0121405337) 123 U/L 34-122 H ALTv (test code = 1742-6) 18 U/L 5-35 AST(SGOT) (test code = 4704152793) 30 U/L 13-40 eGFR (test code = 18476-3) 89.1 mL/min/1.73m2 Lab Interpretation (test cod e = 60218-9) Abnormal [facility] Met[facility] Panel (81767)2023-07-30 20:48:15* Test Item Value Reference Range Interpretation Comme nts NA (test code = 4814332422) 132 mmol/L 135-145 L K (test code = 4766897725) 6.0 mmol/L 3.5-5.0 H CL (test code = 4455650564) 101 mmol/L 98-108 CO2 TOTAL (test code = 8048205513) 23 mmol/L 23-31 AGAP (test code = 0779829815) 8 2-16 BUN (test code = 6501187194) 30 mg/dL 7-23 H GLUCOSE (test code = 3819045333) 111 mg/dL 70-110 H CREATININE (test code = 2160-0) 0.65 mg/dL 0.50-1.04 TOTAL BILI (test code = 1375163658) 0.6 mg/dL 0.1-1.1 CALCIUM (test code = 2677484955) 10.2 mg/dL 8.6-10.6 T PROTEIN (test code = 0127157321) 7.7 g/dL 6.3-8.2 ALBUMIN (test code = 4234624807) 4.5 g/dL 3.5-5.0 ALK PHOS (test code = 6738948167) 123 U/L 34-122 H ALTv (test code = 1742-6) 18 U/L 5-35 AST(SGOT) (test code = 4209494898) 30 U/L 13-40 eGFR (test code = 20076-0) 89.1 mL/min/1.73m2 Lab Interpretation (test cod e = 11615-1) Abnormal [facility]. Metabolic Panel (81821)2023-07-30 20:48:15* Test Item Value Reference Range Interpretation Comme nts NA (test code = 2823084092) 132 mmol/L 135-145 L K (test code = 7148434262) 6.0 mmol/L 3.5-5.0 H CL (test code = 5524522679) 101 mmol/L 98-108 CO2 TOTAL (test code = 0181646214) 23 mmol/L 23-31 AGAP (test code = 5958029846) 8 2-16 BUN (test code = 6064211175) 30 mg/dL 7-23 H GLUCOSE (test code = 1938017267) 111 mg/dL 70-110 H CREATININE (test code = 2160-0) 0.65 mg/dL 0.50-1.04 TOTAL BILI (test code = 7944289082) 0.6 mg/dL 0.1-1.1 CALCIUM (test code = 5824783840) 10.2 mg/dL 8.6-10.6 T PROTEIN (test code = 8237255659) 7.7 g/dL 6.3-8.2 ALBUMIN (test code = 2913709640) 4.5 g/dL 3.5-5.0 ALK PHOS (test code = 6936245490) 123 U/L 34-122 H ALTv (test code = 1742-6) 18 U/L 5-35 AST(SGOT) (test code = 5261563319) 30 U/L 13-40 eGFR (test code = 26495-8) 89.1 mL/min/1.73m2 Lab Interpretation (test cod e = 54749-3) [facility] [id number] 15:33:42EXAM: CT ANGIOGRAM CHEST HISTORY: 78 years-old Female; aortic thrombus, arterial phase please thisis not CT PE COMPARISON: CT neck 06/18/2018. TECHNIQUE: Multidetector CT angiogram examination of the chest and abdomenwas acquired prior and after the intravenous injection of Omnipaque.Multiplanar reformations in the sagittal and coronal plane and 3D volumerendered images were provided, performed kelin separate workstation. Findings: Degraded images due to motion artifact. AORTA AND CARDIOVASCULAR FINDINGS: The aorta is normal in caliber and course. A predominantly noncalcifiedulcerated atherosclerotic plaque is noted just distal to the ostia of leftsubclavian artery. This is associated with eccentric intraluminalthrombosis extending 8 mm into the aortic lumen, involving 3 cm of proximaldescending aorta. Prominent non-calcified atherosclerotic plaque justproximal to the ostia of celiac trunk (with involvement of the proximalceliac trunk) associated with an eccentric intraluminal thrombosis .extending 8 mm into the aortic lumen. Borderline dilated ascending thoracicaorta measures 3.9 cm. No evidence of aneurysmal dilatation or contrastextravasation. The opacification of the pulmonary artery is normal in caliber withoutfilling defects. CHEST: LUNGS AND PLEURA: The lungs are well-expanded and clear. Bibasilaratelectatic changes. No focal opacities are identified. No suspiciousnodules.No pleural abnormality detected. LYMPH NODES: A 1.2 cm right hilar lymph node. MEDIASTINUM AND LOWER NECK: No central airway lesions are detected. Theesophagus is within normal limits. The included thyroid gland appearsnormal. HEART AND GREAT VESSELS: Global cardiomegaly. No pericardial abnormalitiesare identified. The RV to LV is normal. Moderate LAD coronary arterycalcification. VISUALIZED UPPER ABDOMEN: Large hiatal hernia. 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 OSSEOUS STRUCTURES AND SOFT TISSUES: No focal osseous lesions are detected.Diffuse bony demineralization. [facility] [id number] 15:33:42EXAM: CT ANGIOGRAM CHEST HISTORY: 78 years-old Female; aortic thrombus, arterial phase please thisis not CT PE COMPARISON: CT neck 06/18/2018. TECHNIQUE: Multidetector CT angiogram examination of the chest and abdomenwas acquired prior and after the intravenous injection of Omnipaque.Multiplanar reformations in the sagittal and coronal plane and 3D volumerendered images were provided, performed kelin separate workstation. Findings: Degraded images due to motion artifact. AORTA AND CARDIOVASCULAR FINDINGS: The aorta is normal in caliber and course. A predominantly noncalcifiedulcerated atherosclerotic plaque is noted just distal to the ostia of leftsubclavian artery. This is associated with eccentric intraluminalthrombosis extending 8 mm into the aortic lumen, involving 3 cm of proximaldescending aorta. Prominent non-calcified atherosclerotic plaque justproximal to the ostia of celiac trunk (with involvement of the proximalceliac trunk) associated with an eccentric intraluminal thrombosis .extending 8 mm into the aortic lumen. Borderline dilated ascending thoracicaorta measures 3.9 cm. No evidence of aneurysmal dilatation or contrastextravasation. The opacification of the pulmonary artery is normal in caliber withoutfilling defects. CHEST: LUNGS AND PLEURA: The lungs are well-expanded and clear. Bibasilaratelectatic changes. No focal opacities are identified. No suspiciousnodules.No pleural abnormality detected. LYMPH NODES: A 1.2 cm right hilar lymph node. MEDIASTINUM AND LOWER NECK: No central airway lesions are detected. Theesophagus is within normal limits. The included thyroid gland appearsnormal. HEART AND GREAT VESSELS: Global cardiomegaly. No pericardial abnormalitiesare identified. The RV to LV is normal. Moderate LAD coronary arterycalcification. VISUALIZED UPPER ABDOMEN: Large hiatal hernia. 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 OSSEOUS STRUCTURES AND SOFT TISSUES: No focal osseous lesions are detected.Diffuse bony demineralization. [facility] [id number] 15:33:42EXAM: CT ANGIOGRAM CHEST HISTORY: 78 years-old Female; aortic thrombus, arterial phase please thisis not CT PE COMPARISON: CT neck 06/18/2018. TECHNIQUE: Multidetector CT angiogram examination of the chest and abdomenwas acquired prior and after the intravenous injection of Omnipaque.Multiplanar reformations in the sagittal and coronal plane and 3D volumerendered images were provided, performed kelin separate workstation. Findings: Degraded images due to motion artifact. AORTA AND CARDIOVASCULAR FINDINGS: The aorta is normal in caliber and course. A predominantly noncalcifiedulcerated atherosclerotic plaque is noted just distal to the ostia of leftsubclavian artery. This is associated with eccentric intraluminalthrombosis extending 8 mm into the aortic lumen, involving 3 cm of proximaldescending aorta. Prominent non-calcified atherosclerotic plaque justproximal to the ostia of celiac trunk (with involvement of the proximalceliac trunk) associated with an eccentric intraluminal thrombosis .extending 8 mm into the aortic lumen. Borderline dilated ascending thoracicaorta measures 3.9 cm. No evidence of aneurysmal dilatation or contrastextravasation. The opacification of the pulmonary artery is normal in caliber withoutfilling defects. CHEST: LUNGS AND PLEURA: The lungs are well-expanded and clear. Bibasilaratelectatic changes. No focal opacities are identified. No suspiciousnodules.No pleural abnormality detected. LYMPH NODES: A 1.2 cm right hilar lymph node. MEDIASTINUM AND LOWER NECK: No central airway lesions are detected. Theesophagus is within normal limits. The included thyroid gland appearsnormal. HEART AND GREAT VESSELS: Global cardiomegaly. No pericardial abnormalitiesare identified. The RV to LV is normal. Moderate LAD coronary arterycalcification. VISUALIZED UPPER ABDOMEN: Large hiatal hernia. 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 OSSEOUS STRUCTURES AND SOFT TISSUES: No focal osseous lesions are detected.Diffuse bony demineralization. [facility]23-[facility]-28 21:12:41* Test Item Value Reference Range Interpretation Comme nts Height (test code = 3928497913) 60 in Weight (test code = 3416500079) 145 lbs Systolic BP (test code = 7197627816) 116 mmHg Diastolic BP (test code = 8032867669) 56 mmHg Heart Rate (test code = 0737573084) 71 bpm LV GLS Endo Peak A2C () (test code = 0133093015) -13.10 % LV GLS Endo Peak A3C () (test code = 3954378812) -13.80 % LV GLS Endo Peak A4C () (test code = 2581437552) -17.70 % LV GLS Endo Peak Avg () (test code = 5847705562) -14.90 % Ao root diam (test code = 4020317636) 3.20 cm Aortic root (test code = 4940545003) 3.2 cm Ao root annulus (test code = 7871195932) 3.2 cm LA size (test code = 7832480326) 4.3 cm BSA (test code = 1086515360) 1.63 m2 LVOT diameter (test code = 4608864988) 2.11 cm LVOT area (test code = 3073394988) 3.50 cm2 LVIDD (test code = 4892036087) 4.50 cm Left Ventricular End Diastolic Volume by Teichholz Method (test code = 6871355) 90.3 mL IVS (test code = 1046389704) 1.21 cm Interventricular Septum Diastolic Thickness by 2D (test code = 1513894) 1.21 cm LVPWD (test code = 8172980682) 1.14 cm PW (test code = 9149847629) 1.14 cm 0.6-1.1 EF(Teich) (test code = 6751630468) 46.50 % LVIDS (test code = 7056637494) 3.40 cm Left Ventricular End Systolic Volume by Teichholz Method (test code = 6246650) 48.3 mL FS (test code = 5517038542) 23 % EF - 2D (test code = 15255559) 46.50 % TR Peak Bridgette (test code = 2209836663) 254.6 cm/s Triscuspid Valve Regurgitation Peak Gradient (test code = 2244189051) 25.9 mmHg E wave decelartion time (test code = 9437809031) 0.28 s MV Peak A Bridgette (test code = 0249173062) 126.8 cm/s MV Peak E Bridgette (test code = 3583799353) 102.8 cm/s E/A ratio (test code = 3265465454) 0.81 ratio MV Prop V (test code = 8497851818) 62.90 cm/s LVOT stroke volume (test code = 1461479043) 85.50 cm3 LVOT peak bridgette (test code = 4476585118) 120.8 cm/s LVOT mn grad (test code = 8867949188) 2.7 mmHg AV LVOT peak gradient (test code = 2236322812) 5.8 mmHg LVOT peak VTI (test code = 7832164689) 24.4 cm LV V1 mean (test code = 7541082327) 76.90 cm/s Aortic valve mean velocity (test code = 8497330749) 140.6 cm/s Ao peak bridgette (test code = 0321524660) 208.0 cm/s Ao VTI (test code = 9400170081) 42.2 cm AV area by cont VTI (test code = 4165229556) 2.0 cm2 AV area peak bridgette (test code = 3109740130) 2.0 cm2 Ao max PG (test code = 0356798212) 17.30 mm[Hg] AV peak gradient (test code = 0734627487) 17.3 mmHg AV valve area (test code = 5722598158) 2.03 cm2 AV mean gradient (test code = 1888326882) 9.1 mmHg AV regurgitation pressure 1/2 time (test code = 5743028069) 632.2 ms AI dec slope (test code = 9698962159) 174.10 cm/s2 AI max bridgette (test code = 8849088545) 375.70 cm/s AI max PG (test code = 6396708792) 56.50 mm[Hg] Tapse (test code = 4181762439) 1.87 cm LAV(MOD-sp4) (test code = 7790617683) 52.70 mL LA Volume Index (BP) (test code = 1551508301) 34.9 mL/m2 LA volume (BP) (test code = 9690025872) 56.7 mL LAV(MOD-sp2) (test code = 0732116087) 56.10 mL Radiology Study observation (narrative) (test code = 27049-7) RENEA (test code = RENEA) ?Left?Ventricle: Left ventricle size is normal. Moderately increased wall thickness. There is moderate concentric hypertrophy. Normal wall motion. Normal systolic function with a visually estimated EF of 60 - 65%. There is grade 2 diastolic dysfunction. Elevated left ventricular filling pressure. ?Right?Ventricle: Right ventricle size is normal. Normal systolic function. ?Aortic?Valve: Mild transvalvular regurgitation. IDRIS by continuety is 1.8 cm2 and AVG is 9 mmHG consistent with mild aortic stenosis Left VentricleLeft ventricle size is normal. Moderately increased wall thickness. There is moderate concentric hypertrophy. Normal wall motion. Normal systolic function with a visually estimated EF of 60 - 65%. There is grade 2 diastolic dysfunction. Elevated left ventricular filling pressure.Right VentricleRight ventricle size is normal. Normal systolic function.Left AtriumLeft atrium is dilated.Right AtriumRight atrium size is normal.IVC/SVCIVC diameter is less than or equal to 21 mm and decreases greater than 50% during inspiration; therefore the estimated right atrial pressure is normal (~0-5 mmHg). SVC was not assessed.Mitral ValveMitral valve structure is normal. Trace transvalvular regurgitation. No stenosis.Tricuspid ValveTricuspid valve structure is normal. Mild transvalvular regurgitation. Right ventricular systolic pressure is 25-30 mmHg. No stenosis.Aortic ValveMildly thickened cusps. Mildly calcified cusps. Mild transvalvular regurgitation. IDRIS by continuety is 1.8 cm2 and AVG is 9 mmHG consistent with mild aortic stenosisPulmonic ValveNot well visualized.Ascending AortaMildly enlarged annulus, measure 3.4 cm and index 2.1 cm/f7LoiyfmhodtdUl pericardial effusion.Study DetailsStudy quality was adequate. A complete echocardiogram was performed using 2D, color flow Doppler, spectral Doppler and strain. The apical, parasternal and subcostal views were obtained. Optison ultrasound enhancing agent used. [facility] 21:12:41* Test Item Value Reference Range Interpretation Comme nts Height (test code = 9483129196) 60 in Weight (test code = 0417476096) 145 lbs Systolic BP (test code = 4643384588) 116 mmHg Diastolic BP (test code = 6056560746) 56 mmHg Heart Rate (test code = 3042196071) 71 bpm LV GLS Endo Peak A2C () (test code = 2994626788) -13.10 % LV GLS Endo Peak A3C () (test code = 9360367990) -13.80 % LV GLS Endo Peak A4C () (test code = 1994881125) -17.70 % LV GLS Endo Peak Avg () (test code = 4444708725) -14.90 % Ao root diam (test code = 9988375677) 3.20 cm Aortic root (test code = 9079909870) 3.2 cm Ao root annulus (test code = 7661824893) 3.2 cm LA size (test code = 8033004418) 4.3 cm BSA (test code = 1320207707) 1.63 m2 LVOT diameter (test code = 3951430311) 2.11 cm LVOT area (test code = 7050060088) 3.50 cm2 LVIDD (test code = 8042099300) 4.50 cm Left Ventricular End Diastolic Volume by Teichholz Method (test code = 5816026) 90.3 mL IVS (test code = 6215734206) 1.21 cm Interventricular Septum Diastolic Thickness by 2D (test code = 8651040) 1.21 cm LVPWD (test code = 7710205175) 1.14 cm PW (test code = 0443110425) 1.14 cm 0.6-1.1 EF(Teich) (test code = 8445828515) 46.50 % LVIDS (test code = 8938929063) 3.40 cm Left Ventricular End Systolic Volume by Teichholz Method (test code = 0374562) 48.3 mL FS (test code = 3184954644) 23 % EF - 2D (test code = 51617188) 46.50 % TR Peak Bridgette (test code = 6860198672) 254.6 cm/s Triscuspid Valve Regurgitation Peak Gradient (test code = 2402827398) 25.9 mmHg E wave decelartion time (test code = 8892091420) 0.28 s MV Peak A Bridgette (test code = 4130614544) 126.8 cm/s MV Peak E Bridgette (test code = 1542847794) 102.8 cm/s E/A ratio (test code = 8133943805) 0.81 ratio MV Prop V (test code = 2109304073) 62.90 cm/s LVOT stroke volume (test code = 1176353383) 85.50 cm3 LVOT peak bridgette (test code = 7693790089) 120.8 cm/s LVOT mn grad (test code = 2619241513) 2.7 mmHg AV LVOT peak gradient (test code = 8080730349) 5.8 mmHg LVOT peak VTI (test code = 4454228555) 24.4 cm LV V1 mean (test code = 7438973724) 76.90 cm/s Aortic valve mean velocity (test code = 9578415123) 140.6 cm/s Ao peak bridgette (test code = 0452633827) 208.0 cm/s Ao VTI (test code = 9332146182) 42.2 cm AV area by cont VTI (test code = 1489858841) 2.0 cm2 AV area peak bridgette (test code = 9818393222) 2.0 cm2 Ao max PG (test code = 4950715205) 17.30 mm[Hg] AV peak gradient (test code = 4842443466) 17.3 mmHg AV valve area (test code = 3324976887) 2.03 cm2 AV mean gradient (test code = 5526466543) 9.1 mmHg AV regurgitation pressure 1/2 time (test code = 1392017002) 632.2 ms AI dec slope (test code = 5161516730) 174.10 cm/s2 AI max bridgette (test code = 3290884070) 375.70 cm/s AI max PG (test code = 2437225342) 56.50 mm[Hg] Tapse (test code = 4541258170) 1.87 cm LAV(MOD-sp4) (test code = 9987229624) 52.70 mL LA Volume Index (BP) (test code = 6177206186) 34.9 mL/m2 LA volume (BP) (test code = 4872666239) 56.7 mL LAV(MOD-sp2) (test code = 7285531439) 56.10 mL Radiology Study observation (narrative) (test code = 43940-0) RENEA (test code = RENEA) ?Left?Ventricle: Left ventricle size is normal. Moderately increased wall thickness. There is moderate concentric hypertrophy. Normal wall motion. Normal systolic function with a visually estimated EF of 60 - 65%. There is grade 2 diastolic dysfunction. Elevated left ventricular filling pressure. ?Right?Ventricle: Right ventricle size is normal. Normal systolic function. ?Aortic?Valve: Mild transvalvular regurgitation. IDRIS by continuety is 1.8 cm2 and AVG is 9 mmHG consistent with mild aortic stenosis Left VentricleLeft ventricle size is normal. Moderately increased wall thickness. There is moderate concentric hypertrophy. Normal wall motion. Normal systolic function with a visually estimated EF of 60 - 65%. There is grade 2 diastolic dysfunction. Elevated left ventricular filling pressure.Right VentricleRight ventricle size is normal. Normal systolic function.Left AtriumLeft atrium is dilated.Right AtriumRight atrium size is normal.IVC/SVCIVC diameter is less than or equal to 21 mm and decreases greater than 50% during inspiration; therefore the estimated right atrial pressure is normal (~0-5 mmHg). SVC was not assessed.Mitral ValveMitral valve structure is normal. Trace transvalvular regurgitation. No stenosis.Tricuspid ValveTricuspid valve structure is normal. Mild transvalvular regurgitation. Right ventricular systolic pressure is 25-30 mmHg. No stenosis.Aortic ValveMildly thickened cusps. Mildly calcified cusps. Mild transvalvular regurgitation. IDRIS by continuety is 1.8 cm2 and AVG is 9 mmHG consistent with mild aortic stenosisPulmonic ValveNot well visualized.Ascending AortaMildly enlarged annulus, measure 3.4 cm and index 2.1 cm/m4LkbdgtsagxzAu pericardial effusion.Study DetailsStudy quality was adequate. A complete echocardiogram was performed using 2D, color flow Doppler, spectral Doppler and strain. The apical, parasternal and subcostal views were obtained. Optison ultrasound enhancing agent used. [facility] 21:12:41* Test Item Value Reference Range Interpretation Comme nts Height (test code = 1757768046) 60 in Weight (test code = 1636872760) 145 lbs Systolic BP (test code = 9558522131) 116 mmHg Diastolic BP (test code = 8880903558) 56 mmHg Heart Rate (test code = 1211866247) 71 bpm LV GLS Endo Peak A2C () (test code = 8913755768) -13.10 % LV GLS Endo Peak A3C () (test code = 4294032613) -13.80 % LV GLS Endo Peak A4C () (test code = 6584484702) -17.70 % LV GLS Endo Peak Avg () (test code = 7038790771) -14.90 % Ao root diam (test code = 9870945266) 3.20 cm Aortic root (test code = 1784014127) 3.2 cm Ao root annulus (test code = 1764569829) 3.2 cm LA size (test code = 5729350645) 4.3 cm BSA (test code = 8985291238) 1.63 m2 LVOT diameter (test code = 6712498971) 2.11 cm LVOT area (test code = 3356419378) 3.50 cm2 LVIDD (test code = 0553386577) 4.50 cm Left Ventricular End Diastolic Volume by Teichholz Method (test code = 4359374) 90.3 mL IVS (test code = 5910156095) 1.21 cm Interventricular Septum Diastolic Thickness by 2D (test code = 8229256) 1.21 cm LVPWD (test code = 5731154605) 1.14 cm PW (test code = 5050110516) 1.14 cm 0.6-1.1 EF(Teich) (test code = 2076843728) 46.50 % LVIDS (test code = 8228563508) 3.40 cm Left Ventricular End Systolic Volume by Teichholz Method (test code = 4848360) 48.3 mL FS (test code = 1679247921) 23 % EF - 2D (test code = 49580410) 46.50 % TR Peak Bridgette (test code = 7728271147) 254.6 cm/s Triscuspid Valve Regurgitation Peak Gradient (test code = 7117275274) 25.9 mmHg E wave decelartion time (test code = 4205703057) 0.28 s MV Peak A Bridgette (test code = 1941557071) 126.8 cm/s MV Peak E Bridgette (test code = 0034309252) 102.8 cm/s E/A ratio (test code = 4105302203) 0.81 ratio MV Prop V (test code = 6617499594) 62.90 cm/s LVOT stroke volume (test code = 3495717062) 85.50 cm3 LVOT peak bridgette (test code = 7931661807) 120.8 cm/s LVOT mn grad (test code = 3315105789) 2.7 mmHg AV LVOT peak gradient (test code = 5859566155) 5.8 mmHg LVOT peak VTI (test code = 0859721768) 24.4 cm LV V1 mean (test code = 5558268414) 76.90 cm/s Aortic valve mean velocity (test code = 1713042319) 140.6 cm/s Ao peak bridgette (test code = 9317076081) 208.0 cm/s Ao VTI (test code = 1414881875) 42.2 cm AV area by cont VTI (test code = 8322562508) 2.0 cm2 AV area peak bridgette (test code = 9945810120) 2.0 cm2 Ao max PG (test code = 6484111152) 17.30 mm[Hg] AV peak gradient (test code = 9050601969) 17.3 mmHg AV valve area (test code = 0774828651) 2.03 cm2 AV mean gradient (test code = 3796856408) 9.1 mmHg AV regurgitation pressure 1/2 time (test code = 0108935091) 632.2 ms AI dec slope (test code = 1529989552) 174.10 cm/s2 AI max bridgette (test code = 3397943229) 375.70 cm/s AI max PG (test code = 7779060871) 56.50 mm[Hg] Tapse (test code = 6710017103) 1.87 cm LAV(MOD-sp4) (test code = 1416439715) 52.70 mL LA Volume Index (BP) (test code = 8369175091) 34.9 mL/m2 LA volume (BP) (test code = 8195824148) 56.7 mL LAV(MOD-sp2) (test code = 9197482506) 56.10 mL Radiology Study observation (narrative) (test code = 95520-8) RENEA (test code = RENEA) ?Left?Ventricle: Left ventricle size is normal. Moderately increased wall thickness. There is moderate concentric hypertrophy. Normal wall motion. Normal systolic function with a visually estimated EF of 60 - 65%. There is grade 2 diastolic dysfunction. Elevated left ventricular filling pressure. ?Right?Ventricle: Right ventricle size is normal. Normal systolic function. ?Aortic?Valve: Mild transvalvular regurgitation. IDRIS by continuety is 1.8 cm2 and AVG is 9 mmHG consistent with mild aortic stenosis Left VentricleLeft ventricle size is normal. Moderately increased wall thickness. There is moderate concentric hypertrophy. Normal wall motion. Normal systolic function with a visually estimated EF of 60 - 65%. There is grade 2 diastolic dysfunction. Elevated left ventricular filling pressure.Right VentricleRight ventricle size is normal. Normal systolic function.Left AtriumLeft atrium is dilated.Right AtriumRight atrium size is normal.IVC/SVCIVC diameter is less than or equal to 21 mm and decreases greater than 50% during inspiration; therefore the estimated right atrial pressure is normal (~0-5 mmHg). SVC was not assessed.Mitral ValveMitral valve structure is normal. Trace transvalvular regurgitation. No stenosis.Tricuspid ValveTricuspid valve structure is normal. Mild transvalvular regurgitation. Right ventricular systolic pressure is 25-30 mmHg. No stenosis.Aortic ValveMildly thickened cusps. Mildly calcified cusps. Mild transvalvular regurgitation. IDRIS by continuety is 1.8 cm2 and AVG is 9 mmHG consistent with mild aortic stenosisPulmonic ValveNot well visualized.Ascending AortaMildly enlarged annulus, measure 3.4 cm and index 2.1 cm/n5BjlguvyltyqBi pericardial effusion.Study DetailsStudy quality was adequate. A complete echocardiogram was performed using 2D, color flow Doppler, spectral Doppler and strain. The apical, parasternal and subcostal views were obtained. Optison ultrasound enhancing agent used. [facility] TIME OR (NON-REPORTABLE)2023-06-27 16:34:55 These images do not require a Radiology diagnostic report.[facility] TIME OR (NON-REPORTABLE)2023-06-27 16:34:55These images do not require a Radiology diagnostic report.[facility] TIME OR (NON-REPORTABLE)2023-06-27 16:34:55These images do not require a Radiology diagnostic report.[facility] 14:09:00Nixon Ramirez MD ? ? 06/27/2023 ?9:45 AMIntubationDate/Time: 06/27/2023 9:09 AMUrgency: elective Airway not difficult General Information and Staff Patient location during procedure: ORPerformed: resident/FOURTH OFFICER Performed by: Nixon Ramirez MDAuthorized by: Kalin Callejas MD ? Indications and Patient ConditionIndications for airway management: anesthesiaSpontaneous ventilation: presentSedation level: deepPreoxygenated: yesPatient position: sniffingMILS maintained throughoutMask difficulty assessment: 0 - not attempted Final Airway DetailsFinal airway type: endotracheal airway Successful airway: ETTCuffed: yes Successful intubation technique: direct laryngoscopyFacilitating devices/methods: intubating styletEndotracheal tube insertion site: oralBlade: MacintoshBlade size: #3ETT size (mm): 7.5Cormack-Lehane Classification: grade IIa - partial view of glottisPlacement verified by: chest auscultation and capnometry Measured from: lipsETT to lips (cm): 2Number of attempts at approach: 1Ventilation between attempts: noneNumber of other approaches attempted: 0 Additional CommentsEasy ppevO2oU tube passed without difficulty Small lip injury seen after intubation. [place] [id number] Lead ROUTINE [id number] 12:26:14* Test Item Value Reference Range Interpretation Comme nts Lab Interpretation (test cod e = 50620-0) Abnormal [place] [address] Lead ROUTINE [id number] 12:26:14* Test Item Value Reference Range Interpretation Comme nts Lab Interpretation (test cod e = 71410-8) [facility]normal [facility]era[facility] (for use with Heparin Drip)2023-06-27 05:18:17* Test Item Value Reference Range Interpretation Comme nts APTT Patient (test code = 3173-2) 143 26-36 HH Lab Interpretation (test cod e = 55962-7) [facility]normal [facility] TyleraPTT (for use with Heparin Drip)2023-06-27 05:18:17* Test Item Value Reference Range Interpretation Comme nts APTT Patient (test code = 3173-2) 143 26-36 HH Lab Interpretation (test cod e = 44673-6) [facility]normal [facility]CT ABDOMEN PELVIS W [id number] 14:38:20CT ABDOMEN PELVIS W CONTRAST 06/26/2023 8:39 AM HISTORY: Abdominal pain, acute, nonlocalized COMPARISON: CT abdomen pelvis 05/01/2033 TECHNIQUE: Axial images of the abdomen and pelvis were acquired afteradministration of intravenous contrast. Coronal and sagittalreconstructions were also created. FINDINGS: LOWER CHEST: Small patchy groundglass opacity in the right and left lowerlobe could represent interval subtle aspiration. HEPATOBILIARY: The liver is normal in size. No focal hepatic lesion.The gallbladder is surgically removed. Central intrahepatic andextrahepatic biliary ductal dilatation with a CBD diameter of 1.3 cm. SPLEEN: There has been worsening of multifocal wedge-shapednonopacification of the parenchyma involving a large volume of the spleencompatible with interval acute infarction. Mild perisplenic fat strandingis noted. PANCREAS: The parenchyma is unremarkable. Pancreatic ductal dilatationwhich measures up to 9 mm at the head which tapers at the ampulla and joinsthe CBD without distal obstructing mass. ADRENAL GLANDS: No adrenal nodules. KIDNEYS: Normal size and symmetricenhancement. The ureters are mildlydilated, could be sequela of stasis secondary to moderate distention ofbladder. No hydronephrosis or stone. No solid mass. GI TRACT: Moderate to large type III hiatal hernia is again noted. Colonicdiverticulosis. No dilation or wall thickening. The appendix is normal. PERITONEUM AND RETROPERITONEUM: No free air or free fluid. LYMPH NODES: No lymphadenopathy is seen. PELVIS/BLADDER: The urinary bladder is normal. The reproductive organs arewithin normal limits. VESSELS: Multifocal calcified and noncalcified plaques are noted throughoutthe abdominal aorta. There is a new small irregular thrombus/intramuralhematoma at the distal thoracic aorta, spanning 3.5 cm, which extends tothe level of celiac trunk suspicious for interval development of a focaldissection (2:29-39). The left gastric, common hepatic artery and proximalsplenic artery are patent. 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 BONES AND SOFT TISSUES: No aggressive osseous lesionor acute osseousabnormality. No concerning soft tissue abnormality.[facility] W [id number] 14:38:20CT ABDOMEN PELVIS W CONTRAST 06/26/2023 8:39 AM HISTORY: Abdominal pain, acute, nonlocalized COMPARISON: CT abdomen pelvis 05/01/2033 TECHNIQUE: Axial images of the abdomen and pelvis were acquired afteradministration of intravenous contrast. Coronal and sagittalreconstructions were also created. FINDINGS: LOWER CHEST: Small patchy groundglass opacity in the right and left lowerlobe could represent i nterval subtle aspiration. HEPATOBILIARY: The liver is normal in size. No focal hepatic lesion.The gallbladder is surgically removed. Central intrahepatic andextrahepatic biliary ductal dilatation with a CBD diameter of 1.3 cm. SPLEEN: There has been worsening of multifocal wedge-shapednonopacification of the parenchyma involving a large volume of the spleencompatible with interval acute infarction. Mild perisplenic fat strandingis noted. PANCREAS: The parenchyma is unremarkable. Pancreatic ductal dilatationwhich measures up to 9 mm at the head which tapers at the ampulla and joinsthe CBD without distal obstructing mass. ADRENAL GLANDS: No adrenal nodules. KIDNEYS: Normal size and symmetric enhancement. The ureters are mildlydilated, could be sequela of stasis secondary to moderate distention ofbladder. No hydronephrosis or stone. No solid mass. GI TRACT: Moderate to large type III hiatal hernia is again noted. Colonicdiverticulosis. No dilation or wall thickening. The appendix is normal. PERITONEUM AND RETROPERITONEUM: No free air or free fluid. LYMPH NODES: No lymphadenopathy is seen. PELVIS/BLADDER: The urinary bladder is normal. The reproductive organs arewithin normal limits.VESSELS: Multifocal calcified and noncalcified plaques are noted throughoutthe abdominal aorta. There is a new small irregular thrombus/intramuralhematoma at the distal thoracic aorta, spanning 3.5 cm, which extends tothe level of celiac trunk suspicious for interval development of a focaldissection (2:29-39). The left gastric, common hepatic artery and proximalsplenic artery are patent. 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 BONES AND SOFT TISSUES: No aggressive osseous lesionor acute osseousabnormality. No concerning soft tissue abnormality.[facility] [id number] 14:38:20CT ABDOMEN PELVIS W CONTRAST 06/26/2023 8:39 AM HISTORY: Abdominal pain, acute, nonlocalized COMPARISON: CT abdomen pelvis 05/01/2033 TECHNIQUE: Axial images of the abdomen and pelvis were acquired after administration of intravenous contrast. Coronal and sagittalreconstructions were also created. FINDINGS: LOWER CHEST: Small patchy groundglass opacity in the right and left lowerlobe could represent interval subtle aspiration. HEPATOBILIARY: The liver is normal in size. No focal hepatic lesion.The g allbladder is surgically removed. Central intrahepatic andextrahepatic biliary ductal dilatation with a CBD diameter of 1.3 cm. SPLEEN: There has been worsening of multifocal wedge-shapednonopacification of the parenchyma involving a large volume of the spleencompatible with interval acute infarction. Mild perisplenic fat strandingis noted. PANCREAS: The parenchyma is unremarkable. Pancreatic ductal dilatationwhich measures up to 9 mm at the head which tapers at the ampulla and joinsthe CBD without distal obstructing mass. ADRENAL GLANDS: No adrenal nodules. KIDNEYS: Normal size and symmetricenhancement. The ureters are mildlydilated, could be sequela of stasis secondary to moderate distention ofbladder. No hydronephrosis or stone. No solid mass. GI TRACT: Moderate to large type III hiatal hernia is again noted. Colonicdiverticulosis. No dilation or wall thickening. The appendix is normal. PERITONEUM AND RETROPERITONEUM: No free air or free fluid. LYMPH NODES: No lymphadenopathy is seen. PELVIS/BLADDER: The urinary bladder is normal. The reproductive organs arewithin normal limits. VESSELS: Multifocal calcified and noncalcified plaques are noted throughoutthe abdominal aorta. There is a new small irregular thrombus/intramuralhematoma at the distal thoracic aorta, spanning 3.5 cm, which extends tothe level of celiac trunk suspicious for interval development of a focaldissection (2:29-39). The left gastric, common hepatic artery and proximalsplenic artery are patent. 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 BONES AND SOFT TISSUES: No aggressive osseous lesionor acute osseousabnormality. No concerning soft tissue abnormality.[facility] WO [id number] 15:36:10FULL RESULT: Examination: CT HEAD WO CONTRAST on 06/01/2023 10:13 AM Clinical Indication: Memory loss Comparison: Brain MRI 03/05/2022 Technique: Noncontrast imaging was obtained from base to vertex. Findings: The sulci and ventricles are prominent and unchanged. [place] microvascular ischemic change is noted as hypodensity in thehemispheric white matter bilaterally. I suspect a small ganglionic l acunarinfarct image 13 series 2 that may have occurred since the prior MRI. There is no hemorrhage or other clearly acute intracranial process.[facility]. Metabolic Panel ([id number])2023-05-02 23:02:46* Test Item Value Reference Range Interpretation Comme nts NA (test code = 9961837417) 127 mmol/L 135-145 L K (test code = 5563248756) 4.2 mmol/L 3.5-5.0 CL (test code = 9038464004) 95 mmol/L 98-108 L CO2 TOTAL (test code = 9359532665) 26 mmol/L 23-31 AGAP (test code = 4382175187) 6 2-16 BUN (test code = 8149134592) 20 mg/dL 7-23 GLUCOSE (test code = 6004782018) 95 mg/dL 70-110 CREATININE (test code = 2160-0) 0.56 mg/dL 0.50-1.04 TOTAL BILI (test code = 0634305727) 0.4 mg/dL 0.1-1.1 CALCIUM (test code = 0543022192) 9.5 mg/dL 8.6-10.6 T PROTEIN (test code = 9366559980) 7.7 g/dL 6.3-8.2 ALBUMIN (test code = 1084996584) 4.5 g/dL 3.5-5.0 ALK PHOS (test code = 3836053149) 115 U/L 34-122 ALTv (test code = 1742-6) 103 U/L 5-35 H AST(SGOT) (test code = 1748777173) 65 U/L 13-40 H eGFR (test code = 51089-2) 92.4 mL/min/1.73m2 CKD-EPI eGFR (2020). Assuming creatinine has been stable day-to-day for at least three months, the eGFR indicates Category G1 (>= 90 mL/min/1.73 m2) Lab Interpretation (test code = 02114-8) Abnormal [facility] TylerLipase2024-03-[facility] 23:02:46* Test Item Value Reference Range Interpretation Comme nts LIPASE (test code = 0251677568) 154 U/L 0-220 Lab Interpretation (test cod e = 57315-6) Normal [facility] Tyler[facility]bc with [id number] 22:18:11* Test Item Value Reference Range Interpretation [...] g/dL 31.6-35.1 H RDW-SD (test code = 88775-7) 51.8 fL 39.0-49.9 H RDW-CV (test code = 788-0) 11.6 % 12.0-15.5 L PLT (test code = 777-3) 497 166-358 H MPV (test code = 75792-6) 10.9 fL 9.5-12.9 NRBC/100 WBC (test code = 3413433786) 0.0 0.0-10.0 NRBC x10^3 (test code = 3034670102) See_Comment [Automated messa ge] The system which generated this result transmitted reference range: 10*3/?L. The reference range was not used to interpret this result as normal/abnormal. SEG % (test code = 91350-3) 89 % 33-76 H LYMPH % (test code = 44847-1) 9 % 14-54 L MONO % (test code = 62818-0) 2 % 0-4 PLT ESTIMATE (test code = 9317-9) Increased Normal A Lab Interpretation (test code = 75764-3) Abnormal [facility] W [id number] 21:58:50CT ABDOMEN PELVIS W CONTRAST Ordering Provider: [...] wall: Unremarkable.Bones: multilevel degenerative changes in the spine..[facility] TylerTransthoracic echo (TTE)2023-04-30 02:32:18* Test Item Value Reference Range Interpretation Comme nts Height (test code = 3044650285) 60 in Weight (test code = 1280475498) 137 lbs Systolic BP (test code = 8675310108) 133 mmHg Diastolic BP (test code = 4182850724) 61 mmHg Heart Rate (test code = 3837711638) 86 bpm A4C EF (test code = 1240252422) 64.90 % SV(MOD-sp4) (test code = 0456420178) 50.20 mL RVOT diameter (test code = 3938582860) 1.57 cm MR max PG (test code = 2862403872) 73.00 mm[Hg] MR max bridgette (test code = 3834893763) 422.20 cm/s Ao root diam (test code = 2742684787) 3.30 cm Mr max bridgette (test code = 4868447146) 422.2 m/s Aortic root (test code = 7029974678) 3.3 cm Ao root annulus (test code = 9617989830) 3.3 cm BSA (test code = 8692154493) 1.59 m2 LVOT diameter (test code = 0805468538) 1.65 cm LVOT area (test code = 6323888361) 2.13 cm2 LA size (test code = 5682256984) 4.0 cm ACS (test code = 8098429709) 1.37 cm LVIDD (test code = 9081533200) 4.10 cm Left Ventricular End Diastolic Volume by Teichholz Method (test code = 2108401) 73.4 mL IVS (test code = 2397542547) 1.27 cm Interventricular Septum Diastolic Thickness by 2D (test code = 2946271) 1.27 cm LVPWD (test code = 5294303388) 1.23 cm PW (test code = 6463082614) 1.23 cm 0.6-1.1 EF(Teich) (test code = 6435419637) 65.60 % LVIDS (test code = 6576056280) 2.60 cm Left Ventricular End Systolic Volume by Teichholz Method (test code = 5915600) 25.2 mL FS (test code = 3691516825) 36 % EF - 2D (test code = 99397976) 65.60 % PV PEAK VELOCITY (test code = 8490920780) 99.0 cm/s PV peak gradient (test code = 6114252300) 3.9 mmHg MV E-F slope (test code = 9158893331) 41.50 cm/s MV Peak E Bridgette (test code = 7861390722) 89.1 cm/s MV Peak A Bridgette (test code = 0595681338) 137.3 cm/s E/A ratio (test code = 8412575427) 0.65 ratio MV valve area p 1/2 method (test code = 6389878503) 3.70 cm2 MV dec slope (test code = 0265865862) 438.70 cm/s2 MV P1/2t max bridgette (test code = 8480033675) 89.60 cm/s LVOT stroke volume (test code = 7084578948) 57.80 cm3 LVOT peak bridgette (test code = 8165002230) 110.0 cm/s LVOT mn grad (test code = 3377010797) 2.0 mmHg AV LVOT peak gradient (test code = 3332400493) 4.8 mmHg LVOT peak VTI (test code = 3065795934) 27.2 cm LV V1 mean (test code = 4759474823) 64.70 cm/s Aortic valve mean velocity (test code = 5854912789) 135.0 cm/s Ao peak bridgette (test code = 5914305628) 234.2 cm/s Ao VTI (test code = 9575649053) 53.8 cm AV area by cont VTI (test code = 3272415867) 1.1 cm2 AV area peak bridgette (test code = 4094611586) 1.0 cm2 Ao max PG (test code = 7324446879) 21.90 mm[Hg] AV peak gradient (test code = 3171185393) 21.9 mmHg AV valve area (test code = 2348042028) 1.07 cm2 AV mean gradient (test code = 6578397571) 8.8 mmHg TR Peak Bridgette (test code = 3287205023) 294.9 cm/s Triscuspid Valve Regurgitation Peak Gradient (test code = 6834850576) 34.8 mmHg LAV(MOD-sp4) (test code = 7897839503) 44.20 mL LA Volume Index (BP) (test code = 4454970140) 31.5 mL/m2 LA volume (BP) (test code = 6695463225) 50.0 mL LAV(MOD-sp2) (test code = 5724816837) 54.60 mL AV regurgitation pressure 1/2 time (test code = 2954337119) 711.2 ms AI dec slope (test code = 0925339081) 175.30 cm/s2 AI max bridgette (test code = 6121814852) 425.50 cm/s AI max PG (test code = 7279245336) 72.40 mm[Hg] RVOT area (test code = 1234316106) 1.93 cm2 Radiology Study observation (narrative) (test code = 10939-7) RENEA (test code = RENEA) ?Left?Ventricle: Left [...] 2D, color flow Doppler and spectral Doppler. [facility] Tyler[facility] Apweoqu7385-83-51 20:30:52 * Test Item Value Reference Range Interpretation Comme [facility] TSH (test code = 9261568435) 1.05 0.45-4.70 Lab Interpretation (test cod e = 86058-6) Normal [facility] [id number] 20:30:52 * Test Item Value Reference Range Interpretation Comme nts TSH (test code = 2008131428) 1.05 0.45-4.70 Lab Interpretation (test cod e = 73687-3) Normal [facility] TylerFr [id number] 20:17:31* Test Item Value Reference Range Interpretation Comme [facility] FREE T4 (test code = 4246373058) 1.28 0.78-2.20 Lab Interpretation (test cod e = 70701-7) Normal [facility] [id number] 20:17:31* Test Item Value Reference Range Interpretation Comme nts FREE T4 (test code = 4854190926) 1.28 0.78-2.20 Lab Interpretation (test cod e = 04858-1) [facility] [id number] 20:17:10* Test Item Value Reference Range Interpretation Comme nts FREE T3 (test code = 0469804932) 3.00 pg/mL 2.77-5.27 Lab Interpretation (test cod e = 29797-3) [facility] [id number] 20:17:10* Test Item Value Reference Range Interpretation Comme nts FREE T3 (test code = 6988135820) 3.00 pg/mL 2.77-5.27 Lab Interpretation (test cod e = 30798-1) [facility]. Metabolic Panel ([id number])2023-04-16 20:06:30* Test Item Value Reference Range Interpretation Comme nts NA (test code = 4710233356) 134 mmol/L 135-145 L K (test code = 4035431407) 5.0 mmol/L 3.5-5.0 CL (test code = 6960765177) 99 mmol/L 98-108 CO2 TOTAL (test code = 2409082755) 26 mmol/L 23-31 AGAP (test code = 2207652196) 9 2-16 BUN (test code = 5167520519) 17 mg/dL 7-23 GLUCOSE (test code = 7951709925) 72 mg/dL 70-110 CREATININE (test code = 2160-0) 0.66 mg/dL 0.50-1.04 TOTAL BILI (test code = 0738914690) 0.9 mg/dL 0.1-1.1 CALCIUM (test code = 5704810362) 10.0 mg/dL 8.6-10.6 T PROTEIN (test code = 2746943815) 7.8 g/dL 6.3-8.2 ALBUMIN (test code = 9275363445) 4.8 g/dL 3.5-5.0 ALK PHOS (test code = 7602994882) 74 U/L 34-122 ALTv (test code = 1742-6) 18 U/L 5-35 AST(SGOT) (test code = 3198550241) 27 U/L 13-40 eGFR (test code = 41263-2) 89.4 mL/min/1.73m2 Lab Interpretation (test cod e = 42021-6) Abnormal [facility]. Metabolic Panel ([id number])2023-04-16 20:06:30* Test Item Value Reference Range Interpretation Comme nts NA (test code = 3791446616) 134 mmol/L 135-145 L K (test code = 3173211808) 5.0 mmol/L 3.5-5.0 CL (test code = 2544333071) 99 mmol/L 98-108 CO2 TOTAL (test code = 3515994472) 26 mmol/L 23-31 AGAP (test code = 4409338364) 9 2-16 BUN (test code = 2045488871) 17 mg/dL 7-23 GLUCOSE (test code = 3267181522) 72 mg/dL 70-110 CREATININE (test code = 2160-0) 0.66 mg/dL 0.50-1.04 TOTAL BILI (test code = 4704953247) 0.9 mg/dL 0.1-1.1 CALCIUM (test code = 0094790478) 10.0 mg/dL 8.6-10.6 T PROTEIN (test code = 5382871932) 7.8 g/dL 6.3-8.2 ALBUMIN (test code = 0696347739) 4.8 g/dL 3.5-5.0 ALK PHOS (test code = 0205277266) 74 U/L 34-122 ALTv (test code = 1742-6) 18 U/L 5-35 AST(SGOT) (test code = 3671949139) 27 U/L 13-40 eGFR (test code = 02614-9) 89.4 mL/min/1.73m2 Lab Interpretation (test cod e = 39430-6) Abnormal [facility] with [id number] 18:09:29* Test Item Value Reference Range Interpretation [...] 35.0 g/dL 31.6-35.1 RDW-SD (test code = 80108-6) 53.6 fL 39.0-49.9 H RDW-CV (test code = 788-0) 11.9 % 12.0-15.5 L PLT (test code = 777-3) 548 166-358 H MPV (test code = 94101-6) 9.8 fL 9.5-12.9 NRBC/100 WBC (test code = 9117558110) 0.0 0.0-10.0 NRBC x10^3 (test code = 4697658408) See_Comment [Automated message] The system which generated this result transmitted reference range: 10*3/?L. The reference range was not used to interpret this result as normal/abnormal. GRAN MAT (NEUT) % (test code = 770-8) 84.7 % IMM GRAN % (test code = 0336803510) 0.90 % LYMPH % (test code = 736-9) 5.4 % MONO % (test code = 5905-5) 6.1 % EOS % (test code = 713-8) 1.1 % BASO % (test code = 706-2) 1.8 % GRAN MAT x10^3(ANC) (test code = 6078946492) 11.16 10*3/uL 1.88-7.09 H IMM GRAN x10^3 (test code = 3261055279) 0.12 10*3/uL 0.00-0.06 H LYMPH x10^3 (test code = 731-0) 0.71 10*3/uL 1.32-3.29 L MONO x10^3 (test code = 742-7) 0.80 10*3/uL 0.33-0.92 EOS x10^3 (test code = 711-2) 0.14 10*3/uL 0.03-0.39 BASO x10^3 (test code = 704-7) 0.24 10*3/uL 0.01-0.07 H Lab Interpretation (test code = 33866-9) Abnormal [facility] with [id number] 18:09:29* Test Item Value Reference Range Interpretation [...] 35.0 g/dL 31.6-35.1 RDW-SD (test code = 79783-1) 53.6 fL 39.0-49.9 H RDW-CV (test code = 788-0) 11.9 % 12.0-15.5 L PLT (test code = 777-3) 548 166-358 H MPV (test code = 43786-0) 9.8 fL 9.5-12.9 NRBC/100 WBC (test code = 6522912403) 0.0 0.0-10.0 NRBC x10^3 (test code = 5871194732) See_Comment [Automated message] The system which generated this result transmitted reference range: 10*3/?L. The reference range was not used to interpret this result as normal/abnormal. GRAN MAT (NEUT) % (test code = 770-8) 84.7 % IMM GRAN % (test code = 4127537009) 0.90 % LYMPH % (test code = 736-9) 5.4 % MONO % (test code = 5905-5) 6.1 % EOS % (test code = 713-8) 1.1 % BASO % (test code = 706-2) 1.8 % GRAN MAT x10^3(ANC) (test code = 1738614253) 11.16 10*3/uL 1.88-7.09 H IMM GRAN x10^3 (test code = 2409574543) 0.12 10*3/uL 0.00-0.06 H LYMPH x10^3 (test code = 731-0) 0.71 10*3/uL 1.32-3.29 L MONO x10^3 (test code = 742-7) 0.80 10*3/uL 0.33-0.92 EOS x10^3 (test code = 711-2) 0.14 10*3/uL 0.03-0.39 BASO x10^3 (test code = 704-7) 0.24 10*3/uL 0.01-0.07 H Lab Interpretation (test code = 30912-2) [facility]normal [facility] [id number] 00:38:01Exam: CT Abdomen and Pelvis With Contrast, [...] fluid. ?There is nopelvic adenopathy. Osseous/Soft Tissues: Unremarkable.[facility]. METABOLIC PANEL ([id number])2023-04-10 22:00:26* Test Item Value Reference Range Interpretation Comme nts NA (test code = 6221522370) 133 mmol/L 135-145 L K (test code = 9413965990) 4.8 mmol/L 3.5-5.0 CL (test code = 3045846525) 100 mmol/L 98-108 CO2 TOTAL (test code = 9675078083) 27 mmol/L 23-31 AGAP (test code = 1120479419) 6 2-16 BUN (test code = 0760046221) 24 mg/dL 7-23 H GLUCOSE (test code = 8389818792) 101 mg/dL 70-110 CREATININE (test code = 5705784185) 0.70 mg/dL 0.50-1.04 TOTAL BILI (test code = 7160678108) 0.7 mg/dL 0.1-1.1 CALCIUM (test code = 3860972475) 10.0 mg/dL 8.6-10.6 T PROTEIN (test code = 7442542787) 8.0 g/dL 6.3-8.2 ALBUMIN (test code = 1212605609) 4.7 g/dL 3.5-5.0 ALK PHOS (test code = 7022149526) 77 U/L 34-122 ALTv (test code = 1742-6) 24 U/L 5-35 AST(SGOT) (test code = 3092478643) 34 U/L 13-40 eGFR (test code = 88176-3) 88.1 mL/min/1.73m2 CKD-EPI eGFR (2020). Assuming creatinine has been stable day-to-day for at least three months, the eGFR indicates Category G2 (60 - 89 mL/min/1.73 m2) Lab Interpretation (test code = 83511-9) [facility]normal [facility] / [id number] 21:53:45* Test Item Value Reference Range Interpretation Comme nts PROTIME PATIENT (test code = 5964-2) 14.3 10.1-12.6 H INR (test code = 6301-6) 1.2 Normal INR <1.1; Warfarin Therapeutic range 2.0 to 3.0 or 2.5 to 3.5, depending upon the indications. Lab Interpretation (test code = 18970-0) Abnormal [facility] WITH [id number] 21:45:02* Test Item Value Reference Range Interpretation [...] 34.4 g/dL 31.6-35.1 RDW-SD (test code = 49434-3) 56.4 fL 39.0-49.9 H RDW-CV (test code = 788-0) 12.3 % 12.0-15.5 PLT (test code = 777-3) 447 166-358 H MPV (test code = 83346-8) 10.0 fL 9.5-12.9 NRBC/100 WBC (test code = 6026814195) 0.0 0.0-10.0 NRBC x10^3 (test code = 8854495938) See_Comment [Automated message] The system which generated this result transmitted reference range: 10*3/?L. The reference range was not used to interpret this result as normal/abnormal. GRAN MAT (NEUT) % (test code = 770-8) 80.1 % IMM GRAN % (test code = 3157741308) 0.70 % LYMPH % (test code = 736-9) 8.7 % MONO % (test code = 5905-5) 7.4 % EOS % (test code = 713-8) 1.2 % BASO % (test code = 706-2) 1.9 % GRAN MAT x10^3(ANC) (test code = 5786511943) 10.32 10*3/uL 1.88-7.09 H IMM GRAN x10^3 (test code = 0210379104) 0.09 10*3/uL 0.00-0.06 H LYMPH x10^3 (test code = 731-0) 1.12 10*3/uL 1.32-3.29 L MONO x10^3 (test code = 742-7) 0.95 10*3/uL 0.33-0.92 H EOS x10^3 (test code = 711-2) 0.16 10*3/uL 0.03-0.39 BASO x10^3 (test code = 704-7) 0.25 10*3/uL 0.01-0.07 H Lab Interpretation (test code = 55096-0) [facility]normal [facility]2023-03-06 21:06:28 EXAM: DEXA [...] TotalFemur: T-score -2.5. ?Bone mineral density: 0.688 g/cm^2.[facility] Tyler[facility] Ckzhowf1723-09-35 23:56:31* Test Item Value Reference Range Interpretation Comme nts TSH (test code = 3071486313) 0.32 See_Comment L [Automated Milk Mantraa ge] The system which generated this result transmitted reference range: 0.45 - 4.70 mIU/L. The reference range was not used to interpret this result as normal/abnormal. Lab Interpretation (test code = 96888-6) Abnormal [facility] [id number] 23:43:07* Test Item Value Reference Range Interpretation Comme nts FREE T4 (test code = 4156030632) 0.98 See_Comment [Automated messa ge] The system which generated this result transmitted reference range: 0.78 - 2.20 ng/dL:. The reference range was not used to interpret this result as normal/abnormal. Lab Interpretation (test code = 42635-0) Normal [facility] with [id number] 23:07:46* Test Item Value Reference Range Interpretation [...] 33.5 g/dL 31.6-35.1 RDW-SD (test code = 34019-0) 72.7 fL 39.0-49.9 H RDW-CV (test code = 788-0) 15.3 % 12.0-15.5 PLT (test code = 777-3) 469 See_Comment H [Automated messa ge] The system which generated this result transmitted reference range: 166 - 358 10*3/?L. The reference range was not used to interpret this result as normal/abnormal. MPV (test code = 74093-8) 10.5 fL 9.5-12.9 NRBC/100 WBC (test code = 9820076292) 0.0 See_Comment [Automated me ssage] The system which generated this result transmitted reference range: 0.0 - 10.0 /100 WBCs. The reference range was not used to interpret this result as normal/abnormal. NRBC x10^3 (test code = 9373734366) See_Comment [Automated messa ge] The system which generated this result transmitted reference range: 10*3/?L. The reference range was not used to interpret this result as normal/abnormal. GRAN MAT (NEUT) % (test code = 770-8) 74.5 % IMM GRAN % (test code = 1753048458) 0.40 % LYMPH % (test code = 736-9) 15.0 % MONO % (test code = 5905-5) 6.1 % EOS % (test code = 713-8) 1.6 % BASO % (test code = 706-2) 2.4 % GRAN MAT x10^3(ANC) (test code = 7030163112) 5.26 10*3/uL 1.88-7.09 IMM GRAN x10^3 (test code = 1264654587) 0.03 10*3/uL 0.00-0.06 LYMPH x10^3 (test code = 731-0) 1.06 10*3/uL 1.32-3.29 L MONO x10^3 (test code = 742-7) 0.43 10*3/uL 0.33-0.92 EOS x10^3 (test code = 711-2) 0.11 10*3/uL 0.03-0.39 BASO x10^3 (test code = 704-7) 0.17 10*3/uL 0.01-0.07 H Lab Interpretation (test code = 95747-4) Abnormal [facility] Consult Notes Date/Time Note Provider Source 2023-06-29 10:15:00 Associated Order(s): CONSULT PS PASTORAL CARE Auto Technician visited with patient in response to consult for pastoral care and support. Patient appeared lying down in bed and mentioned she was of Adventist paul tradition. During the visit, the patient shared her health and life narratives. Patient shared her feelings of despair, worry and anxiety surrounding her health and at being in the hospital. The patient expressed she was glad her sister was present to help her during this time. The patient requested for a prayer and for rosaries which the admittance attendant provided to the patient and her sister. The patient and sister also requested for a lead javascript developer for the sacraments of Confession and Anointing of Sick. The admittance attendant will contact the [facility] [employer] and a jewel inspector should visit either today or tomorrow and the same was conveyed to the family. The patient and sister were appreciative of all the support provided. Pastoral care will continue to follow up as needed. Chaplain Rishabh Arreola MDiv [facility] Department of Pastoral Care Pager: [phone] Rishabh Arreola [facility] - Health 2023-06-26 14:38:42 Associated Order(s): CONSULT SURGICAL CO-MANAGEMENT (SCM) Images from the original note were not included. Surgical Co-Management Hospitalist (SCM) Consult Service Initial Preoperative Consultation Note Patient: Eden Shipley Date of Consult: 06/26/2023 Referring Physician: Sabine Morelos MD Reason for Consult: Perioperative risk assessment and medical optimization/co-management HPI: Eden Shipley is a 78-year-old female w/ PMH anxiety, depression, memory loss, hypertension, hyperlipidemia, anxiety, polycythemia vera (on hydroxyurea), hypothyroidism, poor appetite who presents as transfer for possible vascular surgery intervention. Patient presented to ED today due to severe Left sided abdominal pain. 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 Admitted to vascular team for possible intervention. Of note, Had been having abdominal pain for 3 months. Had cholecystectomy w/ postop MRI showing intra/extra biliary and pancreatic ductal dilatation w/ smooth tapering of distal CBD. Further evaluation w/ ERCP recommended. Reports that her appetite is improved today, has headache. No changes to bowel, bladder, no chest pain, sob, fever chills nausea vomiting. Daughter, , and son-in-law at bedside. Other chronic findings. Proposed Surgery, Date: Surgical and Procedural Summary Unscheduled Procedures Date Procedure/Visit Type Providers Status Not Scheduled UPPER ULTRASOUNDENDOSCOPIC RETROGRADE CHOLANGIOPANCRETOGRAPHY Laura Rodarte Not Yoselyn In Addition: The patient does not have a history of complications with anesthesia or bleeding with prior surgeries. 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 Acute hyponatremia 05/02/2023 Resolved Ambulatory Problems Diagnosis Date Noted No Resolved Ambulatory Problems Past Medical History: Diagnosis Date Hiatal hernia HTN (hypertension) Hyperlipidemia Thrombocytosis Past Surgical History: Procedure Laterality Date CHOLECYSTECTOMY Social History Socioeconomic History Marital status: Spouse name: Not on file Number of children: Not on file Years of education: Not on file Highest education level: Not on file Occupational History Not on file Tobacco Use Smoking status: Former Types: Cigarettes Smokeless tobacco: Never Vaping Use Vaping Use: Never used Substance and Sexual Activity Alcohol use: Never Drug use: Never Sexual activity: Not Currently Partners: Male control/protection: Post-menopausal Other Topics Concern Not on file Social History Narrative Not on file Social Determinants of Health Financial Resource Strain: Low Risk (05/15/2023) Overall Financial Resource Strain (CARDIA) Difficulty of Paying Living Expenses: Not very hard Food Insecurity: No Food Insecurity (05/15/2023) Hunger Vital Sign Worried About Running Out of Food in the Last Year: Never true Ran Out of Food in the Last Year: Never true Transportation Needs: No Transportation Needs (05/15/2023) PRAPARE - Transportation Lack of Transportation (Medical): No Lack of Transportation (Non-Medical): No Physical Activity: Inactive (05/15/2023) Exercise Vital Sign Days of Exercise per Week: 0 days Minutes of Exercise per Session: 0 min Stress: Not on file Social Connections: Not on file Intimate Partner Violence: Not on file Housing Stability: Low Risk (05/15/2023) Housing Stability Vital Sign Unable to Pay for Housing in the Last Year: No Number of Places Lived in the Last Year: 1 Unstable Housing in the Last Year: No Family History Problem Relation Age of Onset Hypertension Mother Hypertension Father Breast Cancer Sister Cancer Brother Home medications: Prior to Admission medications Medication Sig Start Date End Date Taking? Authorizing Provider HYDROCODONE-ACETAMINOPHEN ORAL Take by mouth. Doctor Unassigned, [place] MIRTAZAPINE 7.5 mg tablet TAKE 1 TABLET BY MOUTH EVERYDAY AT BEDTIME 06/01/23 Sandrita Antony FNP donepeziL (ARICEPT) 5 mg tablet Take 1 tablet by mouth at bedtime. 05/25/23 Sandrita Ravi FNP levothyroxine 75 mcg tablet Take 1 tablet by mouth every morning. 05/07/23 Sandrita Antony FNP clonazePAM 0.5 mg tablet Take 1 tablet by mouth 3 (three) times daily as needed for Other (anxiety) for up to 60 doses. 05/03/23 Sofya Martin ACNP hydroxyurea 500 mg capsule Take 1 capsule by mouth daily Doctor Unassigned, [place] CALCIUM CARBONATE 600 mg calcium (1,500 mg) tablet TAKE 1 TABLET BY MOUTH TWICE A DAY WITH MEALS 05/01/23 Sandrita Antony FNP FERROUS SULFATE 325 mg (65 mg iron) tablet TAKE 1 TABLET BY MOUTH TWICE A DAY 05/01/23 Sandrita Antony FNP atorvastatin 40 mg tablet atorvastatin 40 mg tablet TAKE 1 TABLET BY MOUTH EVERYDAY AT BEDTIME Doctor Unassigned, [place] Current Medications: Scheduled meds:atorvastatin, 40 mg, QHS calcium carbonate, 500 mg, BID MEALS donepeziL, 5 mg, QHS ferrous sulfate, 325 mg, BID heparin (porcine) 5,000 units subcutaneous injection, 5,000 Units, Q12H [START ON 06/27/2023] hydroxyurea, 500 mg, DAILY [START ON 06/27/2023] levothyroxine, 75 mcg, QAM-0600 mirtazapine, 7.5 mg, QHS [START ON 06/27/2023] polyethylene glycol 3350, 17 g, QAM IV meds: PRN meds:clonazePAM, 0.5 mg, TIDPRN FENTanyl PF, 25 mcg, Q4HPRN ondansetron, 4 mg, Q6HPRN oxyCODONE, 5 mg, Q6HPRN traMADoL, 50 mg, Q6HPRN ALLERGIES No Known Allergies REVIEW OF SYSTEMS All systems negative except as otherwise stated in HPI PHYSICAL EXAM BP 124/76 (BP Location: Left arm, Patient Position: Supine) | Pulse 71 | Temp 36.2 ?C (97.2 ?F) | Resp 18 | Ht 1.524 m (5') | Wt 66 kg (145 lb 8 oz) | SpO2 92% | BMI 28.42 kg/m? General: NAD HEENT: moist mucous membranes, EOMI, pupils equal and reactive Neck: supple, trachea midline, no JVD, no LAD Cardio: RRR Respiratory: CTA b/l Abdomen: soft, non-distended, TTP on LUQ/LLQ Extremities: no peripheral or pitting edema Skin: no rashes, ecchymosis, or textural changes present Neuro: strength and sensation intact, no focal neuro deficits Lines/tubes/drains: Patient Lines/Drains/Airways Status Active LDAs Name Placement date Placement time Site Days Peripheral IV 06/26/23 0740 Left Wrist 06/26/23 0740 Wrist less than 1 Peripheral IV 06/26/23 1025 Right Antecubital Ultrasound not used 06/26/23 1025 Antecubital less than 1 LABS/IMAGING - reviewed, recent results as below: Lab Results Component Value Date/Time NA 129 (L) 06/26/2023 07:36 AM K 4.0 06/26/2023 07:36 AM CA 9.1 06/26/2023 07:36 AM CL 96 (L) 06/26/2023 07:36 AM BUN 21 06/26/2023 07:36 AM CREAT 0.80 06/26/2023 07:36 AM EGFR 74.6 06/26/2023 07:36 AM GLU 107 06/26/2023 07:36 AM TCO2 26 06/26/2023 07:36 AM WBC 29.21 (H) 06/26/2023 07:36 AM RBC 3.78 (L) 06/26/2023 07:36 AM PLT 658 (H) 06/26/2023 07:36 AM HGB 15.4 (H) 06/26/2023 07:36 AM HCT 44.5 06/26/2023 07:36 AM ALB 4.3 06/26/2023 07:36 AM TPRO 7.5 06/26/2023 07:36 AM BILIT 0.7 06/26/2023 07:36 AM BILIUNCON 0.2 06/18/2018 07:14 PM BILICONJ 0.0 06/18/2018 07:14 PM ALT 17 06/26/2023 07:36 AM ALT 120 (H) 06/18/2018 07:14 PM AST 37 06/26/2023 07:36 AM ALKPHOS 124 (H) 06/26/2023 07:36 AM MG 2.3 04/16/2023 11:59 AM PTINR 1.2 04/10/2023 03:21 PM PTPAT 14.3 (H) 04/10/2023 03:21 PM APTTPAT 29 06/18/2018 07:14 PM NTBNP 62 06/18/2018 07:14 PM TROPNI 0.001 06/26/2023 07:36 AM Most Recent UA: Lab Results Component Value Date/Time UPROTEIN Negative 06/26/2023 07:36 AM UPH 7.0 06/26/2023 07:36 AM UGLUCOSE Normal 06/26/2023 07:36 AM UKETONES Negative 06/26/2023 07:36 AM UBILI Negative 06/26/2023 07:36 AM ULEUKEST Negative 06/26/2023 07:36 AM UNITRITE Negative 06/26/2023 07:36 AM USPGRAV 1.011 06/26/2023 07:36 AM Radiology (48 HRS): CT ABDOMEN PELVIS W CONTRAST Result Date: 06/26/2023 Since 05/02/2023, development of a new small irregular thrombus/intramural hematoma at the upper abdominal aorta with extension to the celiac trunk. 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 Biliary and pancreatic ductal dilatation without obstructing mass previously evaluated by MRI. Other chronic findings. MRCP 05/12/23 IMPRESSION Moderate intra and extrahepatic biliary and proximal pancreatic ductal dilatation with smooth tapering of the distal CBD at the ampulla and no evidence of obstructing stones or masses. Recommend further evaluation with ERCP. Cardiographics (if applicable): EC04/16/23 Echo: 04/29/23 PERIOPERATIVE RISK ASSESSMENT CALCUATIONS: All from MD calc except RCRI (qxmd), calculated today unless stated otherwise Functional Status/Mosher Activity Score Index: 19.95 points The higher the score (maximum 58.2), the higher the functional status. 5.19 METs RCRI (Del Valle Index): Results for Revised Cardiac Risk Index (Alexis Criteria) by [employer] Estimated Risk of Adverse Outcome with Non-cardiac Surgery: Moderate Risk Estimated Rate of Myocardial Infarction, Pulmonary Edema, Ventricular Fibrillation, Cardiac Arrest, or Complete Heart Block: 6.6 % Answers calculated to formulate result: 1. High Risk Surgery? -- Yes 2. Coronary Artery Disease? -- No 3. Congestive Heart Failure? -- No 4. Cerebrovascular Disease? -- Yes 5. Diabetes Mellitus on Insulin? -- No 6. Serum Creatinine >2 mg/dl or >177 ?mol/L? 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 Having poor appetite can be an effect of chronic mesenteric ischemia type symptoms vs. Malignancy MRI findings of ductal dilation (though no mass noted). Pending vascular surgery evaluation/intervention.Can proceed w/o further cardiac testing. Elevated counts likely a combination of polycythemia vera and dehydration given poor PO intake. However would have low threshold for obtaining infectious w/u if becomes febrile/HD unstable. Attempted to call Dr. Braun in [place] for hematologic hx but no answer. - surgical plan per primary - hold on infectious w/u for now; obtain if febrile - consult hematology Chronic, stable conditions: Anxiety HLD Memory loss Polycythemia vera Appetite loss - c/w home meds - c/w hydroxyurea (chemo form sent) - hold iron Eden Shipley is a 78 year old year old female seen for perioperative risk assessment and medical optimization prior to surgery. The patient has the following that may increase general perioperative risk: NA For cardiovascular risk assessment, per the [place] [employer] guidelines, Proceed as scheduled without further testing or consultation Based on my assessment and experience, the patient's functional status is average for their age and gender. Overall, the patient is considered Normal (Baseline) Risk for perioperative complications for the planned procedure. Therefore, Eden Shipley is considered medically optimized for the planned procedure: Yes DVT Prophylaxis: Per Primary Code Status: FULL Dispo: home Medical Barriers to discharge: possible surgery Gerri Otero DO | PGY-3 Department of Internal Medicine Portions of this note were created using a voice-recognition transcribing system. Typographical errors and incorrect words or phrases may have been missed during proofreading. Please interpret accordingly. Associated attestation - Jacy Bolton MD - 06/26/2023 6:18 PM CDT Images from the original note were not included. [facility] General Medicine Inpatient Service Faculty/Attending Physician Attestation After discussion with the resident Dr Otero PGY-3 and the rounding team, I personally examined Eden Shipley on the date of service indicated. I actively participated in the decision-making process regarding the patient's care. I agree with resident's note with additional comments as below. All Medical Issues (pulled from [facility], may not all be relevant to this hospitalization): Patient Active Problem List Diagnosis Date Noted Abdominal pain, unspecified abdominal location 06/26/2023 Acute hyponatremia 05/02/2023 Atrophy of vagina 05/01/2023 Loss of appetite 04/20/[address] of the abdomen 04/20/2023 Abdominal pain, generalized 04/20/2023 Elevated transaminase level 08/01/2017 thought to be due to hydroxyurea Osteopenia 07/17/2016 Active Hospital Issues: See Resident Note for full details Principal Problem: Abdominal pain, unspecified abdominal location (06/26/2023) (POA: Yes) Resolved Problems: * No resolved hospital problems. * Current Medication List (Personally reviewed by me): Scheduled meds:aspirin, 81 mg, DAILY atorvastatin, 40 mg, QHS calcium carbonate, 500 mg, BID MEALS donepeziL, 5 mg, QHS ferrous sulfate, 325 mg, BID hydroxyurea, 500 mg, BID [START ON 06/27/2023] levothyroxine, 75 mcg, QAM-0600 mirtazapine, 7.5 mg, QHS [START ON 06/27/2023] polyethylene glycol 3350, 17 g, QAM IV meds:heparin 25,000 Units/250 mL IV infusion for DVT, Last Rate: 1,200 Units/hr (06/26/23 1730) PRN meds:clonazePAM, 0.5 mg, TIDPRN FENTanyl PF, 25 mcg, Q4HPRN heparin 1000 unit/mL, 3,000 Units, FOR REBOLUSING heparin 25,000 Units/250 mL IV infusion for DVT, 0-2,350 Units/hr, TITRATE ondansetron, 4 mg, Q6HPRN oxyCODONE, 5 mg, Q6HPRN traMADoL, 50 mg, Q6HPRN Additional Faculty/Attending Physician Assessment: 78-year-old female w/ PMH anxiety, depression, memory loss, hypertension, hyperlipidemia, anxiety, polycythemia vera (on hydroxyurea), hypothyroidism, who presented with severe abdominal pain on the L side, 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 Home medications reconciled. CBD dilation non specific and no tenderness on R side. Unlikely to be contributing to current presentation. Will follow for now. Jacy Bolton MD [facility], General Internal Medicine This document was partly dictated using [employer] Voice Recognition software, please excuse any typographical errors that may have transpired. IM-INTERNAL MEDICINE [facility] - Health History and Physical Notes Date/Time Note Provider Source 2023-05-02 22:32:54 MEDICINE [facility] ADMIT H&P Date of Service: 05/02/2023 CHIEF COMPLAINT: abdominal pain Subjective History of Present Illness 78 yo female with pmh of HTN, HLD, [...] was recommended to have an EGD/colonoscopy scheduled 05/06/2023 PAST MEDICAL HISTORY Past Medical History: Diagnosis Date Hiatal hernia HTN (hypertension) Hyperlipidemia Thrombocytosis on chemo pills Past Surgical History: Procedure Laterality Date CHOLECYSTECTOMY Family History Problem Relation Age of Onset Hypertension Mother Hypertension Father Breast Cancer Sister Cancer Brother ALLERGIES No Known Allergies MEDICATIONS No current facility-administered medications on file prior to encounter. Current Outpatient Medications on File Prior to Encounter Medication Sig Dispense Refill hydroxyurea 500 mg capsule Take 1 capsule by mouth daily CALCIUM CARBONATE 600 mg calcium (1,500 mg) tablet TAKE 1 TABLET BY MOUTH TWICE A DAY WITH MEALS 180 tablet 0 FERROUS SULFATE 325 mg (65 mg iron) tablet TAKE 1 TABLET BY MOUTH TWICE A DAY 180 tablet 0 citalopram 40 mg tablet Take 1 tablet by mouth daily. atorvastatin 40 mg tablet atorvastatin 40 mg tablet TAKE 1 TABLET BY MOUTH EVERYDAY AT BEDTIME montelukast 10 mg tablet Take 1 tablet by mouth daily. clonazePAM 0.5 mg tablet Take 1 tablet by mouth 3 (three) times daily. levothyroxine 75 mcg tablet Take 1 tablet by mouth every morning. cyclobenzaprine 10 mg tablet cyclobenzaprine 10 mg tablet TAKE 1 ORAL TABLET 2 TIMES A DAY NEEDED FOR SPASMS I attest that the foregoing medication list in the medical record is true, accurate and complete to the best of my knowledge. SOCIAL HISTORY Social History Socioeconomic History Marital status: Tobacco Use Smoking status: Former Types: Cigarettes Smokeless tobacco: Never Vaping Use Vaping Use: Never used Substance and Sexual Activity Alcohol use: Never Drug use: Never Sexual activity: Not Currently Partners: Male control/protection: Post-menopausal REVIEW OF SYSTEMS Review of Systems Constitutional: Positive for appetite change (decreased) and weight loss. Negative for activity change, chills, diaphoresis, fatigue, fever, unexpected weight change and weight gain. Anorexia HENT: Negative. Eyes: Negative. Respiratory: Negative. Breasts: Negative. Cardiovascular: Negative. Gastrointestinal: Positive for abdominal pain and blood in stool. Negative for abdominal distention, anal bleeding, constipation, diarrhea, nausea, rectal pain and vomiting. Genitourinary: Negative. Negative for polyuria. Musculoskeletal: Negative. Skin: Negative. Neurological: Negative. Psychiatric/Behavioral: Negative. Hematological: Negative for cold intolerance and heat intolerance. Endocrine: Positive for weight loss. Negative for goiter, hair loss, cold intolerance, heat intolerance, polydipsia, polyphagia, polyuria and weight gain. Objective PHYSICAL EXAMINATION Vitals: 05/02/23 1700 05/02/23 1800 05/02/23 1846 05/02/23 1924 BP: (!) 146/74 135/74 (!) 144/78 BP Location: Left arm Patient Position: Supine Pulse: (!) 46 102 80 Resp: 17 15 16 Temp: 36.2 ?C (97.2 ?F) TempSrc: SpO2: 94% 93% 96% Weight: 63.5 kg (139 lb 14.4 oz) Height: 1.524 m (5') Physical Exam Vitals and nursing note reviewed. Constitutional: General: She is not in acute distress. Appearance: Normal appearance. She is not ill-appearing, toxic-appearing or diaphoretic. HENT: Head: Normocephalic and atraumatic. Right Ear: External ear normal. Left Ear: External ear normal. Nose: Nose normal. No congestion. Mouth/Throat: Mouth: Mucous membranes are moist. Pharynx: No oropharyngeal exudate or posterior oropharyngeal erythema. Eyes: General: No scleral icterus. Extraocular Movements: Extraocular movements intact. Conjunctiva/sclera: Conjunctivae normal. Pupils: Pupils are equal, round, and reactive to light. Cardiovascular: Rate and Rhythm: Normal rate and regular rhythm. Heart sounds: No murmur heard. No friction rub. No gallop. Pulmonary: Effort: Pulmonary effort is normal. No respiratory distress. Breath sounds: Normal breath sounds. No wheezing or rales. Abdominal: General: Abdomen is flat. Bowel sounds are normal. There is no distension. Palpations: Abdomen is soft. Tenderness: There is no abdominal tenderness. There is no guarding. Musculoskeletal: General: Normal range of motion. Cervical back: Normal range of motion and neck supple. Right lower leg: No edema. Left lower leg: No edema. Skin: General: Skin is warm and dry. Neurological: Mental Status: She is alert. Psychiatric: Mood and Affect: Mood normal. Behavior: Behavior normal. Thought Content: Thought content normal. Judgment: Judgment normal. LABS/IMAGING - reviewed CT ABDOMEN PELVIS W CONTRAST Ordering Provider: JOSE LIAO HISTORY: Abdominal pain, acute, nonlocalized COMPARISON: 04/10/2023 Technical quality: adequate TECHNIQUE: CT abdomen and pelvis with intravenous contrast. This examination was performed according to ALARA principles. FINDINGS: Lower Chest: Bibasilar atelectasis.. Liver: Unremarkable. Gallbladder and bile ducts: The gallbladder is surgically absent. There is unchanged severe dilation of the common bile duct up to 20 mm with mild intrahepatic biliary dilation.. Spleen: New focal hypoattenuation in the mid spleen measured 1.3 cm.. Pancreas: Unremarkable. Adrenals: Unremarkable. Kidneys and ureters: New wedge-shaped hypoattenuation within the midpole of the right kidney. No calculi or hydronephrosis.. Large hiatal hernia, unchanged without evidence of obstruction. The duodenum is unremarkable. The small bowel loops are nondilated. There is no evidence of bowel obstruction. Normal appendix. Colonic diverticulosis. Bladder: Circumferential wall thickening of the underdistended bladder.. Reproductive organs: Unremarkable. Lymph Nodes: Unremarkable. Peritoneum: Unremarkable. Vessels: Extensive atherosclerotic calcifications of the abdominal aorta with unchanged bulbous dilation of the infrarenal aorta. Abdominal wall: Unremarkable. Bones: multilevel degenerative changes in the spine.. IMPRESSION 1. Wedge-shaped hypoattenuation in the midpole of the right kidney concerning for nephritis. Correlate with urinalysis. 2. New wedge-shaped opacity in the mid pole of the spleen may represent focus of infarct. 3. Status post cholecystectomy with unchanged severe dilation of the common bile duct up to 20 mm. 4. Incidental findings are detected in the body report. Assessment & Plan Eden Shipley is a 78 year old female with PMH as listed above, admitted to the hospital with: Acute hyponatremia: likely secondary to dehydration/FTT -- Will give fluid hydration -- Will repeat blood sodium level -- Will get nutrition consult -- Holding potential offending agents (eg, citalopram) 2. Abdominal pain: seen to have splenic infarct and noted hypoattenuation of right kidney -- EGD/colonoscopy in 05/06/2023 2. Blood disorder: appears to have thrombocytosis also noted to have leukocytosis. No evidence of fever. U/A is negative. -- CXR to rule out any active infection. -- Has outpatient hematology clinic visit 05/04/2023 3. HTN: not on any medication and currently normotensive 4. Hypothyroidism: -- Will resume levothyroxine 5. HLD: -- Will resume atorvastatin Prophylaxis: DVT- enoxaparin Code Status: Presumed Full Code Estimated LOS: This inpatient admission will likely require greater than or equal to 2 Midnights. Management is not feasible as an outpatient and there is concern for adverse outcomes if not managed in an inpatient setting. Advance care planning discussed for 18 mins with patient at bedside. Surrogate decision maker: Darcy Hernandez (child) - [facility] EMERGENCY PHYSICIAN STAFF [facility] Notes Date/Time Note Provider Source 2023-12-29 00:11:44 Refills done for 3 months. Please ask subsequent refills needs to come from hematology or PCP. No cardiac reasons for Eliquis. 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 [facility] 2023-12-21 15:37:36 Current lab values are stable compared to last ov. Refill sent to pt pharmacy. Chloe Quispe RN [facility] 2023-12-21 09:46:34 Refill request for Eliquis, refill does not meet protocol. Was seen in ED 12/10/23, please advise if refill appropriate. HERRERA 08/26/2023 Carlie Banegas LVN [facility] 2023-12-11 11:18:36 Attempted to call patient daughter, no answer, ULVM. [employer] message has been sent to patient. Carlie Perez MA [facility] 2023-12-10 18:00:54 Summary: Discharge Pt given printed and verbal discharge instructions regarding thrombocytosis, encouraged hydration, Prescriptions provided none Discussed ibuprofen and to take with food to avoid GI distress. Pt verbalized understanding of instructions, pt awake alert oriented, resp reg unlabored, skin w/d, color appropriate for race, moves all ext well,pt encouraged to follow up with pcp Advised to seek medical attention for new/prolonged/worsening of symptoms, Symptoms No adverse reaction to meds given in ER noted upon discharge PIV d'cd, dressing to site, catheter in tact. Awake, alert oriented, resp reg unlabored, skin w/d, pt leaving amb with steady gait, in no apparent distress, Marielos Jimenez RN [facility] 2023-12-10 14:38:03 Patient arrived ambulatory with daughter, states potassium level was high from blood work drawn yesterday, .Dr. Hodge. Currently on antibiotics for a uti. Sarah Dos Santos RN [facility] 2023-12-10 08:23:19 Call placed to pts daughter, VM full unable to LVM, MyChart message has been sent as well. Desiree Orellana RN [facility] 2023-12-10 05:10:00 1. Hyperkalemia Appears patient didn't go to the ER except may be to be a different one, can verify - start patiromer calcium sorbitex (VELTASSA) 8.4 gram PwPk; Take 8.4 g by mouth daily. Dispense: 30 Packet; Refill: 0 - repeat lab Thursday Comp. Metabolic Panel (60363); Future - done Recommend f/u with supervisor rough end ER precaution [facility] 2023-12-09 16:56:03 Erroneous encounter, please disregard. Desiree Orellana RN [facility] 2023-12-09 16:09:56 Call received by , for elevated +K, Message route to . Desiree Orellana RN [facility] 2023-12-09 16:03:06 Eden Shipley is a 78 year old female Leia with [facility] lab called with critical lab. Per Leia, she tried to call MD's phone. Connected with Desiree Dacosta RN for further assistance. Zhane Reinoso [facility] 2023-12-09 14:00:00 Images from the original note were not included. Venipuncture collection performed by clean technique on the right anticubitus. Total of 1 attempts were made. Slight pressure and a bandage/dressing were applied to the site(s). The patient experienced no complications. The following specimens were processed according to instructions and sent to [facility] laboratories per lab order on 12/09/2023: LT BLUE SST 1 RED LAV 1 PPT DK GREEN (LiHep) DK GREEN (SodH) KOWALSKI DK BLUE (K2) DK BLUE (S) ACD Blood Culture NIPT/NTD Patient has been identified by and name and was provided with cup, antiseptic towelette, and clean catch instructions. 2 urine specimen(s) sent. Unpreserved 1 Urine Culture 1 Aptima tube Other urine [facility] 2023-11-20 09:02:59 Per HERRERA 10/06/23 : - Start galantamine 4 mg po BID, up-titrate to 8 mg po BID after a month PRN NOV not scheduled Requested Prescriptions Signed Prescriptions Disp Refills galantamine 8 mg tablet 60 tablet 5 Sig: Take 1 tablet by mouth 2 (two) times daily. Authorizing Provider: JAY BRADSHAW Ordering User: GIA DURAN Gia Duran LVN [facility] 2023-10-30 05:25:06 Noted, discussed lab with daughter [facility] 2023-10-29 11:59:41 3rd attempt no answer, unable to LVM. My Chart message sent with providers recommendations attached. Letter sent. EC - Has the same number listed as pt does. Desiree Orellana RN [facility] 2023-10-28 08:25:22 Images from the original note were not included. I have attempted without success to contact this patient by phone. Will try again later. Gaye Hernanedz MD P Cardiology Nurse NT-proBNP within acceptable stable limits in the setting of age, Lipid panel acceptable. Prefer keeping goal LDL less than 100 Continue the current cardiac medications without any further changes. Follow-up as planned. Yu Fernandez MA [facility] 2023-10-27 16:13:01 2nd attempt, no answer or option given to LVM, MyChart message sent. Desiree Orellana RN [facility] 2023-10-27 08:49:52 Call placed to pt, number is the same as EC, Unable to LVM. Desiree Orellana RN [facility] 2023-10-26 20:20:46 Patient with hx of polycythemia vera. No concerns of bleeding today but platelet very high which is chronic WBC still very elevated with very high platelet. Recommend f/u with supervisor rough end Thyroid test shows poor control, unsure if patient has been taking meds, could be contributory to tiredness , mood disorder, restarted on levothyroxine today- recommend to take 2 tabs of 25mcg daily and will repeat labs in 6-8 weeks. Compliance emphasized CMP concerning for hyperkalemia and hyponatremia , will monitor with labs . Will send veltasaa to address the high potassium which could be related to the blood disorder. Cholesterol test looks stable Thrombocytosis Polycythemia Recent Labs 10/26/23 1408 PLT 1,026* See supervisor rough end . Hyperkalemia K (mmol/L) Date Value 10/26/2023 5.8 (H) Repeat BMP by week end - patiromer calcium sorbitex (VELTASSA) 8.4 gram PwPk; Take 8.4 g by mouth daily. Dispense: 4 Packet; Refill: 0 Acquired hypothyroidism Repeat in 8 weeks - levothyroxine 25 mcg tablet; Take 2 tablets by mouth every morning. Dispense: 90 tablet; Refill: 0 [facility] 2023-10-09 13:43:25 Medical records received from [facility], placed in providers box for review. Katt Garza [facility] 2023-09-05 12:25:11 Attempted to contact to notify eliquis rx filled and sent to [facility]/pharmacy #[id number] [place], [place] - [address] AT [facility] All numbers on patients account are the same, mailbox is full so I was unable to LVM. SONJA HOLDER RN 09/05/2023 12:27 PM [facility] 2023-09-04 11:10:53 Eden Shipley is a 78 year old female DOP is calling in asking about her mother's eliquis rx. DOP states that her mother only has a week left of this medication and the pharmacy will not refill the medication due to it being deleted. DOP is wanting to know if her mother needs to continue the medication or not and if a refill can be placed for her. Please advise Chantell Alejandra [facility] 2023-09-02 16:59:11 Requested Prescriptions Pending Prescriptions Disp Refills LEVOTHYROXINE 75 mcg tablet [Pharmacy Med Name: LEVOTHYROXINE 75 MCG TABLET] 90 tablet 0 Sig: TAKE 1 TABLET BY MOUTH EVERY DAY IN THE MORNING Endocrinology: Hypothyroid Agents Failed - 09/02/2023 4:45 PM Failed - Manual Review: ENT providers forward refill request to PCP. Failed - TSH in normal range and within 360 days TSH Date Value Ref Range Status 07/30/2023 11.40 (H) 0.45 - 4.70 mIU/L Final Passed - Valid encounter within last 12 months Recent Visits Date Type Provider Dept 07/30/23 Office Visit Sandrita Antony FNP [facility] 05/15/23 Office Visit Sandrita Antony FNP [facility] 05/15/23 Office Visit Sandrita Antony FNP [facility] 04/16/23 Office Visit Sandrita Antony FNP [facility] 04/10/23 Nurse Visit [facility] 03/03/23 Office Visit Sandrita Antony FNP [facility] 02/09/23 Office Visit Sandrita Antony FNP [facility] Showing recent visits within past 365 days and meeting all other requirements Future Appointments Date Type Provider Dept 10/26/23 Appointment Obi-Emily Mesa MD [facility] Showing future appointments within next 365 days and meeting all other requirements Gia Levi [facility] 2023-08-26 14:41:29 Access Center: [facility] Open Encounter Maintenance This is being sent to you as part of [facility] Chart Maintenance. The encounter has been open longer than 72 hours and has no documentation attached. Encounter closed. Jessy Carmona RN [facility] 2023-08-14 14:41:45 Called and went to no VM available Please see if you can reach patient to set up home health [facility] 2023-08-14 14:38:28 Pt's daughter is returning call from the office. Darcy CB#---[phone] Danisha Forde [facility] 2023-08-14 14:13:17 I spoke with son in law He states patient has been seeing PCP Dr. Gallo. Saw him last week for refills of clonazapem. He states they see him due to [facility] not prescribing the clonazepam. He states it is what she has been on for years for anxiety and it is why they continue to see Dr. Gallo (PCP) They did not start the zoloft due to interaction with statin When you look at care everywhere there is also citalopram on file. He is not sure of medications because his helps to manage the pill boxes for patient and then the son gives medications He was unaware of HH orders. I explained we have placed orders for HH and for Neuo psychiatry as well. He declines Neurology follow up at this time because they are looking for Neurology in their area. He believes she is still taking the Aricept. She last saw Dr. Gallo last week. And she is also seeing Dr. Braun (hematology/oncology) I strongly advise to check his 's phone as the Mailbox is full and we have not been able to leave messages therefore anyone calling for appointment assistance would also not be able to leave messages. I told him I would reach out to our criminal justice social worker again to help with the HH orders. Please assist in HH orders placed at June appointment. Thank you [facility] 2023-08-05 09:29:07 2nd attempt to reach pt daughter mailbox full unable to leave voicemail. Siobhan Dailey [facility] 2023-08-04 08:01:27 Images from the original note were not included. Medical records received Trace Gandhi placed in ACID TENDER Tea folder for review. Mey Bergeron [facility] 2023-08-03 16:38:14 Images from the original note were not included. Medical records received [facility], placed in ACID TENDER Antony folder for review. Mey Bergeron [facility] 2023-08-03 13:20:18 Mailbox full unable to lvm. Mey Bergeron [facility] 2023-08-03 09:01:05 Please call daughter to help schedule with Vascular and Cardiology for follow up JERMAINE T [facility] 2023-07-31 14:30:00 Images from the original note were not included. Bc student yusuf performed venipuncture Venipuncture collection performed by clean technique on the left anticubitus. Total of 1 attempts were made. Slight pressure and a bandage/dressing were applied to the site(s). The patient experienced no complications. The following specimens were processed according to instructions and sent to [facility] laboratories per lab order on 07/31/2023 : LT BLUE SST 1 RED LAV PPT DK GREEN (LiHep) DK GREEN (SodH) KOWALSKI DK BLUE (K2) DK BLUE (S) ACD Blood Culture NIPT/NTD [facility] 2023-07-31 13:02:46 Spoke to patient's daughter. Patient has been scheduled 10/30/2023 Freda Fischer [facility] 2023-07-31 10:46:15 Copied from [facility] #[id number]. Topic: Clinical - Schedule Appointment >> July 31, 2023 10:41 AM Patient Remote Sensing Specialist wrote: Eden Shipley is a 78 year old female. Pt daughter Darcy is calling to schedule an appointment with Hematology. Sonia Shipley 07/31/23 10:43 AM Sonia Shipley [facility] 2023-07-31 10:04:33 Call placed to pts daughter, POC and ER precautions discussed. Pts paddyuther states she will try to bring her mother in today for her labs. Pts daughter verbalizes understanding and agrees w/POC. Labs faxed to 's office. Desiree Orellana RN [facility] 2023-07-31 08:37:47 I called and spoke with the patient's Hematology nurse, Dr. Braun's office. She had labs done last week with Dr. Braun and per nurse she was to continue current dose of medications because they were unsure if she had been taking medication during hospitalization. Platelets were also in 1200[address] Dr[address] Braun's office last week I did inform nurse of new results including Hgb, Platelets, Iron and folate and B12. I suggest to hold iron supplements and take the Hydroxyurea as prescribed by Dr. Braun. I know patient had wanted to establish Hematology with [facility] however she is established with Dr. Braun and until appointment is confirmed with [facility] I highly recommend her keep her appointment next week to discuss the labs with Dr. Braun. The nurse had mentioned that they would want to do a bone marrow biopsy should she continue to have elevation in her platelets and numbers. So this appointment would be very important to keep as not to delay any care waiting to establish elsewhere. Her potassium is increased, I would like her to come back today to draw lab to confirm that is an accurate potassium number I want to be sure she is drinking plenty of fluids and staying hydrated. She should go to ER for chest pain, shortness of breath or any concerns. Recap Please hold iron Continue hydroxyurea and all other medications as prescribed Please keep hematology appt with Dr. Braun to review and discuss next steps Dr. Braun also asked to fax labs to their office Please inform daughter of my recommendations as the patient has been experiencing memory problems and is under her care. T [facility] [employer] 2023-07-30 14:30:00 Images from the original note were not included. Pt unable to void. Sterile urine kt provided. Venipuncture collection performed by clean technique on the left anticubitus. Total of 1 attempts were made. Slight pressure and a bandage/dressing were applied to the site(s). The patient experienced no complications. The following specimens were processed according to instructions and sent to [facility] laboratories per lab order on 07/30/2023: LT BLUE SST 2 RED LAV 2 PPT DK GREEN (LiHep) DK GREEN (SodH) KOWALSKI DK BLUE (K2) DK BLUE (S) ACD Blood Culture NIPT/NTD Patient presented with specimen for drop-off and was identified by and name. Collection information/ total volume were documented accordingly. The following specimens were sent to [facility] laboratories per lab order on 07/30/2023: 24 hour urine Random urine 1 Stool Swab Other Patient has been identified by and name and was provided with cup, antiseptic towelette, and clean catch instructions. 1 urine specimen(s) sent. Unpreserved 1 Urine Culture Aptima tube Other urine T [facility] 2023-07-28 11:25:11 Requested Prescriptions Pending Prescriptions Disp Refills FERROUS SULFATE 325 mg (65 mg iron) tablet [Pharmacy Med Name: FERROUS SULFATE 325 MG TABLET] 180 tablet 0 Sig: TAKE 1 TABLET BY MOUTH TWICE A DAY Endocrinology: Minerals - Iron Supplementation Passed - 07/27/2023 12:40 AM Passed - Valid encounter within last 12 months Recent Visits Date Type Provider Dept 05/15/23 Office Visit Sandrita Antony FNP [facility] 05/15/23 Office Visit Sandrita Antony FNP [facility] 04/16/23 Office Visit Sandrita Antony FNP [facility] 04/10/23 Nurse Visit Nurse, [facility] 03/03/23 Office Visit Sandrita Antony FNP [facility] 02/09/23 Office Visit Sandrita Antony FNP [facility] Showing recent visits within past 365 days and meeting all other requirements Future Appointments Date Type Provider Dept 08/11/23 Appointment Sandrita Antony FNP [facility] Showing future appointments within next 365 days and meeting all other requirements Gia Levi [facility] 2023-06-30 14:55:53 Pt left the unit at 1350 to go home with her daughter and sister, nSD noted on the pt walking with the family. Problem: Falls, Risk of Goal: Absence of falls Outcome: Adequate for discharge Problem: Discharge Planning Goal: Adequate for discharge Outcome: Adequate for discharge Goal: Effective communication Outcome: Adequate for discharge Problem: Pain Goal: Control of pain at or below patient's documented comfort goal Outcome: Adequate for discharge Goal: Reduction in pain sensation Outcome: Adequate for discharge Problem: Bleeding, Risk of Goal: Absence of impaired coagulation signs and symptoms Outcome: Adequate for discharge Goal: Absence of active bleeding Outcome: Adequate for discharge Rhona Gayle RN [facility] 2023-06-30 08:46:53 Problem: Pain Goal: Control of pain at or below patient's documented comfort goal Outcome: Progressing as expected Goal: Reduction in pain sensation Outcome: Progressing as expected Isabel Hughes RN [facility] 2023-06-29 20:26:05 Problem: Falls, Risk of Goal: Absence of falls Outcome: Progressing as expected Problem: Discharge Planning Goal: Adequate for discharge Outcome: Progressing as expected Problem: Bleeding, Risk of Goal: Absence of impaired coagulation signs and symptoms Outcome: Progressing as expected [facility] 2023-06-29 09:20:26 Problem: Pain Goal: Control of pain at or below patient's documented comfort goal Outcome: Progressing as expected T [facility] 2023-06-28 11:37:10 Problem: Falls, Risk of Goal: Absence of falls Outcome: Progressing as expected Problem: Discharge Planning Goal: Adequate for discharge Outcome: Progressing as expected Goal: Effective communication Outcome: Progressing as expected Problem: Pain Goal: Control of pain at or below patient's documented comfort goal Outcome: Progressing as expected Goal: Reduction in pain sensation Outcome: Progressing as expected Problem: Bleeding, Risk of Goal: Absence of impaired coagulation signs and symptoms Outcome: Progressing as expected Goal: Absence of active bleeding Outcome: Progressing as expected T Shayy Tyler RN [facility] 2023-06-27 11:00:52 Problem: Falls, Risk of Goal: Absence of falls Outcome: Progressing as expected Problem: Discharge Planning Goal: Adequate for discharge Outcome: Progressing as expected Goal: Effective communication Outcome: Progressing as expected Problem: Pain Goal: Control of pain at or below patient's documented comfort goal Outcome: Progressing as expected Goal: Reduction in pain sensation Outcome: Progressing as expected Problem: Bleeding, Risk of Goal: Absence of impaired coagulation signs and symptoms Outcome: Progressing as expected Goal: Absence of active bleeding Outcome: Progressing as expected Leydi Banerjee RN [facility] 2023-06-27 09:41:00 FULL OPERATIVE NOTE Date of Surgery: 06/27/2023 Faculty physician: Sabine Morelos MD Resident physician: Everton Gillespie MD Anesthesia Type: General Pre-operative diagnosis: Aortic thrombus, celiac artery thrombus, splenic infarction, 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 Thrombus appears unstable on imaging and will benefit from intervention to prevent further embolism. Risks and benefits of the procedure were discussed with the patient who agrees to proceed. Procedures: - Ultrasound guided access of right common femoral artery, hardcopy images saved - Abdominal aortogram - Selective catheterization of celiac artery; first order aortic branch - On-table catheter-directed thrombolysis of the celiac artery - Right common femoral arteriotomy closure using Angioseal closure device Findings: Abdominal aortogram: patent abdominal aorta, patent celiac, superior mesenteric, inferior mesenteric and bilateral renal arteries with questionable filling defect in the proximal celiac artery; distal perfusion appears to be maintained from the celiac artery with brisk flow. Post-intervention: improved enhancement of all celiac branches without any filling defect in the proximal celiac artery Right groin arteriogram: common femoral and profunda femoris arteries patent with no significant diesease; superficial femoral and popliteal arteries have tandem lesions with moderate stenoses, right anterior tibial artery has diffuse disease and occludes in mid-portion without reconstitution, tibioperoneal trunk is diseased but patent, peroneal artery is occluded at the ostium with no reconstitution, posterior tibial artery is patent proximally but occludes distally and gives off a collateral which fills the foot distally. Dictation: Patient was brought to the operating room where timeout was performed which confirmed correct patient, procedure and operative site. Procedure was performed under local anesthesia and monitored anesthesia care. Bilateral groins were prepped and draped in the usual sterile fashion with chlorhexidine solution. Ultrasound guidance was used to access right common femoral artery with micropuncture needle. This was exchanged for micropuncture sheath over a wire using Seldinger technique. Right groin arteriogram was performed showing common femoral access. A 0.035 glidewire was advanced into the aorta and sheath exchanged for a 6 Mosotho short sheath. The patient was systemically heparinized. A pigtail catheter was advanced over the wire to the level of T12 and abdominal aortogram was performed with findings noted above. The sheath was exchanged over the wire to a 6.5 Fr Wringer Machine Operator sheath. The celiac artery ostium was engaged with the sheath and the wire was advanced into the gastroduodenal artery. Unifuse catheter was advanced over the wire with the back end of the infusion marker at the end of the sheath. 10 mg of tPA was slowly infused on the table. Repeat arteriogram from the sheath demonstrated brisk flow without lesions into the celiac artery and distal branches. The entire system was withdrawn and the access site was closed using Angioseal device. The patient tolerated the procedure well and was transferred to the postanesthesia care unit in stable condition. Complications: none Estimated blood loss: 30 cc Specimens: none Drains: none Postoperative instructions: - Lay flat for 4 hours - Restart heparin drip per protocol Everton Gillespie MD Vascular Surgery PGY-3 Associated attestation - Sabine Morelos MD - 06/30/2023 11:03 AM CDT I was present and actively participated throughout the entire procedure. I agree with Dr. Gillespie's note as written. See additional details in resident physician's note. Sabine Morelos MD, FACS, RPVI [facility] Author Vascular and Endovascular Surgery 06/30/23 11:02 AM [facility] 2023-06-27 09:41:00 BRIEF OPERATIVE NOTE Date of Surgery: 06/27/2023 Surgeon(s) and Role: * Sabine Morelos MD - Primary * Everton Gillespie MD - Resident - Assisting Pre-Op Diagnosis: Abdominal pain, unspecified abdominal location [R10.9] Aortic thrombus Celiac artery thrombus Post-Op Diagnosis Codes: * Abdominal pain, unspecified abdominal location [R10.9] Same as above Procedures: Procedure(s) (LRB): THROMBOLYSIS ENDOVASCULAR VESSEL (N/A) Selective catheterization of the celiac artery Catheter directed thrombosis of the celiac artery with 10cc TPA Any Complications Encounters: None apparent Estimated Blood Loss: 50cc Specimens Removed: * No specimens in log * Implant Name Type Inv. Item Serial No. Dry Cell And Battery Assembler Lot No. LRB No. Used Action ANGIO-SEAK VIP 6RF [employer] #[id number] - S0 ANGIO-SEAK VIP 6RF [employer] #[id number] [employer] [id number] Right 1 Implanted Patient's Condition: Stable to PACU Findings: Celiac thrombus Any other important information: None Please see dictated operative report by Dr. Gillespie for additional detail. I was present and actively participated throughout the entire procedure. Sabine Morelos MD, FACS, RPVI [facility] Author Vascular and Endovascular Surgery 06/27/23 10:34 AM T [facility] 2023-06-26 21:40:32 Heparin drip Asia Pickard RN [facility] 2023-06-26 11:04:37 Report to [facility], pt care transferred T [facility] 2023-06-26 10:18:00 Nurse Report Report given to John CEJA, [facility], Chief complaint, assessment findings, infusion verify and orders reviewed. Sarah Ceja RN [facility] 2023-06-26 10:10:01 NPO stressed, pt no distress at this time, [facility] 2023-06-26 09:05:00 Ambulate to bathroom, no distress [facility] 2023-06-26 07:37:55 Takes daily hydrocodone for chronic pain, unable to states where her chronic pain is, states now the only pain is her lower left abdomen Also takes a cancer med that "messes up" the bloodwork per FRANCI [facility] 2023-06-26 07:13:00 Eden Shipley is a 78 year old female here with son-in-law POA, c/o left lower abd pain since yesterday, no n/v/, no diarrhea, normal stool yesterday, no dysuria, no fever, pain on palp to left lower, denies chest pain, states had a normal cardiac workup last week and 2 weeks ago had a normal visit with oncologist for her hx blood cancer, states in remission for 10 years, NT Sarah Ceja RN [facility] 2023-06-26 07:10:00 Associated Order(s): EKG-12 Lead ROUTINE ONCE Pre-Procedure Diagnose(s): Abdominal pain, unspecified abdominal location Post-Procedure Diagnose(s): Abdominal pain, unspecified abdominal location [facility] Emergency Department Note Patient Name: Eden Shipley Date of : 1945 78 year old female Treatment Room: 9/9 Primary Care Physician: Sandrita Antony Patient Escorted by: Family [5] Mode of Arrival: Personal means [1] EMS Treatment 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 FINISHING treatment: None Travel and Exposure Screening: Symptoms Does patient have any of these symptoms?: (not recorded) Exposure Screening Has patient had contact with someone with a communicable disease in the last month?: (not recorded) Diseases exposed to:: (not recorded) Is Patient ?: (not recorded) Exposure Date: (not recorded) Chief Complaint: Chief Complaint Patient presents with Abdominal Pain History of Present Illness: HPI Eden Shipley is a 78 year old female with PMHx of HTN, HLD, anxiety, thrombocytosis,hypothyroidis m presenting with abdominal pain that started yesterday evening. Patient with with recently admitted 3/ to 3/3 for hyponatremia. Patient reports that pain is located primary in left upper quadrant area of abdomen. Patient denies any associated nausea, vomiting, diarrhea or constipation. Patient denies fevers. Patient reports that pain is constant, not worse with exertion or with positional changes. Past Medical History/Immunizations: Past Medical History: Diagnosis Date Hiatal hernia HTN (hypertension) Hyperlipidemia Thrombocytosis on chemo pills Tetanus received in last 5 years: Unknown Childhood immunizations: Up-to-date Allergies: No Known Allergies Past Social History: Tobacco Use Former; Types: Cigarettes Smokeless Tobacco: Never used smokeless tobacco. Vaping Use Never used Alcohol Use Never. Drug Use Never. Sexual Activity Not currently sexually active; Partners: Male; Control/Protection: Post-menopausal. Past Surgical History: Past Surgical History: Procedure Laterality Date CHOLECYSTECTOMY Review of Systems: Review of Systems Constitutional: Positive for fatigue. Negative for activity change, appetite change and fever. HENT: Negative for congestion, facial swelling and rhinorrhea. Eyes: Negative for photophobia and visual disturbance. Respiratory: Negative for apnea, cough, choking, chest tightness, shortness of breath, wheezing and stridor. Cardiovascular: Negative for chest pain, palpitations and leg swelling. Gastrointestinal: Positive for abdominal pain. Negative for abdominal distention, anal bleeding, blood in stool, constipation, diarrhea, nausea and vomiting. Genitourinary: Negative for dysuria. Musculoskeletal: Negative for neck pain. Neurological: Negative for dizziness, tremors, seizures, syncope, facial asymmetry, speech difficulty, weakness, light-headedness, numbness and headaches. Physical Exam: ED Triage Vitals [06/26/23 0713] Weight 62.8 kg (138 lb 6.4 oz) Actual or estimated Actual Height 1.524 m (5') BP 112/77 Pulse (!) 47 Resp 18 Temp 37.2 ?C (99 ?F) Temp source Oral SpO2 96 % Measured on Room air Physical Exam Vitals and nursing note reviewed. Constitutional: Appearance: She is well-developed. Eyes: General: Right eye: No discharge. Left eye: No discharge. Conjunctiva/sclera: Conjunctivae normal. Neck: Thyroid: No thyromegaly. Cardiovascular: Rate and Rhythm: Normal rate and regular rhythm. Heart sounds: Normal heart sounds. No murmur heard. No friction rub. No gallop. Pulmonary: Effort: No respiratory distress. Breath sounds: No stridor. No wheezing or rales. Chest: Chest wall: No tenderness. Abdominal: General: There is no distension. Palpations: Abdomen is soft. There is no mass. Tenderness: There is abdominal tenderness. There is no guarding or rebound. Hernia: No hernia is present. Comments: LUQ and epigastric abdominal TTP Musculoskeletal: General: No tenderness or deformity. Cervical back: Neck supple. Skin: General: Skin is warm and dry. Coloration: Skin is not pale. Findings: No erythema. Neurological: General: No focal deficit present. Mental Status: She is alert and oriented to person, place, and time. Cranial Nerves: No cranial nerve deficit. Sensory: No sensory deficit. Motor: No weakness. Coordination: Coordination normal. Gait: Gait normal. Radiology: CT ABDOMEN PELVIS W CONTRAST Final Result CT ABDOMEN PELVIS W CONTRAST 06/26/2023 8:39 AM HISTORY: Abdominal pain, acute, nonlocalized COMPARISON: CT abdomen pelvis 05/01/2033 TECHNIQUE: Axial images of the abdomen and pelvis were acquired after administration of intravenous contrast. Coronal and sagittal reconstructions were also created. FINDINGS: LOWER CHEST: Small patchy groundglass opacity in the right and left lower lobe could represent interval subtle aspiration. HEPATOBILIARY: The liver is normal in size. No focal hepatic lesion. The gallbladder is surgically removed. Central intrahepatic and extrahepatic biliary ductal dilatation with a CBD diameter of 1.3 cm. SPLEEN: There has been worsening of multifocal wedge-shaped nonopacification of the parenchyma involving a large volume of the spleen compatible with interval acute infarction. Mild perisplenic fat stranding is noted. PANCREAS: The parenchyma is unremarkable. Pancreatic ductal dilatation which measures up to 9 mm at the head which tapers at the ampulla and joins the CBD without distal obstructing mass. ADRENAL GLANDS: No adrenal nodules. KIDNEYS: Normal size and symmetric enhancement. The ureters are mildly dilated, could be sequela of stasis secondary to moderate distention of bladder. No hydronephrosis or stone. No solid mass. GI TRACT: Moderate to large type III hiatal hernia is again noted. Colonic diverticulosis. No dilation or wall thickening. The appendix is normal. PERITONEUM AND RETROPERITONEUM: No free air or free fluid. LYMPH NODES: No lymphadenopathy is seen. PELVIS/BLADDER: The urinary bladder is normal. The reproductive organs are within normal limits. VESSELS: Multifocal calcified and noncalcified plaques are noted throughout the abdominal aorta. There is a new small irregular thrombus/intramural hematoma at the distal thoracic aorta, spanning 3.5 cm, which extends to the level of celiac trunk suspicious for interval development of a focal dissection (2:29-39). The left gastric, common hepatic artery and proximal splenic artery are patent. A segment of distal splenic artery near the infarction appears thrombosed (2:40). 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 BONES AND SOFT TISSUES: No aggressive osseous lesion or acute osseous abnormality. No concerning soft tissue abnormality. IMPRESSION Since 05/02/2023, development of a new small irregular thrombus/intramural hematoma at the upper abdominal aorta with extension to the celiac trunk. 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 Biliary and pancreatic ductal dilatation without obstructing mass previously evaluated by MRI. Other chronic findings. With Lab Results: Lab Results CBC WITH DIFF - Abnormal Result Value Ref Range WBC 29.21 (*) 4.30 - 11.10 10*3/?L RBC 3.78 (*) 3.93 - 5.25 10*6/?L HGB 15.4 (*) 11.6 - 15.0 g/dL HCT 44.5 35.7 - 45.2 % MCV 117.7 (*) 80.6 - 95.5 fL MCH 40.7 (*) 25.9 - 32.8 pg MCHC 34.6 31.6 - 35.1 g/dL RDW-SD 59.1 (*) 39.0 - 49.9 fL RDW-CV 13.5 12.0 - 15.5 % PLT 658 (*) 166 - 358 10*3/?L MPV 10.0 9.5 - 12.9 fL NRBC/100 WBC 0.0 0.0 - 10.0 /100 WBCs NRBC x10 3 <0.01 10*3/?L GRAN MAT (NEUT) % 84.6 % IMM GRAN % 0.90 % LYMPH % 5.4 % MONO % 7.3 % EOS % 0.7 % BASO % 1.1 % GRAN MAT x10 3 (ANC) 24.72 (*) 1.88 - 7.09 10*3/uL IMM GRAN x10 3 0.25 (*) 0.00 - 0.06 10*3/uL LYMPH x10 3 1.59 1.32 - 3.29 10*3/uL MONO x10 3 2.12 (*) 0.33 - 0.92 10*3/uL EOS x10 3 0.21 0.03 - 0.39 10*3/uL BASO x10 3 0.32 (*) 0.01 - 0.07 10*3/uL ELLIPTO/OVAL 2+ (*) (none) POLYCHROMASIA 2+ 2+ SPHEROCYTES 1+ (*) BANDS Increased (*) GIANT PLATELETS Present (*) (none) COMP. METABOLIC PANEL (92567) - Abnormal NA 129 (*) 135 - 145 mmol/L K 4.0 3.5 - 5.0 mmol/L CL 96 (*) 98 - 108 mmol/L CO2 TOTAL 26 23 - 31 mmol/L AGAP 7 2 - 16 BUN 21 7 - 23 mg/dL GLUCOSE 107 70 - 110 mg/dL CREATININE 0.80 0.50 - 1.04 mg/dL TOTAL BILI 0.7 0.1 - 1.1 mg/dL CALCIUM 9.1 8.6 - 10.6 mg/dL T PROTEIN 7.5 6.3 - 8.2 g/dL ALBUMIN 4.3 3.5 - 5.0 g/dL ALK PHOS 124 (*) 34 - 122 U/L ALTv 17 5 - 35 U/L AST(SGOT) 37 13 - 40 U/L eGFR 74.6 mL/min/1.73m2 LIPASE - Normal LIPASE 162 0 - 220 U/L TROPONIN I - Normal TROPONIN I 0.001 <=0.034 ng/mL URINALYSIS APPEARANCE Clear Clear COLOR Yellow Yellow PH 7.0 4.8 - 8.0 SP GRAVITY 1.011 1.003 - 1.030 GLU U QUAL Normal Normal BLOOD Negative Negative KETONES Negative Negative PROTEIN Negative Negative UROBILIN Normal Normal BILIRUBIN Negative Negative NITRITE Negative Negative LEUK EDITA Negative Negative RBC/HPF 1 0 - 3 HPF WBC/HPF 2 0 - 5 HPF BACTERIA Negative Negative SQ EPITH <1 HPF EKG: If EKG completed, see Procedure Note. Orders and Treatments: Orders Placed This Encounter Procedures CT ABDOMEN PELVIS W CONTRAST Cbc with Diff Comp. Metabolic Panel (22470) Lipase Urinalysis Troponin I Consult Surgical Co-Management (SCM) O2 Per Protocol Orders Placed This Encounter Medications morpHINE (4 mg/mL) injection 4 mg ondansetron (ZOFRAN (PF)) injection 4 mg iopamidol (ISOVUE 370-500 mL) injection 80 mL atorvastatin (LIPITOR) tablet 40 mg ferrous sulfate tablet 325 mg DISCONTD: hydroxyurea (HYDREA) capsule 500 mg clonazePAM (KLONOPIN) tablet 0.5 mg levothyroxine (SYNTHROID) tablet 75 mcg donepeziL (ARICEPT) tablet 5 mg mirtazapine (REMERON) tablet 7.5 mg calcium carbonate (OSCAL-500) tablet 500 mg heparin (porcine) injection 5,000 Units ondansetron (ZOFRAN (PF)) injection 4 mg FENTanyl PF (SUBLIMAZE (PF)) injection 25 mcg oxyCODONE immediate release tablet 5 mg traMADoL (ULTRAM) tablet 50 mg polyethylene glycol 3350 powder 17 g hydroxyurea (HYDREA) capsule 500 mg First Provider Eval: ED Events Date/Time Event User Comments 06/26/23725 Medical Screening Begins JOSE LIAO MD -- 06/26/23725 First Provider Evaluation JOSE LIAO MD -- ED COURSE Diagnosis/Impression as of 06/26/23 1651 Abdominal pain, unspecified abdominal location 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 Thrombus Procedures: EKG-12 Lead ROUTINE ONCE Date/Time: 06/26/2023 11:15 AM Performed by: Jose Liao MD Authorized by: Jose Liao MD ECG interpreted by ED Physician in the absence of a childbirth educator: yes Interpretation: Interpretation: abnormal Rate: ECG rate: 86 ECG rate assessment: normal Rhythm: Rhythm comment: Sinus rhythm ith PACs in patern of bigeminy Ectopy: Ectopy: bigeminy and PAC QRS: QRS axis: Normal QRS intervals: Normal QRS conduction: normal ST segments: ST segments: Normal T waves: T waves: non-specific MDM: Medical Decision Making Eden Shipley is a 78 year-old female presenting with abdominal pain symptoms as above. Patient with abdominal pain. Patient received pain medications with mild improvement in symptoms. Since 3/2 of this year new development noted on CT scan of irregular thrombus/intramural hematoma in the upper aortic with extension into the celiac trunk. Per radiology read this represents a celiac trunk dissection. Patient also with acute splenic infarct noted on CT scan with a thrombus in one of the hilar branches. Patient with leukocytosis of 29 noted on CBC. Findings of labs and imaging discussed with patient and family. Consulted vascular surgery given dissection and plan for transfer to [place]. Spoke with attending vascular surgeon at [facility] and patient accepted for transfer. Problems Addressed: Abdominal pain, unspecified abdominal location: acute illness or injury Dissection of abdominal aorta: acute illness or injury Details: Celiac trunk Splenic infarct: acute illness or injury Thrombus: acute illness or injury Amount and/or Complexity of Data Reviewed Labs: ordered. Radiology: ordered. Risk Prescription drug management. Parenteral controlled substances. Decision regarding hospitalization. Flowsheet Documentation: Scoring Tools: No data recorded Disposition/Condition: ED Disposition ED Disposition [facility]Obs Condition -- Comment -- Discharge Medications: Patient's Medications START taking these medications No medications on file CONTINUE taking these medications which have NOT CHANGED ATORVASTATIN 40 MG TABLET atorvastatin 40 mg tablet TAKE 1 TABLET BY MOUTH EVERYDAY AT BEDTIME CALCIUM CARBONATE 600 MG CALCIUM (1,500 MG) TABLET TAKE 1 TABLET BY MOUTH TWICE A DAY WITH MEALS CLONAZEPAM 0.5 MG TABLET Take 1 tablet by mouth 3 (three) times daily as needed for Other (anxiety) for up to 60 doses. DONEPEZIL (ARICEPT) 5 MG TABLET Take 1 tablet by mouth at bedtime. FERROUS SULFATE 325 MG (65 MG IRON) TABLET TAKE 1 TABLET BY MOUTH TWICE A DAY HYDROCODONE-ACETAMINOPHEN ORAL Take by mouth. HYDROXYUREA 500 MG CAPSULE Take 1 capsule by mouth daily LEVOTHYROXINE 75 MCG TABLET Take 1 tablet by mouth every morning. MIRTAZAPINE 7.5 MG TABLET TAKE 1 TABLET BY MOUTH EVERYDAY AT BEDTIME START taking Modified Medications as Prescribed No medications on file STOP taking these medications No medications on file Follow-up: Electronically signed by: Jose Liao MD 06/27/23725 [facility] 2023-05-07 15:40:12 Sent prescriptions [facility] 2023-05-07 15:29:49 Spoke with daughter of pt, Darcy. She reports that her mother spilled some of her pills. She is requesting a refill of mirtazapine. She states that her appetite is much better when she takes it. She also requests a refill on Levothyroxine 75mcg. Please advise. [facility] 2023-05-07 15:04:45 Copied from [facility] #[id number]. Topic: Clinical - Medical Advice >> May 07, 2023 3:03 PM Patient Remote Sensing Specialist wrote: Eden Shipley is a 78 year old female EC is calling in to check status of mirtazapine 7.5 mg tablet (REMERON) being sent to [facility]/pharmacy #[id number] AT [facility] Ec also has concerns regarding an Rx Pt is still not having very much of an appetite Please advise [phone] (home) DEE Roberts [facility] 2023-05-05 14:44:16 TRANSITIONAL CARE MANAGEMENT ASSESSMENT 05/05/2023 Eden Shipley [id number] Eden Shipley is a 78 year old /White female was admitted on 05/02/23 to [facility], [facility] MED SURG. She was discharged on 05/03/23 with discharge disposition of HR- Routine Discharge. Admitting Physician: Anita Echeverria Discharge Diagnosis: Acute hyponatremia Principal problem Linked Episodes Type: Episode: Status: Noted: Resolved: Last update: Updated by: TRANSITION OF CARE tcm Active 05/05/2023 05/05/2023 2:43 PM Loreta Ku, RN Comments: TCM [id number] outreach documentation: Discharge Assessment Chart Assessed: 05/05/23 TCM Outreach Completed: 05/05/23 Do you have a few minutes to speak with me about how you are doing at home?: Yes (Per daughter patient is doing allright) Discharge Instructions Do you understand your at-home instructions?: Yes Medications Have you filled your prescriptions and do you have them in your home? : See comments (Daughter stated she will pick up and delivery driver prescriptions today) Do you know how to take your medications?: Yes Supplies Did you receive applicable home medical supplies/equipment?: N/A Follow Up Appointment Has a follow up appointment been scheduled?: Yes Do you have any questions about your follow up appointments?: No Are you able to get to your appointment? Who will be taking you?: Yes (daughter) Home Health Assistance Has the home health nurse contacted you since you've been home?: N/A Survey - Recognition Is there anything you would like to share about your recent hospitalization, or anyone you would like to recognize?: No Do you have any suggestions for improvement?: No Do you have any other questions or concerns at this time?: No Future Appointments: Future Appointments Provider Department Dept Phone 05/12/2023 10:30 AM [facility] MOBILE MRI 1 (1.5T) [facility], [place] [phone] 05/15/2023 1:30 PM Sandrita Antony FNP [facility], [place] [phone] 05/15/2023 2:00 PM Sandrita Antony FNP [facility], [phone] 05/15/2023 3:30 PM [facility] MONITOR [facility] ROOM [facility] [phone] 05/18/2023 10:30 AM Laura Rodarte MD [facility] [phone] 06/24/2023 1:00 PM Gaye Hernandez MD [facility] [phone] 02/11/2024 3:30 PM Christina Wheatley MD [facility] [phone] DEE Ku RN [facility] 2023-05-05 14:30:33 Called patient, spoke to Daughter Darcy, she verified patients name and . She states the patient misplaced the medication but will try and look for it. She will then call her pharmacy to request more refills. Emmy Serra MA 05/05/2023 2:38 PM E POURER Emmy Serra MA [facility] 2023-05-05 14:20:37 I did prescribe this medication to the patient on 04/16 Was it stopped in the hospital or by Gastro or another provider? I just want to be sure if there was reason for it being stopped [facility] 2023-05-05 13:54:59 Routing to provider. E POURER Carlie Perez MA [facility] 2023-05-05 13:42:56 Copied from [facility] #[id number]. Topic: Clinical - Order >> May 05, 2023 1:41 PM Patient Remote Sensing Specialist wrote: Pt daughter called requesting for Benito to prescribe Remeron 7.5 mg for pt appetite. This is supposed to make her increase her appetite.Please advise. [facility]/pharmacy #[id number] E POURER Zhane Reinoso [facility] 2023-05-05 11:34:18 Images from the original note were not included. Results given to family member whom is cook islander speaking. All verbally understood. Re assured all over all mild-moderate results. Also per family pt does not own a bp machine. And she felt patient wouldn't be able to monitor herself. Gaye Hernandez MD P Cardiology Nurse Echocardiogram shows mild LVH, preserved systolic function. Mild to moderate aortic regurgitation/mild to moderate aortic stenosis noted which explains her murmur. Awaiting Holter monitor. Recommended to send us the blood pressure log. DEE Alfonso MA [facility] 2023-05-04 16:38:23 Copied from [facility] #[id number]. Topic: Clinical - Medical Advice >> May 04, 2023 4:37 PM Patient Remote Sensing Specialist wrote: Daughter Chayo calling to ask a question about [...] since she's not on her blood thinners. DEE Dacosta [facility] 2023-05-03 15:27:37 Adequate for discharage DEE Cruz RN [facility] 2023-05-03 02:37:29 Problem: Venous Thromboembolism, (actual or risk of) Goal: Absence of venous thromboembolism (Risk) Outcome: Progressing as expected Problem: Pain Goal: Control of pain at or below patient's documented comfort goal Outcome: Progressing as expected Goal: Reduction in pain sensation Outcome: Progressing as expected Problem: Skin integrity Impaired (Risk or Actual) Goal: Prevention of new skin breakdown Outcome: Progressing as expected DEE Dean RN [facility] 2023-05-02 18:34:56 Nurse Report Report given to Maddie CEJA at [facility]. Chief complaint, assessment findings, infusion verify and orders reviewed. Plan of care discussed with nurse. Obdulia De Santiago RN E POURER Obdulia De Santiago RN [facility] 2023-05-02 14:31:00 Patient's daughter states: "Since 3 weeks now she's been having abdominal pain. She also said that she's been shaking today probably because she hasn't eaten anything, she's not eating at all. She's scheduled for colonoscopy and upper GI on 05/06/2023 in [place]." Patient's daughter states that she's been having black stools before but not today; states she takes iron supplement. E POURER Maris Castro RN [facility] 2023-05-02 14:30:00 [facility] Emergency Department Note Patient Name: Eden Shipley Date of : 1945 78 year old female Treatment Room: Room/bed info not found Primary Care Physician: Sandrita Antony Patient Escorted by: Family [5] Mode of Arrival: Personal means [1] EMS Treatment Prior to ED Arrival: Travel and Exposure Screening: Symptoms Does patient have any of these symptoms?: (not recorded) Exposure Screening Has patient had contact with someone with a communicable disease in the last month?: (not recorded) Diseases exposed to:: (not recorded) Is Patient ?: (not recorded) Exposure Date: (not recorded) Chief Complaint: Chief Complaint Patient presents with Abdominal Pain Shakes History of Present Illness: HPI Eden Shipley is a 78 year old female with PMHx of HTN, HLD, thrombocytopenia presenting with abdominal pain for the past approximately 3 weeks that has been progressively worsening. Patient has not eaten anything at all and has lost weight and is "shaky". Patient is scheduled for a colonoscopy and upper GI on 05/06/23 in [place]. Patient reports black stools previously but no black stools today. Patient, of note, does take an iron supplement. Past Medical History/Immunizations: Past Medical History: Diagnosis Date Hiatal hernia HTN (hypertension) Hyperlipidemia Thrombocytosis on chemo pills Allergies: No Known Allergies Past Social History: Tobacco Use Former; Types: Cigarettes Smokeless Tobacco: Never used smokeless tobacco. Vaping Use Never used Alcohol Use Never. Drug Use Never. Sexual Activity Not currently sexually active; Partners: Male; Control/Protection: Post-menopausal. Past Surgical History: Past Surgical History: Procedure Laterality Date CHOLECYSTECTOMY Review of Systems: Review of Systems Constitutional: Positive for activity change, appetite change, fatigue and unexpected weight change. HENT: Negative for congestion and rhinorrhea. Eyes: Negative for photophobia and visual disturbance. Respiratory: Negative for apnea, cough, choking, chest tightness, shortness of breath, wheezing and stridor. Cardiovascular: Negative for chest pain, palpitations and leg swelling. Gastrointestinal: Positive for abdominal pain. Negative for abdominal distention, anal bleeding, blood in stool, constipation, diarrhea, nausea, rectal pain and vomiting. Genitourinary: Positive for difficulty urinating. Negative for dysuria. Neurological: Negative for dizziness, tremors, seizures, syncope, facial asymmetry, speech difficulty, weakness, light-headedness, numbness and headaches. Physical Exam: ED Triage Vitals [05/02/23 1431] Weight 62.1 kg (137 lb) Actual or estimated Estimated by patient/family report Height 1.575 m (5' 2") BP 133/74 Pulse 72 Resp 16 Temp 36.6 ?C (97.9 ?F) Temp source Oral SpO2 96 % Measured on Room air Physical Exam Vitals and nursing note reviewed. Constitutional: Appearance: She is well-developed. Eyes: General: Right eye: No discharge. Left eye: No discharge. Conjunctiva/sclera: Conjunctivae normal. Neck: Thyroid: No thyromegaly. Cardiovascular: Rate and Rhythm: Normal rate and regular rhythm. Heart sounds: Normal heart sounds. No murmur heard. No friction rub. No gallop. Pulmonary: Effort: No respiratory distress. Breath sounds: No stridor. No wheezing or rales. Chest: Chest wall: No tenderness. Abdominal: General: There is no distension. Palpations: Abdomen is soft. There is no mass. Tenderness: There is abdominal tenderness. There is no guarding or rebound. Hernia: No hernia is present. Comments: Generalized abdominal TTP Musculoskeletal: General: No tenderness or deformity. Cervical back: Neck supple. Skin: General: Skin is warm and dry. Coloration: Skin is not pale. Findings: No erythema. Neurological: General: No focal deficit present. Mental Status: She is alert and oriented to person, place, and time. Cranial Nerves: No cranial nerve deficit. Sensory: No sensory deficit. Motor: No weakness. Coordination: Coordination normal. Gait: Gait normal. Radiology: CT ABDOMEN PELVIS W CONTRAST Final Result CT ABDOMEN PELVIS W CONTRAST Ordering Provider: JOSE LIAO HISTORY: Abdominal pain, acute, nonlocalized COMPARISON: 04/10/2023 Technical quality: adequate TECHNIQUE: CT abdomen and pelvis with intravenous contrast. This examination was performed according to ALARA principles. FINDINGS: Lower Chest: Bibasilar atelectasis.. Liver: Unremarkable. Gallbladder and bile ducts: The gallbladder is surgically absent. There is unchanged severe dilation of the common bile duct up to 20 mm with mild intrahepatic biliary dilation.. Spleen: New focal hypoattenuation in the mid spleen measured 1.3 cm.. Pancreas: Unremarkable. Adrenals: Unremarkable. Kidneys and ureters: New wedge-shaped hypoattenuation within the midpole of the right kidney. No calculi or hydronephrosis.. Large hiatal hernia, unchanged without evidence of obstruction. The duodenum is unremarkable. The small bowel loops are nondilated. There is no evidence of bowel obstruction. Normal appendix. Colonic diverticulosis. Bladder: Circumferential wall thickening of the underdistended bladder.. Reproductive organs: Unremarkable. Lymph Nodes: Unremarkable. Peritoneum: Unremarkable. Vessels: Extensive atherosclerotic calcifications of the abdominal aorta with unchanged bulbous dilation of the infrarenal aorta. Abdominal wall: Unremarkable. Bones: multilevel degenerative changes in the spine.. IMPRESSION 1. Wedge-shaped hypoattenuation in the midpole of the right kidney concerning for nephritis. Correlate with urinalysis. 2. New wedge-shaped opacity in the mid pole of the spleen may represent focus of infarct. 3. Status post cholecystectomy with unchanged severe dilation of the common bile duct up to 20 mm. 4. Incidental findings are detected in the body report. RL: [id number] End of Report. Lab Results: Lab Results CBC WITH DIFF - Abnormal Result Value Ref Range WBC 16.67 (*) 4.30 - 11.10 10*3/?L RBC 3.30 (*) 3.93 - 5.25 10*6/?L HGB 14.0 11.6 - 15.0 g/dL HCT 39.7 35.7 - 45.2 % MCV 120.3 (*) 80.6 - 95.5 fL MCH 42.4 (*) 25.9 - 32.8 pg MCHC 35.3 (*) 31.6 - 35.1 g/dL RDW-SD 51.8 (*) 39.0 - 49.9 fL RDW-CV 11.6 (*) 12.0 - 15.5 % PLT 497 (*) 166 - 358 10*3/?L MPV 10.9 9.5 - 12.9 fL NRBC/100 WBC 0.0 0.0 - 10.0 /100 WBCs NRBC x10 3 <0.01 10*3/?L SEG % 89 (*) 33 - 76 % LYMPH % 9 (*) 14 - 54 % MONO % 2 0 - 4 % PLT ESTIMATE Increased (*) Normal COMP. METABOLIC PANEL (16962) - Abnormal NA 127 (*) 135 - 145 mmol/L K 4.2 3.5 - 5.0 mmol/L CL 95 (*) 98 - 108 mmol/L CO2 TOTAL 26 23 - 31 mmol/L AGAP 6 2 - 16 BUN 20 7 - 23 mg/dL GLUCOSE 95 70 - 110 mg/dL CREATININE 0.56 0.50 - 1.04 mg/dL TOTAL BILI 0.4 0.1 - 1.1 mg/dL CALCIUM 9.5 8.6 - 10.6 mg/dL T PROTEIN 7.7 6.3 - 8.2 g/dL ALBUMIN 4.5 3.5 - 5.0 g/dL ALK PHOS 115 34 - 122 U/L ALTv 103 (*) 5 - 35 U/L AST(SGOT) 65 (*) 13 - 40 U/L eGFR 92.4 mL/min/1.73m2 URINALYSIS - Abnormal APPEARANCE Clear Clear COLOR Straw (*) Yellow PH 7.0 4.8 - 8.0 SP GRAVITY 1.051 (*) 1.003 - 1.030 GLU U QUAL Normal Normal BLOOD Negative Negative KETONES Negative Negative PROTEIN Negative Negative UROBILIN Normal Normal BILIRUBIN Negative Negative NITRITE Negative Negative LEUK EDITA Negative Negative RBC/HPF 1 0 - 3 HPF WBC/HPF <1 0 - 5 HPF BACTERIA Few (*) Negative SQ EPITH 1 HPF LIPASE - Normal LIPASE 154 0 - 220 U/L EKG: If EKG completed, see Procedure Note. Orders and Treatments: Orders Placed This Encounter Procedures CT ABDOMEN PELVIS W CONTRAST Cbc with Diff Comp. Metabolic Panel (03135) Lipase Urinalysis Orders Placed This Encounter Medications iopamidol (ISOVUE 370-500 mL) injection 90 mL NaCl 0.9% (NS) bolus infusion 500 mL First Provider Eval: ED Events Date/Time Event User Comments 05/02/231454 Medical Screening Begins JOSE LIAO MD -- 05/02/231454 First Provider Evaluation JOSE LIAO MD -- ED COURSE Eden Shipley is a 78 year old female Diagnosis/Impression as of 05/03/23 0840 Abdominal pain, unspecified abdominal location Hypokalemia Splenic infarct Procedures: Procedures MDM: Medical Decision Making Eden Shipley is a 78 year old female [...] discussed with Dr. Echeverria and accepted for admission. Problems Addressed: Abdominal pain, unspecified abdominal location: acute illness or injury Hypokalemia: acute illness or injury Splenic infarct: undiagnosed new problem with uncertain prognosis Amount and/or Complexity of Data Reviewed Labs: ordered. Radiology: ordered. Risk Prescription drug management. Decision regarding hospitalization. Flowsheet Documentation: Scoring Tools: No data recorded Disposition/Condition: ED Disposition ED Disposition Admit - Inpatient Condition -- Comment -- Discharge Medications: Patient's Medications START taking these medications No medications on file CONTINUE taking these medications which have NOT CHANGED ACYCLOVIR 400 MG TABLET acyclovir 400 mg tablet AMOXICILLIN 875 MG TABLET Take 1 tablet by mouth 2 (two) times daily. ATORVASTATIN 40 MG TABLET atorvastatin 40 mg tablet TAKE 1 TABLET BY MOUTH EVERYDAY AT BEDTIME BRINZOLAMIDE-BRIMONIDINE (SIMBRINZA) 1-0.2 % OPHTHALMIC DROPS INSTILL 1 DROP INTO BOTH EYES TWICE A DAY CALCIUM CARBONATE 600 MG CALCIUM (1,500 MG) TABLET TAKE 1 TABLET BY MOUTH TWICE A DAY WITH MEALS CEFUROXIME 250 MG TABLET cefuroxime axetil 250 mg tablet CHOLECALCIFEROL, VITAMIN D3, 25 MCG (1,000 UNIT) TABLET TAKE 1 TABLET BY MOUTH EVERY DAY CITALOPRAM 40 MG TABLET Take 1 tablet by mouth daily. CLONAZEPAM 0.5 MG TABLET Take 0.5 mg by mouth 3 (three) times daily. CYCLOBENZAPRINE 10 MG TABLET cyclobenzaprine 10 mg tablet TAKE 1 ORAL TABLET 2 TIMES A DAY NEEDED FOR SPASMS DORZOLAMIDE-TIMOLOL 22.3-6.8 MG/ML OPHTHALMIC DROPS INSTILL 1 DROP INTO BOTH EYES TWICE A DAY DORZOLAMIDE-TIMOLOL, PF, 2-0.5 % DPET dorzolamide-timolol (PF) 2 %-0.5 % eye drops in a dropperette INSTILL 1 DROP INTO BOTH EYES TWICE A DAY ESCITALOPRAM OXALATE 20 MG TABLET escitalopram 20 mg tablet FERROUS SULFATE 325 MG (65 MG IRON) TABLET TAKE 1 TABLET BY MOUTH TWICE A DAY GAVILYTE-G 236-22.74-6.74 -5.86 GRAM SOLUTION TAKE 4,000 ML BY MOUTH ONCE NOW FOR 1 DOSE. HYDROCODONE-ACETAMINOPHEN 10-325 MG TABLET hydrocodone 10 mg-acetaminophen 325 mg tablet HYDROCODONE-ACETAMINOPHEN 7.5-325 MG PER TABLET HYDROXYUREA 500 MG CAPSULE Take 1 capsule by mouth daily LEVOTHYROXINE 75 MCG TABLET Take 75 mcg by mouth every morning. MIRTAZAPINE 7.5 MG TABLET Take 1 tablet by mouth at bedtime. MONTELUKAST 10 MG TABLET Take 1 tablet by mouth daily. OMEPRAZOLE 40 MG CAPSULE omeprazole 40 mg capsule,delayed release ONDANSETRON 4 MG TABLET TAKE 1 TABLET BY MOUTH EVERY 12 HOURS NEEDED PANTOPRAZOLE 40 MG EC TABLET pantoprazole 40 mg tablet,delayed release PROMETHAZINE 25 MG SUPPOSITORY INSERT 1 SUPPOSITORY RECTALLY EVERY 6 HOURS NEEDED FOR NAUSEA AND VOMITING RALOXIFENE 60 MG TABLET raloxifene 60 mg tablet TAKE 1 TABLET(S) EVERY DAY BY ORAL ROUTE START taking Modified Medications as Prescribed No medications on file STOP taking these medications No medications on file Follow-up: Electronically signed by: Jose Liao MD 05/03/23 0842 [facility] 2023-05-02 14:30:00 AdmissionCare Guideline: Abdominal Pain, Undiagnosed, Inpatient Based on the indications selected for the patient, the bed status of Inpatient was determined to be MET The following indications were selected as present at the time of evaluation of the patient: - Inability to maintain oral hydration (eg, needs IV fluid support) that persists after observation care AdmissionCare documentation entered by: Jose Liao [facility], edition, Copyright ? 2022 [facility] All Rights Reserved. [id number] [facility] 2023-05-02 14:30:00 AdmissionCare Guideline: Systemic / Infectious Condition, Inpatient Based on the indications selected for the patient, the bed status of Inpatient was determined to be MET The following indications were selected as present at the time of evaluation of the patient: - Severe electrolyte abnormalities requiring inpatient care, as indicated by ALL of the following: - Electrolyte abnormality is not at acceptable patient baseline (eg, treatment effect). - Severe abnormality, as indicated by 1 or more of the following: - Sodium less than 130 mEq/L (mmol/L) not corrected to near normal or near chronic baseline despite observation care treatment - Sodium less than 135 mEq/L (mmol/L) with severe finding requiring inpatient management (eg, Altered mental status, seizures) AdmissionCare documentation entered by: Anita Echeverria [facility], edition, Copyright ? 2022 [employer] All Rights Reserved. [id number]:00 [facility] 2023-05-01 08:15:31 Please review and fill if appropriate. Thanks! Last rx'd: 03/28/2023, 03/03/2023 Requested Prescriptions Pending Prescriptions Disp Refills CHOLECALCIFEROL, VITAMIN D3, 25 mcg (1,000 unit) tablet [Pharmacy Med Name: VITAMIN D3 25 MCG TABLET] 90 tablet 0 Sig: TAKE 1 TABLET BY MOUTH EVERY DAY Off-Protocol Failed - 04/30/2023 4:44 PM Failed - Medication not assigned to a protocol, forward to provider. Passed - Valid encounter within last 12 months Recent Visits Date Type Provider Dept 04/16/23 Office Visit Sandrita Antony [facility] 04/10/23 [facility] 03/03/23 Office Visit Sandrita Antony [facility] 02/09/23 Office Visit Sandrita Antony [facility] Showing recent visits within past 365 days and meeting all other requirements Future Appointments Date Type Provider Dept 05/15/23 Appointment Sandrit[facility] 05/15/23 Appointment Sandrita Antony [facility] Showing future appointments within next 365 days and meeting all other requirements FERROUS SULFATE 325 mg (65 mg iron) tablet [Pharmacy Med Name: FERROUS SULFATE 325 MG TABLET] 180 tablet 0 Sig: TAKE 1 TABLET BY MOUTH TWICE A DAY Endocrinology: Minerals - Iron Supplementation Passed - 04/30/2023 4:44 PM Passed - Valid encounter within last 12 months Recent Visits Date Type Provider Dept 04/16/23 Office Visit Sandrita Antony FNP [facility] 04/10/23 Nurse Visit Nurse, [facility] 03/03/23 Office Visit Sandrita Antony [facility] 02/09/23 Office Visit Sandrita Antony [facility] Showing recent visits within past 365 days and meeting all other requirements Future Appointments Date Type Provider Dept 05/15/23 Appointment Sandrit[facility]y [facility] 05/15/23 Appointment Sandrit[facility] Antony [facility] Showing future appointments within next 365 days and meeting all other requirements CALCIUM CARBONATE 600 mg calcium (1,500 mg) tablet [Pharmacy Med Name: CALCIUM 600 MG TABLET] 180 tablet 0 Sig: TAKE 1 TABLET BY MOUTH TWICE A DAY WITH MEALS Endocrinology: Minerals - Calcium Supplementation Passed - 04/30/2023 4:44 PM Passed - Valid encounter within last 12 months Recent Visits Date Type Provider Dept 04/16/23 Office Visit [facility]rita [facility] 04/10/23 Nurse Visit Nurse, [facility] 03/03/23 Office Visit Sandrita Antony FNP [facility] 02/09/23 Office Visit Sandrita Antony [employer] [facility] Showing recent visits within past 365 days and meeting all other requirements Future Appointments Date Type Provider Dept 05/15/23 Appointment Sandrita AntonyGIANFRAN[facility] 05/15/23 Appointment aSndrita Antony GIANFRANCO [facility] Showing future appointments within next 365 days and meeting all other requirements [facility] #[id number] [address] Gia Levi 05/01/2023 8:15 AM E POURER Gia Levi [facility] 2023-04-16 11:45:00 Images from the original note were not included. Venipuncture collection performed by clean technique on the left anticubitus. Total of 1 attempts were made. Slight pressure and a bandage/dressing were applied to the site(s). The patient experienced no complications. The following specimens were processed according to instructions and sent to [facility] laboratories per lab order on 04/16/2023 : LT BLUE SST 1 RED LAV 1 PPT DK GREEN (LiHep) DK GREEN (SodH) KOWALSKI DK BLUE (K2) DK BLUE (S) ACD Blood Culture NIPT/NTD [facility] 2023-04-10 19:25:49 Pt given printed and verbal discharge instructions regarding abdominal pain, colitis, encouraged hydration. 1 Prescriptions sent to pharmacy. Discussed ibuprofen and to take with food to avoid GI distress. Discussed antibiotic therapy and to take until all completed unless adverse reaction occurs - if occurs, discontinue medication and follow up with pcp/seek medical attention. Pt verbalized understanding of instructions, pt awake alert oriented, resp reg unlabored, skin w/d, color appropriate for race, moves all ext well,pt encouraged to follow up with pcp. Advised to seek medical attention for new/prolonged/worsening of symptoms, Symptoms improved. No adverse reaction to meds given in ER noted upon discharge. PIV d'cd, dressing to site, catheter in tact. Awake, alert oriented, resp reg unlabored, skin w/d, pt leaving amb with steady gait, in no apparent distress. E POURER Saarh Dos Santos RN [facility] 2023-04-10 14:40:55 Patient presents to ER C/o blood coming from rectum for weeks now. Also abdominal pain. Went to urgent care and was referred to ER. 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 Also abdominal pain. Went to urgent care and was referred to ER. Chief Complaint Patient presents with Rectal Bleeding History of present illness HPI 77 yo woman comes to the ED complaining of dark stools and history of anemia on iron pills. She reports mild lower abdominal pain. No fever, chills, nausea or vomiting. H/o HTN, HLD, hypothyroidism, and thrombocytosis. Denies bright red blood per rectum. BP 139/77 | Pulse 60 | Temp 36.8 ?C (98.2 ?F) (Oral) | Resp 16 | Ht 1.524 m (5') | Wt 62.1 kg (137 lb) | SpO2 96% | BMI 26.76 kg/m? Past Medical and Social History Past Medical History: Diagnosis Date Hiatal hernia HTN (hypertension) Hyperlipidemia Thrombocytosis on chemo pills Tetanus received in last 5 years: Unknown Social History Tobacco Use Smoking status: Former Types: Cigarettes Smokeless tobacco: Never Vaping Use Vaping Use: Never used Substance Use Topics Alcohol use: Never Drug use: Never Past Surgical History Past Surgical History: Procedure Laterality Date CHOLECYSTECTOMY Medications Medications iopamidol (ISOVUE 370-500 mL) injection 90 mL (90 mL Intravenous Given 04/10/23 1700) Allergies No Known Allergies Review of Systems Review of Systems Constitutional: Negative. HENT: Negative. Eyes: Negative. Respiratory: Negative. Cardiovascular: Negative. Gastrointestinal: Positive for abdominal pain. Genitourinary: Negative. Musculoskeletal: Negative. Skin: Negative. Neurological: Negative. Psychiatric/Behavioral: Negative. Endocrine: Endocrine negative Physical Exam BP 139/77 | Pulse 60 | Temp 36.8 ?C (98.2 ?F) (Oral) | Resp 16 | Ht 1.524 m (5') | Wt 62.1 kg (137 lb) | SpO2 96% | BMI 26.76 kg/m? Physical Exam Vitals and nursing note reviewed. Constitutional: General: She is not in acute distress. Appearance: She is well-developed and normal weight. She is not ill-appearing. HENT: Head: Normocephalic and atraumatic. Right Ear: External ear normal. Left Ear: External ear normal. Nose: Nose normal. No congestion or rhinorrhea. Mouth/Throat: Pharynx: No oropharyngeal exudate or posterior oropharyngeal erythema. Eyes: General: Right eye: No discharge. Left eye: No discharge. Conjunctiva/sclera: Conjunctivae normal. Pupils: Pupils are equal, round, and reactive to light. Cardiovascular: Rate and Rhythm: Normal rate and regular rhythm. Heart sounds: Normal heart sounds. No murmur heard. No friction rub. Pulmonary: Effort: Pulmonary effort is normal. No respiratory distress. Breath sounds: Normal breath sounds. No stridor. No wheezing or rhonchi. Abdominal: General: Bowel sounds are normal. There is no distension. Palpations: Abdomen is soft. There is no mass. Tenderness: There is abdominal tenderness (lower abdomen). Hernia: No hernia is present. Musculoskeletal: General: No swelling, tenderness, deformity or signs of injury. Normal range of motion. Cervical back: Normal range of motion and neck supple. No rigidity or tenderness. Skin: General: Skin is warm. Capillary Refill: Capillary refill takes less than 2 seconds. Coloration: Skin is not jaundiced or pale. Findings: No bruising or erythema. Neurological: General: No focal deficit present. Mental Status: She is alert and oriented to person, place, and time. Cranial Nerves: No cranial nerve deficit. Sensory: No sensory deficit. Motor: No weakness. Coordination: Coordination normal. Psychiatric: Mood and Affect: Mood normal. Behavior: Behavior normal. Thought Content: Thought content normal. Judgment: Judgment normal. Labs and Studies Lab Results CBC WITH DIFF - Abnormal Result Value Ref Range WBC 12.89 (*) 4.30 - 11.10 10*3/?L RBC 3.18 (*) 3.93 - 5.25 10*6/?L HGB 13.4 11.6 - 15.0 g/dL HCT 38.9 35.7 - 45.2 % MCV 122.3 (*) 80.6 - 95.5 fL MCH 42.1 (*) 25.9 - 32.8 pg MCHC 34.4 31.6 - 35.1 g/dL RDW-SD 56.4 (*) 39.0 - 49.9 fL RDW-CV 12.3 12.0 - 15.5 % PLT 447 (*) 166 - 358 10*3/?L MPV 10.0 9.5 - 12.9 fL NRBC/100 WBC 0.0 0.0 - 10.0 /100 WBCs NRBC x10 3 <0.01 10*3/?L GRAN MAT (NEUT) % 80.1 % IMM GRAN % 0.70 % LYMPH % 8.7 % MONO % 7.4 % EOS % 1.2 % BASO % 1.9 % GRAN MAT x10 3 (ANC) 10.32 (*) 1.88 - 7.09 10*3/uL IMM GRAN x10 3 0.09 (*) 0.00 - 0.06 10*3/uL LYMPH x10 3 1.12 (*) 1.32 - 3.29 10*3/uL MONO x10 3 0.95 (*) 0.33 - 0.92 10*3/uL EOS x10 3 0.16 0.03 - 0.39 10*3/uL BASO x10 3 0.25 (*) 0.01 - 0.07 10*3/uL COMP. METABOLIC PANEL (71982) - Abnormal NA 133 (*) 135 - 145 mmol/L K 4.8 3.5 - 5.0 mmol/L CL 100 98 - 108 mmol/L CO2 TOTAL 27 23 - 31 mmol/L AGAP 6 2 - 16 BUN 24 (*) 7 - 23 mg/dL GLUCOSE 101 70 - 110 mg/dL CREATININE 0.70 0.50 - 1.04 mg/dL TOTAL BILI 0.7 0.1 - 1.1 mg/dL CALCIUM 10.0 8.6 - 10.6 mg/dL T PROTEIN 8.0 6.3 - 8.2 g/dL ALBUMIN 4.7 3.5 - 5.0 g/dL ALK PHOS 77 34 - 122 U/L ALTv 24 5 - 35 U/L AST(SGOT) 34 13 - 40 U/L eGFR 88.1 mL/min/1.73m2 PROTHROMBIN TIME / INR - Abnormal PROTIME PATIENT 14.3 (*) 10.1 - 12.[address] ABDOMEN PELVIS W CONTRAST Final Result Exam: CT Abdomen and Pelvis With Contrast, 04/10/2023 4:15 PM. Ordering Physician: ERROL LOPES. History: Left lower quadrant pain. Comparison: None. Technique: CT abdomen and pelvis was obtained with intravenous contrast. CT was performed according to ALARA (As Low As Reasonably Achievable). Technical Quality: Adequate. Findings: CT Abdomen: Lower Thorax: Linear left basilar opacities represent either linear scar or subsegmental atelectasis. Heart size is normal. There is a large hiatal hernia, containing the proximal stomach. Organs: Liver, pancreas, spleen, and adrenal glands are normal. Biliary Tree: Gallbladder is surgically absent. Common duct measures up to 123 mm, tapering within the pancreatic head. Pancreatic duct is also dilated, measuring up to 5 mm in the pancreatic head. Urinary Tract: Kidneys are symmetric in size. There is no hydronephrosis or hydroureter. Peritoneal/Retroperitoneal: There is no free air or free fluid. There is no abdominal adenopathy. Vascular: Abdominal aorta is normal in caliber and demonstrates mild calcified plaque. Body Wall: Unremarkable. Gastrointestinal: Stomach is incompletely distended, limiting mucosal evaluation. Air-fluid levels are seen in non-dilated small bowel loops. There is no evidence of bowel obstruction. Appendix is normal. There is moderate colonic stool. There is mild colonic diverticulosis. No focal peridiverticular inflammatory changes are seen. There is rectosigmoid colonic wall thickening. Osseous: There are degenerative changes of the spine. CT Pelvis: Genitourinary: Urinary bladder is unremarkable. Uterus and adnexa are not enlarged. Peritoneal/Extraperitoneal: There is no pelvic free fluid. There is no pelvic adenopathy. Osseous/Soft Tissues: Unremarkable. IMPRESSION Impression: 1. Rectosigmoid colonic wall thickening, suggestive of colitis. 2. Colonic diverticulosis without evidence of diverticulitis. 3. Mildly dilated common and distal pancreatic ducts. Consider further evaluation with MRCP, as a pancreatic head or ampullary mass cannot be excluded. 4. Large hiatal hernia. 5. Prior cholecystectomy. RL: [id number] End of Report Orders and Treatments Orders Placed This Encounter Procedures CT ABDOMEN PELVIS W CONTRAST CBC WITH DIFF COMP. METABOLIC PANEL (28161) PROTHROMBIN TIME / INR Orders Placed This Encounter Medications iopamidol (ISOVUE 370-500 mL) injection 90 mL amoxicillin-clavulanate 875-125 mg per tablet Patient's Medications START taking these medications AMOXICILLIN-CLAVULANATE 875-125 MG PER TABLET Take 1 tablet by mouth every 12 (twelve) hours for 10 days. CONTINUE taking these medications which have NOT CHANGED ATORVASTATIN 40 MG TABLET atorvastatin 40 mg tablet TAKE 1 TABLET BY MOUTH EVERYDAY AT BEDTIME CALCIUM CARBONATE (CALCIUM 600) 600 MG CALCIUM (1,500 MG) TABLET Take 1 tablet by mouth 2 (two) times daily with meals. CHOLECALCIFEROL, VITAMIN D3, (VITAMIN D3) 25 MCG (1,000 UNIT) TABLET Take 1 tablet by mouth daily. CITALOPRAM 40 MG TABLET Take 1 tablet by mouth daily. CLONAZEPAM 0.5 MG TABLET Take 0.5 mg by mouth 3 (three) times daily. CYCLOBENZAPRINE 10 MG TABLET cyclobenzaprine 10 mg tablet TAKE 1 ORAL TABLET 2 TIMES A DAY NEEDED FOR SPASMS FERROUS SULFATE 325 MG (65 MG IRON) TABLET Take 1 tablet by mouth 2 (two) times daily. HYDROXYUREA 500 MG CAPSULE Take 1 capsule by mouth daily LEVOTHYROXINE 75 MCG TABLET Take 75 mcg by mouth every morning. MONTELUKAST 10 MG TABLET Take 1 tablet by mouth in the morning. START taking Modified Medications as Prescribed No medications on file STOP taking these medications No medications on file Procedures Procedures Evidence Care MDM & Notes Patient was evaluated for an emergency medical condition related to Rectal Bleeding . History and/or review of systems is limited by:History limited: None. Medical Decision Making 77 yo woman comes to the ED complaining of dark stools and feeling anemic for the last few days. She reports mild lower abdominal pain. No fever, chills, nausea or vomiting. H/o HTN, HLD, hypothyroidism, and thrombocytosis. BP (!) 142/82 | Pulse 65 | Temp 36.8 ?C (98.2 ?F) (Oral) | Resp 16 | Ht 1.524 m (5') | Wt 62.1 kg (137 lb) | SpO2 96% | BMI 26.76 kg/m? DDx include but not limited to: anemia, rectal bleeding, abdominal pain, diverticulitis, diverticulosis, etc. Plan: check labs, cbc, chemistry, PT/INR, CT abdomen and pelvis. Problems Addressed: Rectal bleeding: complicated acute illness or injury Amount and/or Complexity of Data Reviewed Labs: ordered. Decision-making details documented in ED Course. Radiology: ordered and independent interpretation performed. Risk OTC drugs. Prescription drug management. Risk Details: Normal Hgb, mild rectosigmoid colitis possibly. Start Augmentin, advised to f/u with PCP and return to the ED if worsening of symptoms. Patient understands and agree with the plan. Diagnosis/Impression as of 04/10/231913 Rectal bleeding Lower abdominal pain Case discussed with: Barriers & Social Determinants of Healthcare: none Limitations to patient care and compliance: none. History, physical exam findings, results of visit, differential diagnosis, medication regimens and plan of future care have been considered. Additional MDM may be found in the ED course. Differential diagnosis considered and final disposition made based on information gathered during evaluation and may not be completely ruled out or specifically listed. Vital signs were rechecked before final disposition and determined to be stable. Diagnoses ICD-10-CM 1. Lower abdominal pain R10.30 2. Rectal bleeding K62.5 Disposition and Condition ED Disposition ED Disposition Disch - Home Condition Stable Comment -- Patient's Medications START taking these medications AMOXICILLIN-CLAVULANATE 875-125 MG PER TABLET Take 1 tablet by mouth every 12 (twelve) hours for 10 days. CONTINUE taking these medications which have NOT CHANGED ATORVASTATIN 40 MG TABLET atorvastatin 40 mg tablet TAKE 1 TABLET BY MOUTH EVERYDAY AT BEDTIME CALCIUM CARBONATE (CALCIUM 600) 600 MG CALCIUM (1,500 MG) TABLET Take 1 tablet by mouth 2 (two) times daily with meals. CHOLECALCIFEROL, VITAMIN D3, (VITAMIN D3) 25 MCG (1,000 UNIT) TABLET Take 1 tablet by mouth daily. CITALOPRAM 40 MG TABLET Take 1 tablet by mouth daily. CLONAZEPAM 0.5 MG TABLET Take 0.5 mg by mouth 3 (three) times daily. CYCLOBENZAPRINE 10 MG TABLET cyclobenzaprine 10 mg tablet TAKE 1 ORAL TABLET 2 TIMES A DAY NEEDED FOR SPASMS FERROUS SULFATE 325 MG (65 MG IRON) TABLET Take 1 tablet by mouth 2 (two) times daily. HYDROXYUREA 500 MG CAPSULE Take 1 capsule by mouth daily LEVOTHYROXINE 75 MCG TABLET Take 75 mcg by mouth every morning. MONTELUKAST 10 MG TABLET Take 1 tablet by mouth in the morning. START taking Modified Medications as Prescribed No medications on file STOP taking these medications No medications on file Future Appointments In 2 weeks Sandrita Antony FNP [facility], [facility] In 10 months Christina Wheatley MD [facility] [employer] is used frequently and may produce errors. Promptly contact for obvious discrepancies. Errol Lopes MD, FACEP, FAAEM [facility] Author of Emergency and Internal Medicine [facility], [facility] #[id number] Errol Lopes MD 04/10/23 1916 [facility] 2023-03-28 13:32:42 Sending scripts [facility] 2023-03-10 15:53:58 Spoke with patient and informed to continue same dose on Thyroid and Iron to has improved. Patient had no further questions. [facility] Carlie Perez MA [facility] 2023-03-10 09:22:18 Attempted to call patient, no answer. [facility] 2023-03-10 09:12:26 I have updated the patients medication list from her list she has given us Please have patient continue current dose of thyroid medication, as her TSH is now improved. And the T4 is normal. Her anemai is also improved. So continue iron [facility] 2023-03-03 15:15:00 Images from the original note were not included. Venipuncture collection performed by clean technique on the left anticubitus. Total of 1 attempts were made. Slight pressure and a bandage/dressing were applied to the site(s). The patient experienced no complications. The following specimens were processed according to instructions and sent to [facility] laboratories per lab order on 03/03/2023 : LT BLUE SST 1 RED LAV 1 PPT DK GREEN (LiHep) DK GREEN (SodH) KOWALSKI DK BLUE (K2) DK BLUE (S) ACD Blood Culture NIPT/NTD [facility]
[2024-01-05] MEDS ORDERED: ONDANSETRON 4 MG/2 ML VIAL ONE (01:25)
[2024-01-05] MEDS ORDERED: MORPHINE 4 MG/ML SYR ONE ×2 (01:25→02:07)
[2024-01-05] MEDS ORDERED: CYCLOBENZAPRINE 10 MG TAB ONE (01:55)
[2024-01-05 01:59] LABS: Hemoglobin 17.2 g/dL (12.0-15.0); Red Cell Distribution Width 17.3 % (12.1-15.2)
[2024-01-05 02:04] LABS: PT Prothrombin Time 17.4 SECONDS (9.4-12.5); Protime INR 1.57
[2024-01-05 02:05] LABS: Absolute Basophils 0.7 K/uL (0-0.5); Absolute Eosinophils 0.4 K/uL (0-0.5); Absolute Lymphocytes (CBC) 0.9 K/uL (0.7-4.9); Absolute Monocytes 0.9 K/uL (0.1-1.3); Absolute Neutrophil 20.2 K/uL (1.8-8.0); Eosinophils % 1.7 % (0-4.4); Hematocrit 54.2 % (36.0-45.0); Lymphocytes % 3.8 % (15.3-44.8); MCH 30.6 pg (27.0-35.0); MCHC 31.7 g/dL (32.0-36.0); MCV 96.3 fL (80-100); MPV 8.1 fL (7.6-11.3); Monocytes % 3.9 % (3.3-12.3); Neutrophils % 87.6 % (41.7-73.7); Platelets 653 thou/uL (152-406); RBC Red Blood Cell Count 5.63 M/uL (3.86-4.86)
[2024-01-05] MEDS ORDERED: IBUPROFEN 400 MG TAB ONE (02:07)
[2024-01-05 02:36] LABS: Albumin 4.2 g/dL (3.4-5.0); Anion Gap 8.6 mEq/L (5.0-15.0); Bilirubin Direct 0.2 mg/dL (0-0.2); Bilirubin Indirect, Calculated 0.5 mg/dL (0.2-0.8); Bilirubin Total 0.7 mg/dL (0.2-1.0); Globulin 4.3 g/dL (2.3-3.5); Magnesium 2.2 mg/dL (1.6-2.4); Potassium 3.6 mEq/L (3.5-5.1); Protein, Total 8.5 g/dL (6.4-8.2); Troponin High Sensitivity 11.1 pg/mL (<58.9)
[2024-01-05 02:42] LABS: Band Neutrophils 12 % (0-1); Blood Morphology Comment NOT SEEN (NOT SEEN); Differential Total Cells Count 100; Eosinophils 2 % (0-3); Lymphocytes 2 % (15-42); Monocytes 3 % (0-10); Platelet Estimate ADEQ; Reactive Lymphocytes 1 %; Segmented Neutrophils 76 % (40-80)
--- NOTE | 2024-01-05 04:22 | RAD REPORT ---
PROCEDURE: CT Chest, Abdomen and Pelvis With Intravenous Contrast CLINICAL INDICATION: The patient is 78 years old and is Female; chest and back pain Bed Name: 4 TECHNIQUE: Axial computed tomography images of the chest, abdomen and pelvis with intravenous contrast. Sagitt al and coronal reformatted images were created and reviewed. This CT exam was performed using one or more of the following dose reduction techniques: automated exposure control, adjustment of the m A and/or kV according to patient size, and/or use of iterative reconstruction technique. COMPARISON: 09/07/2020 CT abdomen pelvis with contrast FINDINGS: CHEST: LUNGS: Trace biapical scarring. No mass. No consolidation. PLEURAL SPACE: Unremarkable No significant effusion. No pneumothorax. HEART: Severe proximal LAD coronary artery calcifications. No cardiomegaly. No significant pericardial effusion. MEDIASTINUM: Large hiatal hernia. ABDOMEN: LIVER: See below. GALLBLADDER AND BILE DUCTS: Cholecystectomy clips noted in the gallbladder fossa. No greater than e xpected ductal dilatation. 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 SPLEEN: Suspected splenosis/remote traumatic changes, not definitely changed from prior exam.. ADRENALS: Unremarkable No mass. KIDNEYS AND URETERS: Unremarkable No hydronephrosis. No solid mass. STOMACH AND BOWEL: Colonic diverticulosis without evidence of acute diverticulitis. No evidence of small or large bowel obstruction. No perienteric or pericolonic fat stranding or abnormal mucosal thickening. PELVIS: APPENDIX: No findings to suggest acute appendicitis. BLADDER: Unremarkable No mass. REPRODUCTIVE: Unremarkable as visualized. CHEST, ABDOMEN and PELVIS: INTRAPERITONEAL SPACE: Unremarkable No significant fluid collection. No free air. BONES/JOINTS: Unremarkable No acute fracture. No dislocation. SOFT TISSUES: Small fat-containing umbilical hernia. VASCULATURE: 2 small foci of hyperdense contrast material, slightly higher in density compared to t he adjacent intraluminal descending aortic contrast, demonstrated within the right anterior lateral wall of the descending thoracic aorta, suspicious for penetrating atherosclerotic ulcer or intramural hematoma. Associated asymmetric wall thickening along the anterior aspect of the descending thoracic aorta. Moderate descending thoracic and moderate to severe abdominal aortic calcified atherosclerosi s without aneurysmal dilatation. No central pulmonary arterial filling defects. LYMPH NODES: Unremarkable No enlarged lymph nodes. IMPRESSION: 1. 2 small foci of hyperdense contrast material, slightly higher in density compared to the adjacen t intraluminal descending aortic contrast, demonstrated within the thickened anterior wall of the descending thoracic aorta, suspicious for penetrating atherosclerotic ulcer or intramural hematoma (a cute aortic syndrome). Recommend emergent cardiothoracic surgery consultation. 2. Pancreatic ductal dilatation measuring up to 0.8 cm in diameter, progressed compared to 2020 exa m, with progression of extrahepatic and intrahepatic biliary ductal dilatation also demonstrated. Nonspecific in the setting of prior cholecystectomy, possible sphincterotomy. Consider further charac terization by MRCP or ERCP. 3. Otherwise, no acute abnormality within the abdomen or pelvis. 4. Large hiatal hernia. 5. Colonic diverticulosis without evidence of acute diverticulitis. 6. Additional nonacute findings as above. Dr. Obrien discussed these critical findings with Gonzalez Simmons MD [facility]:56 hours EST on 01/05/2024. Electronically signed by: Kash Obrien MD 01/05/2024 04:09 AM [facility] Due to temporary technical issues with the PACS/[employer] reporting system, reports are being mary lou d by the in-house radiologist without review as a courtesy to ensure prompt reporting the interpreting radiologist is fully responsible for the content of the report. Transcribed Date/Time: 01/05/2024 4:22 AM
--- NOTE | 2024-01-05 04:34 | ER ---
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 Coronavirus screen: Client denies travel out of the [place] in the last 14 days. At this time, the client does not indicate any symptoms associated with coronavirus-19. Ebola Screen: Patient negative for fever greater than or equal to 101.5 degrees Fahrenheit, and additional compatible Ebola Virus Disease symptoms Patient denies exposure to infectious person. Patient denies travel to an Ebola-affected area in the 21 days before illness onset. No symptoms or risks identified at this time. Initial Sepsis Screen: Does the patient meet any 2 criteria? No. Patient's initial sepsis screen is negative. Does the patient have a suspected source of infection? No. Patient's initial sepsis screen is negative. Risk Assessment: Do you want to hurt yourself or someone else? Patient reports no desire to harm self or others. Onset of symptoms was January 05, 2024. 01:26 Method Of Arrival: Wheelchair vc1 01:26 Acuity: NANCI 3 vc1 Historical: - Allergies: 01:30 No Known Allergies; vc1 - Home Meds: 01:30 None [Active]; vc1 - PMHx: 01:30 Arthritis; Depression; High Cholesterol; Thyroid problem; vc1 - PSHx: 01:30 None; vc1 - Immunization history:: Client reports having NOT received the Covid vaccine. - Infectious Disease History:: Denies. - Social history:: Smoking status: Patient denies any tobacco usage or history of. - Family history:: not pertinent. Screenin:31 [facility] ED Fall Risk Assessment (Adult) History of falling in the last 3 months, vc1 including since admission No falls in past 3 months (0 pts) Confusion or Disorientation No (0 pts) Intoxicated or Sedated No (0 pts) Impaired Gait No (0 pts) Mobility Assist Device Used No (0 pt) Altered Elimination No (0 pt) Score/Fall Risk Level 0 - 2 = Low Risk Oriented to surroundings, Maintained a safe environment, Educated pt \T\ family on fall prevention, incl call for assistance when getting out of bed. Abuse screen: Denies threats or abuse. Nutritional screening: No deficits noted. Tuberculosis screening: No symptoms or risk factors identified. Assessment: 03:03 Reassessment: Patient appears in no apparent distress at this time. Patient and/or bm8 family updated on plan of care and expected duration. Pain level reassessed. Patient is alert, oriented x 3, equal unlabored respirations, skin warm/dry/pink. Patient states feeling better. Patient states symptoms have improved. General: Appears in no apparent distress. uncomfortable, Behavior is calm, cooperative, appropriate for age. Pain: Complains of pain in back Pain does not radiate. Pain currently is 4 out of 10 on a pain scale. Pain began gradually. Neuro: No deficits noted. Level of Consciousness is awake, alert, obeys commands, Oriented to person, place, time, situation, Appropriate for age. Cardiovascular: Denies chest pain, Capillary refill < 3 seconds in bilateral fingers Patient's skin is warm and dry. Respiratory: Airway is patent Respiratory effort is even, unlabored, Respiratory pattern is regular, symmetrical, Breath sounds are clear bilaterally. GI: No signs and/or symptoms were reported involving the gastrointestinal system. : No signs and/or symptoms were reported regarding the genitourinary system. EENT: No signs and/or symptoms were reported regarding the EENT system. Derm: No signs and/or symptoms reported regarding the dermatologic system. Musculoskeletal: Range of motion: intact in all extremities, Reports pain in back. 04:32 Reassessment: Patient and/or family updated on plan of care and expected duration. Pain bm8 level reassessed. Patient is alert, oriented x 3, equal unlabored respirations, skin warm/dry/pink. Patient states feeling better. Patient states symptoms have improved. Pain: Complains of pain in back and chest Pain currently is 5 out of 10 on a pain scale. Vital Signs: 01:26 BP 149 / 103; Pulse 75; Resp 15; Temp 98.4; Pulse Ox 100% ; Weight 63.5 kg; Height 5 vc1 ft. 5 in. ; Pain 10; 03:03 BP 114 / 64; Pulse 75; Resp 17; Temp 98.4; Pulse Ox 98% ; Pain 4/10; bm8 04:32 BP 120 / 88; Pulse 91; Resp 20; Temp 98.4; Pulse Ox 95% ; Pain 5/10; bm8 01:26 Body Mass Index 23.30 (63.50 kg, 165.1 cm) vc1 01:26 Pain Scale: Adult vc1 03:03 Pain Scale: Adult bm8 04:32 Pain Scale: Adult bm8 Richardson Coma Score: 03:03 Eye Response: spontaneous(4). Motor Response: obeys commands(6). Verbal Response: bm8 oriented(5). Total: 15. 04:10 Eye Response: spontaneous(4). Motor Response: obeys commands(6). Verbal Response: sp4 oriented(5). Total: 15. ED Course: 01:09 Patient arrived in ED. gm2 01:10 Gonzalez Simmons MD is Attending Physician. sp4 01:28 Initial lab(s) drawn, by ED staff, sent to lab. Inserted saline lock: 22 gauge in left lg3 antecubital area, using aseptic technique. Blood collected. Flushed with 10 mL NS. 01:28 Basic Metabolic Panel Sent. lg3 01:28 CBC with Diff Sent. lg3 01:28 LFT's Sent. lg3 01:28 Magnesium Sent. lg3 01:28 NT PRO-BNP Sent. lg3 01:28 PT-INR Sent. lg3 01:28 Troponin HS Sent. lg3 01:30 Charito Yee, RN is Primary Nurse. lg3 01:30 Triage completed. vc1 01:31 Arm band placed on right wrist. vc1 01:33 Patient has correct armband on for positive identification. Placed in gown. Bed in low vc1 position. networker on. Pulse ox on. NIBP on. 01:41 XRAY Chest (1 view) In Process Unspecified. EDMS 03:03 No provider procedures requiring assistance completed. Patient maintains SpO2 bm8 saturation greater than 95% on room air. 03:03 Provided Education on:. Door closed. Noise minimized. Warm blanket given. Pillow given. bm8 Verbal reassurance given. Head of bed lowered. 03:14 CT Chest, Abdomen, Pelvis - W/Contrast In Process Unspecified. EDMS 05:25 Patient transferred, IV remains in place. lg3 Administered Medications: 01:34 Drug: morphine IVP or IV 4 mg IVP once over 4 mins Route: IVP; Infused Over: 4 mins; bm8 Site: left antecubital; 04:34 Follow up: Response: No adverse reaction bm8 01:34 Drug: Ondansetron IVP 4 mg IVP once; over 2 minutes Route: IVP; Site: left antecubital; bm8 04:34 Follow up: Response: No adverse reaction bm8 02:00 Drug: Cyclobenzaprine PO 10 mg PO once Route: PO; bm8 04:34 Follow up: Response: No adverse reaction bm8 02:10 Drug: morphine IVP or IV 4 mg IVP once over 4 mins Route: IVP; Infused Over: 4 mins; lg3 Site: left antecubital; 04:34 Follow up: Response: No adverse reaction bm8 02:10 Drug: Ibuprofen PO 400 mg PO once Route: PO; lg3 04:33 Follow up: Response: No adverse reaction bm8 05:09 Drug: Ativan IVP 0.5 mg IVP once Route: IVP; Site: left antecubital; lg3 05:24 Follow up: Response: No adverse reaction; Anxiety decreased lg3 05:24 Not Given (Hemodynamic Parameters): [id number] mcg/kg/min IV at calculated rate See lg3 Administration Instructions; (Standard concentration 2500 mg / 250 mL D5W); Recommended max rate 300 mcg/kg/min; Titrate 25 mcg/kg/min as often as every 5 minutes to achieve goal (see titration policy); Goal parameter HR less than 100 bpm. Medication: 03:03 VIS not applicable for this client. bm8 Outcome: 04:33 ER care complete, transfer ordered by . oswald 05:25 Transferred by ground EMS to [facility], Transfer form completed. lg3 05:25 Condition: stable 05:25 Instructed on the need for transfer, Demonstrated understanding of instructions, 05:25 Patient left the ED. lg3 Signatures: Dispatcher [employer] EDMS Charito Yee RN RN lg3 Zhane Lyon RN RN 1 Gonzalez Simmons MD MD sp4 Payal Daniels 2 Chow, Ricardo, RN RN bm8
--- NOTE | 2024-01-05 04:35 | EDPHYS ---
Physician Documentation [facility] Name: Suzy Shipley Age: 78 yrs Sex: Female : 1945 Arrival Date: 01/05/2024 Time: 01:07 Bed 4 Private MD: ED Physician Gonzalez Simmons HPI: 01/04 01:10 This 78 yrs old Female presents to ER via Unassigned with complaints of Chest sp4 Pain, Back Pain. 04:10 78 year old female presents with acute onset of upper back pain and chest pain at the sp4 same time. . Historical: - Allergies: 01:30 No Known Allergies; vc1 - Home Meds: :30 None [Active]; vc1 - PMHx: :30 Arthritis; Depression; High Cholesterol; Thyroid problem; vc1 - PSHx: 01:30 None; vc1 - Immunization history:: Client reports having NOT received the Covid vaccine. - Infectious Disease History:: Denies. - Social history:: Smoking status: Patient denies any tobacco usage or history of. - Family history:: not pertinent. ROS: 04:10 Constitutional: Negative for fever, chills, and weight loss, positive uppre back pain sp4 and positive chest pain 04:10 All other systems are negative, Exam: 04:10 Constitutional: This is a well developed, well nourished patient who is awake, alert, sp4 acutely uncomofortable appearing, non toxic . Head/Face: Normocephalic, atraumatic. Eyes: Pupils equal round and reactive to light, extra-ocular motions intact. Lids and lashes normal. Conjunctiva and sclera are not injected. Cornea within normal limits. Periorbital areas with no swelling, redness, or edema. ENT: Nares patent. No nasal discharge, no septal abnormalities noted. Tympanic membranes are normal and external auditory canals are clear. Oropharynx with no redness, swelling, or masses, exudates, or evidence of obstruction, uvula midline. Mucous membranes moist. Neck: Trachea midline, no thyromegaly or masses palpated, and no cervical lymphadenopathy. Supple, full range of motion without nuchal rigidity, or vertebral point tenderness. Chest/axilla: Normal chest wall appearance and motion. Nontender with no deformity. No lesions are appreciated. Cardiovascular: Regular rate and rhythm with a normal S1 and S2. No gallops, murmurs, or rubs. Normal PMI, no JVD. No pulse deficits. Respiratory: Lungs have equal breath sounds bilaterally, clear to auscultation and percussion. No rales, rhonchi or wheezes noted. No increased work of breathing, no retractions or nasal flaring. Abdomen/GI: Soft, with normal bowel sounds. No distension or tympany. No guarding or rebound. No evidence of tenderness throughout. Back: No spinal tenderness. No costovertebral tenderness. Skin: Warm, dry with normal turgor. Normal color with no rashes, no lesions, and no evidence of cellulitis. MS/ Extremity: Pulses equal, no cyanosis. Neurovascular intact. Full, normal range of motion. Neuro: Awake and alert, GCS 15, oriented to person, place, time, and situation. Cranial nerves II-XII grossly intact. Motor strength 5/5 in all extremities. Sensory grossly intact. Psych: Awake, alert, with orientation to person, place and time. Behavior, mood, and affect are within normal limits 04:10 ECG was reviewed by the Attending Physician. [id number] EKG Vital Signs: 01:26 BP 149 / 103; Pulse 75; Resp 15; Temp 98.4; Pulse Ox 100% ; Weight 63.5 kg; Height 5 vc1 ft. 5 in. ; Pain 10/10; 03:03 BP 114 / 64; Pulse 75; Resp 17; Temp 98.4; Pulse Ox 98% ; Pain 4/10; bm8 04:32 BP 120 / 88; Pulse 91; Resp 20; Temp 98.4; Pulse Ox 95% ; Pain 5/10; bm8 01:26 Body Mass Index 23.30 (63.50 kg, 165.1 cm) vc1 01:26 Pain Scale: Adult vc1 03:03 Pain Scale: Adult bm8 04:32 Pain Scale: Adult bm8 [place] Coma Score: 03:03 Eye Response: spontaneous(4). Motor Response: obeys commands(6). Verbal Response: bm8 oriented(5). Total: 15. 04:10 Eye Response: spontaneous(4). Motor Response: obeys commands(6). Verbal Response: sp4 oriented(5). Total: 15. MDM: 01:10 Medical Screening Exam initiated sp4 04:05 ED course: CLINICAL HISTORY: Chest pain. COMPARISON: XR Chest 03/18/2022. TECHNIQUE: XR sp4 CHEST 1 VIEW 01/05/2024 1:10 AM CLOTH FEEDER FINDINGS: Cardiac silhouette is normal in size. Lungs are clear without consolidation, atelectasis, mass or edema. There is no pleural effusion. There is no pneumothorax. There are no acute osseous findings. There is a moderate hiatal hernia. IMPRESSION: Clear lungs. Electronically signed by: Keaton Lucio MD 01/05/2024. 04:14 ED course: IMPRESSION: 1. 2 small foci of hyperdense contrast material, slightly higher sp4 in density compared to the adjacent intraluminal descending aortic contrast, demonstrated within the thickened anterior wall of the descending thoracic aorta, suspicious for penetrating atherosclerotic ulcer or intramural hematoma (acute aortic syndrome). Recommend emergent cardiothoracic surgery consultation. 2. Pancreatic ductal dilatation measuring up to 0.8 cm in diameter, progressed compared to 2020 exam, with progression of extrahepatic and intrahepatic biliary ductal dilatation also demonstrated. Nonspecific in the setting of prior cholecystectomy, possible sphincterotomy. Consider further characterization by MRCP or ERCP. 3. Otherwise, no acute abnormality within the abdomen or pelvis. 4. Large hiatal hernia. 5. Colonic diverticulosis without evidence of acute diverticulitis. 6. Additional nonacute findings as above. Dr. Obrien discussed these critical findings with Gonzalez Simmons MD via telephone at approximately 04:56 hours EST on 01/05/2024. Electronically signed by: Kash Obrien MD 01/05/2024 04:09 AM. 04:22 HEART Score: History: Moderately Suspicious (1), ECG: Normal (0), Age: > or = 65 years sp4 (2), Risk Factors: > or = 3 Risk factors for atherosclerotic disease (2), Troponin: < or = 1 x Normal Limit (0), Total Score = 5. Data reviewed: vital signs, nurses notes, old medical records, lab test result(s), EKG, radiologic studies, CT scan, plain films. 01/04 01:10 Order name: Basic Metabolic Panel; Complete Time: 04:05 sp4 01/04 01:10 Order name: CBC with Diff; Complete Time: 04:05 sp4 01/04 01:10 Order name: LFT's; Complete Time: 04:05 4 01/04 01:10 Order name: Magnesium; Complete Time: 04:05 4 01/04 01:10 Order name: NT PRO-BNP; Complete Time: 04:05 4 01/04 01:10 Order name: PT-INR; Complete Time: 04:05 sp4 01/04 01:10 Order name: Troponin HS; Complete Time: 04:05 4 01/04 02:09 Order name: Manual Differential; Complete Time: 04:05 EDMS 01/04 01:10 Order name: XRAY Chest (1 view) [facility] 01/04 01:57 Order name: CT Chest, Abdomen, Pelvis - W/Contrast 4 01/04 01:10 Order name: Cardiac monitoring; Complete Time: :20 4 01/04 01:10 Order name: EKG - Nurse/Tech; Complete Time: 01:19 4 01/04 01:10 Order name: IV Saline Lock; Complete Time: :28 [facility] 01/04 01:10 Order name: Labs collected and sent; Complete Time: : 4 01/04 01:10 Order name: O2 Per Protocol; Complete Time: 01:20 sp4 01/04 01:10 Order name: O2 Sat Monitoring; Complete Time: :20 sp4 EC:16 Rate is 72 beats/min. Rhythm is irregular, Normal Sinus Rhythm. QRS [place] is Normal. RI sp4 interval is normal. QRS interval is normal. QT interval is normal. No Q waves. T waves are Normal. No ST changes noted. Clinical impression: No evidence of ischemia. Interpreted by me. Reviewed by me. Administered Medications: 01:34 Drug: morphine IVP or IV 4 mg IVP once over 4 mins Route: IVP; Infused Over: 4 mins; bm8 Site: left antecubital; 04:34 Follow up: Response: No adverse reaction bm8 01:34 Drug: Ondansetron IVP 4 mg IVP once; over 2 minutes Route: IVP; Site: left antecubital; bm8 04:34 Follow up: Response: No adverse reaction bm8 02:00 Drug: Cyclobenzaprine PO 10 mg PO once Route: PO; bm8 04:34 Follow up: Response: No adverse reaction bm8 02:10 Drug: morphine IVP or IV 4 mg IVP once over 4 mins Route: IVP; Infused Over: 4 mins; lg3 Site: left antecubital; 04:34 Follow up: Response: No adverse reaction bm8 02:10 Drug: Ibuprofen PO 400 mg PO once Route: PO; lg3 04:33 Follow up: Response: No adverse reaction bm8 05:09 Drug: Ativan IVP 0.5 mg IVP once Route: IVP; Site: left antecubital; lg3 05:24 Follow up: Response: No adverse reaction; Anxiety decreased lg3 05:24 Not Given (Hemodynamic Parameters): [id number] mcg/kg/min IV at calculated rate See lg3 Administration Instructions; (Standard concentration 2500 mg / 250 mL D5W); Recommended max rate 300 mcg/kg/min; Titrate 25 mcg/kg/min as often as every 5 minutes to achieve goal (see titration policy); Goal parameter HR less than 100 bpm. Disposition: 04:34 Critical Care: not applicable. sp4 Disposition Summary: 01/05/24 04:33 Transfer Ordered Notes: Transfer Location: [facility] sp4 Reason: Higher level of care sp4 Condition: Stable sp4 Problem: new sp4 Symptoms: have improved sp4 Accepting Physician: Attending Vascular Surgeon (01/05/24 05:25) lg3 Diagnosis - Acute Aortic Syndrome, Penetrating atherosclerotic ulcer descending thoracic aorta sp4 with intramural hematoma Forms: - Medication Reconciliation Form sp4 - SBAR form sp4 Critical care time excluding procedures: 04:34 Critical care time: Bedside Care: 36 minutes, Consultation: 12 minutes, Family sp4 Intervention: 12 minutes. Total time: 60 minutes Signatures: Dispatcher [employer] EDCharito Varela RN RN lg3 Zhane Lyon, RN RN 1 Gonzalez Simmons MD MD sp4 Ricardo Chow, RN RN bm8 Corrections: (The following items were deleted from the chart) 01:11 01:11 BASIC METABOLIC PANEL+C.LAB.BRZ ordered. EDMS EDMS 01:11 01:11 CBC+H.LAB.BRZ ordered. EDMS EDMS 01:11 01:11 HEPATIC FUNCTION+C.LAB.BRZ ordered. EDMS EDMS 01:11 01:11 MAGNESIUM+C.LAB.BRZ ordered. EDMS EDMS 01:11 01:11 PROBNP+C.LAB.BRZ ordered. EDMS EDMS 01: 01:11 PROTIME (+INR)+COAG.LAB.BRZ ordered. EDMS EDMS : 01:11 Troponin High Sensitivity+C.LAB.BRZ ordered. EDMS EDMS : 01:11 Chest Single View+RAD.RAD.BRZ ordered. EDMS EDMS 01:57 01:57 Chest Abdomen Pelvis W Con+CT.RAD.BRZ ordered. EDMS EDMS 05:25 04:33 Attending Vascular Surgeon sp4 lg3
--- NOTE | 2024-01-05 05:00 | RAD REPORT ---
CLINICAL HISTORY: Chest pain. COMPARISON: XR Chest 03/18/2022. TECHNIQUE: XR CHEST 1 VIEW 01/05/2024 1:10 AM BALLET MASTER/MISTRESS FINDINGS: Cardiac silhouette is normal in size. Lungs are clear without consolidation, atelectasis, mass or demetrius ma. There is no pleural effusion. There is no pneumothorax. There are no acute osseous findings. There is a moderate hiatal hernia. IMPRESSION: Clear lungs. Electronically signed by: Keaton Lucio MD 01/05/2024 02:16 AM BALLET MASTER/MISTRESS RP Due to temporary technical issues with the PACS/[employer] reporting system, reports are being mary lou d by the in-house radiologist without review as a courtesy to ensure prompt reporting the interpreting radiologist is fully responsible for the content of the report. Transcribed Date/Time: 01/05/2024 5:00 AM
[2024-01-05] MEDS ORDERED: LORazepam 2 MG/ML VIAL ONE (05:04)
[2024-01-05 05:45] VITALS: TEMP 98.4
[2024-01-05 05:56] VITALS: BP 120/88; O2SAT 95
--- NOTE | 2024-01-05 12:16 | EKG ---
Test Date: 2024-01-05 Test Time: 01:16:57 Fingernail Sculptor: RV MEASUREMENT RESULTS: Intervals: Rate: 72 MA: 138 QRSD: 80 QT: 388 QTc: 424 Muse: P: 54 MA: 138 QRS: -64 T: 54 INTERPRETIVE STATEMENTS: Sinus rhythm with marked sinus arrhythmia Possible Left atrial enlargement Left anterior fascicular block Septal infarct, age undetermined Abnormal ECG Compared to ECG 09/06/2020 23:29:13 Myocardial infarct finding now present Sinus tachycardia no longer present ST (T wave) deviation no longer present Electronically Signed On 01-05-24 12:15:41 CLOTH WASHER BACK TENDER by Damion Meyers
== END 2024-01-05 05:25 | disposition short-term general hospital (02) ==
LOC: ER 01:07
DX: M31.4 Aortic arch syndrome [Takayasu] (principal); I70.25 Atherosclerosis of native arteries of other extremities with ulceration
CPT/HCPCS: 93005; 85025; 80048; 36415; 83735; 85610; 80076; 84484; 83880; 71260; 74177; 71045; 96375; 96374; 99285; Q9967; J2405